=== PATIENT | female | born 2000 | race Caucasian/White ===

== ENCOUNTER 2025-02-12 11:44 | Inpatient (IN) | payer MEDICAID, SELFPAY ==
[2025-02-12 11:44] VITALS: BP 131/97; PULSE 81; RESP 16; TEMP 36.6; O2SAT 100; BMI 21.9
[2025-02-12 12:12] LABS: Hematocrit 42.1 % (37-47); Hemoglobin 14.4 g/dL (12.0-15.0); Immature Granulocytes Count 0.020 X10^3/uL (0.0-0.0); Mean Corp Hgb Conc 34.2 g/dL (32-36); Mean Corpuscular Volume 88.3 fL (81-99); Mean Platelet Vol. 9.4 fl (6.2-12.0); NRBC Flagged by Analyzer 0 % (0-5); Platelet Count 245 K/mm3 (150-450); RBC Distribution Width CV 12.4 % (11.6-14.6); RBC Distribution Width SD 40.7 fl (35.1-43.9); Red Blood Count 4.77 M/mm3 (4.2-5.4); White Blood Count 5.8 K/mm3 (4.4-11.0)
[2025-02-12 12:47] LABS: Internal QC Validated? YES +Cl - CLEAR BKGD; Pregnancy, Serum, hCG Quali. NEGATIVE Negative; Record Kit Lot#, Serum Preg. 0000980607
[2025-02-12 12:49] LABS: AST(SGOT) 15 U/L (<=31); Alanine Aminotransfer ALT/SGPT 15 U/L (<=34); Albumin, Serum 4.5 g/dL (3.5-5.0); Alkaline Phosphatase 83 U/L (35-104); Anion Gap 10 (5-15); BUN 12 mg/dL (4-19); BUN/Creat Ratio 17.9 RATIO (10-20); Calcium,Total 9.3 mg/dL (7.6-11.0); Carbon Dioxide 22.8 mmol/L (21.0-32.0); Chloride 108 mmol/L (98-108); Estimated Creatinine Clearance 92.78 ml/min (50-250); Globulin 2.7 g/dL (2.2-4.2); Glucose 96 mg/dL (70-99); Potassium 3.9 mmol/L (3.3-5.1)
[2025-02-12 12:50] LABS: Barbiturate Urine NEGATIVE (< 200 ng/mL); Benzodiazepine Urine NEGATIVE (< 200 ng/mL); PCP Urine NEGATIVE (< 25 ng/mL); THC Urine PRESUMPTIVE POSITIVE (< 50 ng/mL)
[2025-02-12 12:50] LABS: Alcohol, Blood (Medical)-Serum < 10.1 mg/dL (<=10.0)
--- NOTE | 2025-02-12 13:11 | EX.ED.DYSGE1 ---
HPI History of Present Illness Chief Complaint: Substance Abuse Narrative Narrative: Chief complaint and HPI: 24-year-old female with past medical history of fentanyl abuse presents requesting fentanyl detox. Patient states she last used yesterday. She states she mostly smokes fentanyl however has used IV in the past. Has never been through rehab. Currently endorsing chills but denies any nausea, vomiting, chest pain, shortness of breath. Review of systems: See HPI Medications: As listed on the chart Allergies: As listed on the chart PFSH: Per chart Vital signs: As listed on the chart. Reviewed. Physical exam: Gen: A&O x3, NAD Head: Normocephalic, atraumatic Eyes: No sclera icterus, conjunctiva clear, PERRL ENT: Moist mucous membranes CV: RRR, no murmurs Resp: Lungs CTA BL, no w/r/c Musc: Full ROM, no deformity Skin: Warm, dry Neuro: Alert, oriented, grossly intact, sensation intact Psych: Cooperative, appropriate mood and affect PFSH PFS Home Medications ?Medication ?Instructions ?Recorded ?Last Taken ?Type NK 02/12/25 Unknown History Allergy/AdvReac Type Severity Reaction Status Date / Time No Known Allergies Allergy Verified 02/12/25 11:46 Social History Smoking Status: Current every day smoker tobacco type: e-cigarettes EXAM Physical Exam Const Vital Signs: 02/12/25 11:44 Temperature 98 F Temperature Source Oral Pulse Rate 81 Respiratory Rate 16 Blood Pressure 131/97 H Blood Pressure Mean 108 Pulse Ox 100 Oxygen Delivery Method Room Air MDM MDM MDM Narrative Medical decision making narrative: 24-year-old female with past medical history of fentanyl abuse presents requesting fentanyl detox. Patient states she last used yesterday. She states she mostly smokes fentanyl however has used IV in the past. Has never been through rehab. Currently endorsing chills but denies any nausea, vomiting, chest pain, shortness of breath. On presentation, patient no acute distress. Per triage protocol patient had labs already drawn. They resulted by the time I saw the patient. I agree with the labs that were drawn. CBC unremarkable. CMP unremarkable. Serum negative. UA positive for fentanyl, amphetamines, marijuana. Alcohol level unremarkable. Patient will warrant admission for fentanyl detox. Hospitalist consulted. Patient was discussed with the hospitalist who accepted admission for detox. Impression: 1. Polysubstance abuse 2. Requesting detox from fentanyl Lab Data Labs: Laboratory Results - last 24 hr 02/12/25 02/12/25 12:00 12:10 WBC 5.8 RBC 4.77 Hgb 14.4 Hct 42.1 MCV 88.3 MCH 30.2 MCHC 34.2 RDW Std Deviation 40.7 RDW Coeff of Amalia 12.4 Plt Count 245 MPV 9.4 Immature Gran % (Auto) 0.300 Neut % (Auto) 66.9 Lymph % (Auto) 24.2 Allen % (Auto) 5.0 Eos % (Auto) 2.6 Baso % (Auto) 1.0 Absolute Neuts (auto) 3.9 Absolute Lymphs (auto) 1.40 Nucleated RBC % 0 Sodium 141 Potassium 3.9 Chloride 108 Carbon Dioxide 22.8 Anion Gap 10 BUN 12 Creatinine 0.66 L Estim Creat Clear Calc 92.78 Est GFR (MDRD) Non-Af 124 BUN/Creatinine Ratio 17.9 Glucose 96 Calcium 9.3 Total Bilirubin 0.15 AST 15 ALT 15 Alkaline Phosphatase 83 Total Protein 7.2 Albumin 4.5 Globulin 2.7 Albumin/Globulin Ratio 1.6 Serum , Qual NEGATIVE Urine Opiates Screen NEGATIVE U Buprenorphine Qual NEGATIVE Ur Oxycodone Screen NEGATIVE Urine Methadone Screen NEGATIVE Urine Fentanyl Screen PRESUMPTIVE POSITIVE Ur Barbiturates Screen NEGATIVE Ur Phencyclidine Scrn NEGATIVE Ur Amphetamines Screen PRESUMPTIVE POSITIVE U Benzodiazepines Scrn NEGATIVE Urine Cocaine Screen NEGATIVE U Cannabinoids Screen PRESUMPTIVE POSITIVE Ethyl Alcohol < 10.1 Discharge Plan Triage Chief Complaint: Substance Abuse ED Provider: Jerman Rodríguez Dx/Rx/DC Orders Prescriptions: No Action NK Primary Care Provider: Care Physician,No Primary Referrals: NOT,DEFINED [Non-Staff, None] Print Language: Irish
--- OUTSIDE RECORDS SUMMARY | 2025-02-12 13:16 | XMS RPT_ITS | CCD ---
Author Organization [facility] Inform ion Partnership [facility] Care Team Providers Care [employer] Name Role Phone JUAN DIEGO GRAYSON Referring Unavaila SHADE Cody Admitting Unavailable RODRIGO MADRID Consulting Unavailable NO, PHYSICIAN Primary Care Unavailable ADITI CHIU Attending Unavailable Tia, Physician Primary Care Provider Unavailabl e Unavailable Primary Care Provider Unavailabl e Kevin DE GUZMAN, Chaparrita Primary Care Provider Kevin LIUC, Chaparrita Primary Care Provider Unav ailable Kevin DE GUZMAN, Chaparrita Primary Care Provider Unav ailable Pcp, None Primary Care Provider Unavailabl e Maria Fernanda XIONG POT LINING SUPERVISOR, Khris Primary Care Provider Maria Fernanda XIONG POT LINING SUPERVISOR, Khris Primary Care Provider KHRIS IRVING Primary Care Unavailable KALEY WOLFE Admitting Unavailable KHRIS IRVING Primary Care Unavailable ZAINAB LOZANO Attending Unavailable ZAINAB LOZANO Admitting Unavailable KHRIS IRVING Attending Unavailable KHRIS IRVING Referring Unavailable KHRIS IRVING Primary Care Unavailable ALAN NOLEN Attending Unavailable ALAN NOLEN Referring Unavailable PCP, NONE Primary Care Unavailable KHRIS IRVING Primary Care Unavailable Allergies Allergy Classification Reported Allergen(s) Allergy Type Date of Onset Reaction(s) Facility (18 sources) Penicillins; Translations: [Unknown] Propensity to adverse reactions to drug (disorder) 4 [facility] Repository Medications Current Medications Medication Drug Class(es) Dates Sig (Normalized) Sig (Original) acetaminophen 500 mg / diphenhydrAMINE hydrochloride 25 mg oral tablet (1 source) Histamine-1 Receptor Antagonist take 25-500 mg by mouth once daily as needed diphenhydramine-ac etaminophen (TYLENOL PM EXTRA STRENGTH) 25-500 MG TABS Take 1 tablet by mouth nightly as needed. 0 Active amoxicillin 500 mg oral capsule (2 sources) Penicillin-class Antibacterial Start: 10-21-2024 End: 10-21-2024 1,000 mg, Oral, NOW, 1 dose, On 10/21/24 at 2145, Indications: Streptococcal Pharyngitis Start: 10-21-2024 End: 10-30-2024 take 2 capsules by mouth once daily amoxicillin 500 MG capsule Indications: Strep pharyngitis Take 2 capsules by mouth daily for 9 days. 18 capsule 10/21/2024 10/30/2024 Active buprenorphine 8 mg / naloxone 2 mg sublingual tablet (4 sources) Partial Opioid Agonist, Opioid Antagonist Start: 04-30-2024 End: 05-03-2024 buprenorphine-naloxone (SUBOXONE) 8-2 MG SUBL Indications: Opiate withdrawal (HCC) Place 2 tablets under the tongue daily for 3 days. 6 tablet 04/30/2024 05/03/2024 Active Start: 04-30-2024 End: 04-30-2024 1 tablet, Sublingual, ONCE, 1 dose, On 04/30/24 at 1345 Start: 12-19-2023 End: 12-23-2023 buprenorphine-naloxone (SUBO XONE) 8-2 MG SUBL Indications: Opiate withdrawal (HCC) Place 2 tablets under the tongue daily for 4 days. 8 tablet 12/19/2023 12/23/2023 Active Buprenorphine HC l-Naloxone HCl (SUBOXONE) 8-[address] under the tongue. Active calcium carbonate 500 mg chewable tablet (1 source) calcium carbonat e (TUMS) 500 MG chewable tablet Take 500 mg by mouth as needed for Heartburn. 0 Active ciprofloxacin 500 mg oral tablet (2 sources) Quinolone Antimicrobial Start: 10-31-19 End: 11-05-19 20 take 1 tablet by mouth every twelve hours ciprofloxacin HCl (CIPRO) 500 MG tablet Take 1 (one) tablet (500 mg total) by mouth every 12 (twelve) hours for 5 days . 10 tablet 0 10/31/2019 11/05/2019 Active Start: 10-31-2019 End: 10-31-2019 ciprofloxacin HCl (CIPRO) ta blet 500 mg doxycycline hyclate 100 mg oral capsule (2 sources) Tetracycline-class Drug Start: 10-18-2021 End: 10-25-2021 take 1 capsule by mouth twice daily doxycycline (VIBRAMYCIN) 100 MG capsule Indications: Folliculitis Take 1 capsule by mouth two times a day for 7 days. 14 capsule 0 10/18/2021 10/25/2021 Active drospirenone 4 mg oral tablet (8 sources) Progestin Start: 03-23-2023 take 1 tablet by mouth once daily Drospirenone (SLYND) 4 MG TABS Indications: Encounter for surveillance of contraceptive pills Take 1 tablet by mouth daily. 28 tablet 12 03/23/2023 Active Start: 01-13-2022 take 1 tablet by antione th once daily Drospirenone (SLYND) 4 MG TABS Indications: Encounter for initial prescription of contraceptive pills Take 1 tablet by mouth daily. 28 tablet 12 01/13/2022 Active ferrous sulfate 325 mg delayed release oral tablet (1 source) Start: 12-11-2013 take 1 tablet by mouth three times daily at mealtime ferrous sulfate 325 (65 FE) MG EC tablet Take 1 tablet by mouth 3 times daily (with meals). 100 tablet 4 12/11/2013 Active glecaprevir 100 mg / pibrentasvir 40 mg oral tablet (5 sources) Start: 12-24-2021 take 3 tablets by mouth every twenty-four hours Glecaprevir-Pibren tasvir 100-40 MG TABS Indications: Hep C w/o coma, chronic (HCC) Take 3 tablets by mouth every 24 hours. 84 tablet 1 12/24/2021 Active 24 hr loratadine 10 mg / pseudoephedrine sulfate 240 mg extended release oral tablet (5 sources) alpha-Adrenergic Agonist take 10-240 mg by mouth once loratadine-pseudoe phedrine ER (CLARITIN-D 24 HOUR) 10-240 MG per tablet Take 1 tablet by mouth daily. 0 Active metroNIDAZOLE 500 mg oral tablet (1 source) Nitroimidazole Antimicrobial Start: 05-23-2024 take 1 tablet by mouth twice daily metroNIDAZOLE (FLAGYL) 500 MG tablet Indications: Trichomonas vaginitis Take 1 tablet by mouth two times a day. 14 tablet 05/23/2024 Active naloxone hydrochloride 40 mg/ml nasal spray (2 sources) Opioid Antagonist Start: 04-30-2024 Naloxone HCl (NARCAN) 4 MG/0.1ML LIQD nasal solution Use 1 spray into nostril as needed for opioid overdose may repeat 2 to 3 minutes if needed. 2 each 04/30/2024 Active Start: 12-19-2023 End: 12-19-2023 1 Box, Intranasal, PRIOR TO DISCHARGE, 1 dose, On 12/19/23 at 1818, Take home pack. Use as directed. Do NOT prime or test the device prior to administration. Each device contains a single dose. Do NOT attempt to reuse the naloxone nasal spray device. Vit-Fe Fumarate-FA ( MULTIVITAMIN) 27-0.8 MG TABS tablet (1 source) take 1 tablet by mouth once daily Vit-Fe Fumarate-FA ( MULTIVITAMIN) 27-0.8 MG TABS tablet Take 1 tablet by mouth daily. 0 Active sulfamethoxazole 800 mg / trimethoprim 160 mg oral tablet (3 sources) Dihydrofolate Reductase Inhibitor Antibacterial, Sulfonamide Antimicrobial Start: 022 take 1 tablet by mouth twice daily sulfamethoxazole-tri methoprim (BACTRIM DS) 800-160 MG per tablet Indications: Folliculitis Take 1 tablet by mouth two times a day. 10 tablet 0 11/15/2021 Active Completed/Discontinued Medications Medication Drug Class(es) Dates Sig (Normalized) Sig (Original) acetaminophen 325 mg oral tablet (1 source) Start: 10-28-2019 End: 10-31-2019 take 1 tablet by mouth every four hours as needed 650 mg, Oral, Every 4 hours PRN, mild pain, fever 100.4 F or greater, headaches, Starting 10/28/19 at 0448 aluminum hydroxide 40 mg/ml / magnesium hydroxide 40 mg/ml / simethicone 4 mg/ml oral suspension (1 source) Start: 10-28-2019 End: 10-31-2019 take 30 mL by mouth every four hours as needed 30 mL, Oral, Every 4 hours PRN, indigestion, Starting Thu10/28/19 at 0448 bisacodyl 10 mg rectal suppository (1 source) Stimulant Laxative Start: 10-28-2019 End: 10-31-2019 take 10 mg rectal route once daily as needed for constipation 10 mg, Rectal, Daily PRN, constipation, Starting Thu10/28/19 at 0448 Try oral medications first for constipation. Try rectal medication if oral meds are ineffective, not tolerated, or not ordered. buprenorphine 2 mg sublingual tablet (1 source) Partial Opioid Agonist Start: 12-19-2023 End: 12-19-2023 8 mg, Sublingual, NOW, 1 dose, On 12/19/23 at 1818, Caution: Do not crush or chew. cefTRIAXone 1000 mg injection (1 source) Cephalosporin Antibacterial Start: 10-30-2019 End: 10-31-2019 cefTRIAXone (ROCEPHIN) IVPB 1 g (premix) 1 ml ketorolac tromethamine 30 mg/ml injection (1 source) Nonsteroidal Anti-inflammatory Drug, Cyclooxygenase Inhibitor Start: 10-28-2019 End: 10-30-2019 take 15 mg intravenous route every six hours as needed ketorolac (TORADOL) injection 15 mg magnesium hydroxide 80 mg/ml oral suspension (1 source) Start: 10-28-2019 End: 10-31-2019 take 2400 mg by mouth once daily as needed for constipation 2,400 mg (30 mL), Oral, Daily PRN, constipation, For constipation., Starting Thu10/28/19 at 0448 ondansetron 4 mg disintegrating oral tablet (1 source) Serotonin-3 Receptor Antagonist Start: 04-30-2024 End: 04-30-2024 4 mg, Oral, NOW, 1 dose, On 04/30/24 at 1400 ondansetron (ZOFRAN-ODT) disintegrating tablet 4 mg (1 source) Start: 10-28-2019 End: 10-31-2019 take 1 tablet by mouth every six hours as needed ondansetron (ZOFRAN-ODT) disintegrating tablet 4 mg piperacillin 3000 mg / tazobactam 375 mg injection (2 sources) Penicillin-class Antibacterial, beta Lactamase Inhibitor Start: 10-28-2019 End: 10-30-2019 take 3.375 g intravenous route every eight hours Start: 10-28-2019 End: 10-28-2019 1000 ml sodium chloride 9 mg /ml injection (2 sources) Start: 10-29-2019 End: 10-29-2019 sodium chloride 0.9 % (NS) infusion - ADS Override Pull Start: 10-28-2019 End: 10-31-2019 take 100 mL intravenous route every hour 100 mL/hr, Intravenous, Continuous, Starting Thu10/28/19 at 0545 traZODone hydrochloride 50 mg oral tablet (1 source) Serotonin Reuptake Inhibitor Start: 10-28-2019 End: 10-31-2019 take 50 mg by mouth once daily as needed for sleep 50 mg, Oral, Nightly PRN, sleep, Starting Thu10/28/19 at 0448 [] May repeat times 1 in 30 minutes if still awake. 200 ml vancomycin 5 mg/ml injection (1 source) Glycopeptide Antibacterial Start: 10-28-2019 End: 10-30-2019 take 1000 mg intravenous route every twelve hours vancomycin (VANCOCIN) IVPB 1000 mg (premix) Problems Active Problems Problem Classification Problem Date Documented Date Episodic/Chronic Diseases of white blood cells (1 source) Leukocytosis; Translations: [Elevated white blood cell count, unspecified] Chronic Hepatitis (20 sources) Chronic hepatitis C; Translations: [Chronic viral hepatitis C] Onset: 11-06-2021 Chronic Immunizations and screening for infectious disease (7 sources) Contact with or exposure to other viral diseases; Translations: [Lab test negative for COVID-19 virus] Onset: 05-16-2024 Episodic Other upper respiratory infections (2 sources) Streptococcal sore throat; Translations: [Streptococcal pharyngitis] Onset: 10-21-2024 10-21-2024 Episodic Substance-related disorders (10 sources) History of clinical finding in subject; Translations: [History of methamphetamine use] Onset: 10-18-2021 10-18-2021 Chronic Substance-related disorders (2 sources) Opioid withdrawal; Translations: [Opioid use, unspecified with withdrawal] 12-19-2023 Episodic Past or Other Problems Problem Classification Problem Date Documented Date Episodic/Chronic Allergic reactions (16 sources) Environmental allergy; Translations: [Other allergy status, other than to drugs and biological substances] Onset: 10-18-2021 10-18-2021 Episodic Cancer of cervix (5 sources) Atypical squamous cells of undetermined significance on cervical Papanicolaou smear; Translations: [Atypical squamous cells of undetermined significance on cytologic smear of cervix (ASC-US)] Onset: 03-19-2022 03-19-2022 Episodic Early or threatened labor (17 sources) Premature labor; Translations: [ labor without delivery, unspecified trimester] Onset: 12-09-2013 12-09-2013 Episodic Genitourinary symptoms and ill-defined conditions (1 source) Unspecified symptoms and signs involving the genitourinary system; Translations: [Unspecified symptoms and signs involving the genitourinary system] Onset: 05-16-2024 Episodic Mood disorders (1 source) Mood disorders Onset: 03-23-2023 03-23-2023 Nausea and vomiting (1 source) Nausea; Translations: [Nausea] Onset: 04-30-2024 Episodic Nonmalignant breast conditions (6 sources) Breast lump; Translations: [Unspecified lump in the left breast, lower outer quadrant] Onset: 04-06-2023 Episodic Other screening for suspected conditions (not mental disorders or infectious disease) (2 sources) Patient encounter status; Translations: [Encounter for screening for cardiovascular disorders] Onset: 05-16-2024 Episodic Residual codes; unclassified (10 sources) History of clinical finding in subject; Translations: [Personal history of other specified conditions] Onset: 10-18-2021 Episodic Residual codes; unclassified (4 sources) Nicotine-filled electronic cigarette user; Translations: [Tobacco use] Onset: 03-19-2022 03-19-2022 Episodic Residual codes; unclassified (1 source) High risk heterosexual behavior; Translations: [High risk heterosexual behavior] Onset: 05-16-2024 Episodic Sexually transmitted infections (not HIV or hepatitis) (1 source) Cervical high risk human papillomavirus (HPV) DNA test positive; Translations: [Cervical high risk human papillomavirus (HPV) DNA test positive] Onset: 03-19-2022 Episodic Unclassified (1 source) Onset: 09-06-2022 09-06-2022 Urinary tract infections (2 sources) Pyelonephritis; Translations: [Pyelonephritis] Onset: 10-28-2019 10-28-2019 Episodic Results Test Name Value Interpretation Reference Range Facility GC AND CHLAMYDIA AMPLIFIED P ROBEon 10-21-2024 GC AND CHLAMYDIA AMPLIFIED PROBE GC AMPLIFIED NM Negative Negative CHLAMYDIA, DNA PROBE Negative Negative Normal Negative [facility] [place] [place] Comment on above: Performed By: #### 3 [id number] #### [facility] [address] Influenza virus A and B RNA and SARS-CoV-2 (COVID-19) N gene panel LILLIAN+probe (Resp)on 10-21-2024 FLUAV RNA LILLIAN+probe Ql (Nph) Negative Negative [facility] [place] [place] FLUBV RNA LILLIAN+probe Ql (Nph) Negative Negative [facility] [place] [place] Interpretation and review of laboratory results Normal [facility] [place] [place] SARS-CoV-2 (COVID-19) RNA LILLIAN+probe Ql (Resp) Negative Negative [facility] [place] [place] Comment on above: Negative results do not preclude SARS-CoV-2 infection and should not be used as the sole basis for treatment or other patient management decisions. Negative results must be combined with clinical observations, patient history, and epidemiological information. Results are for the simultaneous detection and differentiation of SARS-CoV-2, influenza A virus, influenza B virus and RSV RNA which are generally detectable in upper respiratory specimens during the acute phase of infection. [facility] [place] [place] POCT ED/FC/SURG Urine PregOr dered By: Krystal Graham on 10-21-2024 Beta HCG ( test) Ql (U) Negative [facility] [place] [place] Interpretation and review of laboratory results Normal [facility] [place] [place] Facility Worker Acceptable Yes [facility] STREP Aon 10-21-2024 STREP A Not detected Abnormal Not Detected [facility] [place] [place] Comment on above: Performed By: #### 3 [id number] #### [facility] [id number] [place] [address] Streptococcus.beta-hemolytic Org specific cx Ql (Unsp spec)Ordered By: Background Lab on 10-21-2024 Interpretation and review of laboratory results Abnormal [facility] [place] [place] S. pyogenes DNA LILLIAN+probe Ql (Throat) Detected Abnormal Not Detected [facility] TRICHOMONAS AMPLIFIED PROBEo n 10-21-2024 TRICHOMONAS AMPLIFIED PROBE Negative Normal Negative [facility] [place] [place] Comment on above: Performed By: #### 3 [id number] #### [facility] [address] [place] [address] [place] WAIVED SARS COV-2, FLU A, FL U B (PCR) PANELon 10-21-2024 SARS-CoV-2 (COVID-19) RNA LILLIAN+probe Ql (Unsp spec) SARS-COV-2, PCR Negative Negative Negative results do not preclude SARS-CoV-2 infection and should not be used as the sole basis for treatment or other patient management decisions. Negative results must be combined with clinical observations, patient history, and epidemiological information. Results are for the simultaneous detection and differentiation of SARS-CoV-2, influenza A virus, influenza B virus and RSV RNA which are generally detectable in upper respiratory specimens during the acute phase of infection. FLU A, PCR Negative Negative FLU B, PCR Negative Negative Normal Negative [email or web address] Comment on above: Performed By: #### L [id number] #### [facility] [address] [place] [address] IMAGE GUIDED PAP WITH GC AND CHLAMYDIA, TRICHOMONAS, AND HPVon 05-16-2024 IMAGE GUIDED PAP WITH GC AND CHLAMYDIA, TRICHOMONAS, AND HPV Comment NEGATIVE FOR INTRAEPITHELIAL LESION OR MALIGNANCY. THIS SPECIMEN WAS RESCREENED PART OF OUR LITIGATION LEGAL ASSISTANT PROGRAM. Comment Satisfactory for evaluation. Endocervical and/or squamous metaplastic cells (endocervical component) are present. Areas of partially obscuring blood are present. Comment Piper Pyle, Painter And Body Work (ASCP) Comment Tigre Flores Pain[employer] Body Work (ASCP) . Comment The Pap smear is a screening test designed to aid in the detection of premalignant and malignant conditions of the uterine cervix. It is not a diagnostic procedure and should not be used as the sole means of detecting cervical cancer. Both false-positive and false-negative reports do occur. Comment This liquid based ThinPrep(R) pap test was screened with the use of an image guided system. Negative This nucleic acid amplification test detects fourteen high-risk HPV types (16,18,31,33,35,39,4 5,51,52,56,58,59,66, 68) without differentiation. Negative Negative Positive Abnormal Negative [email or web address] Comment on above: Order Comment: Speci men Comment: LMP / Prev Treat...ENT=[id number];None Specimen Comment: No. of containers..01 ThinPrep Vial Performed at: - [facility] [id number] Plier Worker: Meredith Godoy MD, Phone: [phone] Performed at: 02 - [facility] [address] [id number] Plier Worker: Meredith Godoy MD, Phone: [phone] Performed By: #### L [id number] #### [facility] [address] [place] [address] URINE CULTUREon 05-16-2024 Bacteria identified Cx Nom (U) URINE CULTURE, ROUTINE No growth at 2 days Normal [facility] Comment on above: Performed By: #### [id number] #### [facility] [address] US Breast - left limitedOrde red By: Gorge Rome on 03-26-2023 Interpretation and review of laboratory results Abnormal [email or web address] Work Phone: [facility] Work Phone: US Breast - left limitedon 1 05-26-2022 1. Enlarging nodule in the left breast 5-o'clock position 5 cm from the nipple has features suggesting a polylobulated fibroadenoma, but with increase in size and clinical progression would recommend biopsy, BI-RADS 4A. 2. A second nodule not previously scanned at the 5-o'clock position 5 cm from the nipple, slightly more peripheral to the dominant nodule also has features suggesting a fibroadenoma and this can be followed. This is not clinically palpable. BIRADS: 4A - Low suspicion for malignancy. Findings demonstrate a suspicious abnormality. Biopsy should be considered at this time. ACR BI-RADS 4: Suspicious. Subset Category 4A: Low suspicion for malignancy. Biopsy AGNES EXAM: US BREAST LEFT LIMITED. HISTORY: Unspecified lump in the left breast, lower outer quadrant. Mastodynia. COMPARISON: 01/30/2022. FINDINGS: Patient indicates increasing size of a palpable abnormality in the 5-o'clock left breast 5 cm from the nipple. On physical examination, there is a polylobulated smooth rubbery and mobile nodule in the 5-o'clock position of the left breast 5 cm from nipple measuring up to 1.5 cm in diameter by palpation. The ultrasound shows a polylobulated wider than tall solid mass which now measures 2.8 x 2.4 x 1.1 cm, as compared to 2.2 x 2.0 x 0.8 cm previously. A second noncontiguous nodule is seen more peripherally in the 5-o'clock left breast measuring 1.2 x 0.9 x 0.3 cm, also suggestive of fibroadenoma but not previously scanned. This is not clinically palpable. [facility] Study observation (narrative) [facility] HCV Quant by Vasile 03-19-20 22 HCV RNA LILLIAN+probe Qn Not detected IU/mL Control de Pacientes HCV Test Info Comment [facility] Comment on above: The quantitative ran ge of this assay is 15 IU/mL to 100 million IU/mL. Performed at: - [address] [id number] Plier Worker: Fili Koo MD, Phone: [phone] [facility] CBC with differentialOrdered By: Background Lab on 03-18-2022 Absolute Immature Granulocytes 0.[address] [facility] [place] [place] Age [Time] 89.9 fL 80.2 - [address] [facility] [place] [place] Age [Time] 30.9 pg 27.5 - 32.[address] [facility] [place] [place] Age [Time] 34.4 g/dL 30.7 - 35.5 g/dL [facility] [place] [place] B. burgdorferi IgM IB Ql (CSF) 21.2 % [facility] Basophils (Bld) [#/Vol] 0.1 10*3/uL [facility] Basophils/100 WBC (Body fld) 0.7 % [facility] Eosinophils (Bld) [#/Vol] 1.6 10*3/uL [facility] Eosinophils (Bld) [#/Vol] 0.5 10*3/uL [facility] Eosinophils (Bld) [#/Vol] 0.1 10*3/uL [facility] Eosinophils/100 WBC (Bld) 1.7 % [facility] Erythrocyte distribution width (RBC) [Ratio] 12.6 % 11.5 - 14.5 % [facility] Hematocrit (Bld) [Volume fraction] 41.0 % 33.6 - 46.8 % [facility] Hexanoylglycine (U) [Moles/Vol] 14.1 g/dL 11.7 - 15.8 g/dL [facility] [place] [place] Immature granulocytes/100 WBC (Bld) 0.3 % [facility] Monocytes/100 WBC (Bld) 6.9 % [facility] Neurotensin (P) [Mass/Vol] 69.2 % [facility] [place] [place] Neutrophils (Bld) [#/Vol] 5.3 10*3/uL [facility] Nucleated RBC/100 WBC (Bld) [Ratio] 0.0 % 0.0 - 1.0 % [facility] [place] [place] Platelets (Bld) [#/Vol] 246 10*3/uL [facility] RBC (Bld) [#/Vol] 4.56 10*6/uL [facility] WBC LM Ql (Sput) 7.7 [facility] Comprehensive metabolic 2000 panelon 03-18-2022 Albumin (Syn fld) [Mass/Vol] 4.5 g/dL 3.5 - 5.0 g/dL [facility] [place] [place] Aldosterone (U) [Mass/Vol] 59 U/L 24 - 126 U/L [facility] [place] [place] ALT [Catalytic activity/Vol] 16 U/L 4 - 35 U/L [facility] [place] [place] Anion gap [Moles/Vol] 9 mmol/L 8 - 12 mmol/L [facility] [place] [place] AST [Catalytic activity/Vol] 21.9 U/L 3 - 47 U/L [facility] [place] [place] Bilirubin [Mass/Vol] 0.6 mg/dL 0.2 - 1 .6 mg/dL [facility] [place] [place] Calcium [Mass/Vol] 9.1 mg/dL 8.4 - 10. 4 mg/dL [facility] [place] [place] Calcium hydrogen phosphate dihydrate crystals LM Ql (Urine sed) 15.2 mg/dL 8 - 26 mg/dL [facility] [place] [place] Chloride [Moles/Vol] 106 mmol/L 96 - 10 9 mmol/L [facility] [place] [place] CMV IgM IF Ql 22.2 mmol/L 22 - 30 mmol/L [facility] Creatinine [Mass/Vol] 0.65 mg/dL 0.52 - 1.04 mg/dL [facility] [place] [place] GFR/1.73 sq M.predicted MDRD (S/P/Bld) [Vol rate/Area] - PINF [facility] [place] [place] Comment on above: eGFR calculation bas ed on the Chronic Kidney Disease Epidemiology Collaboration (CKD-EPI) equation refit without adjustment for race. Categories in Chronic Kidney Disease (CKD) Category: GFR(mL/min/1.73m^2) Interpretation: G1* 90 or greater Normal or high G2* 60-89 Mild decrease G3a 45-59 Mild to moderate decrease G3b 30-44 Moderate to severe decrease G4 15-29 Severe decrease G5 14 or less Kidney failure *G1&G2: In the absence of evidence of kidney damage, neither GFR category G1 nor G2 fulfill the criteria for CKD Kidney Int Suppl.2013;3:1-150 Glucose [Mass/Vol] 123.9 mg/dL High 65 - 100 mg/dL G [facility] Interpretation and review of laboratory results Abnormal [facility] [place] [place] Potassium [Moles/Vol] 3.8 mmol/L 3.6 - 5.1 mmol/L [facility] [place] [place] Protein [Mass/Vol] 7.1 g/dL 6.3 - 8.2 g/dL [facility] Sodium [Moles/Vol] 137.1 mmol/L 135 - 147 mmol/L [facility] HCV Quant by Vasile 02-14-20 HCV RNA LILLIAN+probe Qn Not detected IU/mL [facility] HCV Test Info Comment [facility] [place] [place] Comment on above: The quantitative ran ge of this assay is 15 IU/mL to 100 million IU/mL. Performed at: - [address] [id number] Plier Worker: Fili Koo MD, Phone: [phone] [facility] CBC with differentialOrdered By: Background Lab on 02-11-2022 Absolute Immature Granulocytes 0.[address] [facility] [place] [place] Age [Time] 90.2 fL 80.2 - [address] [facility] [place] [place] Age [Time] 31.5 pg 27.5 - 32.[address] [facility] [place] [place] Age [Time] 35.0 g/dL 30.7 - 35.5 g/dL [facility] [place] [place] B. burgdorferi IgM IB Ql (CSF) 12.7 % [facility] [place] [place] Basophils (Bld) [#/Vol] 0.0 10*3/uL [facility] [place] [place] Basophils/100 WBC (Body fld) 0.3 % [facility] [place] [place] Eosinophils (Bld) [#/Vol] 1.5 10*3/uL [facility] [place] [place] Eosinophils (Bld) [#/Vol] 1.0 10*3/uL High [facility] [place] [place] Eosinophils (Bld) [#/Vol] 0.1 10*3/uL [facility] [place] [place] Eosinophils/100 WBC (Bld) 1.2 % [facility] [place] [place] Erythrocyte distribution width (RBC) [Ratio] 11.8 % 11.5 - 14.5 % [facility] [place] [place] Hematocrit (Bld) [Volume fraction] 43.2 % 33.6 - 46.8 % [facility] [place] [place] Hexanoylglycine (U) [Moles/Vol] 15.1 g/dL 11.7 - 15.8 g/dL [facility] [place] [place] Immature granulocytes/100 WBC (Bld) 0.4 % [facility] [place] [place] Interpretation and review of laboratory results Abnormal [facility] [place] [place] Monocytes/100 WBC (Bld) 7.9 % G [facility] Neurotensin (P) [Mass/Vol] 77.5 % [facility] [place] [place] Neutrophils (Bld) [#/Vol] 9.3 10*3/uL [facility] Nucleated RBC/100 WBC (Bld) [Ratio] 0.0 % 0.0 - 1.0 % [facility] [place] [place] Platelets (Bld) [#/Vol] 243 10*3/uL [facility] [place] [place] RBC (Bld) [#/Vol] 4.79 10*6/uL [facility] WBC LM Ql (Sput) 12.0 [facility] Comprehensive metabolic 2000 panelon 02-11-2022 Albumin (Syn fld) [Mass/Vol] 4.9 g/dL 3.5 - 5.0 g/dL [facility] [place] [place] Aldosterone (U) [Mass/Vol] 112 U/L 24 - 126 U/L [facility] [place] [place] ALT [Catalytic activity/Vol] 16 U/L 4 - 35 U/L [facility] [place] [place] Anion gap [Moles/Vol] 14 mmol/L High 8 - 12 mmol/L [facility] [place] [place] AST [Catalytic activity/Vol] 21.7 U/L 3 - 47 U/L [facility] [place] [place] Bilirubin [Mass/Vol] 0.6 mg/dL 0.2 - 1 .6 mg/dL [facility] [place] [place] Calcium [Mass/Vol] 9.6 mg/dL 8.4 - 10. 4 mg/dL [facility] [place] [place] Calcium hydrogen phosphate dihydrate crystals LM Ql (Urine sed) 11.7 mg/dL 8 - 26 mg/dL [facility] [place] [place] Chloride [Moles/Vol] 103 mmol/L 96 - 10 9 mmol/L [facility] [place] [place] CMV IgM IF Ql 23.4 mmol/L 22 - 30 mmol/L [facility] Creatinine [Mass/Vol] 0.67 mg/dL 0.52 - 1.04 mg/dL [facility] [place] [place] GFR/1.73 sq M.predicted MDRD (S/P/Bld) [Vol rate/Area] - PINF [facility] [place] [place] Comment on above: eGFR calculation bas ed on the Chronic Kidney Disease Epidemiology Collaboration (CKD-EPI) equation refit without adjustment for race. Categories in Chronic Kidney Disease (CKD) Category: GFR(mL/min/1.73m^2) Interpretation: G1* 90 or greater Normal or high G2* 60-89 Mild decrease G3a 45-59 Mild to moderate decrease G3b 30-44 Moderate to severe decrease G4 15-29 Severe decrease G5 14 or less Kidney failure *G1&G2: In the absence of evidence of kidney damage, neither GFR category G1 nor G2 fulfill the criteria for CKD Kidney Int Suppl.2013;3:1-150 Glucose [Mass/Vol] 77.0 mg/dL 65 - 100 mg/dL [facility] Interpretation and review of laboratory results Abnormal [facility] Potassium [Moles/Vol] 4.0 mmol/L 3.6 - 5.1 mmol/L [facility] Protein [Mass/Vol] 8.1 g/dL 6.3 - 8.2 g/dL [facility] Sodium [Moles/Vol] 139.9 mmol/L 135 - 147 mmol/L [facility] US Breast - left limitedOrde red By: Chapincito Soto on 01-30-2022 Interpretation and review of laboratory results Abnormal [employer] Work Phone: [employer] Work Phone: US Breast - left limitedon 1 Palpable lump correlates with a solid mass with generally benign imaging features suggestive of a fibroadenoma. As a precaution, 6 month follow-up is recommended to ensure stability. Continued clinical follow-up. BI-RADS 3 - Findings are probably benign. A short interval followup is recommended in 6 months. OVERALL ASSESSMENT- PROBABLY BENIGN A letter of notification will be sent to the patient regarding the results. ACR BI-RADS 3: Probably Benign Ultrasound in 6 Months [facility] EXAM: US BREAST LEFT LIMITED HISTORY: Unspecified lump in the left breast, lower outer quadrant: Palpable lump lower outer left breast. Family history of breast cancer including a paternal grandmother. COMPARISON: None. TECHNIQUE: Targeted ultrasound left breast included sanchez scale and color Doppler evaluation. FINDINGS: At 5 o'clock, 5 cm from the nipple is an ovoid hypoechoic lesion with smooth margins. This measures 2.2 x 2.0 x 0.8 cm. Minimal intralesional flow peripherally. Subtle posterior acoustic enhancement is seen. AGNES Radiology Study observation (narrative) [facility] Hepatitis B surface antigeno n 01-13-2022 Hep B Surf AG Non-Reactive Nonreactive [facility] [place] [place] [facility] HCV Quant by Vasile 12-29-19 HCV Quant by NAAT (IU/ML) 1,748,830 IU/mL [facility] [place] [place] HCV Quant by NAAT (Log IU/ML) 6.24 log IU/mL [facility] [place] [place] HCV Quant by NAAT Interp Detected Abnormal Not Detected [facility] [place] [place] Comment on above: INTERPRETIVE INFORMA TION: HCV by Quantitative NAAT Normal range for this assay is Not Detected. The quantitative range of this assay is 10 - 100,000,000 IU/mL (1.0 - 8.0 log IU/mL). Lower limit of quantitation (LLoQ): 10 IU/mL (1.0 log IU/mL) LLoQ values do not apply to diluted specimens. A result of Not Detected does not rule out the presence of inhibitors in the patient specimen or hepatitis C virus RNA concentrations below the level of detection of the test. Care should be taken when interpreting any single viral load determination. This test should not be used for blood donor screening, associated re-entry protocols, or for screening Human Cell, Tissues and Cellular Tissue-Based Products (HCT/P). Performed by [facility], [address] [place] [id number] [email or web address], Librado Braden MD, PHD - Lab. Director Interpretation and review of laboratory results Abnormal [facility] Beta HCG ( test) Ql on 12-24-2021 HCG [Moles/Vol] Negative [facility] CBC with differentialon 11-27 Absolute Immature Granulocytes 0.0 0 10 3/uL [facility] [place] [place] Absolute Lymph 2.[address] [facility] [place] Absolute Liberty 0.[address] [facility] [place] Basophils (Bld) [#/Vol] 0.1 10*3/uL [facility] [place] Basophils/100 WBC (Bld) 0.7 % G [facility] Eosinophils (Bld) [#/Vol] 0.1 10*3/uL [facility] [place] Eosinophils/100 WBC (Bld) 1.6 % [facility] [place] Erythrocyte distribution width (RBC) [Ratio] 12.6 % 11.5 - 14.5 % [facility] [place] [place] Hematocrit (Bld) [Volume fraction] 45.5 % 33.6 - 46.8 % [facility] [place] [place] Hemoglobin (Bld) [Mass/Vol] 15.5 g/dL 11.7 - 15.8 g/dL [facility] [place] [place] Immature granulocytes/100 WBC (Bld) 0.3 % [facility] [place] [place] Lymphocytes/100 WBC (Bld) 30.0 % [facility] [place] [place] MCH (RBC) [Entitic mass] 31.6 pg 27.5 - 32.[address] [facility] [place] MCHC (RBC) [Mass/Vol] 34.1 g/dL 30.7 - 35.5 g/dl [facility] [place] [place] MCV (RBC) [Entitic vol] 92.9 fL 80.2 - 99.[address] [facility] [place] [place] Monocytes/100 WBC (Bld) 7.8 % [facility] Neutrophils (Bld) [#/Vol] 4.1 10*3/uL [facility] [place] [place] Neutrophils/100 WBC (Bld) 59.6 % [facility] [place] [place] Platelets (Bld) [#/Vol] 237.0 10*3/uL [facility] [place] [place] RBC (Bld) [#/Vol] 4.90 10*6/uL [facility] WBC LM Ql (Sput) 6.9 [facility] Comprehensive metabolic pane torsten 12-24-2021 Albumin [Mass/Vol] 4.6 g/dL 3.5 - 5.0 g/dL [facility] Alk Phos 81 U/L 24 - 126 U/L [facility] [place] [place] ALT [Catalytic activity/Vol] 91 U/L High 4 - 35 U/L [facility] [place] [place] AST [Catalytic activity/Vol] 49 U/L High 3 - 47 U/L [facility] [place] [place] Bilirubin [Mass/Vol] 0.5 mg/dL 0.2 - 1 .6 mg/dL [facility] [place] [place] Calcium [Mass/Vol] 9.2 mg/dL 8.4 - 10. 4 mg/dL [facility] [place] [place] Chloride [Moles/Vol] 107 mmol/L 96 - 10 9 mmol/L [facility] [place] [place] CO2 [Moles/Vol] 24 mmol/L 22 - 30 mmol/L [facility] Creatinine [Mass/Vol] 0.63 mg/dL 0.52 - 1.04 mg/dL [facility] [place] [place] Glucose [Mass/Vol] 81 mg/dL 65 - 100 mg/dL [facility] Interpretation and review of laboratory results Abnormal [facility] [place] [place] Potassium [Moles/Vol] 4.0 mmol/L 3.6 - 5.1 mmol/L [facility] [place] [place] Protein [Mass/Vol] 7.5 g/dL 6.3 - 8.2 g/dL [facility] Sodium [Moles/Vol] 140 mmol/L 135 - 147 mmol/L [facility] [place] [place] Urea nitrogen [Mass/Vol] 10 mg/dL 8 - 20 mg/dL [facility] [place] GLOMERULAR FILTRATION RATEon 12-24-2021 GFR >[address] [facility] [place] [place] Comment on above: To estimate the GFR for Americans, multiply the result provided by 1.21. Population mean GFR = 116 ml/min/1.73 sq.m. for ages 18-29 yrs. The MDRD is validated in individuals 18-70 years of age. It is less accurate in patients with extremes of muscle mass, restriction of dietary protein, ingestion of creatine, extra-renal metabolism of creatinine, or treatment with medications that affect renal tubular creatinine secretion. GFR Categories in Chronic Kidney Disease (CKD) Category: GFR(mL/min/1.73m^2) Interpretation: G1* 90 or greater Normal or high G2* 60-89 Mild decrease G3a 45-59 Mild to moderate decrease G3b 30-44 Moderate to severe decrease G4 15-29 Severe decrease G5 14 or less Kidney failure *G1&G2: In the absence of evidence of kidney damage, neither GFR category G1 nor G2 fulfill the criteria for CKD Kidney Int Suppl.2013;3:1-150 No Panel Informationon 12-24 [facility] [employer] [facility] nRBC 0 0 - [address] [facility] [place] [place] CBC with differentialon Absolute Immature Granulocytes 0.0 0 10 3/uL [employer] [facility] Absolute Lymph 1.[address] [facility] [place] [place] Absolute Liberty 0.[address] [facility] [place] Basophils (Bld) [#/Vol] 0.0 10*3/uL [facility] [place] [place] Basophils/100 WBC (Bld) 0.5 % G [facility] Eosinophils (Bld) [#/Vol] 0.1 10*3/uL [facility] [place] [place] Eosinophils/100 WBC (Bld) 1.1 % [facility] [place] [place] Erythrocyte distribution width (RBC) [Ratio] 12.4 % 11.5 - 14.5 % [facility] [place] [place] Hematocrit (Bld) [Volume fraction] 45.2 % 33.6 - 46.8 % [facility] [place] [place] Hemoglobin (Bld) [Mass/Vol] 15.5 g/dL 11.7 - 15.8 g/dL [facility] [place] [place] Immature granulocytes/100 WBC (Bld) 0.4 % [facility] [place] [place] Lymphocytes/100 WBC (Bld) 21.7 % [facility] [place] [place] MCH (RBC) [Entitic mass] 31.6 pg 27.5 - 32.[address] [facility] [place] MCHC (RBC) [Mass/Vol] 34.3 g/dL 30.7 - 35.5 g/dl [facility] [place] [place] MCV (RBC) [Entitic vol] 92.1 fL 80.2 - [address] [facility] [place] [place] Monocytes/100 WBC (Bld) 8.3 % G [facility] Neutrophils (Bld) [#/Vol] 5.2 10*3/uL [facility] [place] [place] Neutrophils/100 WBC (Bld) 68.0 % [facility] [place] [place] Platelets (Bld) [#/Vol] 277.0 10*3/uL [facility] [place] [place] RBC (Bld) [#/Vol] 4.91 10*6/uL [facility] WBC LM Ql (Sput) 7.6 [facility] Comprehensive metabolic pane torsten 11-28-2021 Albumin [Mass/Vol] 5.3 g/dL High 3.5 - 5 g/dL [facility] Alk Phos 86 U/L 24 - 126 U/L [facility] [place] [place] ALT [Catalytic activity/Vol] 76 U/L High 4 - 35 U/L [facility] [place] [place] AST [Catalytic activity/Vol] 57 U/L High 3 - 47 U/L [facility] [place] [place] Bilirubin [Mass/Vol] 1.0 mg/dL 0.2 - 1 .6 mg/dL [facility] [place] [place] Calcium [Mass/Vol] 9.8 mg/dL 8.4 - 10. 4 mg/dL [facility] [place] [place] Chloride [Moles/Vol] 105 mmol/L 96 - 10 9 mmol/L [facility] [place] [place] CO2 [Moles/Vol] 23 mmol/L 22 - 30 mmol/L [facility] Creatinine [Mass/Vol] 0.61 mg/dL 0.52 - 1.04 mg/dL [facility] [place] [place] Glucose [Mass/Vol] 78 mg/dL 65 - 100 mg/dL [facility] Interpretation and review of laboratory results Abnormal [facility] Potassium [Moles/Vol] 4.7 mmol/L 3.6 - 5.1 mmol/L [employer] Protein [Mass/Vol] 8.6 g/dL High 6.3 - 8.2 g/dL [facility] Sodium [Moles/Vol] 140 mmol/L 135 - 147 mmol/L [employer] Urea nitrogen [Mass/Vol] 11 mg/dL 8 - 20 mg/dL [facility] [employer] GLOMERULAR FILTRATION RATEon 11-28-2021 GFR >60 [facility] [employer] Comment on above: To estimate the GFR for Americans, multiply the result provided by 1.21. Population mean GFR = 116 ml/min/1.73 sq.m. for ages 18-29 yrs. The MDRD is validated in individuals 18-70 years of age. It is less accurate in patients with extremes of muscle mass, restriction of dietary protein, ingestion of creatine, extra-renal metabolism of creatinine, or treatment with medications that affect renal tubular creatinine secretion. GFR Categories in Chronic Kidney Disease (CKD) Category: GFR(mL/min/1.73m^2) Interpretation: G1* 90 or greater Normal or high G2* 60-89 Mild decrease G3a 45-59 Mild to moderate decrease G3b 30-44 Moderate to severe decrease G4 15-29 Severe decrease G5 14 or less Kidney failure *G1&G2: In the absence of evidence of kidney damage, neither GFR category G1 nor G2 fulfill the criteria for CKD Kidney Int Suppl.2013;3:1-150 HIV-1 and HIV-2 antibodieson 11-28-2021 HIV 1+2 Ab Ql (S) Non-Reactive Nonreactive [facility] [employer] [facility] Comment on above: Nonreactive No detectable HIV-1p24 Antigen or HIV-1/HIV2 antibodies. . If recent HIV exposure is suspected or reported, conduct HIV-1 HAMIDA or request a new specimen and repeat the algorithm according to CDC guidance, available at: http://www.cdc.gov/hiv/guidelines Hepatitis A antibody, IgMon 11-28-2021 HAV IgM Qn (S) Non-Reactive Nonreactive [facility] [place] [place] Hepatitis B core antibody, I gMon 11-28-2021 Hep B Core-M AB Non-Reactive Nonreactive [facility] Hepatitis B surface antibody on 11-28-2021 HBV surface Ab (S) [Titer] Non-Reactive Nonreactive [facility] [place] [place] Hepatitis B surface antigeno n 11-28-2021 Hep B Surf AG Non-Reactive Nonreactive [facility] [place] [place] Hepatitis C antibodyon 11-28 HCV Ab Qn (S) Reactive Abnormal Nonreactive [facility] [place] [place] Interpretation and review of laboratory results Abnormal [facility] [place] [place] No Panel Informationon 11-28 [facility] nRBC 0 0 - [address] [facility] [place] Protime-INRon 11-28-2021 INR Coag (PPP) [Relative time] 1.00 {INR} 0.89 - 1.[address] [facility] [place] [place] PT Coag (PPP) [Time] 10.4 s [facility] Syphilis Treponema Antibodyo n 11-28-2021 Syphilis Treponema Antibody Non-Reactive Nonreactive [facility] [place] [place] HCG Qn (U)on 11-18-2021 Beta HCG ( test) Ql (U) Negative [facility] Protime-INRon 11-18-2021 INR Coag (PPP) [Relative time] 1.05 {INR} 0.89 - 1.[address] [facility] [place] [place] PT Coag (PPP) [Time] 10.8 s [facility] CBC and differentialon 10-19 Absolute Immature Granulocytes 0.0 0 10 3/uL [facility] [place] [place] Absolute Lymph 2.[address] [facility] [place] [place] Absolute Liberty 0.[address] [facility] [place] Basophils (Bld) [#/Vol] 0.0 10*3/uL [facility] [place] [place] Basophils/100 WBC (Bld) 0.5 % G [facility] Eosinophils (Bld) [#/Vol] 0.2 10*3/uL [facility] [place] [place] Eosinophils/100 WBC (Bld) 2.3 % [facility] [place] [place] Erythrocyte distribution width (RBC) [Ratio] 12.5 % 11.5 - 14.5 % [facility] [place] [place] Hematocrit (Bld) [Volume fraction] 41.8 % 33.6 - 46.8 % [facility] [place] [place] Hemoglobin (Bld) [Mass/Vol] 13.8 g/dL 11.7 - 15.8 g/dL [facility] [place] [place] Immature granulocytes/100 WBC (Bld) 0.1 % [facility] Lymphocytes/100 WBC (Bld) 30.7 % [facility] [place] [place] MCH (RBC) [Entitic mass] 31.2 pg 27.5 - 32.[address] [facility] [place] [place] MCHC (RBC) [Mass/Vol] 33.0 g/dL 30.7 - 35.5 g/dl [facility] [place] [place] MCV (RBC) [Entitic vol] 94.6 fL 80.2 - 99.[address] [facility] [place] [place] Monocytes/100 WBC (Bld) 7.9 % [facility] Neutrophils (Bld) [#/Vol] 4.3 10*3/uL [facility] [place] [place] Neutrophils/100 WBC (Bld) 58.5 % [facility] [place] [place] Platelets (Bld) [#/Vol] 298.0 10*3/uL [facility] [place] [place] RBC (Bld) [#/Vol] 4.42 10*6/uL [facility] WBC LM Ql (Sput) 7.4 [facility] Comprehensive metabolic pane torsten 10-19-2021 Albumin [Mass/Vol] 4.3 g/dL 3.5 - 5.0 g/dL [facility] Alk Phos 114 U/L 24 - 126 U/L [facility] [place] [place] ALT [Catalytic activity/Vol] 144 U/L High 4 - 35 U/L [facility] [place] [place] AST [Catalytic activity/Vol] 70 U/L High 3 - 47 U/L [facility] [place] [place] Bilirubin [Mass/Vol] 0.6 mg/dL 0.2 - 1 .6 mg/dL [facility] [place] [place] Calcium [Mass/Vol] 9.2 mg/dL 8.4 - 10. 4 mg/dL [facility] [place] [place] Chloride [Moles/Vol] 108 mmol/L 96 - 10 9 mmol/L [facility] [place] [place] CO2 [Moles/Vol] 25 mmol/L 22 - 30 mmol/L [facility] Creatinine [Mass/Vol] 0.62 mg/dL 0.52 - 1.04 mg/dL [facility] [place] [place] Glucose [Mass/Vol] 79 mg/dL 65 - 100 mg/dL [facility] Potassium [Moles/Vol] 4.1 mmol/L 3.6 - 5.1 mmol/L [employer] Protein [Mass/Vol] 7.1 g/dL 6.3 - 8.2 g/dL [employer] [facility] Sodium [Moles/Vol] 141 mmol/L 135 - 147 mmol/L [employer] Urea nitrogen [Mass/Vol] 14 mg/dL 8 - 20 mg/dL [employer] GLOMERULAR FILTRATION RATEon 10-19-2021 GFR >60 [employer] Comment on above: To estimate the GFR for Americans, multiply the result provided by 1.21. Population mean GFR = 116 ml/min/1.73 sq.m. for ages 18-29 yrs. The MDRD is validated in individuals 18-70 years of age. It is less accurate in patients with extremes of muscle mass, restriction of dietary protein, ingestion of creatine, extra-renal metabolism of creatinine, or treatment with medications that affect renal tubular creatinine secretion. GFR Categories in Chronic Kidney Disease (CKD) Category: GFR(mL/min/1.73m^2) Interpretation: G1* 90 or greater Normal or high G2* 60-89 Mild decrease G3a 45-59 Mild to moderate decrease G3b 30-44 Moderate to severe decrease G4 15-29 Severe decrease G5 14 or less Kidney failure *G1&G2: In the absence of evidence of kidney damage, neither GFR category G1 nor G2 fulfill the criteria for CKD Kidney Int Suppl.2013;3:1-150 HIV Antibody-Genesis 10-19 HIV 1+2 Ab Ql (S) Non-Reactive Nonreactive [facility] [employer] [facility] Comment on above: Nonreactive No detectable HIV-1p24 Antigen or HIV-1/HIV2 antibodies. . If recent HIV exposure is suspected or reported, conduct HIV-1 HAMIDA or request a new specimen and repeat the algorithm according to CDC guidance, available at: http://www.cdc.gov/hiv/guidelines Hepatitis Panel (includes He p A Antibody IgM, Hep B Core Antibody IgM, Hep B Surface Antigen, Hepatitis C Antibody)on 10-19-2021 HAV IgM Qn (S) Non-Reactive Nonreactive [facility] [place] [place] HCV Ab Qn (S) Reactive Abnormal Nonreactive [facility] [place] [place] Hep B Core-M AB Non-Reactive Nonreactive [facility] Hep B Surf AG Non-Reactive Nonreactive [facility] [place] [place] Interpretation and review of laboratory results Abnormal [facility] [place] [place] Lipid panelon 10-19-2021 Cholesterol [Mass/Vol] 144 mg/dL 0 - 200 mg/dL [facility] [place] [place] Comment on above: CHOLESTEROL REFERENC E RANGE Desirable <200 mg/dL Borderline 200-239 mg/dL High >240 mg/dL . Cholesterol in HDL [Mass/Vol] 68.9 mg/dL High 40.0 - 59.9 mg/dL [facility] [place] [place] Comment on above: Interpretive data fo r HDL Cholesterol states: HDL <40 mg/dL is low and constitutes a coronary disease risk factor. HDL >60 mg/dL is a negative risk factor for coronary heart disease. . Cholesterol in LDL [Mass/Vol] 65 mg/dL 0 - 100 mg/dL [facility] [place] [place] Comment on above: LDL REFERENCE RANGE Optimal <100 mg/dl Near Optimal 100-129 mg/dL Borderline High 130-159 mg/dL High 160-189 mg/dL Very High >=190 mg/dL . Cholesterol in VLDL [Mass/Vol] 10 mg/dL <[address] [facility] [place] Triglyceride [Mass/Vol] 50 mg/dL 0 - 150 mg/d L [facility] [place] [place] Comment on above: TRIGLYCERIDE REFEREN CE RANGE Normal <150 mg/dL Borderline High 150-199 mg/dL High 200-499 mg/dL Very High >=500 mg/dL . No Panel Informationon 10-[address] [facility] [place] Interpretation and review of laboratory results Abnormal [facility] nRBC [address] [facility] [place] EMERGENCY DEPARTMENTon 05-11 [place] [address] HEALTH INFORMATION MANAGEMENT EMERGENCY DEPARTMENT : [phone] Signed Patient: YOLANDA MANRIQUEZ Acct:[id number] MRUN: [id number] : 2000 Sex: F Loc: ED ADM Date: Room/Bed: DISC Date: History of Present Illness - General Chief complaint: Overdose Time Seen by Provider: 05/10/21 20:20 Nurses Notes Reviewed and Agreed With?: Yes Source: Patient - History of Present Illness Initial comments: Patient presents with an opiate overdose. She admits to smoking fentanyl. She was given Narcan prehospital. She is feeling much better. She does report some nausea. No shortness of breath. She denies any other drug or alcohol use. She denies any suicidal ideations. Onset/Timin -: hour(s) Improves with: other (narcan) Worsens with: none - Related Data Home Medications Medication Instructions Recorded Confirmed Azithromycin [Zithromax 250 mg 1,000 mg PO STAT #4 tablet 11/09/19 Tablet] Cyclobenzaprine HCl [Flexeril 10 10 mg PO TID #30 tablet 10/22/20 mg Tablet] Diclofenac Sodium [Voltaren 75 mg 75 mg PO BID #30 tablet 10/22/20 Dr Tablet] Lidocaine [Lidoderm 5% Patch] 1 patch TP DAILY #10 patch 10/22/20 Prednisone [Prednisone 20 mg 20 mg PO BID #10 tablet 10/22/20 Tablet] Ciprofloxacin HCl [Cipro] 500 mg PO BID #14 tablet 11/05/20 Cyclobenzaprine HCl [Flexeril 10 10 mg PO TID PRN #15 tablet 11/05/20 mg Tablet] Naproxen [Naprosyn] 500 mg PO BID PRN #15 tablet 11/05/20 Allergies Allergy/AdvReac Type Severity Reaction Status Date / Time Penicillins Allergy Verified 10/22/20 20:55 Review of System - Constitutional Constitutional: Present: Well developed, Well nourished, Non-toxic - Nose,Throat,Mouth Nose (ROS): Absent: pain Throat: Absent: pain, swelling, discharge Mouth: Absent: pain, swelling - Respiratory Respiratory: Absent: cough, short of breath, wheezing - CV Cardiology: Absent: chest pain, edema - GI Gastrointestinal/Abd ominal: Present: nausea. Absent: abdominal pain, diarrhea, vomiting - Genitourinary Symptoms: Absent: dysuria - Neuro Neurological: Absent: headache, weakness - Muskuloskeletal Musculoskeletal: Absent: back pain, joint pain, joint swelling - Integumentary Skin: Absent: lesions, rash - Allergic/Immunologic Immunological/Allerg ic: Present: no symptoms reported - Hematologic Hematologic/Lymphati c: Absent: easy bleeding, easy bruising, swollen glands - Endocrine Endocrine: Present: no symptoms reported - Psychiatric Psychiatric: Present: Normal Affect, Normal Mood. Absent: Depressed - All Others/Exceptions All Other Systems: Reviewed and Negative Except Where Noted in Documentation ED PMH/Social HX/Family HX - Respiratory Hx Respiratory Disorders: No - Cardiovascular Hx Cardiac Disorders: No - Neurological Hx Neurological Disorder: No - Endocrine Hx Endocrine Disorders: No Other Endocrine PMH: THYROID PROBLEMS - Gastrointestinal Hx Gastrointestinal Disorders: No - Genitourinary Hx Genitourinary Disorders: No Other PSH: ABSCESS ON LEFT KIDNEY R/T USING DIRTY NEEDLES FOR IV DRUG USE. - Musculoskeletal Hx Musculoskeletal Disorders: No Other MS PMH: sciatica - Reproductive ?: No Hx Reproductive Disorders: No Other Reproductive PMH: ODER PRESENT - Psychological Hx Psychosocial Problems: No - HEENT Hx Ear, Nose Throat Disorders: No - Cancer Hx Cancer: No - Immunizations Hx Tetanus, Diphtheria Vaccination: Yes Hx Influenza Vaccination: No Hx Pneumococcal Vaccination: No - Social History Highest Educational Level: Elementary School Able to Read: Yes Able to Write: Yes Smoking Status: Heavy Smoker (>10 cig/day) Hx Chewing Tobacco Use: No Hx Substance Use Treatment: No Hx Physical Abuse: No Hx Emotional Abuse: No Hx Suspected Abuse: No - [place]/Gender ID What is your current Gender Identity? Choose all that Apply: Female - [place]-Suicide Severity Rating Scale 1) Wish to be :: No 2) Suicidal Thoughts:: No 6) Suicidal Behavior Question (A): LIFETIME: No 6) Suicidal Behavior Question (B): PAST 3 MONTHS: No General Exam - General Limitations: Complains of: no limitations Constitutional: Present: Well developed, Well nourished, well hydrated, Non-toxic - Head Head exam: Present: atraumatic, normocephalic, normal inspection - Eye Eye exam: Present: normal apperance, normal accomodation, EOMI Pupils: Present: PERRL - ENT ENT exam: Present: normal orophraynx, mucous membranes moist, TMs clear w/ good light reflex, normal external ear exam, No Nasal Discharge, Posterior Pharynx Non-erethemetous - Expan (more content not included)... Normal [facility] CBC w/Auto Differentialon Basophils Abs. # 0.03 K/uL Normal 0.00-0.10 [facility] Comment on above: Performed By: #### C BCS #### [facility] [address] [place] [address] Basophils/100 WBC (Bld) 0.3 % Normal 0.2-1.0 [facility] Comment on above: Performed By: #### C BCS #### [facility] [address] [place] [address] Eosinophils (Bld) [#/Vol] 0.10 10*3/uL Normal 0.00-0.20 [facility] Comment on above: Performed By: #### C BCS #### [facility] [address] [place] [address] Eosinophils/100 WBC (Bld) 1.6 % Normal 0.9-2.9 [facility] Comment on above: Performed By: #### C BCS #### [facility] [address] [place] [address] Erythrocyte distribution width (RBC) [Ratio] 14.0 % Normal 11.5-14.5 [facility] Comment on above: Performed By: #### C BCS #### [facility] [address] [place] [address] Hematocrit (Bld) [Volume fraction] 40.1 % Normal 33.4-46.0 [facility] Comment on above: Performed By: #### C BCS #### [facility] [address] [place] [address] Hemoglobin (Bld) [Mass/Vol] 13.5 g/dL Normal 11.1-13.7 [facility] Comment on above: Performed By: #### C BCS #### [facility] [address] [place] [address] Imm Grans % 0.20 % Normal 0.00-1.00 [facility] Comment on above: Performed By: #### C BCS #### [facility] [address] [place] [address] Imm Grans Absolute # 0.02 K/uL Normal 0.00-0.10 [facility] Comment on above: Performed By: #### C BCS #### [facility] [address] [place] [address] Lymphocytes (Bld) [#/Vol] 2.00 10*3/uL Normal 1.30-2.90 [facility] Comment on above: Performed By: #### C BCS #### [facility] [address] [place] [address] Lymphocytes/100 WBC (Bld) 23.0 % Normal 17.0-45.5 [facility] Comment on above: Performed By: #### C BCS #### [facility] [address] [place] [address] MCH (RBC) [Entitic mass] 30.8 pg Normal 27.0-31.0 [facility] Comment on above: Performed By: #### C BCS #### [facility] [address] [place] [address] MCHC (RBC) [Mass/Vol] 33.7 g/dL Normal 33.0-37.0 [facility] Comment on above: Performed By: #### C BCS #### [facility] [address] [place] [address] MCV (RBC) [Entitic vol] 91.3 fL Normal 81.0-99.0 [facility] Comment on above: Performed By: #### C BCS #### [facility] [place] [address] [place] [address] Monocytes (Bld) [#/Vol] 0.90 10*3/uL High 0.30-0.80 [facility] Comment on above: Performed By: #### C BCS #### [facility] [place] [address] [place] [address] Monocytes/100 WBC (Bld) 10.3 % Normal 5.5-11.7 [facility] Comment on above: Performed By: #### C BCS #### [facility] [place] [address] [place] [address] Neutrophils Abs. # 5.69 K/uL High 2.20-4.80 [facility] Comment on above: Performed By: #### C BCS #### [facility] [place] [address] [place] [address] Neutrophils/100 WBC (Bld) 64.6 % Normal 43.0-65.0 [facility] Comment on above: Performed By: #### C BCS #### [facility] [place] [address] [place] [address] Platelet mean volume (Bld) [Entitic vol] 9.1 fL Normal 7.4-10.4 [facility] Comment on above: Performed By: #### C BCS #### [facility] [place] [address] [place] [address] Platelets (Bld) [#/Vol] 238 10*3/uL Normal 148-402 [facility] Comment on above: Performed By: #### C BCS #### [facility] [place] [address] [place] [address] RBC (Bld) [#/Vol] 4.39 10*6/uL Normal 3.83-5.19 [facility] Comment on above: Performed By: #### C BCS #### [facility] [address] [place] [address] WBC (Bld) [#/Vol] 8.8 10*3/uL Normal 3.6-10.8 [facility] Comment on above: Performed By: #### C BCS #### [facility] [address] [place] [address] Comprehensive Metabolic Pane torsten 05-10-2021 Albumin [Mass/Vol] 4.0 g/dL Normal 3.4-5.0 [facility] Comment on above: Performed By: #### C MP #### [facility] [address] [place] [address] Albumin/Globulin [Mass ratio] 1.0 {ratio} Low 1.1-2.5 [facility] Comment on above: Performed By: #### C MP #### [facility] [address] [place] [address] ALP [Catalytic activity/Vol] 123 U/L High 54-112 [facility] Comment on above: Performed By: #### C MP #### [facility] [address] [place] [address] ALT [Catalytic activity/Vol] 242 U/L High 13-66 [facility] Comment on above: Performed By: #### C MP #### [facility] [address] [place] [address] Anion gap [Moles/Vol] 10.3 mmol/L Normal 8.0-16.0 [facility] Comment on above: Performed By: #### C MP #### [facility] [place] [address] [facility] [place] [address] AST [Catalytic activity/Vol] 92 U/L High 3-39 [facility] Comment on above: Performed By: #### C MP #### [facility] [place] [address] [facility] [address] Bilirubin [Mass/Vol] 0.50 mg/dL Normal 0.00-0.99 [facility] Comment on above: Performed By: #### C MP #### [facility] [place] [address] [place] [address] Calcium [Mass/Vol] 8.3 mg/dL Normal 8.2-10.0 [facility] Comment on above: Performed By: #### C MP #### [facility] [place] [address] [place] [address] Chloride [Moles/Vol] 103 mmol/L Normal 94-110 [facility] Comment on above: Performed By: #### C MP #### [facility] [place] [address] [place] [address] CO2 [Moles/Vol] 27 mmol/L Normal 21-34 [facility] Comment on above: Performed By: #### C MP #### [facility] [place] [address] [place] [address] Creatinine [Mass/Vol] 0.55 mg/dL Normal 0.51-0.95 [facility] Comment on above: Performed By: #### C MP #### [facility] [place] [address] [place] [address] EGFR Other Races >60 Normal >60 [facility] Comment on above: Performed By: #### C MP #### [facility] [place] [address] [place] [address] GFR/1.73 sq M.predicted among blacks MDRD (S/P/Bld) [Vol rate/Area] mL/min/{1.73_m2} Normal >60 [facility] Comment on above: Result Comment: Upper Cutter Out pacheco Kidney Disease less than 60 mL/min/1.73 m2 Kidney Failure less than 15 mL/min/1.73 m2 Average estimated GFR by age: 20-29 years 116 mL/min/1.73 m2 Performed By: #### C MP #### [facility] [address] [place] [address] Globulin (S) [Mass/Vol] 4.0 g/dL Normal 1.5-4.5 [facility] Comment on above: Performed By: #### C MP #### [facility] [address] [place] [address] Glucose [Mass/Vol] 86 mg/dL Normal 65-100 [facility] Comment on above: Performed By: #### C MP #### [facility] [place] [address] [place] [address] Potassium [Moles/Vol] 3.3 mmol/L Normal 3.3-5.1 [facility] Comment on above: Performed By: #### C MP #### [facility] [address] [place] [address] Protein [Mass/Vol] 8.0 g/dL Normal 6.1-8.2 [facility] Comment on above: Performed By: #### C MP #### [facility] [address] [place] [address] Sodium [Moles/Vol] 137 mmol/L Normal 132-145 [facility] Comment on above: Performed By: #### C MP #### [facility] [address] [place] [address] Urea nitrogen [Mass/Vol] 12.9 mg/dL Normal 3.2-26.9 [facility] Comment on above: Performed By: #### C MP #### [facility] [address] [place] [address] Urea nitrogen/Creatinine [Mass ratio] 23 mg/mg High -20 [facility] Comment on above: Performed By: #### C MP #### [facility] [address] [place] [address] Ethanol (Medical)on 05-10-19 22 Ethanol [Mass/Vol] mg/dL Normal 0.0-0.0 [facility] Comment on above: Performed By: #### A LC #### [facility] [address] [place] [address] Urine Drug Screeningon 05-10 - - [facility] Comment on above: Order Comment: Drug Screen Comment POT LINING SUPERVISOR Result Comment: . Drug Screen Comment: This assay provides a preliminary unconfirmed analytical test result that may be suitable for the clinical management of patients in certain situations. Some [id number] medications, as well as adulterants, may cause inaccurate results. Screen only testing does not meet the [facility] Forensic Urine Drug Testing Program requirements as a forensic urine drug test for workplace testing. . Performed By: #### C BCS #### [facility] [address] [place] [address] Amphetamines Positive [facility] Comment on above: Order Comment: Drug Screen Comment POT LINING SUPERVISOR Result Comment: cuto ff 1000 ng/mL Performed By: #### C BCS #### [facility] [address] [place] [address] Barbiturates Negative [facility] Comment on above: Order Comment: Drug Screen Comment POT LINING SUPERVISOR Result Comment: cuto ff 200 ng/mL Performed By: #### C BCS #### [facility] [place] [address] [place] [address] Benzodiazepines Negative Normal [facility] Comment on above: Order Comment: Drug Screen Comment POT LINING SUPERVISOR Result Comment: cuto ff 200 ng/mL Performed By: #### C BCS #### [facility] [place] [address] [place] [address] Cocaine Negative [facility] Comment on above: Order Comment: Drug Screen Comment POT LINING SUPERVISOR Result Comment: cuto ff 300 ng/mL Performed By: #### C BCS #### [facility] [place] [address] [place] [address] Opiates Negative [facility] Comment on above: Order Comment: Drug Screen Comment POT LINING SUPERVISOR Result Comment: cuto ff 300 ng/mL Performed By: #### C BCS #### [facility] [place] [address] [place] [address] pH (U) 5.0 [pH] Normal 5.0-8.0 [facility] Comment on above: Order Comment: Drug Screen Comment POT LINING SUPERVISOR Performed By: #### C BCS #### [facility] [place] [address] [place] [address] Phencyclidine Negative [facility] Comment on above: Order Comment: Drug Screen Comment POT LINING SUPERVISOR Result Comment: cuto ff 25 ng/mL Performed By: #### C BCS #### [facility] [place] [address] [place] [address] Specific gravity (U) [Rel density] 1.030 High 1.015-1.025 [facility] Comment on above: Order Comment: Drug Screen Comment POT LINING SUPERVISOR Performed By: #### C BCS #### [facility] [place] [address] [place] [address] THC Negative [facility] Comment on above: Order Comment: Drug Screen Comment POT LINING SUPERVISOR Result Comment: cuto ff 50 ng/mL Performed By: #### C BCS #### [facility] [address] [place], [place] [id number] SARS-COV-2 Rapid Molecular T eston 12-20-2020 SARS-CoV-2 (COVID-19) RNA LILLIAN+probe Ql (Unsp spec) Negative NEGATIVE [facility] [place] [place] Comment on above: Negative results asher uld be treated as presumptive and, if inconsistent with clinical signs and symptoms, test with an alternative FDA authorized molecular PCR assay. Negative results do not preclude SARS-CoV-2 infection and does not rule out co-infections with other pathogens so should not be used as the sole basis for patient management decisions. Negative results should be considered in the context of a patient s recent exposures, history, and presence of symptoms consistent with COVID-19. This test should not be used on asymptomatic patients. The Marie ID Now COVID-19 EUA has not been FDA cleared or approved. It has been authorized by the FDA under an emergency use authorization for use by authorized laboratories and patient care settings. The test has been authorized only for the detection of nucleic acid from SARS-CoV-2, not for any other viruses or pathogens, and is only authorized for the duration of the declaration that circumstances exist justifying the authorization of emergency use of in vitro diagnostic tests for detection and / or diagnosis of COVID-19, unless the authorization is terminated or revoked sooner. [facility] [place] [place] CBC w/Auto Differentialon Basophils Abs. # 0.03 K/uL Normal 0.00-0.10 [facility] Comment on above: Performed By: #### C BCS #### [facility] [place] [address] [place], [place] [id number] [phone] Basophils/100 WBC (Bld) 0.3 % Normal 0.2-1.0 [facility] Comment on above: Performed By: #### C BCS #### [facility] [address] [place], [place] [id number] [phone] Eosinophils (Bld) [#/Vol] 0.10 10*3/uL Normal 0.00-0.20 [facility] Comment on above: Performed By: #### C BCS #### [facility] [address] [place] [address] Eosinophils/100 WBC (Bld) 1.1 % Normal 0.9-2.9 [facility] Comment on above: Performed By: #### C BCS #### [facility] [address] [place] [address] Erythrocyte distribution width (RBC) [Ratio] 12.9 % Normal 11.5-14.5 [facility] Comment on above: Performed By: #### C BCS #### [facility] [address] [place] [address] Hematocrit (Bld) [Volume fraction] 40.9 % Normal 33.4-46.0 [facility] Comment on above: Performed By: #### C BCS #### [facility] [address] [place] [address] Hemoglobin (Bld) [Mass/Vol] 13.6 g/dL Normal 11.1-13.7 [facility] Comment on above: Performed By: #### C BCS #### [facility] [address] [place] [address] Imm Grans % 0.10 % Normal 0.00-1.00 [facility] Comment on above: Performed By: #### C BCS #### [facility] [address] [place] [address] Imm Grans Absolute # 0.01 K/uL Normal 0.00-0.10 [facility] Comment on above: Performed By: #### C BCS #### [facility] [address] [place] [address] Lymphocytes (Bld) [#/Vol] 2.00 10*3/uL Normal 1.30-2.90 [facility] Comment on above: Performed By: #### C BCS #### [facility] [address] [facility] [place] [address] Lymphocytes/100 WBC (Bld) 20.3 % Normal 17.0-45.5 [facility] Comment on above: Performed By: #### C BCS #### [facility] [address] [facility] [place] [address] MCH (RBC) [Entitic mass] 30.4 pg Normal 27.0-31.0 [facility] Comment on above: Performed By: #### C BCS #### [facility] [address] [place] [address] MCHC (RBC) [Mass/Vol] 33.3 g/dL Normal 33.0-37.0 [facility] Comment on above: Performed By: #### C BCS #### [facility] [address] [facility] [place] [address] MCV (RBC) [Entitic vol] 91.3 fL Normal 81.0-99.0 [facility] Comment on above: Performed By: #### C BCS #### [facility] [address] [place] [address] Monocytes (Bld) [#/Vol] 1.10 10*3/uL High 0.30-0.80 [facility] Comment on above: Performed By: #### C BCS #### [facility] [address] [facility] [place] [address] Monocytes/100 WBC (Bld) 10.8 % Normal 5.5-11.7 [facility] Comment on above: Performed By: #### C BCS #### [facility] [address] [facility] [place] [address] Neutrophils Abs. # 6.61 K/uL High 2.20-4.80 [facility] Comment on above: Performed By: #### C BCS #### [facility] [address] [place] [address] Neutrophils/100 WBC (Bld) 67.4 % High 43.0-65.0 [facility] Comment on above: Performed By: #### C BCS #### [facility] [address] [facility] [address] Platelet mean volume (Bld) [Entitic vol] 9.3 fL Normal 7.4-10.4 [facility] Comment on above: Performed By: #### C BCS #### [facility] [address] [facility] [place] [address] Platelets (Bld) [#/Vol] 368 10*3/uL Normal 148-402 [facility] Comment on above: Performed By: #### C BCS #### [facility] [address] [facility] [address] RBC (Bld) [#/Vol] 4.48 10*6/uL Normal 3.83-5.19 [facility] Comment on above: Performed By: #### C BCS #### [facility] [address] [facility] [address] WBC (Bld) [#/Vol] 9.8 10*3/uL Normal 3.6-10.8 [facility] Comment on above: Performed By: #### C BCS #### [facility] [address] [place] [address] CT ABD/PELVIS Won 11-05-2020 CT ABD/PELVIS W EXAMINATION: CT OF THE ABDOMEN AND PELVIS WITH CONTRAST 11/05/2020 11:06 am TECHNIQUE: CT of the abdomen and pelvis was performed with the administration of intravenous contrast. Multiplanar reformatted images are provided for review. Dose modulation, iterative reconstruction, and/or weight based adjustment of the mA/kV was utilized to reduce the radiation dose to as low as reasonably achievable. COMPARISON: None. HISTORY: ORDERING SYSTEM PROVIDED HISTORY: lower back/abdpain FINDINGS: Lower Chest: The lung bases are clear. Organs: Postcontrast viewing of the liver, spleen, pancreas and the gallbladder appear normal. The adrenal glands and the kidneys appear normal. The spleen measures approximately 13 cm in length. GI/Bowel: There is no evidence of retroperitoneal mass lesions or lymph node enlargement. Pelvis: The urinary bladder appears unremarkable. The uterus and the ovaries appear unremarkable. There is a calcification inferior to the left side of the bladder which does not involve the ureter. The rectosigmoid colon appears unremarkable. Peritoneum/Retroperi toneum: There is no evidence of retroperitoneal mass lesions or lymph node enlargement. Bones/Soft Tissues: The soft tissues and osseous structures appear unremarkable. IMPRESSION: Unremarkable abdomen and pelvis with no acute CT findings. The appendix is not definitely visualized. Normal [facility] 11-05-2020 EVAN Patient: YOLANDA MANRIQUEZ [id number] Location: [facility] Aount: [id number] : 2000 Age: 20 Sex F Lab NumbEr [id number] Requested by: JOSE MANUEL ALMODOVAR Admitdate: 11/05/20 Source: UR Collected: 11/05/20 08:33 Site: Received : 11/05/20 09:16 Culture, Urine FINAL 11/07/20 06:34 11/06/20 AEROBIC CULTURE RESULTS: #1: HEAVY GNB COLONY COUNT: >100,000 CFU/ml Organism 01 Escherichia coli Organism E. coli ANTIBIOTICS TINA Interp Amikacin <16 S Amoxicillin/K Clavulanate <8/4 S Amp/Sulbactam <8/4 S Ampicillin <8 S Cefazolin <2 S Cefepime <2 S Cefotaxime <2 S Cefotetan <16 S Ceftazidime <1 S Ceftriaxone <1 S Ciprofloxacin <1 S Ertapenem <0.5 S Gentamicin <4 S Levofloxacin <2 S Minocycline <4 S Nitrofurantoin <32 S Piperacillin/Leonard <16 S Tetracycline <4 S Tobramycin <4 S Trimeth/Sulfa <2/38 S S=Sensitive I=Intermediate R=Resistant Normal [facility] Comment on above: Performed By: #### C BCS #### [address] [address] Comprehensive Metabolic Pane torsten 11-05-2020 Albumin [Mass/Vol] 3.8 g/dL Normal 3.4-5.0 [facility] Comment on above: Performed By: #### C BCS #### [address] [address] Albumin/Globulin [Mass ratio] 0.8 {ratio} Low 1.1-2.5 [facility] Comment on above: Result Comment: CO RRECTED REPORT: Previous result was 0.7 at 09:38 on 11/05/20 Performed By: #### C BCS #### [address] [place] [address] ALP [Catalytic activity/Vol] 211 U/L High 54-112 [facility] Comment on above: Performed By: #### C BCS #### [facility] [place] [address] [facility] [place] [address] ALT [Catalytic activity/Vol] 188 U/L High 13-66 [facility] Comment on above: Performed By: #### C BCS #### [facility] [place] [address] [facility] [place] [address] Anion gap [Moles/Vol] 14.5 mmol/L Normal 8.0-16.0 [facility] Comment on above: Performed By: #### C BCS #### [facility] [place] [address] [facility] [place] [address] AST [Catalytic activity/Vol] 92 U/L High 3-39 [facility] Comment on above: Performed By: #### C BCS #### [facility] [place] [address] [facility] [place] [address] Bilirubin [Mass/Vol] 0.60 mg/dL Normal 0.00-0.99 [facility] Comment on above: Performed By: #### C BCS #### [facility] [place] [address] [facility] [place] [address] Calcium [Mass/Vol] 9.4 mg/dL Normal 8.2-10.0 [facility] Comment on above: Performed By: #### C BCS #### [facility] [place] [address] [facility] [place] [address] Chloride [Moles/Vol] 102 mmol/L Normal 94-110 [facility] Comment on above: Performed By: #### C BCS #### [facility] [place] [address] [facility] [place] [address] CO2 [Moles/Vol] 28 mmol/L Normal 21-34 [facility] Comment on above: Performed By: #### C BCS #### [facility] [address] [place] [address] Creatinine [Mass/Vol] 0.71 mg/dL Normal 0.51-0.95 [facility] Comment on above: Performed By: #### C BCS #### [facility] [address] [place] [address] EGFR Other Races >60 Normal >60 [facility] Comment on above: Performed By: #### C BCS #### [facility] [address] [place] [address] GFR/1.73 sq M.predicted among blacks MDRD (S/P/Bld) [Vol rate/Area] mL/min/{1.73_m2} Normal >60 [facility] Comment on above: Result Comment: Upper Cutter Out pacheco Kidney Disease less than 60 mL/min/1.73 m2 Kidney Failure less than 15 mL/min/1.73 m2 Average estimated GFR by age: 20-29 years 116 mL/min/1.73 m2 Performed By: #### C BCS #### [facility] [address] [place] [address] Globulin (S) [Mass/Vol] 5.0 g/dL High 1.5-4.5 [facility] Comment on above: Result Comment: CO RRECTED REPORT: Previous result was 5.1 at 09:38 on 11/05/20 Performed By: #### C BCS #### [facility] [address] [place] [address] Glucose [Mass/Vol] 82 mg/dL Normal 65-100 [facility] Comment on above: Performed By: #### C BCS #### [facility] [address] [place] [address] Potassium [Moles/Vol] 3.5 mmol/L Normal 3.3-5.1 [facility] Comment on above: Performed By: #### C BCS #### [facility] [address] [place] [address] Protein [Mass/Vol] 8.8 g/dL High 6.1-8.2 [facility] Comment on above: Performed By: #### C BCS #### [facility] [address] [place] [address] Sodium [Moles/Vol] 141 mmol/L Normal 132-145 [facility] Comment on above: Performed By: #### C BCS #### [facility] [address] [place] [address] Urea nitrogen [Mass/Vol] 9.9 mg/dL Normal 3.2-26.9 [facility] Comment on above: Performed By: #### C BCS #### [facility] [address] [place] [address] Urea nitrogen/Creatinine [Mass ratio] 14 mg/mg Normal 6-20 [facility] Comment on above: Performed By: #### C BCS #### [facility] [address] [place] [address] EMERGENCY DEPARTMENTon 11-05 EMERGENCY DEPARTMENT [facility] [address] [place] [address] HEALTH INFORMATION MANAGEMENT EMERGENCY DEPARTMENT : Signed Patient: YOLANDA MANRIQUEZ Acct:[id number] MRUN: [id number] : 2000 Sex: F Loc: ED ADM Date: Room/Bed: DISC Date: 11/05/20 Back Pain/Injury HPI - General Chief Complaint: Genitourinary Stated Complaint: BACK PAIN POSSIBLE KIDNEY PAIN Symptom onset: 3 weeks HPI: patient c/o lower back pain for 3 weeks. states that she has been here a few times and was told it was likely sciatic nerve pain. she worries it could be her kidneys. she denies any difficulty urinating, denies hematuria. states it feels like something is catching when i move a certain way or stand from a sitting position. pain comes and goes. Pain is dull in the lower back and worse with movement. Denies any injury or fall. No saddle anesthesia. No trouble with bowel or bladder function. No vag bleed/discharge. Denies any travelling history/sick contacts/recent use of antibiotics/Covid exposure. No cough/congestion/fev er/chills/rash. No blood in stool/vomitus or urine. NO LOC/Dizziness/Syncop e. No headache/neck pain/dyspnea/chest pain or abdominal pain. No speech or vision problems. No numbness/tingling or paresthesia. No unilateral weakness in face or extremities Time Seen by Provider: 11/05/20 08:21 Mode of Transport: Ambulatory - Related Data Home Medications Medication Instructions Recorded Confirmed Azithromycin [Zithromax 250 mg 1,000 mg PO STAT #4 tablet 11/09/19 Tablet] Cyclobenzaprine HCl [Flexeril 10 10 mg PO TID #30 tablet 10/22/20 mg Tablet] Diclofenac Sodium [Voltaren 75 mg 75 mg PO BID #30 tablet 10/22/20 Dr Tablet] Lidocaine [Lidoderm 5% Patch] 1 patch TP DAILY #10 patch 10/22/20 Prednisone [Prednisone 20 mg 20 mg PO BID #10 tablet 10/22/20 Tablet] Ciprofloxacin HCl [Cipro] 500 mg PO BID #14 tablet 11/05/20 Cyclobenzaprine HCl [Flexeril 10 10 mg PO TID PRN #15 tablet 11/05/20 mg Tablet] Naproxen [Naprosyn] 500 mg PO BID PRN #15 tablet 11/05/20 Allergies Allergy/AdvReac Type Severity Reaction Status Date / Time Penicillins Allergy Verified 10/22/20 20:55 Review of System - Constitutional Constitutional: Present: Well developed, Well nourished, Non-toxic. Absent: chills, diaphoresis, fever, malaise, weakness, Lethargic - Nose,Throat,Mouth Nose (ROS): Present: no symptoms reported. Absent: pain Throat: Present: no symptoms reported. Absent: pain, swelling, discharge Mouth: Present: no symptoms reported. Absent: pain, swelling - Respiratory Respiratory: Present: no symptoms reported. Absent: cough, short of breath, wheezing - CV Cardiology: Present: no symptoms reported. Absent: chest pain, edema - GI Gastrointestinal/Abd ominal: Present: no symptoms reported. Absent: abdominal pain, diarrhea, nausea, vomiting - Genitourinary Symptoms: Present: no symptoms reported. Absent: burning, discharge, dysuria, frequency, flank pain, pain, vaginal bleeding - Neuro Neurological: Present: no symptoms reported. Absent: headache, weakness, saddle anesthesia - Muskuloskeletal Musculoskeletal: Present: see HPI, back pain (lower), muscle pain (lower back). Absent: joint pain, joint swelling, neck pain - Integumentary Skin: Absent: lesions, rash - Allergic/Immunologic Immunological/Allerg ic: Present: no symptoms reported - Hematologic Hematologic/Lymphati c: Absent: easy bleeding, easy bruising, swollen glands - Endocrine Endocrine: Present: no symptoms reported - Psychiatric Psychiatric: Present: Normal Affect, Normal Mood. Absent: Depressed - All Others/Exceptions All Other Systems: Reviewed and Negative Except Where Noted in Documentation ED PMH/Social HX/Family HX - Respiratory Hx Respiratory Disorders: No - Cardiovascular Hx Cardiac Disorders: No - Neurological Hx Neurological Disorder: No - Endocrine Hx Endocrine Disorders: No Other Endocrine PMH: THYROID PROBLEMS - Gastrointestinal Hx Gastrointestinal Disorders: No - Genitourinary Hx Genitourinary Disorders: No Other PSH: ABSCESS ON LEFT KIDNEY R/T USING DIRTY NEEDLES FOR IV DRUG USE. - Musculoskeletal Hx Musculoskeletal Disorders: No Other MS PMH: sciatica - Reproductive ?: No Hx Reproductive Disorders: No Other Reproductive PMH: ODER PRESENT - Psychological Hx Psychosocial Problems: No - HEENT Hx Ear, Nose Throat Disorders: No - Cancer Hx Cancer: No - Immunizations Hx Tetanus, Diphtheria Vaccination: Yes Hx Influenza Vaccination: No Hx Pneumococcal Vaccination: No - Social History Highest Educational Level: Elementary School Able to Read: Yes Able to Write: Yes [place] (more content not included)... 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 Normal [facility] Comment on above: Performed By: #### C BCS #### [facility] [address] [place] [address] HBsAg Screen Negative Normal Negative [facility] Comment on above: Performed By: #### C BCS #### [facility] [address] [place] [address] Hep A Ab, IgM Negative Normal Negative [facility] Comment on above: Performed By: #### C BCS #### [facility] [address] [place] [address] Hep B Core Ab, IgM Negative Normal Negative [facility] Comment on above: Performed By: #### C BCS #### [facility] [address] [place] [address] Hep C Virus Ab >11.0 High 0.0-0.9 [facility] Comment on above: Result Comment: Nega tive: < 0.8 Indeterminate: 0.8 - 0.9 Positive: > 0.9 The CDC recommends that a positive HCV antibody result be followed up with a HCV Nucleic Acid Amplification test (080485). Performed at: [facility] [address] [place], [place] [id number] Plier Worker: Kody Nobles PhD, Phone: [phone] Performed By: #### C BCS #### [facility] [address] [place], [place] [id number] Lipaseon 11-05-2020 Lipase [Catalytic activity/Vol] 78 U/L Normal 65-230 [facility] Comment on above: Performed By: #### L IPAS #### [facility] [place] [address] [place] [address] (Urine)on 11-06-19 21 HCG ( test) Ql (U) Negative Normal Negative [facility] Comment on above: Performed By: #### P REGU #### [facility] [place] [address] [place] [address] UA w/Micrscopic-reflex cultu reon 11-05-2020 Appearance (U) sl.cloudy Normal Clear [facility] Comment on above: Performed By: #### U AMRC #### [facility] [place] [address] [place] [address] Bacteria 1+ /hpf Normal 0 - 1+ [facility] Comment on above: Performed By: #### U AMRC #### [facility] [place] [address] [place] [address] Bilirubin Ql (U) Negative Normal Negative [facility] Comment on above: Performed By: #### U AMRC #### [facility] [place] [address] [place] [address] Casts POT LINING SUPERVISOR Normal [facility] Comment on above: Performed By: #### U AMRC #### [facility] [place] [address] [place] [address] Casts. POT LINING SUPERVISOR Normal [facility] Comment on above: Performed By: #### U AMRC #### [facility] [place] [address] [place] [address] Color (U) yellow Normal Yellow [facility] Comment on above: Performed By: #### U AMRC #### [facility] [place] [address] [place] [address] Crystals LM Nom (Urine sed) Rare Amorphous Normal [facility] Comment on above: Performed By: #### U AMRC #### [facility] [place] [address] [place] [address] Crystals. POT LINING SUPERVISOR Normal [facility] Comment on above: Performed By: #### U AMRC #### [facility] [place] [address] [place] [address] Epithelial cells LM Ql (Urine sed) 7-15 Normal 0 - 6 [facility] Comment on above: Performed By: #### U AMRC #### [facility] [place] [address] [place] [address] Glucose Ql (U) NORMAL Normal Negative [facility] Comment on above: Performed By: #### U AMRC #### [facility] [place] [address] [facility] [place] [address] Hemoglobin Ql (U) [address] [facility] Comment on above: Performed By: #### U AMRC #### [facility] [place] [address] [place] [address] Ketones Ql (U) Negative Normal Negative [facility] Comment on above: Performed By: #### U AMRC #### [facility] [place] [address] [place] [address] Leukocytes Esterase Negative Normal Negative [facility] Comment on above: Performed By: #### U AMRC #### [facility] [place] [address] [place] [address] Mucus Ql (Urine sed) POT LINING SUPERVISOR Normal [facility] Comment on above: Performed By: #### U AMRC #### [facility] [place] [address] [place] [address] Nitrite Ql (U) Positive Abnormal Negative [facility] Comment on above: Performed By: #### U AMRC #### [facility] [place] [address] [place] [address] pH (U) 5 [pH] Normal [facility] Comment on above: Performed By: #### U AMRC #### [facility] [place] [address] [place] [address] Protein Ql (U) Negative Normal Negative [facility] Comment on above: Performed By: #### U AMRC #### [facility] [place] [address] [place] [address] RBC 2-5 Normal 0 - 2 [facility] Comment on above: Performed By: #### U AMRC #### [facility] [address] [place] [address] Specific gravity (U) [Rel density] 1.020 Normal 1.015-1.025 [facility] Comment on above: Performed By: #### U AMRC #### [facility] [place] [address] [place] [address] Trichomonas [employer]OT LINING SUPERVISOR Normal [facility] Comment on above: Performed By: #### U AMRC #### [facility] [place] [address] [place] [address] Urobilinogen NORMAL Normal Normal-1.0 [facility] Comment on above: Performed By: #### U AMRC #### [facility] [place] [address] [place] [address] WBC 2-5 Normal 0 - 6 [facility] Comment on above: Performed By: #### U AMRC #### [facility] [place] [address] [place] [address] Yeast [employer]OT LINING SUPERVISOR Normal [facility] Comment on above: Performed By: #### U [facility] #### [facility] [address] [place] [address] Other POT LINING SUPERVISOR Normal [facility] Comment on above: Performed By: #### U [facility] #### [address] [address] US GALLBLADDERon 11-05-2020 US GALLBLADDER EXAMINATION: RIGHT UPPER QUADRANT ULTRASOUND 11/05/2020 10:44 am COMPARISON: None. HISTORY: ORDERING SYSTEM PROVIDED HISTORY: PAIN FINDINGS: LIVER: The liver demonstrates normal echogenicity without evidence of intrahepatic biliary ductal dilatation. BILIARY SYSTEM: Gallbladder is unremarkable without evidence of pericholecystic fluid, wall thickening or stones. Negative sonographic Rodney's sign. Common bile duct is 2.4 mm. RIGHT KIDNEY: The right kidney is grossly unremarkable without evidence of hydronephrosis. PANCREAS: Visualized portions of the pancreas are unremarkable. OTHER: No evidence of right upper quadrant ascites. IMPRESSION: Unremarkable right upper quadrant ultrasound. Normal [facility] EMERGENCY DEPARTMENTon 10-23 EMERGENCY DEPARTMENT [place] [id number] HEALTH INFORMATION MANAGEMENT EMERGENCY DEPARTMENT : Signed Patient: YOLANDA MANRIQUEZ Acct:[id number] MRUN: [id number] : 2000 Sex: F Loc: ED ADM Date: Room/Bed: DISC Date: Back Pain/Injury HPI - General Chief Complaint: Other Stated Complaint: PINCHED NERVE Symptom onset: today HPI: PT REVISITS TODAY WITH PINCHED NERVE PAIN, STATES PICKED UP SCRIPTS AND THEY ARE NOT WORKING. Time Seen by Provider: 10/22/20 20:56 Nurses Notes Reviewed and Agreed With?: Yes Source: Patient Mode of Transport: Wheelchair - History of Present Illness Initial Comments: 20-year-old female that returns this evening for increasing lower back pain. She states the pain originates on the left lower back and hip. Patient seen earlier this evening and given Valium and tramadol for pain. Patient's pain has been going on for 1 week. Patient's pain is intermittent. Radiating pain down her left leg. She has tried reuf-wgi-qbuyscf medications with no relief. Patient denies any nausea vomiting. Patient denies any bowel or urinary incontinence. Patient denies any saddle anesthesia. MD Complaint: back pain, other (L leg pain) Onset/Timin -: week(s) Back Pain Location: lumbar spine Back Pain Radiation: lower legs (L side) Severity: moderate Severity scale (1-10): 7 Quality: aching, sharp Consistency: intermittent Improves With: none Worsens With: sitting upright, walking Context: turning/twisting, bending Associated Symptoms: fever/chills. denies: confusion, weakness, chest pain, numbness, difficulty walking, cough, difficulty urinating, diaphoresis, incontinence, constipation, headaches, abdominal pain, loss of appetite, malaise, nausea/vomiting, shortness of breath, syncope Treatments Prior to Arrival: prescription analgesics - Related Data Home Medications Medication Instructions Recorded Confirmed Azithromycin [Zithromax 250 mg 1,000 mg PO STAT #4 tablet 11/09/19 Tablet] Cyclobenzaprine HCl [Flexeril 10 10 mg PO TID #30 tablet 10/22/20 mg Tablet] Diclofenac Sodium [Voltaren 75 mg 75 mg PO BID #30 tablet 10/22/20 Dr Tablet] Lidocaine [Lidoderm 5% Patch] 1 patch TP DAILY #10 patch 10/22/20 Prednisone [Prednisone 20 mg 20 mg PO BID #10 tablet 10/22/20 Tablet] Allergies Allergy/AdvReac Type Severity Reaction Status Date / Time Penicillins Allergy Verified 10/22/20 20:55 Home medications and allergies reviewed: Yes Review of System - Constitutional Constitutional: Present: see HPI, Well developed, Well nourished, well hydrated, Non-toxic, fever, other (recurrent low back pain) - Nose,Throat,Mouth Nose (ROS): Present: no symptoms reported. Absent: clots, pain Throat: Present: no symptoms reported. Absent: pain, swelling, discharge Mouth: Present: no symptoms reported. Absent: clots, pain, swelling - Respiratory Respiratory: Absent: cough, short of breath, wheezing - CV Cardiology: Absent: chest pain, edema - GI Gastrointestinal/Abd ominal: Absent: abdominal pain, diarrhea, nausea, vomiting - Genitourinary Symptoms: Absent: burning, dysuria, flank pain, hematuria, pain, urgency - Neuro Neurological: Present: see HPI - Muskuloskeletal Musculoskeletal: Present: see HPI, back pain, muscle pain. Absent: joint pain, joint swelling - Integumentary Skin: Absent: lesions, rash - Allergic/Immunologic Immunological/Allerg ic: Present: no symptoms reported - Hematologic Hematologic/Lymphati c: Absent: easy bleeding, easy bruising, swollen glands - Endocrine Endocrine: Present: no symptoms reported - Psychiatric Psychiatric: Present: Normal Affect, Normal Mood, Anxious. Absent: Depressed - All Others/Exceptions All Other Systems: Reviewed and Negative Except Where Noted in Documentation ED PMH/Social HX/Family HX - Respiratory Hx Respiratory Disorders: No - Cardiovascular Hx Cardiac Disorders: No - Neurological Hx Neurological Disorder: No - Endocrine Hx Endocrine Disorders: No Other Endocrine PMH: THYROID PROBLEMS - Gastrointestinal Hx Gastrointestinal Disorders: No - Genitourinary Hx Genitourinary Disorders: No Other PSH: ABSCESS ON LEFT KIDNEY R/T USING DIRTY NEEDLES FOR IV DRUG USE. - Musculoskeletal Hx Musculoskeletal Disorders: No - Reproductive ?: No Hx Reproductive Disorders: No Other Reproductive PMH: ODER PRESENT - Psychological Hx Psychosocial Problems: No - HEENT Hx Ear, Nose Throat Disorders: No - Cancer Hx Cancer: No - Immunizations Hx Tetanus, Diphtheria Vaccination: Yes Hx Influenza Vaccination: No Hx Pneumococcal Vaccination: No - Social History Highest Educati (more content not included)... Normal [facility] Patient: YOLANDA MANRIQUEZ MRUN [id number] Location: [facility] Aount: [id number] : 2000 Age: 20 Sex F Lab NumbEr [id number] Requested by: JUAN DIEGO GOFF Admitdate: 10/22/20 Source: UR Collected: 10/22/20 09:24 Site: Received : 10/22/20 10:31 Culture, Urine FINAL 10/24/20 08:13 10/24/20 MULTIPLE SPECIES PRESENT PROBABLE CONTAMINATION--SUGJOYCE ST NEW SPECIMEN Organism 01 MULTIPLE SPECIES PRESENT PROBABLE CONTAMINATION--[facility] SPECIMEN Normal [facility] Comment on above: Performed By: #### M IC2 #### [facility] [address] [address] EMERGENCY DEPARTMENTon 10-22 EMERGENCY DEPARTMENT [address] [address] HEALTH INFORMATION MANAGEMENT EMERGENCY DEPARTMENT : Signed Patient: YOLANDA MANRIQUEZ Acct:[id number] MRUN: [id number] : 2000 Sex: F Loc: ED ADM Date: Room/Bed: DISC Date: History of Present Illness - General Chief complaint: Pain Stated complaint: PINCHED NERVE IN BACK Symptom onset: 1 WEEK AGO HPI: PT SAYS SHE WAS ON THE TOILET AND TWISTED WHEN SHE FELT A SHOOTING PAIN GO UP HER BACK, HAS HAD BACK PAIN SINCE THAT TIME THAT ORIGINATES IN HER LEFT SIDE LOWER BACK AND HIP. Time Seen by Provider: 10/22/20 08:51 Mode of Transport: Wheelchair - History of Present Illness Initial comments: Patient presents with left lower back pain x1 week. She was on the toilet and twisted in a certain way when she developed pain. Pain is intermittent in nature. Certain movements make the pain worse with radiating pain down her leg. She has not really tried anything for the pain. She denies any chest pain, shortness of breath, nausea vomiting, bowel or urinary incontinence. No other associated symptoms. Mild severity. - Related Data Home Medications Medication Instructions Recorded Confirmed Azithromycin [Zithromax 250 mg 1,000 mg PO STAT #4 tablet 11/09/19 Tablet] Cyclobenzaprine HCl [Flexeril 10 10 mg PO TID #30 tablet 10/22/20 mg Tablet] Diclofenac Sodium [Voltaren 75 mg 75 mg PO BID #30 tablet 10/22/20 Dr Tablet] Lidocaine [Lidoderm 5% Patch] 1 patch TP DAILY #10 patch 10/22/20 Allergies Allergy/AdvReac Type Severity Reaction Status Date / Time Penicillins Allergy Verified 10/22/20 11:00 Review of System - All Others/Exceptions All Other Systems: Reviewed and Negative Except Where Noted in Documentation ED PMH/Social HX/Family HX - Respiratory Hx Respiratory Disorders: No - Cardiovascular Hx Cardiac Disorders: No - Neurological Hx Neurological Disorder: No - Endocrine Hx Endocrine Disorders: No Other Endocrine PMH: THYROID PROBLEMS - Gastrointestinal Hx Gastrointestinal Disorders: No - Genitourinary Hx Genitourinary Disorders: No Other PSH: ABSCESS ON LEFT KIDNEY R/T USING DIRTY NEEDLES FOR IV DRUG USE. - Musculoskeletal Hx Musculoskeletal Disorders: No - Reproductive ?: No Hx Reproductive Disorders: No Other Reproductive PMH: ODER PRESENT - Psychological Hx Psychosocial Problems: No - HEENT Hx Ear, Nose Throat Disorders: No - Cancer Hx Cancer: No - Immunizations Hx Tetanus, Diphtheria Vaccination: Yes Hx Influenza Vaccination: No Hx Pneumococcal Vaccination: No - Social History Highest Educational Level: Elementary School Able to Read: Yes Able to Write: Yes Smoking Status: Heavy Smoker (>10 cig/day) Hx Chewing Tobacco Use: No Alcohol Use: Never Any recreational drug use reported?: No Hx Substance Use Treatment: No Feels Threatened In Home Environment: No Feels Threatened In a Relationship: No Hx Physical Abuse: No Hx Emotional Abuse: No Hx Suspected Abuse: No - [place]/Gender ID What is your current Gender Identity? Choose all that Apply: Female - [place]-Suicide Severity Rating Scale 1) Wish to be :: No 2) Suicidal Thoughts:: No 6) Suicidal Behavior Question (A): LIFETIME: No 6) Suicidal Behavior Question (B): PAST 3 MONTHS: No General Exam - General Limitations: Complains of: no limitations Constitutional: Present: Well developed, Well nourished, well hydrated, Non-toxic - Head Head exam: Present: atraumatic, normocephalic, normal inspection - Eye Eye exam: Present: normal apperance, normal accomodation, EOMI Pupils: Present: PERRL - ENT ENT exam: Present: normal orophraynx, mucous membranes moist, TMs clear w/ good light reflex, normal external ear exam, No Nasal Discharge, Posterior Pharynx Non-erethemetous - Expanded ENT Exam Ear exam: Present: normal external inspection Mouth exam: Present: normal external inspection Teeth exam: Present: normal inspection Throat exam: normal inspection - Neck Neck exam: Present: full ROM, Supple. Absent: tenderness, meningismus, Posterior Lymphadenopathy, Anterior Lymphadenopathy - Respiratory Respiratory exam: Present: lungs clear and equal bilaterally. Absent: respiratory distress, wheezes, rales, rhonchi, accessory muscle use - Cardiovascular Cardiovascular Exam: Present: regular rate, normal rhythm, normal heart sounds. Absent: murmur, rubs, gallop, clicks - GI/Abdominal GI/Abdominal exam: Present: soft, non tender, normal bowel sounds. Absent: guarding, rebound, rigid, mass, bruit - Extremities Exam Extremities exam: Present: normal inspection, full ROM, neurovascularly intact - Back Exam Aubrey (more content not included)... Normal [facility] LUMBAR 2 OR 3 Von 10-22-2020 LUMBAR 2 OR 3 V EXAMINATION: THREE XRAY VIEWS OF THE LUMBAR SPINE 10/22/2020 9:22 am COMPARISON: None. HISTORY: ORDERING SYSTEM PROVIDED HISTORY: back pain Left lower back pain status post twisting injury. FINDINGS: There are 5 lumbar vertebral bodies. The vertebral bodies are normal height. There is minimal dextroconvex curvature of the lumbar spine. Disc spaces are well maintained. No spondylolysis or spondylolisthesis. SI joints are normal. IMPRESSION: Minimal dextroconvex curvature which may be positional or secondary to muscle spasm. The lumbar spine radiographs are otherwise unremarkable. Normal [facility] (Urine)on 10-23-19 HCG ( test) Ql (U) Negative Normal Negative [facility] Comment on above: Performed By: #### C BCS #### [facility] [address] [place] [address] UA w/Micrscopic-reflex cultu reon 10-22-2020 Appearance (U) sl.cloudy Normal Clear [facility] Comment on above: Performed By: #### U AMRC #### [facility] [address] [place] [address] Bacteria 1+ /hpf Normal 0 - 1+ [facility] Comment on above: Performed By: #### U AMRC #### [facility] [place] [address] [place] [address] Bilirubin Ql (U) Negative Normal Negative [facility] Comment on above: Performed By: #### U AMRC #### [facility] [place] [address] [place] [address] Casts POT LINING SUPERVISOR Normal [facility] Comment on above: Performed By: #### U AMRC #### [facility] [place] [address] [place] [address] Casts. POT LINING SUPERVISOR Normal [facility] Comment on above: Performed By: #### U AMRC #### [facility] [place] [address] [place] [address] Color (U) renetta Normal Yellow [facility] Comment on above: Performed By: #### U AMRC #### [facility] [place] [address] [place] [address] Crystals LM Nom (Urine sed) POT LINING SUPERVISOR Normal [facility] Comment on above: Performed By: #### U AMRC #### [facility] [place] [address] [place] [address] Crystals. POT LINING SUPERVISOR Normal [facility] Comment on above: Performed By: #### U AMRC #### [facility] [place] [address] [place] [address] Epithelial cells LM Ql (Urine sed) 7-15 Normal 0 - 6 [facility] Comment on above: Performed By: #### U AMRC #### [facility] [place] [address] [place] [address] Glucose Ql (U) NORMAL Normal Negative [facility] Comment on above: Performed By: #### U AMRC #### [facility] [place] [address] [place] [address] Hemoglobin Ql (U) Negative Normal Negative [facility] Comment on above: Performed By: #### U AMRC #### [facility] [place] [address] [place] [address] Ketones Ql (U) Negative Normal Negative [facility] Comment on above: Performed By: #### U AMRC #### [facility] [place] [address] [place] [address] Leukocytes Esterase TRACE Abnormal Negative [facility] Comment on above: Performed By: #### U AMRC #### [facility] [place] [address] [place] [address] Mucus Ql (Urine sed) POT LINING SUPERVISOR Normal [facility] Comment on above: Performed By: #### U AMRC #### [facility] [place] [address] [place] [address] Nitrite Ql (U) Negative Normal Negative [facility] Comment on above: Performed By: #### U AMRC #### [facility] [place] [address] [place] [address] pH (U) 5 [pH] Normal [facility] Comment on above: Performed By: #### U AMRC #### [facility] [place] [address] [place] [address] Protein Ql (U) Negative Normal Negative [facility] Comment on above: Performed By: #### U AMRC #### [facility] [place] [address] [place] [address] RBC 2-5 Normal 0 - 2 [facility] Comment on above: Performed By: #### U AMRC #### [facility] [address] [place] [address] Specific gravity (U) [Rel density] 1.025 Normal 1.015-1.025 [facility] Comment on above: Performed By: #### U AMRC #### [facility] [address] [place] [address] Trichomonas POT LINING SUPERVISOR Normal [facility] Comment on above: Performed By: #### U AMRC #### [facility] [address] [place] [address] Urobilinogen (U) [Mass/Vol] 1 mg/dL Normal Normal-1.0 [facility] Comment on above: Performed By: #### U AMRC #### [facility] [address] [place] [address] WBC 5-10 Normal 0 - 6 [facility] Comment on above: Performed By: #### U AMRC #### [facility] [address] [place] [address] Yeast POT LINING SUPERVISOR Normal [facility] Comment on above: Performed By: #### U AMRC #### [facility] [address] [place] [address] Other POT LINING SUPERVISOR Normal [facility] Comment on above: Performed By: #### U AMRC #### [facility] [address] [place] [address] Creatinine, serumon 10-30-19 Creatinine [Mass/Vol] 0.69 mg/dL 0.40 - 1.10 [facility] GFR/1.73 sq M predicted among non-blacks MDRD (S/P/Bld) [Vol rate/Area] The eGFR should be used for monitoring renal function only and not for medication dosing. [facility] GFR/1.73 sq M.predicted CKD-EPI (S/P/Bld) [Vol rate/Area] 125 >=60 mL/min/1.73 m2 [facility] Interpretation and review of laboratory results Normal [facility] Basic Metabolic Panelon Anion gap [Moles/Vol] 12 mmol/L 10 - 20 mmol/L [facility] Calcium [Mass/Vol] 8.2 mg/dL Low 8.4 - 10. 2 mg/dL [facility] Chloride [Moles/Vol] 109 mmol/L High 98 - 10 8 mmol/L [facility] Creatinine [Mass/Vol] 0.70 mg/dL 0.40 - 1.10 [facility] GFR/1.73 sq M predicted among non-blacks MDRD (S/P/Bld) [Vol rate/Area] The eGFR should be used for monitoring renal function only and not for medication dosing. [facility] GFR/1.73 sq M.predicted CKD-EPI (S/P/Bld) [Vol rate/Area] 124 >=60 mL/min/1.73 m2 [facility] Glucose [Mass/Vol] 101 mg/dL High 65 - 99 mg/dL [facility] HCO3 [Moles/Vol] 21 mmol/L 21 - 32 mmol/L [facility] Interpretation and review of laboratory results Abnormal [facility] Potassium [Moles/Vol] 4.2 mmol/L 3.5 - 5.1 mmol/L [facility] Sodium [Moles/Vol] 138 mmol/L 135 - 145 mmol/L [facility] Urea nitrogen [Mass/Vol] 10 mg/dL 8 - 25 mg/dL [facility] Urea nitrogen/Creatinine [Mass ratio] 14.3 mg/mg [facility] CBCon 10-29-2019 Erythrocyte distribution width (RBC) [Entitic vol] 12.9 % 11.6 - 14.8 % [facility] Hematocrit (Bld) [Volume fraction] 36.7 % 36 - 46 % [facility] Hemoglobin (Bld) [Mass/Vol] 12.0 g/dL 12 - 16 g/dL [facility] Interpretation and review of laboratory results Abnormal [facility] MCH (RBC) [Entitic mass] 30.8 pg 26 - 34 pg [facility] MCHC (RBC) [Mass/Vol] 32.7 g/dL 31 - 37 g/dL [facility] MCV (RBC) [Entitic vol] 94.3 fL 80 - 100 fL [facility] Nucleated RBC (Bld) [#/Vol] 0.00 10*3/uL [facility] Nucleated RBC/100 WBC (Bld) [Ratio] 0.0 % [facility] Platelet mean volume (Bld) [Entitic vol] 10.0 fL 9.4 - 12.4 fL [facility] Platelets (Bld) [#/Vol] 178 10*3/uL [facility] RBC (Bld) [#/Vol] 3.89 10*6/uL Low [facility] WBC (Bld) [#/Vol] 8.39 10*3/uL [facility] CBCon 10-28-2019 Erythrocyte distribution width (RBC) [Entitic vol] 12.8 % 11.6 - 14.8 % [facility] Hematocrit (Bld) [Volume fraction] 38.8 % 36 - 46 % [facility] Hemoglobin (Bld) [Mass/Vol] 12.7 g/dL 12 - 16 g/dL [facility] Interpretation and review of laboratory results Abnormal [facility] MCH (RBC) [Entitic mass] 30.8 pg 26 - 34 pg [facility] MCHC (RBC) [Mass/Vol] 32.7 g/dL 31 - 37 g/dL [facility] MCV (RBC) [Entitic vol] 93.9 fL 80 - 100 fL [facility] Nucleated RBC (Bld) [#/Vol] 0.00 10*3/uL [facility] Nucleated RBC/100 WBC (Bld) [Ratio] 0.0 % [facility] Platelet mean volume (Bld) [Entitic vol] 9.8 fL 9.4 - 12.4 fL [facility] Platelets (Bld) [#/Vol] 186 10*3/uL [facility] RBC (Bld) [#/Vol] 4.13 10*6/uL [facility] WBC (Bld) [#/Vol] 12.67 10*3/uL [facility] COVID-19, Molecularon 2019 Interpretation and review of laboratory results Normal [facility] SARS-CoV-2 Not Detected Not Detected [facility] Comment on above: This test was perfor med under the FDA's Emergency Use Authorization (EUA). Testing was performed using the Crisp ID NOW COVID-19 assay on the ID NOW platform. This test has not been approved for use in asymptomatic patients and its performance in this patient population has not been evaluated. Negative results do not rule out the presence of SARS-CoV-2/COVID-19. Fact sheets for the EUA can be found at the following links: For Healthcare Providers: https://www.fda.gov/media/270414/download For Patients: https://www.fda.gov/media/291612/download Comprehensive Metabolic Pane torsten 10-28-2019 Albumin [Mass/Vol] 3.4 g/dL 3.2 - 5.2 g/dL [facility] ALP [Catalytic activity/Vol] 93 U/L 40 - 140 U/L [facility] ALT [Catalytic activity/Vol] 37 U/L 0 - 40 U/L [facility] Anion gap [Moles/Vol] 17 mmol/L 10 - 20 mmol/L [facility] AST [Catalytic activity/Vol] 36 U/L 0 - 45 U/L [facility] Bilirubin [Mass/Vol] 0.7 mg/dL 0 - 1.3 mg/dL [facility] Calcium [Mass/Vol] 8.3 mg/dL Low 8.4 - 10. 2 mg/dL [facility] Chloride [Moles/Vol] 107 mmol/L 98 - 10 8 mmol/L [facility] Creatinine [Mass/Vol] 0.68 mg/dL 0.40 - 1.10 [facility] GFR/1.73 sq M predicted among non-blacks MDRD (S/P/Bld) [Vol rate/Area] The eGFR should be used for monitoring renal function only and not for medication dosing. [facility] GFR/1.73 sq M.predicted CKD-EPI (S/P/Bld) [Vol rate/Area] 125 >=60 mL/min/1.73 m2 [facility] Glucose [Mass/Vol] 97 mg/dL 65 - 99 mg/dL [facility] HCO3 [Moles/Vol] 19 mmol/L Low 21 - 32 mmol/L [facility] Interpretation and review of laboratory results Abnormal [facility] Potassium [Moles/Vol] 4.1 mmol/L 3.5 - 5.1 mmol/L [facility] Protein [Mass/Vol] 6.1 g/dL 6 - 8 g/dL [facility] Sodium [Moles/Vol] 139 mmol/L 135 - 145 mmol/L [facility] Urea nitrogen [Mass/Vol] 7 mg/dL Low 8 - 25 mg/dL [facility] Urea nitrogen/Creatinine [Mass ratio] 10.3 mg/mg [facility] DRUGS OF ABUSE SCREEN, URINE on 10-28-2019 Amphetamines Ql (U) Positive Abnormal None Detected [facility] Comment on above: Urine Amphetamine Cu toff: < 1000 ng/mL = None Detected Barbiturates Screen Ql (U) None Detected None Detected [facility] Comment on above: Urine Barbiturates C utoff: < 200 ng/mL = None Detected Benzodiazepines Ql (U) None Detected None Detec vance [facility] Comment on above: Urine Benzodiazepine Cutoff: < 200 ng/mL = None Detected Buprenorphine Ql (U) None Detected None Detecte d [facility] Comment on above: Urine Buprenorphine Cutoff: < 5 ng/mL = None Detected Cannabinoids Screen Ql (U) None Detected None Detected [facility] Comment on above: Urine Cannabinoids C utoff: < 50 ng/mL = None Detected Cocaine Ql (U) None Detected None Detected [facility] Comment on above: Urine Cocaine Cutoff : < 300 ng/mL = None Detected Fentanyl+Norfentanyl Screen Ql (U) None Detected None Detected [facility] Comment on above: Urine Fentanyl Cutof f: < 1 ng/mL = None Detected Interpretation and review of laboratory results Abnormal [facility] Methadone Screen Ql (U) None Detected None Dete cted [facility] Comment on above: Urine Methadone Cuto ff: < 300 ng/mL = None Detected Opiates Screen Ql (U) None Detected None Detect ed [facility] Comment on above: Urine Opiates Cutoff : < 300 ng/mL = None Detected Oxycodone Ql (U) None Detected [facility]ed [facility] Comment on above: Urine Oxycodone Cuto ff: < 100 ng/mL = None Detected Screen results should be used for treatment purposes only. Specimen will be kept for 2 weeks, if the sample is adequate. Confirmation testing can be initiated by calling the lab within 2 weeks. [facility] URINALYSISon 10-28-2019 Bacteria Auto Ql (U) Few Abnormal None Seen /hpf [facility] Bilirubin Ql (U) Negative Negative [facility] Clarity Refractometry automated (U) Hazy Abnormal Clear [facility] Color (U) Yellow Colorless, Yellow [facility] Epithelial cells.squamous Auto (Urine sed) [#/Area] 4 [facility] Glucose Auto test strip (U) [Mass/Vol] Negative Negative mg/dL [facility] Hemoglobin Auto test strip Ql (U) Negative Negative [facility] Interpretation and review of laboratory results Abnormal [facility] Ketones (U) [Mass/Vol] Trace Abnormal Negative mg/d L [facility] Leukocyte esterase Auto test strip Ql (U) Small Abnormal Negative [facility] Mucus Auto (Urine sed) [#/Area] Rare None Seen, Rare /lpf [facility] Nitrite Auto test strip Ql (U) Negative Negative [facility] pH (U) 5.0 [pH] [facility] Protein (U) [Mass/Vol] Negative Negative mg/d L [facility] RBC Auto (Urine sed) [#/Area] 5 High [facility] Specific gravity (U) [Rel density] 1.018 [facility] Urobilinogen (U) [Mass/Vol] <2.0 <2.0 mg/dL [facility] WBC Auto (Urine sed) [#/Area] 26 High [facility] Microscopic examination is performed on all urinalysis samples and only positive findings are reported. The test for blood on the chemical analytic portion of urinalysis may also be positive due to hemoglobinuria and myoglobinuria and if red blood cells are present they are quantified by microscopic examination. [facility] XR CHEST PA/APon 10-28-2019 XR CHEST PA/AP EXAMINATION: XR CHEST PA/AP 10/28/2019 5:16 am HISTORY: ORDERING SYSTEM PROVIDED HISTORY: fever, TECHNOLOGIST PROVIDED HISTORY: Illness/Other Reason for exam: fever Cancer History: Surgery, RadiationHistory: Encounter Type: Ongoing Additional signs and symptoms: weak ORDERING SYSTEM PROVIDED DIAGNOSIS CODES: N12 Pyelonephritis FINDINGS: LUNGS: No significant pulmonary parenchymal abnormalities. VASCULATURE: No increased pulmonary vasculature. PLEURA: No pneumothorax, effusion, or pleural thickening. CARDIAC: No cardiomegaly or cardiac silhouette abnormality. MEDIASTINUM: No visible mass or adenopathy. BONES: No fracture or visible bone lesion. OTHER: Negative. IMPRESSION: 1. No acute cardiopulmonary process. Workstation ID: [id number] Dictated by: CORTNEY MOYA on ThuOct 28, 2019 12:33:24 PM EDT Transcribed by: CORTNEY MOYA on ThuOct 28, 2019 12:33:24 PM EDT Finalized by: CORTNEY MOYA on ThuOct 28, 2019 12:33:24 PM EDT [facility] Comment on above: Order Comment: Injur y/Trauma or Illness?:Illness/Other How long have you had these symptoms (acute/chronic)?:Acute Reason for exam?:fever History of cancer?: Surgeries, chemotherapy, or radiation?: Type of Exam?:Ongoing Additional signs and symptoms?:weak XR Chest 1 Viewon 10-28-2019 Interface, Rad In Christine Speechq - 10/28/2019 12:36 PM EDT EXAMINATION: XR CHEST PA/AP 10/28/2019 5:16 am HISTORY: ORDERING SYSTEM PROVIDED HISTORY: fever, TECHNOLOGIST PROVIDED HISTORY: Illness/Other Reason for exam: fever Cancer History: Surgery, RadiationHistory: Encounter Type: Ongoing Additional signs and symptoms: weak ORDERING SYSTEM PROVIDED DIAGNOSIS CODES: N12 Pyelonephritis FINDINGS: LUNGS: No significant pulmonary parenchymal abnormalities. VASCULATURE: No increased pulmonary vasculature. PLEURA: No pneumothorax, effusion, or pleural thickening. CARDIAC: No cardiomegaly or cardiac silhouette abnormality. MEDIASTINUM: No visible mass or adenopathy. BONES: No fracture or visible bone lesion. OTHER: Negative. IMPRESSION: 1. No acute cardiopulmonary process. Workstation ID: [id number] [facility] 1. No acute cardiopulmonary process. Workstation ID: [id number] [facility] EXAMINATION: XR CHEST PA/AP 10/28/2019 5:16 am HISTORY: ORDERING SYSTEM PROVIDED HISTORY: fever, TECHNOLOGIST PROVIDED HISTORY: Illness/Other Reason for exam: fever Cancer History: Surgery, RadiationHistory: Encounter Type: Ongoing Additional signs and symptoms: weak ORDERING SYSTEM PROVIDED DIAGNOSIS CODES: N12 Pyelonephritis FINDINGS: LUNGS: No significant pulmonary parenchymal abnormalities. VASCULATURE: No increased pulmonary vasculature. PLEURA: No pneumothorax, effusion, or pleural thickening. CARDIAC: No cardiomegaly or cardiac silhouette abnormality. MEDIASTINUM: No visible mass or adenopathy. BONES: No fracture or visible bone lesion. OTHER: Negative. [facility] hCG, Blood, Quantitativeon 0 10-28-2019 Beta HCG ( test) Ql (U) Males and non females: <5 mIU/mL Females during : 3-4 weeks 9-130 mIU/mL 4-5 weeks 75-2600 mIU/mL 5-6 weeks 850-20,800 mIU/mL 6-7 weeks 4000-100,200 mIU/mL 7-12 weeks 11,500-289,000 mIU/mL 12-16 weeks 18,300-137,000 mIU/mL 16-29 weeks 1,400-53,000 mIU/mL 29-41 weeks 940-60,000 mIU/mL [facility] HCG Qn m[IU]/mL [facility] Interpretation and review of laboratory results Normal [facility] Vital Signs Date Time Vital Sign Value Performing Clinician Facility 10-21-2024 19:55-0400 Body height 152.4 cm Khris Irvingphong XIONG POT LINING SUPERVISOR Work Phone: [facility] [place] [place] 10-21-2024 19:55-0400 Body mass index (BMI) [Ratio] 21.48 kg/m2 Khris Irvingphong [employer] POT LINING SUPERVISOR Work Phone: [facility] [place] [place] 10-21-2024 19:55-0400 Body temperature 97.81 [degF] Khris Irving APRN POT LINING SUPERVISOR Work Phone: [facility] [employer] [facility] 10-21-2024 19:55-0400 Body weight 49.9 kg Khris Irvingphong XIONG POT LINING SUPERVISOR Work Phone: [facility] [place] [place] 10-21-2024 19:55-0400 Diastolic blood pressure 83 mm[Hg] Khris Irving APRN POT LINING SUPERVISOR Work Phone: [facility] [facility] 10-21-2024 19:55-0400 Heart rate 93 /min Khris Irvingphong [employer]ION[employer] POT LINING SUPERVISOR Work Phone: [facility] [facility] 10-21-2024 19:55-0400 Respiratory rate 16 /min Khris Irving APRN POT LINING SUPERVISOR Work Phone: [facility] [place] [place] 10-21-2024 19:55-0400 SaO2% (BldA) [Mass fraction] 99 % Khris Irving APRN POT LINING SUPERVISOR Work Phone: [facility] [facility] [place] [place] 10-21-2024 19:55-0400 Systolic blood pressure 131 mm[Hg] Khris Irving APRN POT LINING SUPERVISOR Work Phone: [employer] [facility] 04-30-2024 13:51-0500 Body temperature 98.29 [degF] Khris Irving APRN POT LINING SUPERVISOR Work Phone: [facility] [place] [place] 04-30-2024 13:51-0500 Diastolic blood pressure 80 mm[Hg] Khris Irving APRN POT LINING SUPERVISOR Work Phone: [email or web address] 04-30-2024 13:51-0500 Heart rate 89 /min Khris Irving SURG RN POT LINING SUPERVISOR Work Phone: [email or web address] 04-30-2024 13:51-0500 Respiratory rate 16 /min Khris Irving APRN POT LINING SUPERVISOR Work Phone: [email or web address] 04-30-2024 13:51-0500 SaO2% (BldA) [Mass fraction] 98 % Khris Irving APRN POT LINING SUPERVISOR Work Phone: [email or web address] 04-30-2024 13:51-0500 Systolic blood pressure 138 mm[Hg] Khris Irving APRN POT LINING SUPERVISOR Work Phone: [email or web address] 04-30-2024 13:13-0500 Body height 152.4 cm Khris Irving APRN POT LINING SUPERVISOR Work Phone: [email or web address] 04-30-2024 13:13-0500 Body mass index (BMI) [Ratio] 21.48 kg/m2 Khris Irving APRN POT LINING SUPERVISOR Work Phone: [email or web address] 04-30-2024 13:13-0500 Body weight 49.9 kg Khris Irving APRN POT LINING SUPERVISOR Work Phone: [email or web address] 12-19-2023 18:58-0400 Diastolic blood pressure 84 mm[Hg] Zainab Lozano MD Work Phone: [email or web address] 12-19-2023 18:58-0400 Heart rate 101 /min Zainab Lozano MD Work Phone: [email or web address] 12-19-2023 18:58-0400 SaO2% (BldA) [Mass fraction] 99 % Zainab Lozano MD Work Phone: [email or web address] 12-19-2023 18:58-0400 Systolic blood pressure 137 mm[Hg] Zainab Lozano MD Work Phone: 0([phone] [place] [address] 12-19-2023 17:35-0400 Body height 152.4 cm Zainab Lozano MD Work Phone: 3(679)949-164315 [address] 12-19-2023 17:35-0400 Body mass index (BMI) [Ratio] 25.19 kg/m2 Zainab Lozano MD Work Phone: 9(538)[phone] [address] 12-19-2023 17:35-0400 Body temperature 98.71 [degF] Zainab Lozano MD Work Phone: 7(720)[phone] [address] 12-19-2023 17:35-0400 Body weight 58.51 kg Zainab Lozano MD Work Phone: 6(212)670-395415 [address] 12-19-2023 17:35-0400 Respiratory rate 20 /min Zainab Lozano MD Work Phone: 9(937)[phone] [address] 12-20-2020 03:39-0400 Body height 153.7 cm Chris Davis MD Work Phone: 0(593)[phone] [address] 12-20-2020 03:39-0400 Body mass index (BMI) [Ratio] 19.67 kg/m2 Chris Davis MD Work Phone: 5([phone])[phone] [address] 12-20-2020 03:39-0400 Body temperature 97.7 [degF] Chris Davis MD Work Phone: 2(937)113-399615 [address] 12-20-2020 03:39-0400 Body weight 46.45 kg Chris Davis MD Work Phone: 5(599)[phone] [address] 12-20-2020 03:39-0400 Diastolic blood pressure 65 mm[Hg] Chris Davis MD Work Phone: 7([phone])[phone] [address] 12-20-2020 03:39-0400 Heart rate 55 /min Chris Davis MD Work Phone: 8([phone] [address] 12-20-2020 03:39-0400 Respiratory rate 18 /min Chris Davis MD Work Phone: 5([phone])[phone] [address] 12-20-2020 03:39-0400 SaO2% (BldA) [Mass fraction] 97 % Chris Davis MD Work Phone: [facility] [place] [place] 12-20-2020 03:39-0400 Systolic blood pressure 112 mm[Hg] Chris Davis MD Work Phone: [facility] [place] [place] 10-31-2019 11:42-0400 Body Temperature 98.71 [degF] [facility] 10-31-2019 11:42-0400 BP Diastolic 70 mm[Hg] [facility] 10-31-2019 11:42-0400 BP Systolic 113 mm[Hg] [facility] 10-31-2019 11:42-0400 Pulse (Heart Rate) 86 /min [facility] 10-31-2019 11:42-0400 Pulse Oximetry 100 % [facility] 10-31-2019 11:42-0400 Respiratory Rate 14 /min [facility] 10-28-2019 04:24-0400 BMI (Body Mass Index) 22.43 kg/m2 [facility] 10-28-2019 04:24-0400 Body weight 52.1 kg [facility] 10-28-2019 04:24-0400 Height 152.4 cm [facility] Encounters Encounter Date Encounter Type Care Provider Facility Start: 10-21-2024 End: 10-21-2024 Emergency department patient visit KHRIS IRVING [facility] Comment on above: Strep pharyngitis (P rimary Dx); Possible exposure to STI Start: 05-16-2024 End: 05-16-2024 ambulatory [facility] Start: 05-16-2024 Encounter for gynecological examination (general) (routine) without abnormal findings [facility] Start: 04-30-2024 End: 04-30-2024 Emergency department patient visit [facility] Comment on above: Opiate withdrawal (H CC) (Primary Dx) Start: 03-29-2024 ambulatory KHRIS IRVING [facility] Start: 12-19-2023 End: 12-19-2023 Emergency department patient visit Zainab Lozano MD Work Phone: [facility] Comment on above: Opiate withdrawal (H CC) (Primary Dx) Start: 03-26-2023 End: 03-26-2023 Subsequent hospital visit by physician Khris Irving APRN POT LINING SUPERVISOR Work Phone: [facility] Comment on above: Breast lump on left side at 5 o'clock position; Nipple tenderness Start: 03-18-2022 End: 03-18-2022 Subsequent hospital visit by physician Miley Townsend APRN PAYROLL LEAD Work Phone: [facility] Comment on above: Hep C w/o coma, synchronizer pacheco (HCC) Start: 02-11-2022 End: 02-11-2022 Subsequent hospital visit by physician Miley Townsend APRN PAYROLL LEAD Work Phone: [facility] Comment on above: Hep C w/o coma, synchronizer pacheco (HCC) Start: 01-30-2022 End: 01-30-2022 Subsequent hospital visit by physician Khris Irving APRN POT LINING SUPERVISOR Work Phone: [facility] Comment on above: Breast lump on left side at 5 o'clock position Start: 01-13-2022 End: 01-13-2022 Subsequent hospital visit by physician Khris Irving APRN POT LINING SUPERVISOR Work Phone: [facility] Comment on above: Screen for sexually transmitted diseases Start: 01-13-2022 End: 01-13-2022 Subsequent hospital visit by physician Khris Irving APRN POT LINING SUPERVISOR Work Phone: [facility] Start: 12-24-2021 End: 12-24-2021 Subsequent hospital visit by physician Miley Townsend APRN PAYROLL LEAD Work Phone: [facility] Comment on above: Hep C w/o coma, synchronizer pacheco (HCC) Start: 11-28-2021 End: 11-28-2021 Subsequent hospital visit by physician Miley Townsend APRN PAYROLL LEAD Work Phone: [facility] Comment on above: Hep C w/o coma, synchronizer pacheco (HCC) Start: 11-18-2021 End: 11-18-2021 Subsequent hospital visit by physician Tomasz Landrum APRN PAYROLL LEAD Work Phone: [facility] Comment on above: Chronic hepatitis C without hepatic coma (HCC) Start: 11-15-2021 End: 11-15-2021 Subsequent hospital visit by physician Tomasz Landrum APRN PAYROLL LEAD Work Phone: [facility] Comment on above: Chronic hepatitis C without hepatic coma (HCC) Start: 10-21-2021 End: 10-21-2021 Subsequent hospital visit by physician Chaparrita Brown PA-C Work Phone: [facility] Comment on above: Hepatitis C antibody test positive Start: 10-18-2021 End: 10-18-2021 Subsequent hospital visit by physician Chaparrita Brown PA-C Work Phone: [facility] Comment on above: Screening for cardio vascular condition; History of methamphetamine use; Leukocytosis, unspecified type Start: 12-20-2020 End: 12-20-2020 Emergency department patient visit Chris Davis MD Work Phone: [facility] Comment on above: Lab test negative fo r COVID-19 virus (Primary Dx); Medical clearance for incarceration Start: 12-20-2020 End: 12-20-2020 Patient encounter status Chris Davis MD Work Phone: [facility] Start: 10-28-2019 End: 10-31-2019 Evaluation and management of inpatient [facility] Start: 10-28-2019 End: 10-31-2019 Evaluation and management of inpatient [facility] Physicians Work Phone: [facility] Comment on above: Pyelonephritis Procedures Date Procedure Procedure Detail Performing Clinician Start: 10-21-2024 Urine test visual color cmprsn meths Lorna Mendes APRN PAYROLL LEAD Work Phone: Start: 10-21-2024 Iadna streptococcus group a amplified probe tq Chavo Muller MD Work Phone: Start: 10-21-2024 Influenza virus A and B RNA and SARS-CoV-2 (COVID-19) N gene panel - Respiratory specimen by LILLIAN with probe detection Chavo Muller MD Work Phone: Start: 05-16-2024 Microscopic observation [Identifier] in Cervix by Cyto stain Khris Irvingphong [employer]ION[employer] POT LINING SUPERVISOR Work Phone: Start: 05-15-2024 Adult depression screening assessment Khris Irvingphong [employer] POT LINING SUPERVISOR Work Phone: Start: 03-26-2023 Us breast uni real time with image limited Khris Irvingphong [employer] POT LINING SUPERVISOR Work Phone: Start: 03-23-2023 Adult depression screening assessment Khris Stevenphong [employer] POT LINING SUPERVISOR Work Phone: Start: 03-23-2023 Microscopic observation [Identifier] in Cervix by Cyto stain Zainab Lozano MD Work Phone: Start: 03-19-2022 Adult depression screening assessment Miley Townsend APRN PAYROLL LEAD Work Phone: Start: 03-18-2022 Comprehensive metabolic panel Miley Do llison SURG RN PAYROLL LEAD Work Phone: Start: 03-18-2022 Iadna hepatitis c quant & reverse dining chair seat cushion trimmer Miley Townsend APRN PAYROLL LEAD Work Phone: Start: 03-09-2022 Adult depression screening assessment Miley Townsend APRN PAYROLL LEAD Work Phone: Start: 02-11-2022 Comprehensive metabolic panel Miley Do llison SURG RN PAYROLL LEAD Work Phone: Start: 02-11-2022 Iadna hepatitis c quant & reverse dining chair seat cushion trimmer Miley Townsend APRN PAYROLL LEAD Work Phone: Start: 01-30-2022 Us breast uni real time with image limited Khris Irvingphong [employer] POT LINING SUPERVISOR Work Phone: Start: 01-13-2022 Iaad ia hepatitis b surface antigen Khris Irvingphong [employer] POT LINING SUPERVISOR Work Phone: Start: 01-13-2022 Adult depression screening assessment Khris Irving SURG RN POT LINING SUPERVISOR Work Phone: Start: 01-13-2022 Microscopic observation [Identifier] in Cervix by Cyto stain Khrisphong Irving APRN POT LINING SUPERVISOR Work Phone: Start: 12-24-2021 CBC W Auto Differential panel - Blood Miley Townsend APRN PAYROLL LEAD Work Phone: Start: 12-24-2021 Comprehensive metabolic panel Miley Do robin XIONG PAYROLL LEAD Work Phone: Start: 12-24-2021 GLOMERULAR FILTRATION RATE Miley go APRN PAYROLL LEAD Work Phone: Start: 12-24-2021 Iadna hepatitis c quant & reverse dining chair seat cushion trimmer Miley Townsend APRN PAYROLL LEAD Work Phone: Start: 11-28-2021 CBC W Auto Differential panel - Blood Miley Townsend APRN PAYROLL LEAD Work Phone: Start: 11-28-2021 Comprehensive metabolic panel Miley Do robin BERMUDEZN PAYROLL LEAD Work Phone: Start: 11-28-2021 GLOMERULAR FILTRATION RATE Miley go APRN PAYROLL LEAD Work Phone: Start: 11-28-2021 Hepatitis b surf antibody hbsab Miley Townsend APRN PAYROLL LEAD Work Phone: Start: 11-28-2021 Iaad ia hepatitis b surface antigen Miley Townsend APRN PAYROLL LEAD Work Phone: Start: 11-28-2021 MISC LAB TEST Miley Townsend APR N PAYROLL LEAD Work Phone: Start: 11-18-2021 Prothrombin time Tomasz Landrum TYRESE CN P Work Phone: Start: 11-18-2021 Urine test visual color cmprsn meths Tomasz Landrum SURG RN PAYROLL LEAD Work Phone: Start: 11-15-2021 Adult depression screening assessment Tomasz Landrum SURG RN PAYROLL LEAD Work Phone: Start: 10-21-2021 MISC LAB TEST Chaparrita Brown PA-C Work Phone: Start: 10-18-2021 CBC W Auto Differential panel - Blood Chaparrita Brown PA-C Work Phone: Start: 10-18-2021 Comprehensive metabolic panel Chaparrita blackman PA-C Work Phone: Start: 10-18-2021 GLOMERULAR FILTRATION RATE Chaparrita Hightower ns PA-C Work Phone: Start: 10-18-2021 Iaad ia hiv-1 ag w/hiv-1 & hiv-2 antbdy single Chaparrita Brown PA-C Work Phone: Start: 10-18-2021 Lipid panel Chaparrita Brown PA-C Work Phone: Start: 10-18-2021 Adult depression screening assessment Chaparrita Brown PA-C Work Phone: Start: 12-20-2020 Sars-cov-2 detection by dna/rna Chapincito Patiño SURG RN[facility]PAYROLL LEAD[facility] Work Phone: Start: 10-30-2019 Creatinine [Mass/volume] in Serum or Plasma Shade Conley Work Phone: Start: 10-29-2019 Basic metabolic 2000 panel - Serum or Plasma Debra Schuler Work Phone: Start: 10-29-2019 Complete blood count (hemogram) panel - Blood by Automated count Debra Schuler Work Phone: Start: 10-28-2019 Drugs of abuse urine screening test Shade Conley Work Phone: Start: 10-28-2019 Urinalysis Shade Conley Work Phone: Start: 10-28-2019 Choriogonadotropin [Units/volume] in Serum or Plasma Shade Conley Work Phone: Start: 10-28-2019 Complete blood count (hemogram) panel - Blood by Automated count Shade Conley Work Phone: Start: 10-28-2019 Comprehensive metabolic 2000 panel - Serum or Plasma Shade Conley Work Phone: Start: 10-28-2019 Radiologic exam chest single view Shade Conley Work Phone: Start: 10-28-2019 COVID-19, MOLECULAR Shade Conley Work Phone: Plan of Treatment Date Care Activity Detail Author Start: 05-16-2027 Screening for malign ant neoplasm of cervix PAP SMEAR [facility] [place] [place] Start: 03-23-2026 Screening for malign ant neoplasm of cervix PAP SMEAR [facility] [place] [place] Start: 05-17-2025 ANNUAL WELLNESS VISIT ANNUAL WELLNES S VISIT [facility] [place] [place] Start: 05-17-2025 End: 05-17-2025 Patient encounter procedure 05/17/2025 1:00 PM EST Office Visit [facility] [address] [place] [address] Alan Nolen, SURG RN PAYROLL LEAD [address] [place] [address] [facility] Start: 05-15-2025 Depression screening using PHQ-9 (Patient Health Questionnaire 9) score DEPRESSION SCREENING [facility] [place] [place] Start: 01-13-2025 Screening for malign ant neoplasm of cervix PAP SMEAR [facility] [place] [place] Start: 12-26-2024 Influenza vaccinatio n given INFLUENZA VACCINE (Season Ended) [facility] [place] [place] Start: 03-29-2024 End: 03-29-2024 Patient encounter procedure 03/29/2024 10:40 AM EST Office Visit [facility] [address] [place] [address] Khris Irving APRN POT LINING SUPERVISOR [address] [place] [address] [facility] Start: 03-23-2024 ANNUAL WELLNESS VISIT ANNUAL WELLNES S VISIT [facility] [place] [place] Start: 03-23-2024 Depression screening using PHQ-9 (Patient Health Questionnaire 9) score DEPRESSION SCREENING [facility] [place] [place] Start: 12-27-2023 COVID-19 VACCINE ( season) COVID-19 VACCINE ( season) [facility] [place] [place] Start: 12-27-2023 Influenza vaccinatio n given INFLUENZA VACCINE (#1) [facility] [place] [place] Start: 12-12-2023 Administration of diphtheria + tetanus + acellular pertussis vaccine DTAP/TDAP/TD VACCINE (2 - Td or Tdap) [facility] [place] [place] Start: 12-12-2023 Diphtheria + pertuss is + tetanus vaccine (product) DTAP/TDAP/TD VACCINE (2 - Td or Tdap) [facility] [place] [place] Start: 12-12-2023 Tetanus vaccination Tetanus: Every 1 0yrs [facility] Start: 04-06-2023 End: 04-06-2023 Patient encounter procedure 04/06/2023 2:30 PM EST Office Visit [address] [address] Vonnie Waller APRN PAYROLL LEAD [address] [place] [address] [facility] Start: 03-19-2023 Depression screening using PHQ-9 (Patient Health Questionnaire 9) score DEPRESSION SCREENING [facility] [place] [place] Start: 03-09-2023 Depression screening using PHQ-9 (Patient Health Questionnaire 9) score DEPRESSION SCREENING [facility] [place] [place] Start: 01-19-2023 End: 01-19-2023 Patient encounter procedure 01/19/2023 Office Visit Obstetrics and Gynecology Khris Irving APRN POT LINING SUPERVISOR [address] [place] [address] [facility] Start: 01-14-2023 ANNUAL WELLNESS VISIT ANNUAL WELLNES S VISIT [facility] [place] [place] Start: 01-13-2023 CHLAMYDIA SCREENING CHLAMYDIA SCREEN ING [facility] [place] [place] Start: 01-13-2023 Depression screening using PHQ-9 (Patient Health Questionnaire 9) score DEPRESSION SCREENING [facility] [place] [place] Start: 12-26-2022 COVID-19 VACCINE ( season) COVID-19 VACCINE ( season) [facility] [place] [place] Start: 12-26-2022 Influenza vaccinatio n given INFLUENZA VACCINE (#1) [facility] [place] [place] Start: 11-15-2022 Depression screening using PHQ-9 (Patient Health Questionnaire 9) score DEPRESSION SCREENING [facility] [place] [place] Start: 10-18-2022 Depression screening using PHQ-9 (Patient Health Questionnaire 9) score DEPRESSION SCREENING [facility] [place] [place] Start: 10-17-2022 End: 10-17-2022 Patient encounter procedure 10/17/2022 Office Visit Family Medicine Chaparrita Brown PA-C [address] [place] [address] [facility] Start: 09-25-2022 COVID-19 VACCINE (#1) COVID-19 VACCI NE (#1) [facility] [place] [place] Comment on above: Postponed from 03/25 (Patient Declined) Postponed from 09/22 (Patient Declined) Start: 09-25-2022 COVID-19 VACCINE (1) COVID-19 VACCIN E (1) [facility] [place] [place] Comment on above: Postponed from 03/25 (Patient Declined) Start: 06-17-2022 End: 06-17-2022 Patient encounter procedure 06/17/2022 Office Visit Infectious Diseases Miley Townsend APRN PAYROLL LEAD [address] [place] [address] [facility] Start: 04-14-2022 End: 04-14-2022 Patient encounter procedure 04/14/2022 Office Visit Obstetrics and Gynecology Khris Irving APRN POT LINING SUPERVISOR [address] [place] [address] [facility] Start: 03-19-2022 End: 03-19-2022 Patient encounter procedure 03/19/2022 Procedure visit Obstetrics and Gynecology Yvonne Ornelas APRN PAYROLL LEAD [address] [facility] [place] [address] [facility] Start: 03-18-2022 End: 03-18-2022 Patient encounter procedure 03/18/2022 Office Visit Infectious Diseases Miley Townsend APRN PAYROLL LEAD [address] [place] [address] [facility] Start: 02-11-2022 End: 02-11-2022 Patient encounter procedure 02/11/2022 Office Visit Infectious Diseases Miley Townsend APRN PAYROLL LEAD [address] [place] [address] [facility] Start: 02-05-2022 End: 02-05-2022 Patient encounter procedure 02/05/2022 Procedure visit Obstetrics and Gynecology Yvonne Ornelas APRN PAYROLL LEAD [address] [facility] [place] [address] [facility] Start: 01-30-2022 End: 01-30-2022 Patient encounter procedure 01/30/2022 Appointment Radiology Khris Irving APRN POT LINING SUPERVISOR [address] [place] [address] [facility] Start: 01-13-2022 End: 01-13-2022 Patient encounter procedure 01/13/2022 Office Visit Obstetrics and Gynecology Lela Baldwin APRN PAYROLL LEAD [address] [address] [facility] Start: 12-26-2021 Influenza vaccinatio n given [facility] [place] [place] Start: 12-24-2021 End: 12-24-2021 Patient encounter procedure 12/24/2021 Office Visit Infectious Diseases Miley Townsend APRN PAYROLL LEAD [address] [place] [address] [facility] Start: 12-13-2021 End: 12-13-2021 Telemedicine consultation with patient 12/13/2021 Telemedicine Family Medicine Tomasz Landrum APRN PAYROLL LEAD [address] [place] [address] [facility] Start: 11-28-2021 End: 11-28-2021 Patient encounter procedure 11/28/2021 Office Visit Infectious Diseases Miley Townsend, SURG RN PAYROLL LEAD [address] [place] [address] [facility] Start: 11-20-2021 End: 11-20-2021 Patient encounter procedure 11/20/2021 Appointment Radiology Tomasz Landrum, SURG RN PAYROLL LEAD [address] [place] [address] [facility] Start: 12-26-2020 Influenza vaccinatio n given INFLUENZA VACCINE (Season Ended) [facility] [place] [place] Start: 12-27-2019 Influenza vaccinatio n given Sequential Influenza Vaccine (#1) [facility] Start: 2019 Screening for malign ant neoplasm of cervix PAP SMEAR [facility] [place] [place] Start: 2017 PNEUMOCOCCAL VACCINE (1 of 2 - PCV) PNEUMOCOCCAL VACCINE (1 of 2 - PCV) [facility] [place] [place] Start: 2016 ANNUAL [facility]ISIT [facility] [place] [place] Start: 2016 Hepatitis C antibody , confirmatory test Hepatitis C Screening [facility] Start: 08-09-2014 CHLAMYDIA SCREENING CHLAMYDIA SCREEN ING [facility] [place] [place] Start: 2013 HIV screening HIV Screening [facility] Start: 2013 Human papilloma viru s vaccination given HPV VACCINES (GARDASIL) (1 - 3-dose series) [facility] [place] [place] Start: 2010 Depression screening using PHQ-9 (Patient Health Questionnaire 9) score DEPRESSION SCREENING [facility] [place] [place] Start: 2009 Human papilloma viru s vaccination given HPV VACCINES (GARDASIL) (1 - 2-dose series) [facility] [place] [place] Start: 2009 Vaccination for taylor n papillomavirus [facility] [place] [place] Start: 2001 History and physical examination, annual for health maintenance Wellness Visit [facility] Start: 1998 COVID-19 VACCINE (#1) COVID-19 VACCI NE (#1) [facility] [place] [place] Start: 1998 Screening for Chlamy samir trachomatis Chlamydia Screening [facility] Start: 1998 Screening for malign ant neoplasm of cervix Pap Smear [facility] End: 10-28-2019 Bacteria identified Aer cx Nom (Unsp spec) Urine Aerobic Culture Microbiology Routine Once for 1 Occurrences starting 10/28/2019 until 10/28/2019 [facility] Comment on above: Once for 1 Occurrenc es starting 10/28/2019 until 10/28/2019 Bacteria identified Cx Nom (Bld) [facility] End: 10-21-2024 Chlamydia trachomatis and Neisseria gonorrhoeae DNA [Identifier] in Unspecified specimen by LILLIAN with probe detection [facility] [place] [place] Comment on above: One Time for 1 Occur rences starting 10/21/2024 until 10/21/2024 [facility] Routine Hep C w/o coma, chronic (HCC) 11/28/2021 3:53 PM EDT [employer] [facility] End: 11-18-2021 HCV Quant by NAAT [facility] Work Phone: Comment on above: 1 Occurrences starti ng 11/18/2021 until 11/18/2021 End: 11-28-2021 HCV Quant with reflex to HCV Genotype [facility] Dr[facility] TATTOFF Work Phone: Comment on above: 1 Occurrences starti ng 11/28/2021 until 11/28/2021 End: 11-28-2021 Hepatitis A antibody, total [employer] [facility] Comment on above: 1 Occurrences starti ng 11/28/2021 until 11/28/2021 End: 11-28-2021 Hepatitis B core antibody, total [facility] [place] [place] Comment on above: 1 Occurrences starti ng 11/28/2021 until 11/28/2021 End: 01-13-2022 Hepatitis C antibody [facility] [place] [place] Comment on above: 1 Occurrences starti ng 01/13/2022 until 01/13/2022 End: 10-21-2021 Hepatitis C genotype Hepatitis C genotype Lab Routine Hepatitis C antibody test positive 1 Occurrences starting 10/21/2021 until 10/21/2021 [facility] Work Phone: Comment on above: 1 Occurrences starti ng 10/21/2021 until 10/21/2021 End: 01-13-2022 Herpes simplex virus I & II IgM [facility] Work Phone: Comment on above: 1 Occurrences starti ng 01/13/2022 until 01/13/2022 End: 01-13-2022 HIV 1/2 ANTIGEN & ANTIBODIES, 4TH GEN, WITH REFLEXES HIV 1/2 ANTIGEN & ANTIBODIES, 4TH GEN, WITH REFLEXES Lab Routine Screen for sexually transmitted diseases 1 Occurrences starting 01/13/2022 until 01/13/[address] [facility] [place] [place] Comment on above: 1 Occurrences starti ng 01/13/2022 until 01/13/2022 MISC LAB TEST MISC LAB TEST La b Routine 10/21/2021 8:[address] [facility] [place] [place] End: 01-13-2022 RAPID PLASMA REAGIN SERUM [facility] Comment on above: One Time for 1 Occur rences starting 01/13/2022 until 01/13/2022 End: 01-13-2022 Reagin Ab [Presence] in Serum by RPR RPR Lab Routine Screen for sexually transmitted diseases 1 Occurrences starting 01/13/2022 until 01/13/[address] [facility] [place] [place] Comment on above: 1 Occurrences starti ng 01/13/2022 until 01/13/2022 End: 10-21-2024 Trichomonas Amplified Probe [facility] Work Phone: Comment on above: One Time for 1 Occur rences starting 10/21/2024 until 10/21/2024 Immunizations Immunization Date Immunization Notes Care Provider Matt rueda 12-11-2013 tetanus toxoid, redu steven diphtheria toxoid, and acellular pertussis vaccine, adsorbed Chris Davis MD Work Phone: [facility] [place] [place] Payers Date Payer Category Payer Medicaid HMO [employer] [id number] 2022 Unknown EMPLOYEE BENEFIT S EMPLOYEE BENEFITS [employer] PLUS [id number] 2022-Present [phone] [address] [place] [id number] Indemnity [id number] 2022 Private Health Insurance [employer] [id number] 2022-Present [phone] [address] [address] [place] [address] Medicaid [id number] 2021 Medicaid MEDICAID MEDICAI D [id number] 2021-Present [address] [place] [address] Medicaid [id number] 1998 Unknown [id number] 1998 Unknown [id number] 1998 Unknown [id number] 1998 Unknown [id number] 1998 Unknown [id number] Private Health Insurance [id number] Private Health Insurance [id number] Social History Date Type Detail Facility Start: 10-28-2019 End: 04-30-2024 Tobacco smoking status NHIS Current every day smoker [facility] [place] [place] Start: 10-28-2019 End: 05-15-2024 Cigarettes smoked current (pack per day) - Reported [facility] [place] [place] Start: 10-28-2019 Alcohol intake Ex-drinker (finding) [facility] Start: 2000 Sex Assigned At Not on file [facility] Start: 01-03-2022 End: 03-09-2022 Exposure to SARS-CoV-2 (event) Not sure [facility] Start: 05-14-2015 End: 10-21-2024 Alcohol intake Current non-drinker of alcohol (finding) [facility] Exposure to SARS-CoV -2 (event) Yes [facility] Start: 09-28-2021 End: 04-30-2024 Tobacco use and exposure Smokeless tobacco non-user [facility] Start: 10-18-2021 End: 11-15-2021 History SDOH Financial 5 [facility] Start: 10-18-2021 End: 11-15-2021 History SDOH IPV Fear 2 [facility] Start: 2000 Sex Assigned At Female [facility] History of tobacco use Cigarette Smoker [facility] Start: 11-15-2021 History SDOH Alcohol Frequency 1 [facility] History of tobacco use Tobacco U se Types Packs/Day Years Used Date Smoking Tobacco: Every Day E-Cig/Vaping Smokeless Tobacco: Never [facility] Start: 11-15-2021 End: 05-15-2024 Humiliation, Afraid, Rape, and Kick questionnaire [HARK] [facility] [place] [place] Within the last year , have you been afraid of your partner or ex-partner? No [facility] Emotionally Abused Not on file [facility] How often to you hav e a drink containing alcohol? Never [facility] Do you feel stress - tense, restless, nervous, or anxious, or unable to sleep at night because your mind is troubled all the time - these days [OSQ] Not at all [facility] (I/We) worried wheth er (my/our) food would run out before (I/we) got money to buy more. Never true [facility] Start: 09-28-2021 Gender identity Identifies as female gender (finding) [facility] Start: 09-28-2021 Sexual orientation Heterosexual (finding) [facility] History of tobacco use Electroni c cigarette user (finding) [facility] Clinical Notes 12-20-2020 to 10-21-2024 Lorna Mendes APRN CNP - 10/21/2024 9:02 PM Lorna Rader APRN CNP - 10/21/2024 9:02 PM Viky Berman RN - 10/21/2024 7:53 PM EDTDischarge InstructionsDischarge Instructions Note Date & Type Note Facility 10-21-2024 Physician Emergency department Note ED Diagnosis 1. Strep pharyngitis 2. Possible exposure to STI ED Summary 24-year-old female presents emergency department with pharyngitis and cough. She is positive for strep. Discussed risks and benefits of IM Bicillin versus oral antibiotics and patient opts for oral antibiotics. She did have an allergy listed to penicillin however reports she has never actually had penicillin but her father was allergic to it so they never gave it to her. She admits however she has had amoxicillin multiple times in her life without any rash or difficulty. She was given a dose in ED and a prescription for same. Did discuss presumptive treatment of STIs today however given she has no symptoms she wishes to defer any treatment unless her testing is positive. Advise she would be notified if testing is positive and would need treatment of which she is in agreement. She is to continue supportive care at home. She is follow-up with PCP if persistent symptoms. She is return emerged part with any new or worsening symptoms. Medications amoxicillin capsule 1,000 mg (has no administration in time range) IV antibiotics considered but deemed not neccessary at this time due to no sepsis or need for hospitalization at this time. Chart reviewed with pertinent information including: Well woman checkup 05/16/2024 This plan, including discharge medications, was discussed with patient and/or family, questions were answered, the patient and or parent(s) appear to understand and agree with plan for discharge. The above report was generated using voice recognition software. It may contain grammatical, syntax and spelling errors. No orders to display Labs Reviewed STREP A - Abnormal; Notable for the following components: Result Value Strep A PCR Detected (*) All other components within normal limits WAIVED SARS COV-2, FLU A, FLU B (PCR) PANEL - Normal POCT ED/FC/SURG URINE - Normal SARS COV-2, FLU A, FLU B (PCR) PANEL Narrative: The following orders were created for panel order SARS-COV-2, Flu A, FLU B (PCR) Panel. Procedure Abnormality Status --------- ------ SARS-COV-2, Flu A, FLU B...[[id number]] Normal Final result Please view results for these tests on the individual orders. TRICHOMONAS AMPLIFIED PROBE GC & CHLAMYDIA AMPLIFIED PROBE History Chief Complaint Patient presents with Pharyngitis Cough Patient's medications, allergies, past medical, surgical, social and family histories were reviewed and updated as appropriate. 24 yo well-appearing female in no apparent distress presents to the emergency department with chief complaint of pharyngitis and cough. Patient reports symptoms present the last few days. Cough productive of sputum. She has had some ear pain and nasal congestion. She does not believe she has had a fever. She has not had any nausea or vomiting. She also reports that she recently had a sexual encounter and wishes to be tested for STIs. She does not know of any exposure to same but is requesting evaluation for this. She denies any vaginal discharge or lesions. She does not want any testing for HIV, hepatitis, or syphilis. Review of Systems Gastrointestinal: Negative for nausea and vomiting. Vitals: 10/21/24 1955 BP: 131/83 Pulse: 93 Resp: 16 Temp: 97.8 F (36.6 C) SpO2: 99% Physical Exam Physical Exam Vitals and nursing note reviewed. Constitutional: General: She is not in acute distress. Appearance: She is well-developed. She is not diaphoretic. HENT: Head: Normocephalic and atraumatic. Jaw: There is normal jaw occlusion. No trismus. Right Ear: Tympanic membrane, ear canal and external ear normal. Left Ear: Tympanic membrane, ear canal and external ear normal. Nose: Nose normal. Mouth/Throat: Mouth: Mucous membranes are moist. Pharynx: Uvula midline. Oropharyngeal exudate and posterior oropharyngeal erythema present. No uvula swelling. Tonsils: Tonsillar exudate present. 3+ on the right. 3+ on the left. Eyes: Extraocular Movements: Extraocular movements intact. Conjunctiva/sclera: Conjunctivae normal. Cardiovascular: Rate and Rhythm: Normal rate and regular rhythm. Heart sounds: Normal heart sounds. Pulmonary: Effort: Pulmonary effort is normal. Breath sounds: Normal breath sounds. Abdominal: General: Bowel sounds are normal. There is no distension. Palpations: Abdomen is soft. Tenderness: There is no abdominal tenderness. There is no guarding or rebound. Hernia: No hernia is present. Musculoskeletal: General: Normal range of motion. Cervical back: Normal range of motion and neck supple. Lymphadenopathy: Cervical: Cervical adenopathy present. Skin: General: Skin is warm and dry. Capillary Refill: Capillary refill takes less than 2 seconds. Neurological: General: No focal deficit present. Mental Status: She is alert and oriented to person, place, and time. Deep Tendon Reflexes: Reflexes are normal and symmetric. Psychiatric: Mood and Affect: Mood normal. Behavior: Behavior normal. Thought Content: Thought content normal. ED Course Procedures Medical Decision Making Note to patient: The Cures Act makes medical notes like these available to patients in the interest of transparency. However, be advised this is a medical document. It is intended as peer to peer communication. It is written in medical language and may contain abbreviations or verbiage that are unfamiliar. It may appear blunt or direct. Medical documents are intended to carry relevant information, facts as evident, and the clinical opinion of the practitioner. Lorna Mendes APRN CNP 10/21/242105 [facility] [place] [place] 10-21-2024 Emergency department Note ED Diagnosis 1. Strep pharyngitis 2. Possible exposure to STI ED Summary 24-year-old female presents emergency department with pharyngitis and cough. She is positive for strep. Discussed risks and benefits of IM Bicillin versus oral antibiotics and patient opts for oral antibiotics. She did have an allergy listed to penicillin however reports she has never actually had penicillin but her father was allergic to it so they never gave it to her. She admits however she has had amoxicillin multiple times in her life without any rash or difficulty. She was given a dose in ED and a prescription for same. Did discuss presumptive treatment of STIs today however given she has no symptoms she wishes to defer any treatment unless her testing is positive. Advise she would be notified if testing is positive and would need treatment of which she is in agreement. She is to continue supportive care at home. She is follow-up with PCP if persistent symptoms. She is return emerged part with any new or worsening symptoms. Medications amoxicillin capsule 1,000 mg (has no administration in time range) IV antibiotics considered but deemed not neccessary at this time due to no sepsis or need for hospitalization at this time. Chart reviewed with pertinent information including: Well woman checkup 05/16/2024 This plan, including discharge medications, was discussed with patient and/or family, questions were answered, the patient and or parent(s) appear to understand and agree with plan for discharge. The above report was generated using voice recognition software. It may contain grammatical, syntax and spelling errors. No orders to display Labs Reviewed STREP A - Abnormal; Notable for the following components: Result Value Strep A PCR Detected (*) All other components within normal limits WAIVED SARS COV-2, FLU A, FLU B (PCR) PANEL - Normal POCT ED/FC/SURG URINE - Normal SARS COV-2, FLU A, FLU B (PCR) PANEL Narrative: The following orders were created for panel order SARS-COV-2, Flu A, FLU B (PCR) Panel. Procedure Abnormality Status --------- ------ SARS-COV-2, Flu A, FLU B...[[id number]] Normal Final result Please view results for these tests on the individual orders. TRICHOMONAS AMPLIFIED PROBE GC & CHLAMYDIA AMPLIFIED PROBE History Chief Complaint Patient presents with Pharyngitis Cough Patient's medications, allergies, past medical, surgical, social and family histories were reviewed and updated as appropriate. 24 yo well-appearing female in no apparent distress presents to the emergency department with chief complaint of pharyngitis and cough. Patient reports symptoms present the last few days. Cough productive of sputum. She has had some ear pain and nasal congestion. She does not believe she has had a fever. She has not had any nausea or vomiting. She also reports that she recently had a sexual encounter and wishes to be tested for STIs. She does not know of any exposure to same but is requesting evaluation for this. She denies any vaginal discharge or lesions. She does not want any testing for HIV, hepatitis, or syphilis. Review of Systems Gastrointestinal: Negative for nausea and vomiting. Vitals: 10/21/241954 BP: 131/83 Pulse: 93 Resp: 16 Temp: 97.8 F (36.6 C) SpO2: 99% Physical Exam Physical Exam Vitals and nursing note reviewed. Constitutional: General: She is not in acute distress. Appearance: She is well-developed. She is not diaphoretic. HENT: Head: Normocephalic and atraumatic. Jaw: There is normal jaw occlusion. No trismus. Right Ear: Tympanic membrane, ear canal and external ear normal. Left Ear: Tympanic membrane, ear canal and external ear normal. Nose: Nose normal. Mouth/Throat: Mouth: Mucous membranes are moist. Pharynx: Uvula midline. Oropharyngeal exudate and posterior oropharyngeal erythema present. No uvula swelling. Tonsils: Tonsillar exudate present. 3+ on the right. 3+ on the left. Eyes: Extraocular Movements: Extraocular movements intact. Conjunctiva/sclera: Conjunctivae normal. Cardiovascular: Rate and Rhythm: Normal rate and regular rhythm. Heart sounds: Normal heart sounds. Pulmonary: Effort: Pulmonary effort is normal. Breath sounds: Normal breath sounds. Abdominal: General: Bowel sounds are normal. There is no distension. Palpations: Abdomen is soft. Tenderness: There is no abdominal tenderness. There is no guarding or rebound. Hernia: No hernia is present. Musculoskeletal: General: Normal range of motion. Cervical back: Normal range of motion and neck supple. Lymphadenopathy: Cervical: Cervical adenopathy present. Skin: General: Skin is warm and dry. Capillary Refill: Capillary refill takes less than 2 seconds. Neurological: General: No focal deficit present. Mental Status: She is alert and oriented to person, place, and time. Deep Tendon Reflexes: Reflexes are normal and symmetric. Psychiatric: Mood and Affect: Mood normal. Behavior: Behavior normal. Thought Content: Thought content normal. ED Course Procedures Medical Decision Making Note to patient: The Century Cures Act makes medical notes like these available to patients in the interest of transparency. However, be advised this is a medical document. It is intended as peer to peer communication. It is written in medical language and may contain abbreviations or verbiage that are unfamiliar. It may appear blunt or direct. Medical documents are intended to carry relevant information, facts as evident, and the clinical opinion of the practitioner. Lorna Mendes APRN CNP 10/21/242105 Pt arrives to ED via private vehicle with c/o sore throat for approx 2 days. Pt denies any fevers. Pt c/o productive cough for 2 days. PT states that she would like testing for STI's. Pt A/Ox3 with PWD skin. Respirs easy, unlabored, in NAD. documented in this encounter [facility] [place] [place] 10-21-2024 Hospital Discharg e instructions Lorna Mendes APRN CNP - 10/21/2024 9:02 PM EDT Change toothbrush in 48 hours of antibiotic documented in this encounter [facility] [place] [place] 10-21-2024 Note Formatting of this n ote is different from the original. Images from the original note were not included. [id number] Strep Throat: Care Instructions Overview Strep throat is a bacterial infection that causes sudden, severe sore throat and fever. Symptoms may include red, swollen tonsils that may have white or yellow patches. A strep test may be needed to tell if the sore throat is caused by strep bacteria. Treatment can help ease symptoms and may prevent future problems. Follow-up care is a parson part of your treatment and safety. Be sure to make and go to all appointments, and call your doctor if you are having problems. It's also a good idea to know your test results and keep a list of the medicines you take. How can you care for yourself at home? ? Take your antibiotics as directed. Do not stop taking them just because you feel better. You need to take the full course of antibiotics. ? Strep throat can spread to others until 24 hours after you begin taking antibiotics. During this time, avoid contact with other people at work, school, or home, especially infants and children. Do not sneeze or cough on others, and wash your hands often. Keep your drinking glass and eating utensils separate from those of others. Wash these items well in hot, soapy water. ? Gargle with warm salt water several times a day to help reduce swelling and relieve pain. Mix 1/2 teaspoon of salt in 1 cup of warm water. ? Take an rvve-heu-zxhbjwn pain medication, such as acetaminophen (Tylenol), ibuprofen (Advil, Motrin), or naproxen (Aleve). Read and follow all instructions on the label. ? Try an ageb-jmj-arlwhbl anesthetic throat spray or throat lozenges, which may help relieve throat pain. ? Drink plenty of fluids. Fluids may help soothe an irritated throat. Hot fluids, such as tea or soup, may help your throat feel better. ? Eat soft solids and drink plenty of liquids. Flavored ice pops, ice cream, scrambled eggs, sherbet, and gelatin dessert (such as Jell-O) may also soothe the throat. ? Get lots of rest. ? If you smoke, try to quit. If you can't quit, cut back as much as you can. Smoking can interfere with healing. If you need help quitting, talk to your doctor about stop-smoking programs and medicines. These can increase your chances of quitting for good. ? Use a vaporizer or humidifier to add moisture to the air where you sleep. Follow the directions for cleaning the machine. When should you call for help? Call your doctor now or seek immediate medical care if: ? You have new or worse symptoms of infection, such as: o A new or higher fever. o A fever with a stiff neck or severe headache. o New or worse trouble swallowing. o Pain that becomes much worse on one side of your throat. Watch closely for changes in your health, and be sure to contact your doctor if: ? You are not getting better after 2 days (48 hours) after taking an antibiotic. Current as of: January 21, 2023 Content Version: 14.0 Care instructions adapted under license by your healthcare professional. If you have questions about a medical condition or this instruction, always ask your healthcare professional. [employer] disclaims any warranty or liability for your use of this information. [employer]. [facility] [place] [place] 10-21-2024 Miscellaneous Notes Images from the original note were not included. [id number] Strep Throat: Care Instructions Overview Strep throat is a bacterial infection that causes sudden, severe sore throat and fever. Symptoms may include red, swollen tonsils that may have white or yellow patches. A strep test may be needed to tell if the sore throat is caused by strep bacteria. Treatment can help ease symptoms and may prevent future problems. Follow-up care is a parson part of your treatment and safety. Be sure to make and go to all appointments, and call your doctor if you are having problems. It's also a good idea to know your test results and keep a list of the medicines you take. How can you care for yourself at home? ? Take your antibiotics as directed. Do not stop taking them just because you feel better. You need to take the full course of antibiotics. ? Strep throat can spread to others until 24 hours after you begin taking antibiotics. During this time, avoid contact with other people at work, school, or home, especially infants and children. Do not sneeze or cough on others, and wash your hands often. Keep your drinking glass and eating utensils separate from those of others. Wash these items well in hot, soapy water. ? Gargle with warm salt water several times a day to help reduce swelling and relieve pain. Mix 1/2 teaspoon of salt in 1 cup of warm water. ? Take an lfbu-kml-bpbueps pain medication, such as acetaminophen (Tylenol), ibuprofen (Advil, Motrin), or naproxen (Aleve). Read and follow all instructions on the label. ? Try an obza-kao-qmkdoce anesthetic throat spray or throat lozenges, which may help relieve throat pain. ? Drink plenty of fluids. Fluids may help soothe an irritated throat. Hot fluids, such as tea or soup, may help your throat feel better. ? Eat soft solids and drink plenty of liquids. Flavored ice pops, ice cream, scrambled eggs, sherbet, and gelatin dessert (such as Jell-O) may also soothe the throat. ? Get lots of rest. ? If you smoke, try to quit. If you can't quit, cut back as much as you can. Smoking can interfere with healing. If you need help quitting, talk to your doctor about stop-smoking programs and medicines. These can increase your chances of quitting for good. ? Use a vaporizer or humidifier to add moisture to the air where you sleep. Follow the directions for cleaning the machine. When should you call for help? Call your doctor now or seek immediate medical care if: ? You have new or worse symptoms of infection, such as: o A new or higher fever. o A fever with a stiff neck or severe headache. o New or worse trouble swallowing. o Pain that becomes much worse on one side of your throat. Watch closely for changes in your health, and be sure to contact your doctor if: ? You are not getting better after 2 days (48 hours) after taking an antibiotic. Current as of: January 21, 2023 Content Version: 14.0 Care instructions adapted under license by your healthcare professional. If you have questions about a medical condition or this instruction, always ask your healthcare professional. [employer] disclaims any warranty or liability for your use of this information. [employer]. documented in this encounter [facility] [place] [place] 10-21-2024 Emergency department Triage note Pt arrives to ED via private vehicle with c/o sore throat for approx 2 days. Pt denies any fevers. Pt c/o productive cough for 2 days. PT states that she would like testing for STI's. Pt A/Ox3 with PWD skin. Respirs easy, unlabored, in NAD. [facility] [place], [place] 04-30-2024 Hospital Discharg e instructions Kaley Wolfe APRN CNP - 04/30/2024 1:35 PM EST There are many resources in our community for the treatment of opioid use disorder. Many of our ED patients have achieved success in the following programs: [facility] (previously [facility]) - a Suboxone clinic located near the hospital at [address], offering counseling services as well. Call to schedule an intake appointment [facility] - a Methadone and Suboxone clinic located at [address] [place] [address]. Expanded treatment services are offered as well. Call for an intake appointment. [facility] - an [facility] located at [address] [facility]. offering a variety of support services for opioid addiction, including Vivitrol, Suboxone, and the Bridge Device. Call Khadra at to schedule an appointment. [facility] - an [facility] located at [address] [facility] offering a variety of support services for opioid addiction, including Vivitrol, mental health counseling, and an intensive outpatient treatment. Call for an appointment at . Lastly, you can call the [facility] Emergency Department at . Ask to talk to the School Superintendent or Dr. Lozano, and we will do whatever we can to help you. The following attachments cannot be sent through Care Everywhere.Opioid Use Disorder: General Info (Palestinian Japanese)documented in this encounter [facility] [place] [place] 04-30-2024 Emergency department Triage note Pt arrives to the ED via private vehicle. Pt ambulates to room without difficulty. Pt states, I'm detoxing off fentanyl. Pt states she did not sleep well last night. Pt states her last use was 2 days ago. PT states nausea,lack of appetite, restlessness. Pt is A&O. RR easy and unlabored. NAD noted. [facility] [place] [place] 04-30-2024 Emergency department Note Pt arrives to the ED via private vehicle. Pt ambulates to room without difficulty. Pt states, I'm detoxing off fentanyl. Pt states she did not sleep well last night. Pt states her last use was 2 days ago. PT states nausea,lack of appetite, restlessness. Pt is A&O. RR easy and unlabored. NAD noted. documented in this encounter [facility] [place] [place] 12-19-2023 Emergency department Note Patient provided with take home narcan and instruction. Reviewed available OP resources. Patient denies any further needs/concerns. [facility] [place] [place] Work Phone: 12-19-2023 Emergency department Note Patient provided with take home narcan and instruction. Reviewed available OP resources. Patient denies any further needs/concerns. ED Diagnosis and Summary 1. Opiate withdrawal (HCC) ED Summary History Chief Complaint Patient presents with Other Patient presents to the ED in opiate withdrawal. She is here with her father and her father's who are main sources of support. 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 Last dose of fentanyl was last night. Patient developed withdrawal symptoms this morning and took 4 mg of Suboxone twice this morning with some improvement of symptoms. Patient reports anxiety and nausea and irritability. No ingestions today. Patient presents to ED open for help in treating her withdrawal symptoms and planning her next steps HPI Review of Systems Constitutional: Positive for fatigue. HENT: Negative. Respiratory: Negative. Cardiovascular: Negative. Neurological: Negative. Psychiatric/Behavioral: Negative. Physical Exam ED Triage Vitals [12/19/23 1735] BP (!) 141/92 Heart Rate 113 Resp 20 Temp 98.7 F (37.1 C) Temp src Oral SpO2 100 % Weight 129 lb (58.5 kg) Height 5' (1.524 m) BMI (Calculated) 25.19 Physical Exam Vitals and nursing note reviewed. Constitutional: Appearance: Normal appearance. Comments: Patient appears slightly anxious HENT: Head: Normocephalic and atraumatic. Eyes: General: Right eye: No discharge. Left eye: No discharge. Cardiovascular: Rate and Rhythm: Normal rate. Pulmonary: Effort: Pulmonary effort is normal. No respiratory distress. Skin: General: Skin is warm and dry. Neurological: General: No focal deficit present. Mental Status: She is alert and oriented to person, place, and time. Psychiatric: Mood and Affect: Mood normal. Thought Content: Thought content normal. Judgment: Judgment normal. Comments: Psychomotor agitation appreciated ED Course Procedures Medical Decision Making Assessment: 23 y.o. female who was seen and evaluated for opiate withdrawal. Impression: 23 y.o. with fentanyl withdrawal ED Course: Well-appearing. Presentation consistent with moderate withdrawal. Patient has had no fentanyl since yesterday and used Suboxone this morning with improvement making precipitated withdrawal and likely. Plan to initiate daily dose of Suboxone at 16 mg. Discussed with patient treatment options in [facility]. Patient would be an appropriate candidate initially for [facility], [facility], or [facility] and knows how to contact those organizations. Electronic communication sent to nurse navigator at [facility] for discussion and appointment hopefully early next week. Prescription of Suboxone initiated to be started tomorrow. Careful return to ED and follow-up instructions. Patient comfortable plan of care. Patient's father will be her best outpatient contact as she does not have a phone DDx: Opiate intoxication versus opiate withdrawal Pertinent Results: Labs: Imaging: No orders to display Dispo: dc Pertinent chart review performed including recent visits, laboratory testing, procedures, and imaging if applicable. Nursing documentation of PMHx, Surg Hx, FHx, Soc Hx and medications reviewed and agree except as noted in the body of this note. Some or all of this note was created using voice recognition software. Efforts were made to proofread but errors in grammar, syntax, punctuation as well as transcriptional errors may persist. Problems Addressed: Opiate withdrawal (HCC): undiagnosed new problem with uncertain prognosis Amount and/or Complexity of Data Reviewed Independent Historian: parent External Data Reviewed: notes. Details: OARRS report reviewed Risk Prescription drug management. Decision regarding hospitalization. Clinical Opiate Withdrawal Scale (COWs) Resting Pulse Rate: (bpm): 101 - 120 bpm Sweating: Over Past 1/2 hour not accounted for by Room Tempature or Patient Activity: Subjective report of chills or flushing Restlessness: Observation during assessment: Frequent shifting or extraneous movements of legs/arms Pupil Size: Pupils possibly larger than normal for room light Bone or Joint Aches: If patient was having pain previously, only the additional component attributed to opiate withdrawal is scored: Mild diffuse discomfort Runny Nose or Tearing: Not accounted for by cold symptoms or allergies: Nasal stuffiness or unusually moist eyes GI Upset: Over last hour: No GI symptoms Tremor: Observation of outstretched hands : No tremor Yawning: Observation during assessment: No yawning Anxiety or Irritability: Patient reports increasing irritability or anxiousness Gooseflesh Skin: Skin is smooth COWs Score: 10 Zainab Lozano MD 12/19/231756 Patient to ED stating I'm here to detox from drugs. Patient reports consistant use of fentanyl x6 months. Last use yesterday. States taking suboxone today to try to assist, patient does not have prescription/plan for that yet. Patient reports drug use since she was 16ys old. States was clean until 6 months ago. NAD noted. Dr. Lozano bedside. Denies SI/HI documented in this encounter [facility] [place] [place] 12-19-2023 Physician Emergency department Note ED Diagnosis and Summary 1. Opiate withdrawal (HCC) ED Summary History Chief Complaint Patient presents with Other Patient presents to the ED in opiate withdrawal. She is here with her father and her father's who are main sources of support. 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 Last dose of fentanyl was last night. Patient developed withdrawal symptoms this morning and took 4 mg of Suboxone twice this morning with some improvement of symptoms. Patient reports anxiety and nausea and irritability. No ingestions today. Patient presents to ED open for help in treating her withdrawal symptoms and planning her next steps HPI Review of Systems Constitutional: Positive for fatigue. HENT: Negative. Respiratory: Negative. Cardiovascular: Negative. Neurological: Negative. Psychiatric/Behavioral: Negative. Physical Exam ED Triage Vitals [12/19/23 1735] BP (!) 141/92 Heart Rate 113 Resp 20 Temp 98.7 F (37.1 C) Temp src Oral SpO2 100 % Weight 129 lb (58.5 kg) Height 5' (1.524 m) BMI (Calculated) 25.19 Physical Exam Vitals and nursing note reviewed. Constitutional: Appearance: Normal appearance. Comments: Patient appears slightly anxious HENT: Head: Normocephalic and atraumatic. Eyes: General: Right eye: No discharge. Left eye: No discharge. Cardiovascular: Rate and Rhythm: Normal rate. Pulmonary: Effort: Pulmonary effort is normal. No respiratory distress. Skin: General: Skin is warm and dry. Neurological: General: No focal deficit present. Mental Status: She is alert and oriented to person, place, and time. Psychiatric: Mood and Affect: Mood normal. Thought Content: Thought content normal. Judgment: Judgment normal. Comments: Psychomotor agitation appreciated ED Course Procedures Medical Decision Making Assessment: 23 y.o. female who was seen and evaluated for opiate withdrawal. Impression: 23 y.o. with fentanyl withdrawal ED Course: Well-appearing. Presentation consistent with moderate withdrawal. Patient has had no fentanyl since yesterday and used Suboxone this morning with improvement making precipitated withdrawal and likely. Plan to initiate daily dose of Suboxone at 16 mg. Discussed with patient treatment options in [facility]. Patient would be an appropriate candidate initially for [facility], [employer], or [employer] and knows how to contact those organizations. Electronic communication sent to nurse navigator at [facility] for discussion and appointment hopefully early next week. Prescription of Suboxone initiated to be started tomorrow. Careful return to ED and follow-up instructions. Patient comfortable plan of care. Patient's father will be her best outpatient contact as she does not have a phone DDx: Opiate intoxication versus opiate withdrawal Pertinent Results: Labs: Imaging: No orders to display Dispo: dc Pertinent chart review performed including recent visits, laboratory testing, procedures, and imaging if applicable. Nursing documentation of PMHx, Surg Hx, FHx, Soc Hx and medications reviewed and agree except as noted in the body of this note. Some or all of this note was created using voice recognition software. Efforts were made to proofread but errors in grammar, syntax, punctuation as well as transcriptional errors may persist. Problems Addressed: Opiate withdrawal (HCC): undiagnosed new problem with uncertain prognosis Amount and/or Complexity of Data Reviewed Independent Historian: parent External Data Reviewed: notes. Details: OARRS report reviewed Risk Prescription drug management. Decision regarding hospitalization. Clinical Opiate Withdrawal Scale (COWs) Resting Pulse Rate: (bpm): 101 - 120 bpm Sweating: Over Past 1/2 hour not accounted for by Room Tempature or Patient Activity: Subjective report of chills or flushing Restlessness: Observation during assessment: Frequent shifting or extraneous movements of legs/arms Pupil Size: Pupils possibly larger than normal for room light Bone or Joint Aches: If patient was having pain previously, only the additional component attributed to opiate withdrawal is scored: Mild diffuse discomfort Runny Nose or Tearing: Not accounted for by cold symptoms or allergies: Nasal stuffiness or unusually moist eyes GI Upset: Over last hour: No GI symptoms Tremor: Observation of outstretched hands : No tremor Yawning: Observation during assessment: No yawning Anxiety or Irritability: Patient reports increasing irritability or anxiousness Gooseflesh Skin: Skin is smooth COWs Score: 10 Zainab Lozano MD 12/19/[address] [facility] [place] [place] 12-19-2023 Hospital Discharg e instructions Zainab Lozano MD - 12/19/2023 5:50 PM EDT Opioid Addiction Treatment Resources There are many resources in our community for the treatment of opioid use disorder. Many of our ED patients have achieved success in the following programs: [facility] ([facility]viously [facility]) - a Suboxone clinic located near the hospital at [address] [place] [address], offering counseling services as well. Call to schedule an intake appointment [facility] - a Methadone and Suboxone clinic located at [address] [place] [address]. Expanded treatment services are offered as well. Call for an intake appointment. [facility] - an [facility] located at [address] offering a variety of support services for opioid addiction, including Vivitrol, Suboxone, and the Bridge Device. Call Khadra at to schedule an appointment. [facility] - an [facility] located at [address] [facility] offering a variety of support services for opioid addiction, including Vivitrol, mental health counseling, and an intensive outpatient treatment. Call for an appointment at . Lastly, you can call the [facility] Emergency Department at . Ask to talk to the School Superintendent or Dr. Lozano, and we will do whatever we can to help you. The following attachments cannot be sent through Care Everywhere.Opioid Use Disorder: Medication-Assisted Treatment: General Info (Palestinian Japanese)documented in this encounter [facility] [place] [place] 12-19-2023 Emergency department Triage note Patient to ED stating I'm here to detox from drugs. Patient reports consistant use of fentanyl x6 months. Last use yesterday. States taking suboxone today to try to assist, patient does not have prescription/plan for that yet. Patient reports drug use since she was 16ys old. States was clean until 6 months ago[address] NAD noted. Dr. Lozano bedside. Denies SI/HI [facility] [place] [place] 03-26-2023 Evaluation note Diagnosis Breast lump on left side at 5 o'clock position Lump or mass in breast Nipple tenderness Mastodynia documented in this encounter [facility] [place] Reason for visit Narrative* Procedure Authorization (Emergency) - Closed Specialty Diagnoses / Procedures Referred By Contcristopher t Referred To Contact Radiology Diagnoses Breast lump on left side at 5 o'clock position Nipple tenderness Procedures US Breast Left Limited US Breast Left Complete Khris Irving APRN POT LINING SUPERVISOR [address] [place] [address] [address] Referral ID Status Reason Start Date Expiration Date Visits Re quested Visits Authorized [id number] Closed 03/23/2023 04/26/[address] [facility] [place] Evaluation note* Diagnosis Breast lump on left side at 5 o'clock position Lump or mass in breast documented in this encounter [facility] [place] Reason for referral (narrative)* Procedure Authorization (Routine) - Closed Specialty Diagnoses / Procedures Referred By Contac t Referred To Contact Radiology Diagnoses Breast lump on left side at 5 o'clock position Procedures US Breast Left Limited Khris Irving APRN POT LINING SUPERVISOR [address] [place] [address] [address] Referral ID Status Reason Start Date Expiration Date Visits Re quested Visits Authorized [id number] Closed 01/13/2022 04/26/[address] [facility] [place] Reason for visit Narrative* Procedure Authorization (Routine) - Closed Specialty Diagnoses / Procedures Referred By Contac t Referred To Contact Radiology Diagnoses Breast lump on left side at 5 o'clock position Procedures US Breast Left Limited Khris Irving APRN POT LINING SUPERVISOR [address] [place] [address] [address] Referral ID Status Reason Start Date Expiration Date Visits Re quested Visits Authorized [id number] Closed 01/13/2022 04/26/[address] [facility] [place] Emergency department Note* Chris Davis MD - 12/20/2020 4:18 AM EDT I personally saw and examined this patient. I supervised the care and treatment of this patient. I formulated the medical decision making plan verbally with the midlevel, POT LINING SUPERVISOR, or PA, that led to the disposition, treatment, discharge, or admission of this patient. The orders entered are part of the direct result of that medical decision making and treatment plan formulated and discussed. HPI: Pt is a 20 y.o. female who presents with chief complaint of need for medical clearance. Covid testing requested. Denies CP or SOB. ROS: All other systems reviewed and are negative except as described above. ED Triage Vitals [12/20/20 0339] BP 112/65 Heart Rate 55 Resp 18 Temp 97.7 F (36.5 C) Temp Source FOREHEAD SpO2 97 % Weight 102 lb 6.4 oz (46.4 kg) Height 5' 0.5 (1.537 m) BMI (Calculated) 19.66 Physical Exam Vitals and nursing note reviewed. Constitutional: General: She is not in acute distress. Appearance: Normal appearance. She is not ill-appearing, toxic-appearing or diaphoretic. HENT: Head: Normocephalic and atraumatic. Eyes: General: Right eye: No discharge. Left eye: No discharge. Cardiovascular: Rate and Rhythm: Normal rate. Pulmonary: Effort: Pulmonary effort is normal. No respiratory distress. Breath sounds: No stridor. Abdominal: General: There is no distension. Musculoskeletal: General: No deformity or signs of injury. Cervical back: Normal range of motion. No rigidity. Skin: Coloration: Skin is not jaundiced. Findings: No erythema or rash. Neurological: General: No focal deficit present. Mental Status: She is alert. GCS: GCS eye subscore is 4. GCS verbal subscore is 5. GCS motor subscore is 6. Psychiatric: Mood and Affect: Mood normal. Behavior: Behavior normal. Thought Content: Thought content normal. Judgment: Judgment normal. MDM: Ddx: COVID-19, low suspicion of pneumonia, low suspicion of sepsis, low suspicion of dehydration. Low suspicion of pneumothorax. Plan: Covid testing Labs Reviewed SARS-COV-2 RAPID MOLECULAR TEST No orders to display ED Course: Covid testing is negative. The patient is medically cleared for incarceration. Diagnosis: 1. Lab test negative for COVID-19 virus 2. Medical clearance for incarceration Disposition: Discharged This note was constructed and dictated with the use of the [employer] voice recognition software program which may omit or change portions of the dictation, and/or substitute, homonyms and thereby alter the original intent of the dictated statement. Unintended gender changes may also be incorporated due to misinterpretation of the spoken words. Chris Davis MD 12/20/20 042 * Beau Collado RN - 12/20/2020 3:37 AM EDT Pt arrives to the ER from home by [employer]. [employer] states that pt was arrested but stated she was recently tested for COVID at [facility]. Pt denies test results yet so pt needs COVID result prior to retirement. Pt denies any COVID symptoms but recent exposure to a friend who is also pending results. Respirations regular and unlabored. [facility] Lab test negative for COVID-19 virus- Primary Medical clearance for incarceration documented in this encounter [facility] note* Diagnosis Screening for cardiovascular condition Screening for other and unspecified cardiovascular conditions History of methamphetamine use Leukocytosis, unspecified type documented in this encounter [facility] note* Diagnosis Hepatitis C antibody test positive Other and unspecified nonspecific immunological findings documented in this encounter [facility] note* Diagnosis Chronic hepatitis C without hepatic coma (HCC) documented in this encounter [facility] note* Diagnosis Chronic hepatitis C without hepatic coma (HCC) documented in this encounter [facility] note* Diagnosis Hep C w/o coma, chronic (HCC) Chronic hepatitis C without mention of hepatic coma documented in this encounter [facility] note* Diagnosis Screen for sexually transmitted diseases Screening examination for venereal disease documented in this encounter [facility] note* Diagnosis Hep C w/o coma, chronic (HCC) Chronic hepatitis C without mention of hepatic coma documented in this encounter [facility] note* Diagnosis Hep C w/o coma, chronic (HCC) Chronic hepatitis C without mention of hepatic coma documented in this encounter [facility] note* Diagnosis Hep C w/o coma, chronic (HCC) Chronic hepatitis C without mention of hepatic coma documented in this encounter [facility] [place]* Diagnosis Opiate withdrawal (HCC)- Primary Drug withdrawal documented in this encounter [facility] [place] [place]* Diagnosis Opiate withdrawal (HCC)- Primary Drug withdrawal documented in this encounter [facility] [place] [place]* Diagnosis Strep pharyngitis- Primary Streptococcal sore throat Possible exposure to STI documented in this encounter [facility] [place] [place]* Instructions* Chapincito Patiño APRN-CNP, ACHPN - 12/20/2020 If you develop worsening of your symptoms, difficulty breathing, numbness, tingling, weakness, changes in your vision or any other urgent concerns, please call 911 or return to the Emergency Department immediately. [facility] [place] [place] for [place] (narrative)* Consultation (Routine) - Open Specialty Diagnoses / Procedures Referred By Philip barakat Referred To Contact Family Medicine Diagnoses Lab test negative for COVID-19 virus Medical clearance for incarceration Chapincito Patiño APRN-CNP, ACHPN [address] [place] [address] [facility] [address] [facility] [place] [address] Referral ID Status Reason Start Date Expiration Date Visits Re quested Visits Authorized [id number] Open 12/20/2020 01/20/[address] [facility] [place] [place] Summary Purpose Family History No Family History Records FoundNo Family History Records FoundNo Family History Records Found Advance Directives No Advanced Directives Records FoundDocuments on File Type Date Recorded Patient Coat Ironer Hand Expl anation Advance Directives and Livin g Will 10/28/2019 5:20 AM Latest Code Status on File Code Status Date Activated Date Inactivated Comments Full Code 10/28/2019 4:50 AM 10/31/2019 2:51 PM Documents on File Type Date Recorded Patient Coat Ironer Hand Expl anation Advance Directives and Living Will Power of Feather Separator Latest Code Status on File Code Status Date Activated Date Inactivated Comments Full Code 12/09/2013 4:47 PM 12/12/2013 2:08 AM Full Code 12/09/2013 10:38 AM 12/09/2013 4:47 PM Documents on File Type Date Recorded Patient Coat Ironer Hand Expl anation Advance Directives and Living Will Power of Feather Separator DNR Documentation Latest Code Status on File Code Status Date Activated Date Inactivated Comments Full Code 12/09/2013 4:47 PM 12/12/2013 2:08 AM Full Code 12/09/2013 10:38 AM 12/09/2013 4:47 PM Latest Code Status on File Code Status Date Activated Date Inactivated Comments Full Code 12/09/2013 4:47 PM 12/12/2013 2:08 AM Code Status History Code Status Date Activated Date Inactivated Comments Full Code 12/09/2013 10:38 AM 12/09/2013 4:47 PM Date Activated Date Inactivated Comments 12/09/2013 4:47 PM 12/12/2013 2:08 AM Date Activated Date Inactivated Comments 12/09/2013 10:38 AM 12/09/2013 4:47 PM Hospital Course * Aditi Chiu MD - 10/31/2019 12:25 PM EDT [facility] DIS[facility]GE SUMMARY Yolanda Manriquez Account: [id number] Admitted: 10/28/2019 Discharge Date/Time: 10/31/19 12:25 PM Handoff to PCP Routine hospital follow up 1. Discharged on PO Abx, follow up with urology as outpatient Clinical Summary Yolanda Manriquez is a 19 y.o. female with a history of IVDU who presented to [facility] with left flankpain and dysuria, CT with contrast showed left pyelonephritis, a 3 cm early abscess/phlegmon on thesuperior pole of left kidney, phleboliths at the left UVJ, WBC 15.5, lactic acid 1.1, UA leukocytes2+, she was transferred to [facility] 10/28/2019 for further evaluation. 1. Sepsis: Fever of 102, tachycardia, leukocytosis. Suspect from pyelonephritis found on CT. Lacticacid 1.1, COVID-19 negative. Admit CXR non-acute. OSH culture data update 10/31/19: Urine growing citrobacter farmeri (R to ampicillin, intermediate to amp-sulbactam), blood without growth at 72 hours.De-escalated Abx to ceftriaxone 10/30/19, and transitioned to oral 10/31/19 2. Acute Pyelonephritis: CT at [facility] showed left pyelonephritis, a 3 cm early abscess/phlegmon on thesuperior pole of left kidney, phleboliths at the left UVJ. Culture results and Abx management as above. 3. IVDU: admits amphetamine abuse, last use a week ago. Denies opiate abuse. Admit UDS with +amphetamines. Denies open areas on skin/abscesses. Strongly recommend cessation. Discharge Medications Medication List START taking these medications ciprofloxacin HCl 500 MG tablet Commonly known as: CIPRO Take 1 (one) tablet (500 mg total) by mouth every 12 (twelve) hours for 5 days . Where to Get Your Medications These medications were sent to [facility] [address] [address] Hours: 8:00 AM to 7:00 PM Mon-Fri ciprofloxacin HCl 500 MG tablet Physician(s) Family: Physician No, Phone: None, Address: [facility] Follow Up: Rodrigo Madrid MD [address] [address] Schedule an appointment as soon as possible for a visit in 2 week(s) Additional Information: Patient seen and examined day of discharge. For more information regarding patient's care, including complete radiology reports, please contact [place] [facility] at Patient instructions, including activity, were given to the patient/family at discharge. Please seethe After Visit Summary in the medical record for details. Time spent on discharge: > 30 minutes Completed by: Aditi Chiu on 10/31/19, 12:25 PM documented in this encounter Discharge Instructions * Discharge Instr - Care Coordination* Anila Green RN - 10/29/2019 3:11 PM EDT Resources for Medical Care/Primary Care near your home: documented in this encounter History of Present Illness * Isidro Chicas CNP - 10/31/2019 9:07 AM EDT DAILY PROGRESS NOTE Patient Name: Yolanda Manriquez MR #: [id number] No CP, SOB, N/V, pain controlled. Constitutional: Alert, cooperative, no distress, appears stated age Respiratory: Normal respiratory effort, non-labored breathing. Abdominal/GI: Soft, non-tender, no organomegaly Extremities: No clubbing, cyanosis, or edema noted, no calf tenderness bilaterally, SCDs on and activated. Genitourinary: wnl Results from last 7 days Lab Units 10/30/19 0520 10/29/19 0640 10/28/19 0746 SODIUM mmol/L -- 138 139 POTASSIUM mmol/L -- 4.2 4.1 CHLORIDE mmol/L -- 109* 107 BUN mg/dL -- 10 7* CREATININE mg/dL 0.69 0.70 0.68 GLUCOSE mg/dL -- 101* 97 CALCIUM mg/dL -- 8.2* 8.3* Results from last 7 days Lab Units 10/29/19 0640 10/28/19 0746 WBC K/mcL 8.39 12.67* HGB g/dL 12.0 12.7 HCT % 36.7 38.8 PLT K/mcL 178 186 Assessment/Plan: Left pyelonephritis -Patient with PMH of IVDA presented with left flank pain, chills -CT a/p at [facility] showed 3 cm early abscess / phlegmon on superior pole of left kidney -Afebrile, pain controlled Wbc 8.39 -UC growing citrobacter farmeri -Antibiotic management per primary team. Discussed with [facility]. Will have patient come into office in 2 weeks for evaluation with repeat ct a/p prior * Adtii Chiu MD - 10/30/2019 7:44 AM EDT [facility] Progress Note 10/30/2019 Yolanda Manriquez 2000 [id number] Assessment/Plan: Yolanda Manriquez is a 19 y.o. female with a history of IVDU who presented to [facility] with left flankpain and dysuria, CT with contrast showed left pyelonephritis, a 3 cm early abscess/phlegmon on thesuperior pole of left kidney, phleboliths at the left UVJ, WBC 15.5, lactic acid 1.1, UA leukocytes2+, she was transferred to [facility] 10/28/2019 for further evaluation. 1. Sepsis: Fever of 102, tachycardia, leukocytosis. Suspect from pyelonephritis found on CT. Lacticacid 1.1, COVID-19 negative. Admit CXR non-acute. OSH culture data update 10/30/19: Urine growing citrobacter farmeri (R to ampicillin), blood without growth at 48 hours. De-escalated Abx to ceftriaxone 10/30/19. 2. Acute Pyelonephritis: CT at [facility] showed left pyelonephritis, a 3 cm early abscess/phlegmon on thesuperior pole of left kidney, phleboliths at the left UVJ, received Vancomycin, Rocephin, Gentamicin and Flagyl at [facility]. Culture results and Abx management as above. 3. IVDU: admits amphetamine abuse, last use a week ago. Denies opiate abuse. Admit UDS with +amphetamines. Denies open areas on skin/abscesses. Strongly recommend cessation. 4. Tobacco Abuse: 1PPD, declined NRT. 5. Acute pain: Toradol prn. 6. DVT Prophylaxis: low risk, ambulatory. Current living situation: home Expected Disposition: home Estimated discharge date: 10/31/19 pending clinical improvement Subjective: Doing okay. Feels a little better than yesterday but still will back/flank pain I called and got updated culture data today from OSH, as above I changed IV antibiotics to just ceftriaxone monotherapy. Physical Exam: BP (!) 101/56 (BP Location: Right arm, Patient Position: Lying) Pulse 73 Temp 98.3 F (36.8 C) (Oral) Resp 12 Ht 5' Wt 52.1 kg (114 lb 13.8 oz) SpO2 98% BMI 22.43 kg/m General: NAD Eyes: EOMI ENT: neck supple Cardiovascular: Regular rate Respiratory: Clear to auscultation, unlabored breathing on room air Gastrointestinal: Soft, mild generalized tenderness Genitourinary: +suprapubic tenderness, +L CVA tenderness Musculoskeletal: No lower extremity edema. Skin: warm, dry Neuro: Alert and oriented, no focal deficits Psych: Mood appropriate Current Medications: piperacillin-tazobactam (ZOSYN) extended infusion 3.375 g Intravenous Q8H vancomycin 1,000 mg Intravenous Q12H Labs, Imaging and Studies reviewed: Results from last 7 days Lab Units 10/29/19 0640 10/28/19 0746 WBC K/mcL 8.39 12.67* HGB g/dL 12.0 12.7 HCT % 36.7 38.8 PLT K/mcL 178 186 Results from last 7 days Lab Units 10/30/19 0520 10/29/19 0640 10/28/19 0746 SODIUM mmol/L -- 138 139 POTASSIUM mmol/L -- 4.2 4.1 CHLORIDE mmol/L -- 109* 107 BICARB mmol/L -- 21 19* BUN mg/dL -- 10 7* CREATININE mg/dL 0.69 0.70 0.68 EGFR mL/min/1.73 m2 125 124 125 GLUCOSE mg/dL -- 101* 97 CALCIUM mg/dL -- 8.2* 8.3* Results from last 7 days Lab Units 10/28/19 0746 ALT U/L 37 AST U/L 36 ALK PHOS U/L 93 BILIRUBIN TOTAL mg/dL 0.7 * Aditi Chiu MD - 10/29/2019 7:40 AM EDT [facility] Inpatient Progress Note 10/29/2019 Yolanda Manriquez 2000 [id number] Assessment/Plan: Yolanda Manriquez is a 19 y.o. female with a history of IVDU who presented to [facility] with left flankpain and dysuria, CT with contrast showed left pyelonephritis, a 3 cm early abscess/phlegmon on thesuperior pole of left kidney, phleboliths at the left UVJ, WBC 15.5, lactic acid 1.1, UA leukocytes2+, she was transferred to [facility] 10/28/2019 for further evaluation. 1. Sepsis: Fever of 102, tachycardia, leukocytosis. Suspect from pyelonephritis found on CT. Lacticacid 1.1, COVID-19 negative. Admit CXR non-acute, blood culture and urine culture sent at [facility], lastchecked 10/29/19. Repeated on admit, pending. Empiric antibiotics with Vancomycin and Zosyn started on admit. Follow cultures. 2. Acute Pyelonephritis: CT at [facility] showed left pyelonephritis, a 3 cm early abscess/phlegmon on thesuperior pole of left kidney, phleboliths at the left UVJ, received Vancomycin, Rocephin, Gentamicin and Flagyl at [facility], change to Vancomycin and Zosyn on admit. Follow cultures. Urology following; recommend conservative care with IV antibiotics and hydration for now. Monitor. 3. IVDU: admits amphetamine abuse, last use a week ago. Denies opiate abuse. Admit UDS with +amphetamines. Denies open areas on skin/abscesses. Strongly recommend cessation. 4. Tobacco Abuse: 1PPD, declined NRT. 5. Acute pain: Toradol prn. 6. DVT Prophylaxis: low risk, ambulatory. Current living situation: home Expected Disposition: home Estimated discharge date: ~2 days pending clinical improvement, Urology plan Subjective: Patient is new to me today. I have reviewed labs, imaging, vital signs, and prior documentation including procurement consultant recommendations and summarized by me as above. Called [facility] today - Blood cultures and urine cultures are pending She is doing okay, still with some abdominal/flank pain. IV Abx continued. Physical Exam: BP 114/69 Pulse (!) 116 Temp 99.6 F (37.6 C) (Oral) Resp 12 Ht 5' Wt 52.1 kg (114 lb 13.8oz) SpO2 97% BMI 22.43 kg/m General: NAD Eyes: EOMI ENT: neck supple Cardiovascular: Regular rate Respiratory: Clear to auscultation, unlabored breathing on room air Gastrointestinal: Soft, mild generalized tenderness Genitourinary: +suprapubic tenderness, +L CVA tenderness Musculoskeletal: No lower extremity edema. Skin: warm, dry Neuro: Alert and oriented, no focal deficits Psych: Mood appropriate Current Medications: piperacillin-tazobactam (ZOSYN) extended infusion 3.375 g Intravenous Q8H vancomycin 1,000 mg Intravenous Q12H Labs, Imaging and Studies reviewed: Results from last 7 days Lab Units 10/28/19 0746 WBC K/mcL 12.67* HGB g/dL 12.7 HCT % 38.8 PLT K/mcL 186 Results from last 7 days Lab Units 10/28/19 0746 SODIUM mmol/L 139 POTASSIUM mmol/L 4.1 CHLORIDE mmol/L 107 BICARB mmol/L 19* BUN mg/dL 7* CREATININE mg/dL 0.68 EGFR mL/min/1.73 m2 125 GLUCOSE mg/dL 97 CALCIUM mg/dL 8.3* Results from last 7 days Lab Units 10/28/19 0746 ALT U/L 37 AST U/L 36 ALK PHOS U/L 93 BILIRUBIN TOTAL mg/dL 0.7 * Debra Schuler PA-C - 10/28/2019 12:31 PM EDT [facility] Inpatient Progress Note 10/28/2019 Yolanda Manriquez 2000 [id number] Assessment/Plan: Yolanda Manriquez is a 19 y.o. female with a history of IVDU who presented to [facility] with left flankpain and dysuria, CT with contrast showed left pyelonephritis, a 3 cm early abscess/phlegmon on thesuperior pole of left kidney, phleboliths at the left UVJ, WBC 15.5, lactic acid 1.1, UA leukocytes2+, she was transferred to [facility] 10/28/2019 for further evaluation. 1. Sepsis: Fever of 102, tachycardia, leukocytosis. Suspect from pyelonephritis found on CT. Lacticacid 1.1, COVID-19 negative. Admit CXR non-acute, blood culture and urine culture sent at [facility], lastchecked 10/28/19. Repeated on admit given IV drug user. Empiric antibiotics with Vancomycin and Zosynstarted on admit. Follow cultures. 2. Acute Pyelonephritis: CT at [facility] showed left pyelonephritis, a 3 cm early abscess/phlegmon on thesuperior pole of left kidney, phleboliths at the left UVJ, received Vancomycin, Rocephin, Gentamicin and Flagyl at [facility], change to Vancomycin and Zosyn on admit. Follow cultures. Urology following; recommend .conservative care with IV antibiotics and hydration for now. Monitor. 3. IVDU: admits amphetamine abuse, last use a week ago. Denies opiate abuse. Admit UDS with +amphetamines. Denies open areas on skin/abscesses. Strongly recommend cessation. 4. Tobacco Abuse: 1PPD, declined NRT. 5. Acute pain: Toradol prn. 6. DVT Prophylaxis: low risk, ambulatory. Current living situation: home Expected Disposition: home Estimated discharge date: ~2 days pending clinical improvement, Urology plan Subjective: Patient is new to me today. I have reviewed labs, imaging, vital signs, and prior documentation including procurement consultant recommendations and summarized by me as above. Patient sitting up in bed on her cell phone. Alert and pleasant. States she feels much better than time of presentation. Still with L flank pain 4/10, improved from 8-9/10 previously. Only other complaint is being hungry and requested to eat. Last IV drug injection 1 week prior. Denies open areas on skin/abscesses. Denies new complaints including CP, SOB, abdominal pain, nausea, vomiting. Called [facility]-Blood cultures drawn 1630 on 10/28/19. Blood and urine cultures remain pending. Physical Exam: BP 100/64 Pulse 87 Temp 98.4 F (36.9 C) (Oral) Resp 14 Ht 5' Wt 52.1 kg (114 lb 13.8 oz) SpO2 99% BMI 22.43 kg/m General: NAD Eyes: EOMI ENT: neck supple Cardiovascular: Regular rate Respiratory: Clear to auscultation, unlabored breathing on room air Gastrointestinal: Soft, non tender, +BS Genitourinary: +suprapubic tenderness, +L CVA tenderness Musculoskeletal: No lower extremity edema. Skin: warm, dry Neuro: Alert and oriented, no focal deficits Psych: Mood appropriate Current Medications: piperacillin-tazobactam (ZOSYN) extended infusion 3.375 g Intravenous Q8H vancomycin 1,000 mg Intravenous Q12H Labs, Imaging and Studies reviewed: Results from last 7 days Lab Units 10/28/19 0746 WBC K/mcL 12.67* HGB g/dL 12.7 HCT % 38.8 PLT K/mcL 186 Results from last 7 days Lab Units 10/28/19 0746 SODIUM mmol/L 139 POTASSIUM mmol/L 4.1 CHLORIDE mmol/L 107 BICARB mmol/L 19* BUN mg/dL 7* CREATININE mg/dL 0.68 EGFR mL/min/1.73 m2 125 GLUCOSE mg/dL 97 CALCIUM mg/dL 8.3* Results from last 7 days Lab Units 10/28/19 0746 ALT U/L 37 AST U/L 36 ALK PHOS U/L 93 BILIRUBIN TOTAL mg/dL 0.7 * Cindy Zamora R.Ph. - 10/28/2019 5:13 AM EDT PHARMACOTHERAPY NOTE: Antimicrobial Therapy Initiation Assessment / Plan: Yolanda Manriquez is a 19 y.o. female initiated on antimicrobial therapy for sepsis. Patient initiated on vancomycin 1000mg q12h Vancomycin trough goal is 15-20 mcg/mL. Will obtain level when at steady state or when clinically appropriate. Will monitor serum creatinine levels and urine output (if available) daily. Pharmacy will continue to follow, order levels, and make adjustments as needed. Please call pharmacy with questions. Current antibiotic regimen includes: vancomycin 1000mg q12h piperacillin-tazobactam 4.5gmx1 then 3.375 gm IV q8h Objective: Ht Readings from Last 1 Encounters: 10/27/19 5' (152.4 cm) Wt Readings from Last 1 Encounters: 10/27/19 54.4 kg (120 lb) [place] body weight: 45.5 kg (100 lb 4.9 oz) Adjusted ideal body weight: 49.1 kg (108 lb 3 oz) Labs include: No results found for: WBC No results found for: CREATININE CrCl cannot be calculated (No successful lab value found.). Serum creatinine from [facility] = 0.67 , Creatinine clearance ~ 95 ml/min Patient Tmax (last 24 hours): 102.7 F . Micro:Microbiology Results (last 7 days) Procedure Component Value Units Date/Time Urine Aerobic Culture [[id number]] Order Status: Sent Specimen: Urine, Clean Catch Blood Culture #1 [[id number]] Order Status: Sent Specimen: Blood, Peripheral Blood Culture #2 [[id number]] Order Status: Sent Specimen: Blood, Peripheral COVID-19, Molecular [[id number]] (Normal) Collected: 10/28/19 0330 Order Status: Completed Specimen: Swab from Nasopharyngeal Updated: 10/28/19355 SARS-CoV-2 Not Detected Comment: This test was performed under the FDA's Emergency Use Authorization (EUA). Testing was performed using the Crisp ID NOW COVID-19 assay on the ID NOW platform. This test has not been approved for use in asymptomatic patients and its performance in this patient population has not been evaluated. Negative results do not rule out the presence of SARS-CoV-2/COVID-19. Fact sheets for the EUA can be found at the following links: For Healthcare Providers: https://www.fda.gov/media/872259/download For Patients: https://www.fda.gov/media/579697/download Pharmacist: Meaghan Chopra.Ph. documented in this encounter Assessments Diagnosis Pyelonephritis Unspecified pyelonephritis Additional Source Comments INFORMATION SOURCE (unrecogn ized section and content) DATE CREATED AUTHOR 11/17/2019 [facility] DATE CREATED AUTHOR AUTHOR'S ORGANIZ ATION 06/20/2021 [facility] DATE CREATED AUTHOR AUTHOR'S ORGANIZ ATION 11/08/2024 [facility] Shade Conley MD - 10/28/2019 2:58 AM EDT H&P Notes (unrecognized sect ion and content) [facility] History and Physical Note 10/28/19 Yolanda Manriquez 2000 [id number] Assessment/Plan: Yolanda Manriquez is a 19 y.o. female with a history of IVDU who presented to [facility] with left flank pain and dysuria, CT with contrast showed left pyelonephritis, a 3 cm early abscess/phlegmon on the superior pole of left kidney, phleboliths at the left UVJ, WBC 15.5,, lactic acid 1.1, UA leukocytes 2+, she was transferred to [facility] 10/28/2019 for further evaluation. 1. Acute febrile illness: fever of 102, suspect from pyelonephritis found on CT, WBC 15.5,, lactic acid 1.1, COVID-19 negative, check CXR, blood culture and urine culture sent at [facility], repeat given IV drug user. Empiric antibiotics with Vancomycin and Zosyn 10/28/2019. 2. Acute pyelonephritis: CT at [facility] showed left pyelonephritis, a 3 cm early abscess/phlegmon on the superior pole of left kidney, phleboliths at the left UVJ, received Vancomycin, Rocephin, Gentamicin and Flagyl at [facility], change to Vancomycin and Zosyn pending culture results. 3. IVDU: admits amphetamine abuse, last use a week ago, denies opiate abuse, check UDS. 4. Tobacco abuse: 1PPD, decline NRT. 5. Acute pain: Toradol prn. 6. DVT Prophylaxis: low risk. Current living situation: home Expected Disposition: not sure Estimated discharge date: TBD Chief Complaint: Left flank pain and dysuria History of Present Illness: Yolanda Manriquez is a 19 y.o. female with a history of IVDU who presented to [facility] with left flank pain and dysuria, CT with contrast showed left pyelonephritis, a 3 cm early abscess/phlegmon on the superior pole of left kidney, phleboliths at the left UVJ, WBC 15.5,, lactic acid 1.1, UA leukocytes 2+, she was transferred to [facility] 10/28/2019 for further evaluation. She started to have urinary urgency 3 days ago, with subjective fever, chill, denies nausea vomiting, diarrhea, no cough, sob, chest pain. ROS: 10 systems were reviewed and negative, except as noted above. Past Medical, Surgical, Social, Family History: Past Medical History: Diagnosis Date IVDU (Intravenous Drug User) No past surgical history on file. Social History Socioeconomic History Marital status: Not on file Spouse name: Not on file Number of children: Not on file Years of education: Not on file Highest education level: Not on file Occupational History Not on file Social Needs Financial resource strain: Not on file Food insecurity Worry: Not on file Inability: Not on file Transportation needs Medical: Not on file Non-medical: Not on file Tobacco Use Smoking status: Not on file Substance and Sexual Activity Alcohol use: Not on file Drug use: Not on file Sexual activity: Not on file Lifestyle Physical activity Days per week: Not on file Minutes per session: Not on file Stress: Not on file Relationships Social connections Talks on phone: Not on file Gets together: Not on file Attends latter-day service: Not on file Active member of club or organization: Not on file Attends meetings of clubs or organizations: Not on file Relationship status: Not on file Other Topics Concern Not on file Social History Narrative Not on file No family history on file. Home Medications: There are no discharge medications for this patient. Physical Exam: There were no vitals taken for this visit. General: NAD Eyes: EOMI ENT: neck supple Cardiovascular: Regular rhythm, normal rate. Respiratory: Clear to auscultation, breathing unlabored, no crackles or wheezes Gastrointestinal: Soft, non tender Genitourinary: no suprapubic tenderness, left CVA tenderness Musculoskeletal: No edema Skin: warm, dry, tattoos, no rashes Neuro: Alert, oriented x3, no focal motor deficits. Psych: Mood appropriate. Labs, Imaging, and Studies reviewed: Invalid input(s): MAG MADISYN documented in this encounter Isidro Chicas CNP - 10/28/2019 7:48 AM EDT Consult Notes (unrecognized section and content) Associated Order(s): IP CONSULT TO UROLOGY CONSULT NOTE Patient Name: Yolanda Manriquez Admit Date: MR #: [id number] : 2000 Physicians: FAMILY: Physician No REFERRING: Shade Conley MD Chief Complaint/Reason for Visit: left flank pain, fever Assessment and Plan: Left pyelonephritis -Patient with PMH of IVDA presenting with left flank pain, chills -CT a/p at [facility] showed 3 cm early abscess / phlegmon on superior pole of left kidney -Tmax 102.7, wbc 15.5 -Follow cultures from [facility], currently receiving vanc / zosyn, adjust per C&S -Pain improved this am -Recommend conservative care with IV antibiotics / hydration History of Present Illness: Yolanda Manriquez is a 19 year old female with a history if IV drub abuse. She presented to [facility] with 3 days of left flank pain, dysuria. She describes pain as intermittently sharp and severe. CT [facility] showed 3 cm early abscess / phlegmon on superior pole of left kidney. She was transferred to [facility] or further care. She states pain is improved today. History: Past Medical History: Diagnosis Date IVDU (Intravenous Drug User) Tobacco Abuse Past Surgical History: Procedure Laterality Date NO PAST SURGERIES Family History Problem Relation Age of Onset Heart disease Neg Hx Stroke Neg Hx Social History Socioeconomic History Marital status: Single Spouse name: Not on file Number of children: Not on file Years of education: Not on file Highest education level: Not on file Occupational History Not on file Social Needs Financial resource strain: Not on file Food insecurity Worry: Not on file Inability: Not on file Transportation needs Medical: Not on file Non-medical: Not on file Tobacco Use Smoking status: Current Every Day Smoker Packs/day: 1.00 Smokeless tobacco: Never Used Substance and Sexual Activity Alcohol use: Not Currently Drug use: Yes Types: Amphetamines Sexual activity: Not on file Lifestyle Physical activity Days per week: Not on file Minutes per session: Not on file Stress: Not on file Relationships Social connections Talks on phone: Not on file Gets together: Not on file Attends latter-day service: Not on file Active member of club or organization: Not on file Attends meetings of clubs or organizations: Not on file Relationship status: Not on file Other Topics Concern Not on file Social History Narrative Not on file Allergy Information: I have reviewed the patient's allergies. Penicillins Home Medications: No current outpatient medications on file as of 10/28/2019. Review of Systems: The following system(s) were reviewed and are negative unless otherwise noted in the HPI: Eyes, ENT, CV, Resp, GI, Neuro, Skin, Musc, Endo, , Heme/Lym, Allergy, Psych. Physical Examination: Vital Signs: BP 100/66 Pulse 80 Temp 98.1 F (36.7 C) (Oral) Resp 14 Ht 5' Wt 52.1 kg (114 lb 13.8 oz) SpO2 97% BMI 22.43 kg/m Constitutional: Alert, cooperative, no distress, appears stated age Eyes: conjunctiva/corneas clear, normal vision Ears/Nose/Mouth Eyes -EOMI. Ears - External normal ear. Hearing normal. Mouth - Lips normal color. Head/Neck: Face symmetrical, trachea midline, Head - Normocephalic. symmetrical. Respiratory: Normal respiratory effort, non-labored breathing. Abdominal/GI: Soft, non-tender, no organomegaly Skin: Skin color, texture, turgor normal, no rashes or lesions Neurologic: Alert and oriented x3. No focal neurological deficits noted. Extremities: No clubbing, cyanosis, or edema noted, no calf tenderness bilaterally. Skin: Normal turgor, well-hydrated, no rashes noted. 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 Found to have pyelonephritis, with possible small abscess in left kidney. On IV antibiotics. No obstruction. Plan is to follow conservatively. Cultures pendingdocumented in this encounter Victorina Richardson RN - 10/28/2019 2:45 AM EDT ED Notes (unrecognized secti on and content) Patient transported to [place] by [facility]. Receiving unit notified of patient's arrival. Patient's vital signs BP 117/70, HR 106, RR 14, Pulse Ox 97% on room air. Patient has a chief complaint of Abcess. Patient does have patent IV access- 20g LAC. Patient was on personnel monitor prior to arrival - Sinus Tachycardia noted. Patient transported to room 8020 on arrival. documented in this encounter Reason for Visit (unrecogniz ed section and content) Reason Comments Other Medical Clearance Reason Comments Other Reason Comments Nausea Withdrawal Reason Comments Pharyngitis Cough Care Teams (unrecognized sec tion and content) [employer] Relationship Specialty Start Date End Date Chaparrita Brown PA-C [address] [place] [address] PCP - General Family Medicine 11/15/21 [employer] Relationship Specialty Start Date End Date Chaparrita Brown PA-C [address] [place] [address] PCP - General Family Medicine 11/15/21 [employer] Relationship Specialty Start Date End Date Chaparrita Brown PA-C [address] [place] [address] PCP - General Family Medicine 11/15/21 [employer] Relationship Specialty Start Date End Date Chaparrita Brown PA-C [address] [place] [address] PCP - General Family Medicine 11/15/21 [employer] Relationship Specialty Start Date End Date Chaparrita Brown PA-C PCP - General Family Medicine 11/15/21 [employer] Relationship Specialty Start Date End Date Chaparrita Brown PA-C PCP - General Family Medicine 11/15/21 [employer] Relationship Specialty Start Date End Date Chaparrita Brown PA-C PCP - General Family Medicine 11/15/21 [employer] Relationship Specialty Start Date End Date Chaparrita Brown PA-C PCP - General Family Medicine 11/15/21 [employer] Relationship Specialty Start Date End Date Chaparrita Brown PA-C PCP - General Family Medicine 11/15/21 [employer] Relationship Specialty Start Date End Date Pcp, Coretta [address] [place] [address] PCP - General 11/25/22 [employer] Relationship Specialty Start Date End Date Khris Irving APRN [employer] [address] [place] [address] PCP - General Nurse Practitioner 04/14/23 [employer] Relationship Specialty Start Date End Date Khris Irving APRN [employer] SUPER[employer]OR [address] [place] [address] PCP - General Nurse Practitioner 04/14/23 [employer] Relationship Specialty Start Date End Date Khris Irving APRN [employer] SUPER[employer]OR [id number] [address] PCP - General Nurse Practitioner 10/21/24 Scheduled Active and Recently Administ ered Medications (unrecognized section and content) Medication Order 12/17/2023 12/18/2023 12/19/2023 buprenorphine (SUBUTEX) SL tablet 8 mg (COMPLETED) 8 mg, Sublingual, NOW, 1 dose, On 12/19/23 at 1818, Caution: Do not crush or chew. 1813 (Given - Provid er: Krystal Cao RN) naloxone (NARCAN NASAL) 4 mg/0.1 mL nasal spray (COMPLETED) 1 Box, Intranasal, PRIOR TO DISCHARGE, 1 dose, On 12/19/23 at 1818, Take home pack. Use as directed. Do NOT prime or test the device prior to administration. Each device contains a single dose. Do NOT attempt to reuse the naloxone nasal spray device. 1815 (Dispensed to [facility] by Physician/Other Qualified Staff Member - Provider: Krystal Cao RN) Scheduled Medication Order 04/28/2024 04/29/2024 04/30/2024 buprenorphine-naloxone (SUBOXONE) 8-2 MG SL tablet 1 tablet (COMPLETED) 1 tablet, Sublingual, ONCE, 1 dose, On 04/30/24 at 1345 1321 (Given - Provid er: Viky Vincent, ROXY) Ondansetron (ZOFRAN-ODT) disintegrating tablet 4 mg (COMPLETED) 4 mg, Oral, NOW, 1 dose, On 04/30/24 at 1400 1321 (Given - Provid er: iVky Vincent, ROXY) Scheduled Medication Order 10/19/2024 10/20/2024 10/21/2024 amoxicillin capsule 1,000 mg (COMPLETED) 1,000 mg, Oral, NOW, 1 dose, On Thu10/21/24 at 2145, Indications: Streptococcal Pharyngitis 2103 (Given - Provid er: Issac Mcdonnell RN) FOR RECORDS PERTAINING TO PATIENTS WHO ARE OR HAVE BEEN ENROLLED IN A CHEMICAL DEPENDENCY/SUBSTANCEABUSE PROGRAM, SOME INFORMATION MAY BE OMITTED. This clinical summary was aggregated from multiple sources. Caution should be exercised in using it in the provision of clinical care. This summary normalizes information from multiple sources, and as a consequence, information in this document may materially change the coding, format and clinical context of patient data. In addition, data may be omitted in some cases. CLINICAL DECISIONS SHOULD BE BASED ON THE PRIMARY CLINICAL RECORDS. [employer] provides no warranty or guarantee of the accuracy or completeness of information in this document.
--- OUTSIDE RECORDS SUMMARY | 2025-02-12 13:42 | XMS RPT_ITS | CCD ---
Author Organization [facility] Inform ion Partnership [facility] Care Team Providers Care Reading Assistant Name Role Phone JUAN DIEGO GRAYOSN Referring Unavaila SHADE Cody Admitting Unavailable RODRIGO [...] Care Provider Unavailabl e Maria Fernanda XIONG KAI WHAKARURUHAU, Khris Primary Care Provider [phone] Maria Fernanda XIONG KAI WHAKARURUHAU, Khris Primary Care Provider KHRIS IRVING Primary [...] to adverse reactions to drug (disorder) 4 [facility] Repository Medications Current Medications Medication Drug [...] GC AND CHLAMYDIA AMPLIFIED PROBE GC AMPLIFIED [place] Negative Negative CHLAMYDIA, DNA PROBE Negative Negative Normal Negative [facility] Comment on above: Performed By: #### 3 [id number] #### [facility] [address] Influenza virus A and B RNA and SARS-CoV-2 (COVID-19) N gene panel LILLIAN+probe (Resp)on 10-21-2024 FLUAV RNA LILLIAN+probe Ql (Nph) Negative Negative [facility] FLUBV RNA LILLIAN+probe Ql (Nph) Negative Negative [facility] Interpretation and review of laboratory results Normal [facility] SARS-CoV-2 (COVID-19) RNA LILLIAN+probe Ql (Resp) Negative Negative [facility] Comment on above: Negative results do not [...] specimens during the acute phase of infection. [facility] POCT ED/FC/SURG Urine PregOr dered By: Krystal Graham on 10-21-2024 Beta HCG ( test) Ql (U) Negative [facility] Interpretation and review of laboratory results Normal [facility] Bobbin Marker Acceptable Yes [facility] STREP Aon 10-21-2024 STREP A Not detected Abnormal Not Detected [facility] Comment on above: Performed By: #### 3 [id number] #### [facility] [id number] [place] [address] Streptococcus.beta-hemolytic Org specific cx Ql (Unsp spec)Ordered By: Background Lab on 10-21-2024 Interpretation and review of laboratory results Abnormal [facility] S. pyogenes DNA LILLIAN+probe Ql (Throat) Detected Abnormal Not Detected [facility] TRICHOMONAS AMPLIFIED PROBEo n 10-21-2024 TRICHOMONAS AMPLIFIED PROBE Negative Normal Negative [facility] Comment on above: Performed By: #### 3 [id number] #### [facility] [address] [place] [address] [place] WAIVED SARS COV-2, FLU A, FL [...] FLU B, PCR Negative Negative Normal Negative [facility] Comment on above: Performed By: #### L [id number] #### [facility] [address] [place] [address] IMAGE GUIDED PAP WITH GC AND CHLAMYDIA, TRICHOMONAS, AND HPVon 05-16-2024 IMAGE GUIDED PAP WITH GC AND CHLAMYDIA, TRICHOMONAS, AND HPV Comment NEGATIVE FOR INTRAEPITHELIAL LESION OR MALIGNANCY. THIS SPECIMEN WAS RESCREENED PART OF OUR CAMP BOSS PROGRAM. Comment Satisfactory for evaluation. Endocervical and/or squamous metaplastic cells (endocervical component) are present. Areas of partially obscuring blood are present. Comment Piper Pyle, [employer] (ASCP) Comment Tigre Flores [employer] (ASCP) . Comment The Pap smear is [...] without differentiation. Negative Negative Positive Abnormal Negative [facility] Comment on above: Order Comment: Speci men Comment: LMP / Prev Treat...MLB=[id number];None Specimen Comment: No. of containers..01 ThinPrep Vial Performed at: - [facility] [id number] Rehabilitation Center Manager: Meredith Godoy MD, Phone: [phone] Performed at: 02 - [facility] [address] [id number] Rehabilitation Center Manager: Meredith Godoy MD, Phone: [phone] Performed By: #### L [id number] #### [facility] [address] [place] [address] URINE CULTUREon 05-16-2024 Bacteria identified Cx Nom (U) URINE CULTURE, ROUTINE No growth at 2 days Normal [employer] [facility] Comment on above: Performed By: #### 4 [id number] #### [facility] [address] US Breast - left limitedOrde red By: Gorge Rome on 03-26-2023 Interpretation and review of laboratory results Abnormal [facility] Work Phone: [facility] Work Phone: US Breast - left limitedon [...] previously scanned. This is not clinically palpable. [facility] Radiology Study observation (narrative) [facility] HCV Quant by Vaslie 03-19-20 22 HCV RNA LILLIAN+probe Qn Not detected IU/mL [facility] HCV Test Info Comment [facility] Comment on above: The quantitative ran ge of this assay is 15 IU/mL to 100 million IU/mL. Performed at: - [address] [id number] Rehabilitation Center Manager: Fili Koo MD, Phone: [phone] [facility] CBC with differentialOrdered By: Background Lab on 03-18-2022 Absolute Immature Granulocytes 0.0 [facility] Age [Time] 89.9 fL 80.2 - 99 fL [facility] Age [Time] 30.9 pg 27.5 - 32.3 pg [facility] Age [Time] 34.4 g/dL 30.7 - 35.5 g/dL [facility] B. burgdorferi IgM IB Ql (CSF) 21.2 % [facility] Basophils (Bld) [#/Vol] 0.1 10*3/uL [facility] Basophils/100 WBC (Body fld) 0.7 % [facility] Eosinophils (Bld) [#/Vol] 1.6 10*3/uL [facility] Eosinophils (Bld) [#/Vol] 0.5 10*3/uL [facility] Eosinophils (Bld) [#/Vol] 0.1 10*3/uL [facility] Eosinophils/100 WBC (Bld) 1.7 % [facility] Erythrocyte distribution width (RBC) [Ratio] 12.6 % 11.5 - 14.5 % [facility] Hematocrit (Bld) [Volume fraction] 41.0 % 33.6 - 46.8 % [facility] Hexanoylglycine (U) [Moles/Vol] 14.1 g/dL 11.7 - 15.8 g/dL [facility] Immature granulocytes/100 WBC (Bld) 0.3 % [facility] Monocytes/100 WBC (Bld) 6.9 % G [facility] Neurotensin (P) [Mass/Vol] 69.2 % [facility] Neutrophils (Bld) [#/Vol] 5.3 10*3/uL [facility] Nucleated RBC/100 WBC (Bld) [Ratio] 0.0 % 0.0 - 1.0 % [facility] Platelets (Bld) [#/Vol] 246 10*3/uL [facility] RBC (Bld) [#/Vol] 4.56 10*6/uL [facility] WBC LM Ql (Sput) 7.7 [facility] Comprehensive metabolic 2000 panelon 03-18-2022 Albumin (Syn fld) [Mass/Vol] 4.5 g/dL 3.5 - 5.0 g/dL [facility] Aldosterone (U) [Mass/Vol] 59 U/L 24 - 126 U/L [facility] ALT [Catalytic activity/Vol] 16 U/L 4 - 35 U/L [facility] Anion gap [Moles/Vol] 9 mmol/L 8 - 12 mmol/L [facility] AST [Catalytic activity/Vol] 21.9 U/L 3 - 47 U/L [facility] Bilirubin [Mass/Vol] 0.6 mg/dL 0.2 - 1 .6 mg/dL [facility] Calcium [Mass/Vol] 9.1 mg/dL 8.4 - 10. 4 mg/dL [facility] Calcium hydrogen phosphate dihydrate crystals LM Ql (Urine sed) 15.2 mg/dL 8 - 26 mg/dL [facility] Chloride [Moles/Vol] 106 mmol/L 96 - 10 9 mmol/L [facility] CMV IgM IF Ql 22.2 mmol/L 22 - 30 mmol/L [facility] Creatinine [Mass/Vol] 0.65 mg/dL 0.52 - 1.04 mg/dL [facility] GFR/1.73 sq M.predicted MDRD (S/P/Bld) [Vol rate/Area] - PINF [facility] Comment on above: eGFR calculation bas ed [...] mg/dL High 65 - 100 mg/dL G [facility] Interpretation and review of laboratory results Abnormal [facility] Potassium [Moles/Vol] 3.8 mmol/L 3.6 - 5.1 mmol/L [facility] Protein [Mass/Vol] 7.1 g/dL 6.3 - 8.2 g/dL [facility] Sodium [Moles/Vol] 137.1 mmol/L 135 - 147 mmol/L [facility] HCV Quant by Vasile 02-14-20 HCV RNA LILLIAN+probe Qn Not detected IU/mL [facility] HCV Test Info Comment [facility] Comment on above: The quantitative ran ge of this assay is 15 IU/mL to 100 million IU/mL. Performed at: - [facility] [id number] Rehabilitation Center Manager: Fili Koo MD, Phone: [phone] [facility] CBC with differentialOrdered By: Background Lab on 02-11-2022 Absolute Immature Granulocytes 0.1 [facility] Age [Time] 90.2 fL 80.2 - 99 fL [facility] Age [Time] 31.5 pg 27.5 - 32.3 pg [facility] Age [Time] 35.0 g/dL 30.7 - 35.5 g/dL [facility] B. burgdorferi IgM IB Ql (CSF) 12.7 % [facility] Basophils (Bld) [#/Vol] 0.0 10*3/uL [facility] Basophils/100 WBC (Body fld) 0.3 % [facility] Eosinophils (Bld) [#/Vol] 1.5 10*3/uL [facility] Eosinophils (Bld) [#/Vol] 1.0 10*3/uL High [facility] Eosinophils (Bld) [#/Vol] 0.1 10*3/uL [facility] Eosinophils/100 WBC (Bld) 1.2 % [facility] Erythrocyte distribution width (RBC) [Ratio] 11.8 % 11.5 - 14.5 % [facility] Hematocrit (Bld) [Volume fraction] 43.2 % 33.6 - 46.8 % [facility] Hexanoylglycine (U) [Moles/Vol] 15.1 g/dL 11.7 - 15.8 g/dL [facility] Immature granulocytes/100 WBC (Bld) 0.4 % [facility] Interpretation and review of laboratory results Abnormal [facility] Monocytes/100 WBC (Bld) 7.9 % G [facility] Neurotensin (P) [Mass/Vol] 77.5 % [facility] Neutrophils (Bld) [#/Vol] 9.3 10*3/uL [facility] Nucleated RBC/100 WBC (Bld) [Ratio] 0.0 % 0.0 - 1.0 % [facility] Platelets (Bld) [#/Vol] 243 10*3/uL [facility] RBC (Bld) [#/Vol] 4.79 10*6/uL [facility] WBC LM Ql (Sput) 12.0 [facility] Comprehensive metabolic 2000 panelon 02-11-2022 Albumin (Syn fld) [Mass/Vol] 4.9 g/dL 3.5 - 5.0 g/dL [facility] Aldosterone (U) [Mass/Vol] 112 U/L 24 - 126 U/L [facility] ALT [Catalytic activity/Vol] 16 U/L 4 - 35 U/L [facility] Anion gap [Moles/Vol] 14 mmol/L High 8 - 12 mmol/L [facility] AST [Catalytic activity/Vol] 21.7 U/L 3 - 47 U/L [facility] Bilirubin [Mass/Vol] 0.6 mg/dL 0.2 - 1 .6 mg/dL [facility] Calcium [Mass/Vol] 9.6 mg/dL 8.4 - 10. 4 mg/dL [facility] Calcium hydrogen phosphate dihydrate crystals LM Ql (Urine sed) 11.7 mg/dL 8 - 26 mg/dL [facility] Chloride [Moles/Vol] 103 mmol/L 96 - 10 9 mmol/L [facility] CMV IgM IF Ql 23.4 mmol/L 22 - 30 mmol/L [facility] Creatinine [Mass/Vol] 0.67 mg/dL 0.52 - 1.04 mg/dL [facility] GFR/1.73 sq M.predicted MDRD (S/P/Bld) [Vol rate/Area] - PINF [facility] Comment on above: eGFR calculation bas ed [...] [Mass/Vol] 77.0 mg/dL 65 - 100 mg/dL [facility] Interpretation and review of laboratory results Abnormal [facility] Potassium [Moles/Vol] 4.0 mmol/L 3.6 - 5.1 mmol/L [facility] Protein [Mass/Vol] 8.1 g/dL 6.3 - 8.2 g/dL [facility] Sodium [Moles/Vol] 139.9 mmol/L 135 - 147 mmol/L [facility] US Breast - left limitedOrde red By: Chapincito Soto on 01-30-2022 Interpretation and review of laboratory results Abnormal [facility] Work Phone: [facility] Work Phone: US Breast - left limitedon [...] 3: Probably Benign Ultrasound in 6 Months [facility] EXAM: US BREAST LEFT LIMITED HISTORY: Unspecified [...] seen. AGNES Radiology Study observation (narrative) [facility] Hepatitis B surface antigeno n 01-13-2022 Hep B Surf AG Non-Reactive Nonreactive [facility] HCV Quant by Vasile 12-29-19 HCV Quant by NAAT (IU/ML) 1,748,830 IU/mL [facility] HCV Quant by NAAT (Log IU/ML) 6.24 log IU/mL [facility] HCV Quant by NAAT Interp Detected Abnormal Not Detected [facility] Comment on above: INTERPRETIVE INFORMA TION: HCV [...] and Cellular Tissue-Based Products (HCT/P). Performed by [facility], [address] [place] [id number] [email or web address], Librado Braden MD, PHD - Lab. Director Interpretation and review of laboratory results Abnormal [facility] Beta HCG ( test) Ql on 12-24-2021 HCG [Moles/Vol] Negative [facility] CBC with differentialon 11-27 Absolute Immature Granulocytes 0.0 0 10 3/uL [facility] Absolute Lymph 2.1 [facility] Absolute [place] 0.5 [facility] Basophils (Bld) [#/Vol] 0.1 10*3/uL [facility] Basophils/100 WBC (Bld) 0.7 % G [facility] Eosinophils (Bld) [#/Vol] 0.1 10*3/uL [facility] Eosinophils/100 WBC (Bld) 1.6 % [facility] Erythrocyte distribution width (RBC) [Ratio] 12.6 % 11.5 - 14.5 % [facility] Hematocrit (Bld) [Volume fraction] 45.5 % 33.6 - 46.8 % [facility] Hemoglobin (Bld) [Mass/Vol] 15.5 g/dL 11.7 - 15.8 g/dL [facility] Immature granulocytes/100 WBC (Bld) 0.3 % [facility] Lymphocytes/100 WBC (Bld) 30.0 % [facility] MCH (RBC) [Entitic mass] 31.6 pg 27.5 - 32.3 pg [facility] MCHC (RBC) [Mass/Vol] 34.1 g/dL 30.7 - 35.5 g/dl [facility] MCV (RBC) [Entitic vol] 92.9 fL 80.2 - 99.0 fL [facility] Monocytes/100 WBC (Bld) 7.8 % [facility] Neutrophils (Bld) [#/Vol] 4.1 10*3/uL [facility] Neutrophils/100 WBC (Bld) 59.6 % [facility] Platelets (Bld) [#/Vol] 237.0 10*3/uL [facility] RBC (Bld) [#/Vol] 4.90 10*6/uL [facility] WBC LM Ql (Sput) 6.9 [facility] Comprehensive metabolic pane torsten 12-24-2021 Albumin [Mass/Vol] 4.6 g/dL 3.5 - 5.0 g/dL [facility] Alk Phos 81 U/L 24 - 126 U/L [facility] ALT [Catalytic activity/Vol] 91 U/L High 4 - 35 U/L [facility] AST [Catalytic activity/Vol] 49 U/L High 3 - 47 U/L [facility] Bilirubin [Mass/Vol] 0.5 mg/dL 0.2 - 1 .6 mg/dL [facility] Calcium [Mass/Vol] 9.2 mg/dL 8.4 - 10. 4 mg/dL [facility] Chloride [Moles/Vol] 107 mmol/L 96 - 10 9 mmol/L [facility] CO2 [Moles/Vol] 24 mmol/L 22 - 30 mmol/L [facility] Creatinine [Mass/Vol] 0.63 mg/dL 0.52 - 1.04 mg/dL [facility] Glucose [Mass/Vol] 81 mg/dL 65 - 100 mg/dL [facility] Interpretation and review of laboratory results Abnormal [facility] Potassium [Moles/Vol] 4.0 mmol/L 3.6 - 5.1 mmol/L [facility] Protein [Mass/Vol] 7.5 g/dL 6.3 - 8.2 g/dL [facility] Sodium [Moles/Vol] 140 mmol/L 135 - 147 mmol/L [facility] Urea nitrogen [Mass/Vol] 10 mg/dL 8 - 20 mg/dL [facility] GLOMERULAR FILTRATION RATEon 12-24-2021 GFR >60 [facility] Comment on above: To estimate the GFR [...] Int Suppl.2013;3:1-150 No Panel Informationon 12-24 [facility] [employer] [facility] nRBC 0 0 - 1 [facility] CBC with differentialon Absolute Immature Granulocytes 0.0 0 10 3/uL [facility] [employer] [facility] Absolute Lymph 1.7 [facility] Absolute [place] 0.6 [facility] Basophils (Bld) [#/Vol] 0.0 10*3/uL [facility] Basophils/100 WBC (Bld) 0.5 % G [facility] Eosinophils (Bld) [#/Vol] 0.1 10*3/uL [facility] Eosinophils/100 WBC (Bld) 1.1 % [facility] Erythrocyte distribution width (RBC) [Ratio] 12.4 % 11.5 - 14.5 % [facility] Hematocrit (Bld) [Volume fraction] 45.2 % 33.6 - 46.8 % [facility] Hemoglobin (Bld) [Mass/Vol] 15.5 g/dL 11.7 - 15.8 g/dL [facility] Immature granulocytes/100 WBC (Bld) 0.4 % [facility] Lymphocytes/100 WBC (Bld) 21.7 % [facility] MCH (RBC) [Entitic mass] 31.6 pg 27.5 - 32.3 pg [facility] MCHC (RBC) [Mass/Vol] 34.3 g/dL 30.7 - 35.5 g/dl [facility] MCV (RBC) [Entitic vol] 92.1 fL 80.2 - 99 fL [facility] Monocytes/100 WBC (Bld) 8.3 % [facility] Neutrophils (Bld) [#/Vol] 5.2 10*3/uL [facility] Neutrophils/100 WBC (Bld) 68.0 % [facility] Platelets (Bld) [#/Vol] 277.0 10*3/uL [facility] RBC (Bld) [#/Vol] 4.91 10*6/uL [facility] WBC LM Ql (Sput) 7.6 [facility] Comprehensive metabolic pane torsten 11-28-2021 Albumin [Mass/Vol] 5.3 g/dL High 3.5 - 5 g/dL [facility] Alk Phos 86 U/L 24 - 126 U/L [facility] ALT [Catalytic activity/Vol] 76 U/L High 4 - 35 U/L [facility] AST [Catalytic activity/Vol] 57 U/L High 3 - 47 U/L [facility] Bilirubin [Mass/Vol] 1.0 mg/dL 0.2 - 1 .6 mg/dL [facility] Calcium [Mass/Vol] 9.8 mg/dL 8.4 - 10. 4 mg/dL [facility] Chloride [Moles/Vol] 105 mmol/L 96 - 10 9 mmol/L [facility] CO2 [Moles/Vol] 23 mmol/L 22 - 30 mmol/L [facility] Creatinine [Mass/Vol] 0.61 mg/dL 0.52 - 1.04 mg/dL [facility] Glucose [Mass/Vol] 78 mg/dL 65 - 100 mg/dL [facility] Interpretation and review of laboratory results Abnormal [facility] Potassium [Moles/Vol] 4.7 mmol/L 3.6 - 5.1 mmol/L [facility] Protein [Mass/Vol] 8.6 g/dL High 6.3 - 8.2 g/dL [facility] Sodium [Moles/Vol] 140 mmol/L 135 - 147 mmol/L [facility] Urea nitrogen [Mass/Vol] 11 mg/dL 8 - 20 mg/dL [facility] I and love and you GLOMERULAR FILTRATION RATEon 11-28-2021 GFR >60 [facility] I and love and you Comment on above: To estimate the GFR [...] HIV 1+2 Ab Ql (S) Non-Reactive Nonreactive [facility] [employer] [facility] Comment on above: Nonreactive No detectable HIV-1p24 Antigen or HIV-1/HIV2 antibodies. . If recent HIV exposure is suspected or reported, conduct HIV-1 HAMIDA or request a new specimen and repeat the algorithm according to CDC guidance, available at: http://www.cdc.gov/hiv/guidelines Hepatitis A antibody, IgMon 11-28-2021 HAV IgM Qn (S) Non-Reactive Nonreactive [facility] Hepatitis B core antibody, I gMon 11-28-2021 Hep B Core-M AB Non-Reactive Nonreactive [facility] Hepatitis B surface antibody on 11-28-2021 HBV surface Ab (S) [Titer] Non-Reactive Nonreactive [facility] Hepatitis B surface antigeno n 11-28-2021 Hep B Surf AG Non-Reactive Nonreactive [facility] Hepatitis C antibodyon 11-28 HCV Ab Qn (S) Reactive Abnormal Nonreactive [facility] Interpretation and review of laboratory results Abnormal [facility] No Panel Informationon 11-28 [facility] nRBC 0 0 - 1 [facility] Protime-INRon 11-28-2021 INR Coag (PPP) [Relative time] 1.00 {INR} 0.89 - 1.17 [facility] PT Coag (PPP) [Time] 10.4 s [facility] Syphilis Treponema Antibodyo n 11-28-2021 Syphilis Treponema Antibody Non-Reactive Nonreactive [facility] HCG Qn (U)on 11-18-2021 Beta HCG ( test) Ql (U) Negative [facility] Protime-INRon 11-18-2021 INR Coag (PPP) [Relative time] 1.05 {INR} 0.89 - 1.17 [facility] PT Coag (PPP) [Time] 10.8 s [facility] CBC and differentialon 10-19 Absolute Immature Granulocytes 0.0 0 10 3/uL [facility] Absolute Lymph 2.3 [facility] Absolute [place] 0.6 [facility] Basophils (Bld) [#/Vol] 0.0 10*3/uL [facility] Basophils/100 WBC (Bld) 0.5 % G [facility] Eosinophils (Bld) [#/Vol] 0.2 10*3/uL [facility] Eosinophils/100 WBC (Bld) 2.3 % [facility] Erythrocyte distribution width (RBC) [Ratio] 12.5 % 11.5 - 14.5 % [facility] Hematocrit (Bld) [Volume fraction] 41.8 % 33.6 - 46.8 % [facility] Hemoglobin (Bld) [Mass/Vol] 13.8 g/dL 11.7 - 15.8 g/dL [facility] Immature granulocytes/100 WBC (Bld) 0.1 % [facility] Lymphocytes/100 WBC (Bld) 30.7 % [facility] MCH (RBC) [Entitic mass] 31.2 pg 27.5 - 32.3 pg [facility] MCHC (RBC) [Mass/Vol] 33.0 g/dL 30.7 - 35.5 g/dl [facility] MCV (RBC) [Entitic vol] 94.6 fL 80.2 - 99.0 fL [facility] Monocytes/100 WBC (Bld) 7.9 % [facility] Neutrophils (Bld) [#/Vol] 4.3 10*3/uL [facility] Neutrophils/100 WBC (Bld) 58.5 % [facility] Platelets (Bld) [#/Vol] 298.0 10*3/uL [facility] RBC (Bld) [#/Vol] 4.42 10*6/uL [facility] WBC LM Ql (Sput) 7.4 [facility] Comprehensive metabolic pane torsten 10-19-2021 Albumin [Mass/Vol] 4.3 g/dL 3.5 - 5.0 g/dL [facility] Alk Phos 114 U/L 24 - 126 U/L [facility] ALT [Catalytic activity/Vol] 144 U/L High 4 - 35 U/L [facility] AST [Catalytic activity/Vol] 70 U/L High 3 - 47 U/L [facility] Bilirubin [Mass/Vol] 0.6 mg/dL 0.2 - 1 .6 mg/dL [facility] Calcium [Mass/Vol] 9.2 mg/dL 8.4 - 10. 4 mg/dL [facility] Chloride [Moles/Vol] 108 mmol/L 96 - 10 9 mmol/L [facility] CO2 [Moles/Vol] 25 mmol/L 22 - 30 mmol/L [facility] Creatinine [Mass/Vol] 0.62 mg/dL 0.52 - 1.04 mg/dL [facility] Glucose [Mass/Vol] 79 mg/dL 65 - 100 mg/dL [facility] Potassium [Moles/Vol] 4.1 mmol/L 3.6 - 5.1 mmol/L [facility] Protein [Mass/Vol] 7.1 g/dL 6.3 - 8.2 g/dL [facility] Sodium [Moles/Vol] 141 mmol/L 135 - 147 mmol/L [facility] Urea nitrogen [Mass/Vol] 14 mg/dL 8 - 20 mg/dL [facility] GLOMERULAR FILTRATION RATEon 10-19-2021 GFR >60 [facility] Comment on above: To estimate the GFR [...] HIV 1+2 Ab Ql (S) Non-Reactive Nonreactive [facility] [employer] [facility] Comment on above: Nonreactive No detectable HIV-1p24 [...] 10-19-2021 HAV IgM Qn (S) Non-Reactive Nonreactive [facility] HCV Ab Qn (S) Reactive Abnormal Nonreactive [facility] Hep B Core-M AB Non-Reactive Nonreactive [facility] Hep B Surf AG Non-Reactive Nonreactive [facility] Interpretation and review of laboratory results Abnormal [facility] Lipid panelon 10-19-2021 Cholesterol [Mass/Vol] 144 mg/dL 0 - 200 mg/dL [facility] Comment on above: CHOLESTEROL REFERENC E RANGE Desirable <200 mg/dL Borderline 200-239 mg/dL High >240 mg/dL . Cholesterol in HDL [Mass/Vol] 68.9 mg/dL High 40.0 - 59.9 mg/dL [facility] Comment on above: Interpretive data fo r HDL Cholesterol states: HDL <40 mg/dL is low and constitutes a coronary disease risk factor. HDL >60 mg/dL is a negative risk factor for coronary heart disease. . Cholesterol in LDL [Mass/Vol] 65 mg/dL 0 - 100 mg/dL [facility] Comment on above: LDL REFERENCE RANGE Optimal <100 mg/dl Near Optimal 100-129 mg/dL Borderline High 130-159 mg/dL High 160-189 mg/dL Very High >=190 mg/dL . Cholesterol in VLDL [Mass/Vol] 10 mg/dL <42 [facility] Triglyceride [Mass/Vol] 50 mg/dL 0 - 150 mg/d L [facility] Comment on above: TRIGLYCERIDE REFEREN CE RANGE Normal <150 mg/dL Borderline High 150-199 mg/dL High 200-499 mg/dL Very High >=500 mg/dL . No Panel Informationon 10-19 [facility] Interpretation and review of laboratory results Abnormal [facility] nRBC 0 [facility] EMERGENCY DEPARTMENTon 05-11 [place] [address] HEALTH INFORMATION MANAGEMENT EMERGENCY DEPARTMENT : [phone] Signed Patient: YOLANDA MANRIQUEZ Acct:[id number] MRUN: [id number] : 2000 Sex: F Loc: ED ADM [...] Abuse: No Hx Suspected Abuse: No - [place]/Gender ID What is your current Gender Identity? Choose all that Apply: Female - [place]-Suicide Severity Rating Scale 1) Wish to be [...] - Expan (more content not included)... Normal [facility] CBC w/Auto Differentialon Basophils Abs. # 0.03 K/uL Normal 0.00-0.10 [facility] Comment on above: Performed By: #### C BCS #### [facility] [address] [place] [address] Basophils/100 WBC (Bld) 0.3 % Normal 0.2-1.[address] [facility] Comment on above: Performed By: #### C BCS #### [facility] [address] [place] [address] Eosinophils (Bld) [#/Vol] 0.10 10*3/uL Normal 0.00-0.20 [facility] Comment on above: Performed By: #### C BCS #### [facility] [address] [place] [address] Eosinophils/100 WBC (Bld) 1.6 % Normal 0.9-2.9 [facility] Comment on above: Performed By: #### C BCS #### [facility] [address] [place] [address] Erythrocyte distribution width (RBC) [Ratio] 14.0 % Normal 11.5-14.5 [facility] Comment on above: Performed By: #### C BCS #### [facility] [address] [place] [address] Hematocrit (Bld) [Volume fraction] 40.1 % Normal 33.4-46.0 [facility] Comment on above: Performed By: #### C BCS #### [facility] [address] [place] [address] Hemoglobin (Bld) [Mass/Vol] 13.5 g/dL Normal 11.1-13.7 [facility] Comment on above: Performed By: #### C BCS #### [facility] [address] [place] [address] Imm Grans % 0.20 % Normal 0.00-1.00 [facility] Comment on above: Performed By: #### C BCS #### [facility] [address] [place] [address] Imm Grans Absolute # 0.02 K/uL Normal 0.00-0.10 [facility] Comment on above: Performed By: #### C BCS #### [facility] [address] [place] [address] Lymphocytes (Bld) [#/Vol] 2.00 10*3/uL Normal 1.30-2.90 [facility] Comment on above: Performed By: #### C BCS #### [facility] [address] [place] [address] Lymphocytes/100 WBC (Bld) 23.0 % Normal 17.0-45.5 [facility] Comment on above: Performed By: #### C BCS #### [facility] [address] [place] [address] MCH (RBC) [Entitic mass] 30.8 pg Normal 27.0-31.0 [facility] Comment on above: Performed By: #### C BCS #### [facility] [address] [place] [address] MCHC (RBC) [Mass/Vol] 33.7 g/dL Normal 33.0-37.0 [facility] Comment on above: Performed By: #### C BCS #### [facility] [address] [place] [address] MCV (RBC) [Entitic vol] 91.3 fL Normal 81.0-99.[address] [facility] Comment on above: Performed By: #### C BCS #### [facility] [place] [address] [place] [address] Monocytes (Bld) [#/Vol] 0.90 10*3/uL High 0.30-0.80 [facility] Comment on above: Performed By: #### C BCS #### [facility] [place] [address] [place] [address] Monocytes/100 WBC (Bld) 10.3 % Normal 5.5-11.[address] [facility] Comment on above: Performed By: #### C BCS #### [facility] [place] [address] [place] [address] Neutrophils Abs. # 5.69 K/uL High 2.20-4.80 [facility] Comment on above: Performed By: #### C BCS #### [facility] [place] [address] [place] [address] Neutrophils/100 WBC (Bld) 64.6 % Normal 43.0-65.0 [facility] Comment on above: Performed By: #### C BCS #### [facility] [place] [address] [place] [address] Platelet mean volume (Bld) [Entitic vol] 9.1 fL Normal 7.4-10.4 [facility] Comment on above: Performed By: #### C BCS #### [facility] [place] [address] [place] [address] Platelets (Bld) [#/Vol] 238 10*3/uL Normal 148-402 [facility] Comment on above: Performed By: #### C BCS #### [facility] [place] [address] [place] [address] RBC (Bld) [#/Vol] 4.39 10*6/uL Normal 3.83-5.19 [facility] Comment on above: Performed By: #### C BCS #### [facility] [address] [place] [address] WBC (Bld) [#/Vol] 8.8 10*3/uL Normal 3.6-10.8 [facility] Comment on above: Performed By: #### C BCS #### [facility] [address] [place] [address] Comprehensive Metabolic Pane torsten 05-10-2021 Albumin [Mass/Vol] 4.0 g/dL Normal 3.4-5.0 [facility] Comment on above: Performed By: #### C MP #### [facility] [address] [place] [address] Albumin/Globulin [Mass ratio] 1.0 {ratio} Low 1.1-2.5 [facility] Comment on above: Performed By: #### C MP #### [facility] [address] [place] [address] ALP [Catalytic activity/Vol] 123 U/L High 54-112 [facility] Comment on above: Performed By: #### C MP #### [facility] [address] [place] [address] ALT [Catalytic activity/Vol] 242 U/L High 13-66 [facility] Comment on above: Performed By: #### C MP #### [facility] [address] [place] [address] Anion gap [Moles/Vol] 10.3 mmol/L Normal 8.0-16.0 [facility] Comment on above: Performed By: #### C MP #### [facility] [place] [address] [facility] [place] [address] AST [Catalytic activity/Vol] 92 U/L High 3-39 [facility] Comment on above: Performed By: #### C MP #### [facility] [place] [address] [place] [address] Bilirubin [Mass/Vol] 0.50 mg/dL Normal 0.00-0.99 [facility] Comment on above: Performed By: #### C MP #### [facility] [place] [address] [place] [address] Calcium [Mass/Vol] 8.3 mg/dL Normal 8.2-10.0 [facility] Comment on above: Performed By: #### C MP #### [facility] [place] [address] [place] [address] Chloride [Moles/Vol] 103 mmol/L Normal 94-110 [facility] Comment on above: Performed By: #### C MP #### [facility] [place] [address] [place] [address] CO2 [Moles/Vol] 27 mmol/L Normal 21-34 [facility] Comment on above: Performed By: #### C MP #### [facility] [place] [address] [place] [address] Creatinine [Mass/Vol] 0.55 mg/dL Normal 0.51-0.95 [facility] Comment on above: Performed By: #### C MP #### [facility] [place] [address] [place] [address] EGFR Other Races >60 Normal >60 [facility] Comment on above: Performed By: #### C MP #### [facility] [place] [address] [place] [address] GFR/1.73 sq M.predicted among blacks MDRD (S/P/Bld) [Vol rate/Area] mL/min/{1.73_m2} Normal >60 [facility] Comment on above: Result Comment: [employer] Kidney Disease less than 60 mL/min/1.73 m2 Kidney Failure less than 15 mL/min/1.73 m2 Average estimated GFR by age: 20-29 years 116 mL/min/1.73 m2 Performed By: #### C MP #### [facility] [address] [place] [address] Globulin (S) [Mass/Vol] 4.0 g/dL Normal 1.5-4.[address] [facility] Comment on above: Performed By: #### C MP #### [facility] [address] [place] [address] Glucose [Mass/Vol] 86 mg/dL Normal 65-100 [facility] Comment on above: Performed By: #### C MP #### [facility] [place] [address] [place] [address] Potassium [Moles/Vol] 3.3 mmol/L Normal 3.3-5.1 [facility] Comment on above: Performed By: #### C MP #### [facility] [address] [place] [address] Protein [Mass/Vol] 8.0 g/dL Normal 6.1-8.2 [facility] Comment on above: Performed By: #### C MP #### [facility] [address] [place] [address] Sodium [Moles/Vol] 137 mmol/L Normal 132-145 [facility] Comment on above: Performed By: #### C MP #### [facility] [address] [place] [address] Urea nitrogen [Mass/Vol] 12.9 mg/dL Normal 3.2-26.9 [facility] Comment on above: Performed By: #### C MP #### [facility] [address] [place] [address] Urea nitrogen/Creatinine [Mass ratio] 23 mg/mg High -20 [facility] Comment on above: Performed By: #### C MP #### [facility] [address] [place] [address] Ethanol (Medical)on 05-10-19 22 Ethanol [Mass/Vol] mg/dL Normal 0.0-0.0 [facility] Comment on above: Performed By: #### A LC #### [facility] [address] [place] [address] Urine Drug Screeningon 05-10 - - [facility] Comment on above: Order Comment: Drug Screen Comment KAI WHAKARURUHAU Result Comment: . Drug Screen Comment: This assay provides a preliminary unconfirmed analytical test result that may be suitable for the clinical management of patients in certain situations. Some kens-tdx-hzatrvr medications, as well as adulterants, may cause inaccurate results. Screen only testing does not meet the [facility] Forensic Urine Drug Testing Program requirements as a forensic urine drug test for workplace testing. . Performed By: #### C BCS #### [facility] [address] [place] [address] Amphetamines Positive [facility] Comment on above: Order Comment: Drug Screen Comment KAI WHAKARURUHAU Result Comment: cuto ff 1000 ng/mL Performed By: #### C BCS #### [facility] [address] [place] [address] Barbiturates Negative [facility] Comment on above: Order Comment: Drug Screen Comment KAI WHAKARURUHAU Result Comment: cuto ff 200 ng/mL Performed By: #### C BCS #### [facility] [place] [address] [place] [address] Benzodiazepines Negative Normal [facility] Comment on above: Order Comment: Drug Screen Comment KAI WHAKARURUHAU Result Comment: cuto ff 200 ng/mL Performed By: #### C BCS #### [facility] [place] [address] [place] [address] Cocaine Negative [facility] Comment on above: Order Comment: Drug Screen Comment KAI WHAKARURUHAU Result Comment: cuto ff 300 ng/mL Performed By: #### C BCS #### [facility] [place] [address] [place] [address] Opiates Negative [facility] Comment on above: Order Comment: Drug Screen Comment KAI WHAKARURUHAU Result Comment: cuto ff 300 ng/mL Performed By: #### C BCS #### [facility] [place] [address] [place] [address] pH (U) 5.0 [pH] Normal 5.0-8.0 [facility] Comment on above: Order Comment: Drug Screen Comment KAI WHAKARURUHAU Performed By: #### C BCS #### [facility] [place] [address] [place] [address] Phencyclidine Negative [facility] Comment on above: Order Comment: Drug Screen Comment KAI WHAKARURUHAU Result Comment: cuto ff 25 ng/mL Performed By: #### C BCS #### [facility] [place] [address] [place] [address] Specific gravity (U) [Rel density] 1.030 High 1.015-1.025 [facility] Comment on above: Order Comment: Drug Screen Comment KAI WHAKARURUHAU Performed By: #### C BCS #### [facility] [place] [address] [place] [address] THC Negative [facility] Comment on above: Order Comment: Drug Screen Comment KAI WHAKARURUHAU Result Comment: cuto ff 50 ng/mL Performed By: #### C BCS #### [facility] [address] [place], [place] [id number] SARS-COV-2 Rapid Molecular T eston 12-20-2020 SARS-CoV-2 (COVID-19) RNA LILLINA+probe Ql (Unsp spec) Negative NEGATIVE [facility] Comment on above: Negative results asher uld [...] the authorization is terminated or revoked sooner. [facility] CBC w/Auto Differentialon Basophils Abs. # 0.03 K/uL Normal 0.00-0.10 [facility] Comment on above: Performed By: #### C BCS #### [facility] [place] [address] [place], [place] [id number] [phone] Basophils/100 WBC (Bld) 0.3 % Normal 0.2-1.0 [facility] Comment on above: Performed By: #### C BCS #### [facility] [address] [place], [place] [id number] [phone] Eosinophils (Bld) [#/Vol] 0.10 10*3/uL Normal 0.00-0.20 [facility] Comment on above: Performed By: #### C BCS #### [facility] [address] [place] [address] Eosinophils/100 WBC (Bld) 1.1 % Normal 0.9-2.9 [facility] Comment on above: Performed By: #### C BCS #### [facility] [address] [place] [address] Erythrocyte distribution width (RBC) [Ratio] 12.9 % Normal 11.5-14.5 [facility] Comment on above: Performed By: #### C BCS #### [facility] [address] [place] [address] Hematocrit (Bld) [Volume fraction] 40.9 % Normal 33.4-46.0 [facility] Comment on above: Performed By: #### C BCS #### [facility] [address] [place] [address] Hemoglobin (Bld) [Mass/Vol] 13.6 g/dL Normal 11.1-13.7 [facility] Comment on above: Performed By: #### C BCS #### [facility] [address] [place] [address] Imm Grans % 0.10 % Normal 0.00-1.00 [facility] Comment on above: Performed By: #### C BCS #### [facility] [address] [place] [address] Imm Grans Absolute # 0.01 K/uL Normal 0.00-0.10 [facility] Comment on above: Performed By: #### C BCS #### [facility] [address] [place] [address] Lymphocytes (Bld) [#/Vol] 2.00 10*3/uL Normal 1.30-2.90 [facility] Comment on above: Performed By: #### C BCS #### [facility] [address] [place] [address] Lymphocytes/100 WBC (Bld) 20.3 % Normal 17.0-45.5 [facility] Comment on above: Performed By: #### C BCS #### [facility] [address] [place] [address] MCH (RBC) [Entitic mass] 30.4 pg Normal 27.0-31.0 [facility] Comment on above: Performed By: #### C BCS #### [facility] [address] [place] [address] MCHC (RBC) [Mass/Vol] 33.3 g/dL Normal 33.0-37.0 [facility] Comment on above: Performed By: #### C BCS #### [facility] [address] [place] [address] MCV (RBC) [Entitic vol] 91.3 fL Normal 81.0-99.[address] [facility] Comment on above: Performed By: #### C BCS #### [facility] [address] [place] [address] Monocytes (Bld) [#/Vol] 1.10 10*3/uL High 0.30-0.80 [facility] Comment on above: Performed By: #### C BCS #### [facility] [address] [place] [address] Monocytes/100 WBC (Bld) 10.8 % Normal 5.5-11.[address] [facility] Comment on above: Performed By: #### C BCS #### [facility] [address] [place] [address] Neutrophils Abs. # 6.61 K/uL High 2.20-4.80 [facility] Comment on above: Performed By: #### C BCS #### [facility] [address] [facility] [place] [address] Neutrophils/100 WBC (Bld) 67.4 % High 43.0-65.0 [facility] Comment on above: Performed By: #### C BCS #### [facility] [address] [facility] [place] [address] Platelet mean volume (Bld) [Entitic vol] 9.3 fL Normal 7.4-10.4 [facility] Comment on above: Performed By: #### C BCS #### [facility] [address] [place] [address] Platelets (Bld) [#/Vol] 368 10*3/uL Normal 148-402 [facility] Comment on above: Performed By: #### C BCS #### [facility] [address] [facility] [place] [address] RBC (Bld) [#/Vol] 4.48 10*6/uL Normal 3.83-5.19 [facility] Comment on above: Performed By: #### C BCS #### [facility] [address] [facility] [place] [address] WBC (Bld) [#/Vol] 9.8 10*3/uL Normal 3.6-10.8 [facility] Comment on above: Performed By: #### C BCS #### [facility] [address] [place] [address] CT ABD/PELVIS Won 11-05-2020 CT ABD/PELVIS W [...] The appendix is not definitely visualized. Normal [facility] 11-05-2020 EVAN Patient: YOLANDA MANRIQUEZ [id number] Location: [facility] Aount: [id number] : 2000 Age: 20 Sex F Lab NumbEr [id number] Requested by: JOSE MANUEL ALMODOVAR Admitdate: 11/05/20 [...] Trimeth/Sulfa <2/38 S S=Sensitive I=Intermediate R=Resistant Normal [facility] Comment on above: Performed By: #### C BCS #### [address] [address] Comprehensive Metabolic Pane torsten 11-05-2020 Albumin [Mass/Vol] 3.8 g/dL Normal 3.4-5.0 [facility] Comment on above: Performed By: #### C BCS #### [address] [address] Albumin/Globulin [Mass ratio] 0.8 {ratio} Low 1.1-2.5 [facility] Comment on above: Result Comment: CO RRECTED REPORT: Previous result was 0.7 at 09:38 on 11/05/20 Performed By: #### C BCS #### [address] [place] [address] ALP [Catalytic activity/Vol] 211 U/L High 54-112 [facility] Comment on above: Performed By: #### C BCS #### [facility] [place] [address] [place] [address] ALT [Catalytic activity/Vol] 188 U/L High 13-66 [facility] Comment on above: Performed By: #### C BCS #### [facility] [place] [address] [place] [address] Anion gap [Moles/Vol] 14.5 mmol/L Normal 8.0-16.0 [facility] Comment on above: Performed By: #### C BCS #### [facility] [place] [address] [place] [address] AST [Catalytic activity/Vol] 92 U/L High 3-39 [facility] Comment on above: Performed By: #### C BCS #### [facility] [place] [address] [place] [address] Bilirubin [Mass/Vol] 0.60 mg/dL Normal 0.00-0.99 [facility] Comment on above: Performed By: #### C BCS #### [facility] [place] [address] [place] [address] Calcium [Mass/Vol] 9.4 mg/dL Normal 8.2-10.0 [facility] Comment on above: Performed By: #### C BCS #### [facility] [place] [address] [place] [address] Chloride [Moles/Vol] 102 mmol/L Normal 94-110 [facility] Comment on above: Performed By: #### C BCS #### [facility] [place] [address] [place] [address] CO2 [Moles/Vol] 28 mmol/L Normal 21-34 [facility] Comment on above: Performed By: #### C BCS #### [facility] [address] [place] [address] Creatinine [Mass/Vol] 0.71 mg/dL Normal 0.51-0.95 [facility] Comment on above: Performed By: #### C BCS #### [facility] [address] [place] [address] EGFR Other Races >60 Normal >60 [facility] Comment on above: Performed By: #### C BCS #### [facility] [address] [place] [address] GFR/1.73 sq M.predicted among blacks MDRD (S/P/Bld) [Vol rate/Area] mL/min/{1.73_m2} Normal >60 [facility] Comment on above: Result Comment: [employer] Kidney Disease less than 60 mL/min/1.73 m2 Kidney Failure less than 15 mL/min/1.73 m2 Average estimated GFR by age: 20-29 years 116 mL/min/1.73 m2 Performed By: #### C BCS #### [facility] [address] [place] [address] Globulin (S) [Mass/Vol] 5.0 g/dL High 1.5-4.[address] [facility] Comment on above: Result Comment: CO RRECTED REPORT: Previous result was 5.1 at 09:38 on 11/05/20 Performed By: #### C BCS #### [facility] [address] [place] [address] Glucose [Mass/Vol] 82 mg/dL Normal 65-100 [facility] Comment on above: Performed By: #### C BCS #### [facility] [address] [place] [place] [address] Potassium [Moles/Vol] 3.5 mmol/L Normal 3.3-5.1 [facility] Comment on above: Performed By: #### C BCS #### [facility] [address] [place] [address] Protein [Mass/Vol] 8.8 g/dL High 6.1-8.2 [facility] Comment on above: Performed By: #### C BCS #### [facility] [address] [place] [address] Sodium [Moles/Vol] 141 mmol/L Normal 132-145 [facility] Comment on above: Performed By: #### C BCS #### [facility] [address] [place] [address] Urea nitrogen [Mass/Vol] 9.9 mg/dL Normal 3.2-26.9 [facility] Comment on above: Performed By: #### C BCS #### [facility] [address] [place] [address] Urea nitrogen/Creatinine [Mass ratio] 14 mg/mg Normal 6-20 [facility] Comment on above: Performed By: #### C BCS #### [facility] [address] [place] [address] EMERGENCY DEPARTMENTon 11-05 EMERGENCY DEPARTMENT [facility] [address] [place] [address] HEALTH INFORMATION MANAGEMENT EMERGENCY DEPARTMENT : Signed Patient: YOLANDA MANRIQUEZ Acct:[id number] MRUN: [id number] : 2000 Sex: F Loc: ED ADM [...] Yes Kelbyi (more content not included)... Normal [facility] Hepatitis Panel (4)on 2020 HBsAg Confirmation KAI WHAKARURUHAU Normal [facility] Comment on above: Performed By: #### C BCS #### [facility] [address] [place] [address] HBsAg Screen Negative Normal Negative [facility] Comment on above: Performed By: #### C BCS #### [facility] [address] [place] [address] Hep A Ab, IgM Negative Normal Negative [facility] Comment on above: Performed By: #### C BCS #### [facility] [address] [place] [address] Hep B Core Ab, IgM Negative Normal Negative [facility] Comment on above: Performed By: #### C BCS #### [facility] [address] [place] [address] Hep C Virus Ab >11.0 High 0.0-0.9 [facility] Comment on above: Result Comment: Nega tive: < 0.8 Indeterminate: 0.8 - 0.9 Positive: > 0.9 The CDC recommends that a positive HCV antibody result be followed up with a HCV Nucleic Acid Amplification test (095353). Performed at: [facility] [address] [place], [place] [id number] Rehabilitation Center Manager: Kody Nobles PhD, Phone: [phone] Performed By: #### C BCS #### [facility] [address] [place], [place] [id number] Lipaseon 11-05-2020 Lipase [Catalytic activity/Vol] 78 U/L Normal 65-230 [facility] Comment on above: Performed By: #### L IPAS #### [facility] [place] [address] [place] [address] (Urine)on 11-06-19 21 HCG ( test) Ql (U) Negative Normal Negative [facility] Comment on above: Performed By: #### P REGU #### [facility] [place] [address] [place] [address] UA w/Micrscopic-reflex cultu reon 11-05-2020 Appearance (U) sl.cloudy Normal Clear [facility] Comment on above: Performed By: #### U AMRC #### [facility] [place] [address] [facility] [place] [address] Bacteria 1+ /hpf Normal 0 - 1+ [facility] Comment on above: Performed By: #### U AMRC #### [facility] [place] [address] [facility] [place] [address] Bilirubin Ql (U) Negative Normal Negative [facility] Comment on above: Performed By: #### U AMRC #### [facility] [place] [address] [place] [address] Casts KAI WHAKARURUHAU Normal [facility] Comment on above: Performed By: #### U AMRC #### [facility] [place] [address] [place] [address] Casts. KAI WHAKARURUHAU Normal [facility] Comment on above: Performed By: #### U AMRC #### [facility] [place] [address] [place] [address] Color (U) yellow Normal Yellow [facility] Comment on above: Performed By: #### U AMRC #### [facility] [place] [address] [place] [address] Crystals LM Nom (Urine sed) Rare Amorphous Normal [facility] Comment on above: Performed By: #### U AMRC #### [email or web address] [place] [address] [place] [address] Crystals. KAI WHAKARURUHAU Normal [facility] Comment on above: Performed By: #### U AMRC #### [facility] [place] [address] [place] [address] Epithelial cells LM Ql (Urine sed) 7-15 Normal 0 - 6 [facility] Comment on above: Performed By: #### U AMRC #### [facility] [place] [address] [place] [address] Glucose Ql (U) NORMAL Normal Negative [facility] Comment on above: Performed By: #### U AMRC #### [facility] [place] [address] [facility] [place] [address] Hemoglobin Ql (U) 50 Abnormal Negative [facility] Comment on above: Performed By: #### U AMRC #### [facility] [place] [address] [place] [address] Ketones Ql (U) Negative Normal Negative [facility] Comment on above: Performed By: #### U AMRC #### [email or web address] [place] [address] [place] [address] Leukocytes Esterase Negative Normal Negative [facility] Comment on above: Performed By: #### U AMRC #### [email or web address] [place] [address] [place] [address] Mucus Ql (Urine sed) KAI WHAKARURUHAU Normal [facility] Comment on above: Performed By: #### U AMRC #### [facility] [place] [address] [place] [address] Nitrite Ql (U) Positive Abnormal Negative [facility] Comment on above: Performed By: #### U AMRC #### [facility] [place] [address] [facility] [place] [address] pH (U) 5 [pH] Normal [facility] Comment on above: Performed By: #### U AMRC #### [facility] [place] [address] [place] [address] Protein Ql (U) Negative Normal Negative [facility] Comment on above: Performed By: #### U AMRC #### [facility] [place] [address] [facility] [place] [address] RBC 2-5 Normal 0 - 2 [facility] Comment on above: Performed By: #### U AMRC #### [facility] [address] [place] [address] Specific gravity (U) [Rel density] 1.020 Normal 1.015-1.025 [facility] Comment on above: Performed By: #### U AMRC #### [facility] [place] [address] [place] [address] Trichomonas KAI WHAKARURUHAU Normal [facility] Comment on above: Performed By: #### U AMRC #### [facility] [place] [address] [place] [address] Urobilinogen NORMAL Normal Normal-1.0 [facility] Comment on above: Performed By: #### U AMRC #### [facility] [place] [address] [place] [address] WBC 2-5 Normal 0 - 6 [facility] Comment on above: Performed By: #### U AMRC #### [facility] [place] [address] [place] [address] Yeast KAI WHAKARURUHAU Normal [facility] Comment on above: Performed By: #### U [facility] #### [facility] [address] [place] [address] Other KAI WHAKARURUHAU Normal [facility] Comment on above: Performed By: #### U [facility] #### [address] [address] US GALLBLADDERon 11-05-2020 US GALLBLADDER EXAMINATION: RIGHT [...] IMPRESSION: Unremarkable right upper quadrant ultrasound. Normal [facility] EMERGENCY DEPARTMENTon 10-23 EMERGENCY DEPARTMENT [place] [id number] HEALTH INFORMATION MANAGEMENT EMERGENCY DEPARTMENT : Signed Patient: YOLANDA MANRIQUEZ Acct:[id number] MRUN: [id number] : 2000 Sex: F Loc: ED ADM [...] down her left leg. She has tried [id number]-[id number] medications with no relief. Patient denies any [...] Highest Educati (more content not included)... Normal [facility] EVAN Patient: YOLANDA MANRIQUEZ MRUN [id number] Location: [facility] Aount: [id number] : 2000 Age: 20 Sex F Lab NumbEr [id number] Requested by: JUAN DIEGO GOFF Admitdate: 10/22/20 Source: UR Collected: 10/22/20 09:24 Site: Received : 10/22/20 10:31 Culture, Urine FINAL 10/24/20 08:13 10/24/20 MULTIPLE SPECIES PRESENT PROBABLE CONTAMINATION--SUGJOYCE ST NEW SPECIMEN Organism 01 MULTIPLE SPECIES PRESENT PROBABLE CONTAMINATION--[facility] SPECIMEN Normal [facility] Comment on above: Performed By: #### M IC2 #### [facility] [address] [address] EMERGENCY DEPARTMENTon 10-22 EMERGENCY DEPARTMENT [address] [address] HEALTH INFORMATION MANAGEMENT EMERGENCY DEPARTMENT : Signed Patient: YOLANDA MANRIQUEZ Acct:[id number] MRUN: [id number] : 2000 Sex: F Loc: ED ADM [...] Abuse: No Hx Suspected Abuse: No - [place]/Gender ID What is your current Gender Identity? Choose all that Apply: Female - [place]-Suicide Severity Rating Scale 1) Wish to be [...] Exam Aubrey (more content not included)... Normal [facility] LUMBAR 2 OR 3 Von 10-22-2020 LUMBAR [...] lumbar spine radiographs are otherwise unremarkable. Normal [facility] (Urine)on 10-23-19 HCG ( test) Ql (U) Negative Normal Negative [facility] Comment on above: Performed By: #### C BCS #### [facility] [address] [place] [address] UA w/Micrscopic-reflex cultu reon 10-22-2020 Appearance (U) sl.cloudy Normal Clear [facility] Comment on above: Performed By: #### U AMRC #### [facility] [address] [place] [address] Bacteria 1+ /hpf Normal 0 - 1+ [facility] Comment on above: Performed By: #### U AMRC #### [facility] [place] [address] [place] [address] Bilirubin Ql (U) Negative Normal Negative [facility] Comment on above: Performed By: #### U AMRC #### [facility] [place] [address] [place] [address] Casts KAI WHAKARURUHAU Normal [facility] Comment on above: Performed By: #### U AMRC #### [facility] [place] [address] [place] [address] Casts. KAI WHAKARURUHAU Normal [facility] Comment on above: Performed By: #### U AMRC #### [facility] [place] [address] [place] [address] Color (U) renetta Normal Yellow [facility] Comment on above: Performed By: #### U AMRC #### [facility] [place] [address] [place] [address] Crystals LM Nom (Urine sed) KAI WHAKARURUHAU Normal [facility] Comment on above: Performed By: #### U AMRC #### [facility] [place] [address] [place] [address] Crystals. KAI WHAKARURUHAU Normal [facility] Comment on above: Performed By: #### U AMRC #### [facility] [place] [address] [place] [address] Epithelial cells LM Ql (Urine sed) 7-15 Normal 0 - 6 [facility] Comment on above: Performed By: #### U AMRC #### [facility] [place] [address] [place] [address] Glucose Ql (U) NORMAL Normal Negative [facility] Comment on above: Performed By: #### U AMRC #### [facility] [place] [address] [place] [address] Hemoglobin Ql (U) Negative Normal Negative [facility] Comment on above: Performed By: #### U AMRC #### [facility] [place] [address] [place] [address] Ketones Ql (U) Negative Normal Negative [facility] Comment on above: Performed By: #### U AMRC #### [facility] [place] [address] [facility] [place] [address] Leukocytes Esterase TRACE Abnormal Negative [facility] Comment on above: Performed By: #### U AMRC #### [facility] [place] [address] [facility] [place] [address] Mucus Ql (Urine sed) KAI WHAKARURUHAU Normal [facility] Comment on above: Performed By: #### U AMRC #### [facility] [place] [address] [facility] [place] [address] Nitrite Ql (U) Negative Normal Negative [facility] Comment on above: Performed By: #### U AMRC #### [facility] [place] [address] [facility] [place] [address] pH (U) 5 [pH] Normal [facility] Comment on above: Performed By: #### U AMRC #### [facility] [place] [address] [facility] [place] [address] Protein Ql (U) Negative Normal Negative [facility] Comment on above: Performed By: #### U AMRC #### [facility] [place] [address] [place] [address] RBC 2-5 Normal 0 - 2 [facility] Comment on above: Performed By: #### U AMRC #### [facility] [address] [place] [address] Specific gravity (U) [Rel density] 1.025 Normal 1.015-1.025 [facility] Comment on above: Performed By: #### U AMRC #### [facility] [address] [place] [address] Trichomonas KAI WHAKARURUHAU Normal [facility] Comment on above: Performed By: #### U AMRC #### [facility] [address] [place] [address] Urobilinogen (U) [Mass/Vol] 1 mg/dL Normal Normal-1.0 [facility] Comment on above: Performed By: #### U AMRC #### [facility] [address] [place] [address] WBC 5-10 Normal 0 - 6 [facility] Comment on above: Performed By: #### U AMRC #### [facility] [address] [place] [address] Yeast KAI WHAKARURUHAU Normal [facility] Comment on above: Performed By: #### U AMRC #### [facility] [address] [place] [address] Other KAI WHAKARURUHAU Normal [facility] Comment on above: Performed By: #### U AMRC #### [facility] [address] [place] [address] Creatinine, serumon 10-30-19 Creatinine [Mass/Vol] 0.69 mg/dL 0.40 - 1.10 [facility] GFR/1.73 sq M predicted among non-blacks MDRD (S/P/Bld) [Vol rate/Area] The eGFR should be used for monitoring renal function only and not for medication dosing. [facility] GFR/1.73 sq M.predicted CKD-EPI (S/P/Bld) [Vol rate/Area] 125 >=60 mL/min/1.[address] [facility] Interpretation and review of laboratory results Normal [facility] Basic Metabolic Panelon Anion gap [Moles/Vol] 12 mmol/L 10 - 20 mmol/L [facility] Calcium [Mass/Vol] 8.2 mg/dL Low 8.4 - 10. 2 mg/dL [facility] Chloride [Moles/Vol] 109 mmol/L High 98 - 10 8 mmol/L [facility] Creatinine [Mass/Vol] 0.70 mg/dL 0.40 - 1.10 [facility] GFR/1.73 sq M predicted among non-blacks MDRD (S/P/Bld) [Vol rate/Area] The eGFR should be used for monitoring renal function only and not for medication dosing. [facility] GFR/1.73 sq M.predicted CKD-EPI (S/P/Bld) [Vol rate/Area] 124 >=60 mL/min/1.[address] [facility] Glucose [Mass/Vol] 101 mg/dL High 65 - 99 mg/dL [facility] HCO3 [Moles/Vol] 21 mmol/L 21 - 32 mmol/L [facility] Interpretation and review of laboratory results Abnormal [facility] Potassium [Moles/Vol] 4.2 mmol/L 3.5 - 5.1 mmol/L [facility] Sodium [Moles/Vol] 138 mmol/L 135 - 145 mmol/L [facility] Urea nitrogen [Mass/Vol] 10 mg/dL 8 - 25 mg/dL [facility] Urea nitrogen/Creatinine [Mass ratio] 14.3 mg/mg [facility] CBCon 10-29-2019 Erythrocyte distribution width (RBC) [Entitic vol] 12.9 % 11.6 - 14.8 % [facility] Hematocrit (Bld) [Volume fraction] 36.7 % 36 - 46 % [facility] Hemoglobin (Bld) [Mass/Vol] 12.0 g/dL 12 - 16 g/dL [facility] Interpretation and review of laboratory results Abnormal [facility] MCH (RBC) [Entitic mass] 30.8 pg 26 - [address] [facility] MCHC (RBC) [Mass/Vol] 32.7 g/dL 31 - 37 g/dL [facility] MCV (RBC) [Entitic vol] 94.3 fL 80 - [address] [facility] Nucleated RBC (Bld) [#/Vol] 0.00 10*3/uL [facility] Nucleated RBC/100 WBC (Bld) [Ratio] 0.0 % [facility] Platelet mean volume (Bld) [Entitic vol] 10.0 fL 9.4 - 12.[address] [facility] Platelets (Bld) [#/Vol] 178 10*3/uL [facility] RBC (Bld) [#/Vol] 3.89 10*6/uL [facility] [place] [facility] WBC (Bld) [#/Vol] 8.39 10*3/uL [place] [facility] CBCon 10-28-2019 Erythrocyte distribution width (RBC) [Entitic vol] 12.8 % 11.6 - 14.8 % [facility] Hematocrit (Bld) [Volume fraction] 38.8 % 36 - 46 % [facility] Hemoglobin (Bld) [Mass/Vol] 12.7 g/dL 12 - 16 g/dL [facility] Interpretation and review of laboratory results Abnormal [facility] MCH (RBC) [Entitic mass] 30.8 pg 26 - [address] [facility] MCHC (RBC) [Mass/Vol] 32.7 g/dL 31 - 37 g/dL [facility] MCV (RBC) [Entitic vol] 93.9 fL 80 - [address] [facility] Nucleated RBC (Bld) [#/Vol] 0.00 10*3/uL [facility] Nucleated RBC/100 WBC (Bld) [Ratio] 0.0 % [facility] Platelet mean volume (Bld) [Entitic vol] 9.8 fL 9.4 - 12.[address] [facility] Platelets (Bld) [#/Vol] 186 10*3/uL [facility] RBC (Bld) [#/Vol] 4.13 10*6/uL [facility] WBC (Bld) [#/Vol] 12.67 10*3/uL [facility] COVID-19, Molecularon 2019 Interpretation and review of laboratory results Normal [facility] SARS-CoV-2 Not Detected Not Detected [facility] Comment on above: This test was perfor med under the FDA's Emergency Use Authorization (EUA). Testing was performed using the [employer] ID NOW COVID-19 assay on the ID NOW platform. This test has not been approved for use in asymptomatic patients and its performance in this patient population has not been evaluated. Negative results do not rule out the presence of SARS-CoV-2/COVID-19. Fact sheets for the EUA can be found at the following links: For Healthcare Providers: https://www.fda.gov/media/495416/download For Patients: https://www.fda.gov/media/460221/download Comprehensive Metabolic Pane torsten 10-28-2019 Albumin [Mass/Vol] 3.4 g/dL 3.2 - 5.2 g/dL [facility] ALP [Catalytic activity/Vol] 93 U/L 40 - 140 U/L [facility] ALT [Catalytic activity/Vol] 37 U/L 0 - 40 U/L [facility] Anion gap [Moles/Vol] 17 mmol/L 10 - 20 mmol/L [facility] AST [Catalytic activity/Vol] 36 U/L 0 - 45 U/L [facility] Bilirubin [Mass/Vol] 0.7 mg/dL 0 - 1.3 mg/dL [facility] Calcium [Mass/Vol] 8.3 mg/dL Low 8.4 - 10. 2 mg/dL [facility] Chloride [Moles/Vol] 107 mmol/L 98 - 10 8 mmol/L [facility] Creatinine [Mass/Vol] 0.68 mg/dL 0.40 - 1.10 [facility] GFR/1.73 sq M predicted among non-blacks MDRD (S/P/Bld) [Vol rate/Area] The eGFR should be used for monitoring renal function only and not for medication dosing. [facility] GFR/1.73 sq M.predicted CKD-EPI (S/P/Bld) [Vol rate/Area] 125 >=60 mL/min/1.73 m2 [facility] Glucose [Mass/Vol] 97 mg/dL 65 - 99 mg/dL [facility] HCO3 [Moles/Vol] 19 mmol/L Low 21 - 32 mmol/L [facility] Interpretation and review of laboratory results Abnormal [facility] Potassium [Moles/Vol] 4.1 mmol/L 3.5 - 5.1 mmol/L [facility] Protein [Mass/Vol] 6.1 g/dL 6 - 8 g/dL [facility] Sodium [Moles/Vol] 139 mmol/L 135 - 145 mmol/L [facility] Urea nitrogen [Mass/Vol] 7 mg/dL Low 8 - 25 mg/dL [facility] Urea nitrogen/Creatinine [Mass ratio] 10.3 mg/mg [facility] DRUGS OF ABUSE SCREEN, URINE on 10-28-2019 Amphetamines Ql (U) Positive Abnormal None Detected [facility] Comment on above: Urine Amphetamine Cu toff: < 1000 ng/mL = None Detected Barbiturates Screen Ql (U) None Detected None Detected [facility] Comment on above: Urine Barbiturates C utoff: < 200 ng/mL = None Detected Benzodiazepines Ql (U) None Detected None Detec vance [facility] Comment on above: Urine Benzodiazepine Cutoff: < 200 ng/mL = None Detected Buprenorphine Ql (U) None Detected None Detecte d [facility] Comment on above: Urine Buprenorphine Cutoff: < 5 ng/mL = None Detected Cannabinoids Screen Ql (U) None Detected None Detected [facility] Comment on above: Urine Cannabinoids C utoff: < 50 ng/mL = None Detected Cocaine Ql (U) None Detected None Detected [facility] Comment on above: Urine Cocaine Cutoff : < 300 ng/mL = None Detected Fentanyl+Norfentanyl Screen Ql (U) None Detected None Detected [facility] Comment on above: Urine Fentanyl Cutof f: < 1 ng/mL = None Detected Interpretation and review of laboratory results Abnormal [facility] Methadone Screen Ql (U) None Detected None Dete cted [facility] Comment on above: Urine Methadone Cuto ff: < 300 ng/mL = None Detected Opiates Screen Ql (U) None Detected None Detect ed [facility] Comment on above: Urine Opiates Cutoff : < 300 ng/mL = None Detected Oxycodone Ql (U) None Detected None [facility]ed [facility] Comment on above: Urine Oxycodone Cuto ff: < 100 ng/mL = None Detected Screen results should be used for treatment purposes only. Specimen will be kept for 2 weeks, if the sample is adequate. Confirmation testing can be initiated by calling the lab within [address] [facility] URINALYSISon 10-28-2019 Bacteria Auto Ql (U) Few Abnormal None Seen /hpf [facility] Bilirubin Ql (U) Negative Negative [facility] th Clarity Refractometry automated (U) Hazy Abnormal Clear [facility] Color (U) Yellow Colorless, Yellow [facility] Epithelial cells.squamous Auto (Urine sed) [#/Area] [address] [facility] Glucose Auto test strip (U) [Mass/Vol] Negative Negative mg/dL [facility] Hemoglobin Auto test strip Ql (U) Negative Negative [facility] Interpretation and review of laboratory results Abnormal [facility] Ketones (U) [Mass/Vol] Trace Abnormal Negative mg/d L [facility] Leukocyte esterase Auto test strip Ql (U) Small Abnormal Negative [facility] Mucus Auto (Urine sed) [#/Area] Rare None Seen, Rare /lpf [facility] Nitrite Auto test strip Ql (U) Negative Negative [facility] pH (U) 5.0 [pH] [facility] Protein (U) [Mass/Vol] Negative Negative mg/d L [facility] RBC Auto (Urine sed) [#/Area] [address] [facility] Specific gravity (U) [Rel density] 1.[address] [facility] Urobilinogen (U) [Mass/Vol] <2.0 <2.0 mg/dL [facility] WBC Auto (Urine sed) [#/Area] [address] [facility] Microscopic examination is performed on all urinalysis samples and only positive findings are reported. The test for blood on the chemical analytic portion of urinalysis may also be positive due to hemoglobinuria and myoglobinuria and if red blood cells are present they are quantified by microscopic examination. [facility] XR CHEST PA/APon 10-28-2019 XR [...] on ThuOct 28, 2019 12:33:24 PM EDT [facility] Comment on above: Order Comment: Injur [...] No acute cardiopulmonary process. Workstation ID: [id number] [facility] 1. No acute cardiopulmonary process. Workstation ID: [id number] [facility] EXAMINATION: XR CHEST PA/AP 10/28/2019 [...] fracture or visible bone lesion. OTHER: Negative. [facility] hCG, Blood, Quantitativeon 0 10-28-2019 Beta HCG ( test) Ql (U) Males and non females: <5 mIU/mL Females during : 3-4 weeks 9-130 mIU/mL 4-5 weeks 75-2600 mIU/mL 5-6 weeks 850-20,800 mIU/mL 6-7 weeks 4000-100,200 mIU/mL 7-12 weeks 11,500-289,000 mIU/mL 12-16 weeks 18,300-137,000 mIU/mL 16-29 weeks 1,400-53,000 mIU/mL 29-41 weeks 940-60,000 mIU/mL [facility] HCG Qn m[IU]/mL [facility] Interpretation and review of laboratory results Normal [facility] Vital Signs Date Time Vital Sign Value Performing Clinician Facility 10-21-2024 19:55-0400 Body height 152.4 cm Khris Irvingphong XIONG KAI WHAKARURUHAU Work Phone: [facility] 10-21-2024 19:55-0400 Body mass index (BMI) [Ratio] 21.48 kg/m2 Khris Irvingphong XIONG KAI WHAKARURUHAU Work Phone: [facility] 10-21-2024 19:55-0400 Body temperature 97.81 [degF] Khris Irving APRN KAI WHAKARURUHAU Work Phone: [employer] [facility] 10-21-2024 19:55-0400 Body weight 49.9 kg Khris Irvingphong XIONG KAI WHAKARURUHAU Work Phone: [facility] 10-21-2024 19:55-0400 Diastolic blood pressure 83 mm[Hg] Khris Irving APRN KAI WHAKARURUHAU Work Phone: [employer] [facility] 10-21-2024 19:55-0400 Heart rate 93 /min Khris Irvingphong XIONG KAI WHAKARURUHAU Work Phone: [employer] [facility] 10-21-2024 19:55-0400 Respiratory rate 16 /min Khris Irving APRN KAI WHAKARURUHAU Work Phone: [facility] 10-21-2024 19:55-0400 SaO2% (BldA) [Mass fraction] 99 % Khris Irving APRN KAI WHAKARURUHAU Work Phone: [facility] 10-21-2024 19:55-0400 Systolic blood pressure 131 mm[Hg] Khris Irving APRN KAI WHAKARURUHAU Work Phone: [employer] [facility] 04-30-2024 13:51-0500 Body temperature 98.29 [degF] Khris Irving APRN KAI WHAKARURUHAU Work Phone: [facility] 04-30-2024 13:51-0500 Diastolic blood pressure 80 mm[Hg] Khris Irving APRN KAI WHAKARURUHAU Work Phone: [employer] 04-30-2024 13:51-0500 Heart rate 89 /min Khris Irving [employer] KAI WHAKARURUHAU Work Phone: [employer] 04-30-2024 13:51-0500 Respiratory rate 16 /min Khris Irvign APRN KAI WHAKARURUHAU Work Phone: [employer] 04-30-2024 13:51-0500 SaO2% (BldA) [Mass fraction] 98 % Khris Irving APRN KAI WHAKARURUHAU Work Phone: [employer] 04-30-2024 13:51-0500 Systolic blood pressure 138 mm[Hg] Khris Irving APRN KAI WHAKARURUHAU Work Phone: [employer] 04-30-2024 13:13-0500 Body height 152.4 cm Khris Irving APRN KAI WHAKARURUHAU Work Phone: [employer] 04-30-2024 13:13-0500 Body mass index (BMI) [Ratio] 21.48 kg/m2 Khris Irving APRN KAI WHAKARURUHAU Work Phone: [employer] 04-30-2024 13:13-0500 Body weight 49.9 kg Khris Irving APRN KAI WHAKARURUHAU Work Phone: [employer] 12-19-2023 18:58-0400 Diastolic blood pressure 84 mm[Hg] Zainab Lozano MD Work Phone: [employer] 12-19-2023 18:58-0400 Heart rate 101 /min Zainab Lozano MD Work Phone: [employer] 12-19-2023 18:58-0400 SaO2% (BldA) [Mass fraction] 99 % Zainab Lozano MD Work Phone: [employer] 12-19-2023 18:58-0400 Systolic blood pressure 137 mm[Hg] Zainab Lozano MD Work Phone: 1(766)[phone] [place] [address] 12-19-2023 17:35-0400 Body height 152.4 cm Zainab Lozano MD Work Phone: 6(353)[phone] [address] 12-19-2023 17:35-0400 Body mass index (BMI) [Ratio] 25.19 kg/m2 Zainab Lozano MD Work Phone: 8(055)[phone] [address] 12-19-2023 17:35-0400 Body temperature 98.71 [degF] Zainab Lozano MD Work Phone: 7(348)[phone] [address] 12-19-2023 17:35-0400 Body weight 58.51 kg Zainab Lozano MD Work Phone: 0(551)[phone] [address] 12-19-2023 17:35-0400 Respiratory rate 20 /min Zainab Lozano MD Work Phone: 9(294)[phone] [address] 12-20-2020 03:39-0400 Body height 153.7 cm Chris Davis MD Work Phone: 1(006)[phone] [address] 12-20-2020 03:39-0400 Body mass index (BMI) [Ratio] 19.67 kg/m2 Chris Davis MD Work Phone: 2(179)543-542557 [address] 12-20-2020 03:39-0400 Body temperature 97.7 [degF] Chris Davis MD Work Phone: 4(427)[phone] [address] 12-20-2020 03:39-0400 Body weight 46.45 kg Chris Davis MD Work Phone: 8(558)[phone] [address] 12-20-2020 03:39-0400 Diastolic blood pressure 65 mm[Hg] Chris Davis MD Work Phone: 8(359)[phone] [address] 12-20-2020 03:39-0400 Heart rate 55 /min Chris Davis MD Work Phone: 3(141)[phone] [address] 12-20-2020 03:39-0400 Respiratory rate 18 /min Chris Davis MD Work Phone: 8(988)[phone] [address] 12-20-2020 03:39-0400 SaO2% (BldA) [Mass fraction] 97 % Chris Davis MD Work Phone: [facility] 12-20-2020 03:39-0400 Systolic blood pressure 112 mm[Hg] Chris Davis MD Work Phone: [facility] 10-31-2019 11:42-0400 Body Temperature 98.71 [degF] [facility] 10-31-2019 11:42-0400 BP Diastolic 70 mm[Hg] [facility] 10-31-2019 11:42-0400 BP Systolic 113 mm[Hg] [facility] 10-31-2019 11:42-0400 Pulse (Heart Rate) 86 /min [facility] 10-31-2019 11:42-0400 Pulse Oximetry 100 % [facility] 10-31-2019 11:42-0400 Respiratory Rate 14 /min [facility] 10-28-2019 04:24-0400 BMI (Body Mass Index) 22.43 kg/m2 [facility] 10-28-2019 04:24-0400 Body weight 52.1 kg [facility] 10-28-2019 04:24-0400 Height 152.[address] [facility] Encounters Encounter Date Encounter Type Care Provider Facility Start: 10-21-2024 End: 10-21-2024 Emergency department patient visit KHRIS IRVING [facility] Emergency Dept Comment on above: Strep pharyngitis (P rimary Dx); Possible exposure to STI Start: 05-16-2024 End: 05-16-2024 ambulatory [facility] Start: 05-16-2024 Encounter for gynecological examination (general) (routine) without abnormal findings [facility] Start: 04-30-2024 End: 04-30-2024 [facility] Comment on above: Opiate withdrawal (H CC) (Primary Dx) Start: 03-29-2024 ambulatory KHRIS IRVING [facility] Start: 12-19-2023 End: 12-19-2023 Emergency department patient visit Zainab Lozano MD Work Phone: [facility] Comment on above: Opiate withdrawal (H CC) (Primary Dx) Start: 03-26-2023 End: 03-26-2023 Subsequent hospital visit by physician Khris Irving APRN KAI WHAKARURUHAU Work Phone: [facility] Comment on above: Breast lump on left side at 5 o'clock position; Nipple tenderness Start: 03-18-2022 End: 03-18-2022 Subsequent hospital visit by physician Miley Townsend APRN [employer] Work Phone: [facility] Comment on above: Hep C w/o coma, 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) Start: 02-11-2022 End: 02-11-2022 Subsequent hospital visit by physician Miley Townsend APRN [employer] Work Phone: [facility] Comment on above: Hep C w/o coma, 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) Start: 01-30-2022 End: 01-30-2022 Subsequent hospital visit by physician Khris Irving APRN KAI WHAKARURUHAU Work Phone: [facility] Comment on above: Breast lump on left side at 5 o'clock position Start: 01-13-2022 End: 01-13-2022 Subsequent hospital visit by physician Khris Irving APRN KAI WHAKARURUHAU Work Phone: [facility] Comment on above: Screen for sexually transmitted diseases Start: 01-13-2022 End: 01-13-2022 Subsequent hospital visit by physician Khris Irving APRN KAI WHAKARURUHAU Work Phone: [facility] Start: 12-24-2021 End: 12-24-2021 Subsequent hospital visit by physician Miley Townsend APRN [employer] Work Phone: [facility] Comment on above: Hep 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/o coma, 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) Start: 11-28-2021 End: 11-28-2021 Subsequent hospital visit by physician Miley Townsend APRN [employer] Work Phone: [facility] Comment on above: Hep C w/o coma, 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) Start: 11-18-2021 End: 11-18-2021 Subsequent hospital visit by physician Tomasz Landrum APRN [employer] Work Phone: [facility] Comment on above: Chronic hepatitis C without hepatic coma (HCC) Start: 11-15-2021 End: 11-15-2021 Subsequent hospital visit by physician Tomasz Landrum APRN [employer] Work Phone: [facility] Comment on above: Chronic hepatitis C without hepatic coma (HCC) Start: 10-21-2021 End: 10-21-2021 Subsequent hospital visit by physician Chaparrita Brown PA-C Work Phone: [facility] Comment on above: Hepatitis C antibody test positive Start: 10-18-2021 End: 10-18-2021 Subsequent hospital visit by physician Chaparrita Brown PA-C Work Phone: [facility] Comment on above: Screening for cardio vascular condition; History of methamphetamine use; Leukocytosis, unspecified type Start: 12-20-2020 End: 12-20-2020 Emergency department patient visit Chris Davis MD Work Phone: [facility] Comment on above: Lab test negative fo r COVID-19 virus (Primary Dx); Medical clearance for incarceration Start: 12-20-2020 End: 12-20-2020 Patient encounter status Chris Davis MD Work Phone: [facility] Start: 10-28-2019 End: 10-31-2019 Evaluation and management of inpatient [facility] Start: 10-28-2019 End: 10-31-2019 Evaluation and management of inpatient [facility] Work Phone: [facility] Comment on above: Pyelonephritis Procedures Date Procedure Procedure Detail Performing Clinician Start: 10-21-2024 Urine test visual color cmprsn meths Lorna Mendes APRN [employer] Work Phone: Start: 10-21-2024 Iadna streptococcus group a amplified probe tq Chavo Muller MD Work Phone: Start: 10-21-2024 Influenza virus A and B RNA and SARS-CoV-2 (COVID-19) N gene panel - Respiratory specimen by LILLIAN with probe detection Chavo Muller MD Work Phone: Start: 05-16-2024 Microscopic observation [Identifier] in Cervix by Cyto stain Khris Irvingphong XIONG KAI WHAKARURUHAU Work Phone: Start: 05-15-2024 Adult depression screening assessment Khris Irvingphong XIONG KAI WHAKARURUHAU Work Phone: Start: 03-26-2023 Us breast uni real time with image limited Khris Irvingphong XIONG KAI WHAKARURUHAU Work Phone: Start: 03-23-2023 Adult depression screening assessment Khris Stevenphong XIONG KAI WHAKARURUHAU Work Phone: Start: 03-23-2023 Microscopic observation [Identifier] in Cervix by Cyto stain Zainab Lozano MD Work Phone: Start: 03-19-2022 Adult depression screening assessment Miley Townsend APRN [employer] Work Phone: Start: 03-18-2022 Comprehensive metabolic panel Miley Do llison [employer] TECHNICAL MANAGER [employer] Work Phone: Start: 03-18-2022 Iadna hepatitis c quant & reverse panel machine operator Miley Townsend APRN [employer] Work Phone: Start: 03-09-2022 Adult depression screening assessment Miley Townsend APRN [employer] Work Phone: Start: 02-11-2022 Comprehensive metabolic panel Miley Do llison [employer] TECHNICAL MANAGER [employer] Work Phone: Start: 02-11-2022 Iadna hepatitis c quant & reverse panel machine operator Miley Townsend APRN [employer] Work Phone: Start: 01-30-2022 Us breast uni real time with image limited Khris Irvingphong XIONG KAI WHAKARURUHAU Work Phone: Start: 01-13-2022 Iaad ia hepatitis b surface antigen Khris Irvingphong XIONG KAI WHAKARURUHAU Work Phone: Start: 01-13-2022 Adult depression screening assessment Khris Irving [employer] TECHNICAL MANAGER KAI WHAKARURUHAU Work Phone: Start: 01-13-2022 Microscopic observation [Identifier] in Cervix by Cyto stain Khrisphong Irving APRN KAI WHAKARURUHAU Work Phone: Start: 12-24-2021 CBC W Auto Differential panel - Blood Miley Townsend APRN [employer] Work Phone: Start: 12-24-2021 Comprehensive metabolic panel Miley Do robin XIONG [employer] Work Phone: Start: 12-24-2021 GLOMERULAR FILTRATION RATE Miley go APRN [employer] Work Phone: Start: 12-24-2021 Iadna hepatitis c quant & reverse panel machine operator Miley Townsend APRN [employer] Work Phone: Start: 11-28-2021 CBC W Auto Differential panel - Blood Miley Townsend APRN [employer] Work Phone: Start: 11-28-2021 Comprehensive metabolic panel Miley Do robin BERMUDEZN [employer] Work Phone: Start: 11-28-2021 GLOMERULAR FILTRATION RATE Miley go APRN [employer] Work Phone: Start: 11-28-2021 Hepatitis b surf antibody hbsab Miley Townsend APRN [employer] Work Phone: Start: 11-28-2021 Iaad ia hepatitis b surface antigen Miley Townsend APRN [employer] Work Phone: Start: 11-28-2021 MISC LAB TEST Miley Townsend APR N [employer] Work Phone: Start: 11-18-2021 Prothrombin time Tomasz Landrum TYRESE CN P Work Phone: Start: 11-18-2021 Urine test visual color cmprsn meths Tomasz Landrum [employer]CH[employer] MANAGER [employer] Work Phone: Start: 11-15-2021 Adult depression screening assessment Tomasz Landrum [employer]CH[employer] MANAGER [employer] Work Phone: Start: 10-21-2021 MISC LAB TEST Chaparrita Brown PA-C Work Phone: Start: 10-18-2021 CBC W Auto Differential panel - Blood Chaparrita Bronw PA-C Work Phone: Start: 10-18-2021 Comprehensive metabolic [...] 12-20-2020 Sars-cov-2 detection by dna/rna Chapincito Patiño [employer] MANA[employer] Work Phone: Start: 10-30-2019 Creatinine [Mass/volume] [...] malign ant neoplasm of cervix PAP SMEAR [facility] Start: 03-23-2026 Screening for malign ant neoplasm of cervix PAP SMEAR [facility] Start: 05-17-2025 ANNUAL WELLNESS VISIT ANNUAL WELLNES S VISIT [facility] Start: 05-17-2025 End: 05-17-2025 Patient encounter procedure 05/17/2025 1:00 PM EST Office Visit [facility] [address] [place] [address] Alan Nolen, [employer] TECHNICAL MANAGER [employer] [address] [place] [address] [facility] Start: 05-15-2025 Depression screening using PHQ-9 (Patient Health Questionnaire 9) score DEPRESSION SCREENING [facility] Start: 01-13-2025 Screening for malign ant neoplasm of cervix PAP SMEAR [facility] Start: 12-26-2024 Influenza vaccinatio n given INFLUENZA VACCINE (Season Ended) [facility] Start: 03-29-2024 End: 03-29-2024 Patient encounter procedure 03/29/2024 10:40 AM EST Office Visit [facility] [address] [place] [address] Khris Irving APRN KAI WHAKARURUHAU [address] [place] [address] [facility] Start: 03-23-2024 ANNUAL WELLNESS VISIT ANNUAL WELLNES S VISIT [facility] Start: 03-23-2024 Depression screening using PHQ-9 (Patient Health Questionnaire 9) score DEPRESSION SCREENING [facility] Start: 12-27-2023 COVID-19 VACCINE ( season) COVID-19 VACCINE ( season) [facility] Start: 12-27-2023 Influenza vaccinatio n given INFLUENZA VACCINE (#1) [facility] Start: 12-12-2023 Administration of diphtheria + tetanus + acellular pertussis vaccine DTAP/TDAP/TD VACCINE (2 - Td or Tdap) [facility] Start: 12-12-2023 Diphtheria + pertuss is + tetanus vaccine (product) DTAP/TDAP/TD VACCINE (2 - Td or Tdap) [facility] Start: 12-12-2023 Tetanus vaccination Tetanus: Every [address] [facility] Start: 04-06-2023 End: 04-06-2023 Patient encounter procedure 04/06/2023 2:30 PM EST Office Visit [address] [address] Vonnie Waller APRN [employer] [address] [place] [address] [facility] Start: 03-19-2023 Depression screening using PHQ-9 (Patient Health Questionnaire 9) score DEPRESSION SCREENING [facility] Start: 03-09-2023 Depression screening using PHQ-9 (Patient Health Questionnaire 9) score DEPRESSION SCREENING [facility] Start: 01-19-2023 End: 01-19-2023 Patient encounter procedure 01/19/2023 Office Visit Obstetrics and Gynecology Khris Irving APRN KAI WHAKARURUHAU [address] [place] [address] [facility] Start: 01-14-2023 ANNUAL WELLNESS VISIT ANNUAL WELLNES S VISIT [facility] Start: 01-13-2023 CHLAMYDIA SCREENING CHLAMYDIA SCREEN ING [facility] Start: 01-13-2023 Depression screening using PHQ-9 (Patient Health Questionnaire 9) score DEPRESSION SCREENING [facility] Start: 12-26-2022 COVID-19 VACCINE ( season) COVID-19 VACCINE ( season) [facility] Start: 12-26-2022 Influenza vaccinatio n given INFLUENZA VACCINE (#1) [facility] Start: 11-15-2022 Depression screening using PHQ-9 (Patient Health Questionnaire 9) score DEPRESSION SCREENING [facility] Start: 10-18-2022 Depression screening using PHQ-9 (Patient Health Questionnaire 9) score DEPRESSION SCREENING [facility] Start: 10-17-2022 End: 10-17-2022 Patient encounter procedure 10/17/2022 Office Visit Family Medicine Chaparrita Brown PA-C [address] [place] [address] [facility] [address] [facility] Start: 09-25-2022 COVID-19 VACCINE (#1) COVID-19 VACCI NE (#1) [facility] Comment on above: Postponed from 03/25 (Patient Declined) Postponed from 09/22 (Patient Declined) Start: 09-25-2022 COVID-19 VACCINE (1) COVID-19 VACCIN E (1) [facility] Comment on above: Postponed from 03/25 (Patient Declined) Start: 06-17-2022 End: 06-17-2022 Patient encounter procedure 06/17/2022 Office Visit Infectious Diseases Miley Townsend APRN [employer] [address] [place] [address] [facility] Start: 04-14-2022 End: 04-14-2022 Patient encounter procedure 04/14/2022 Office Visit Obstetrics and Gynecology Khris Irving APRN KAI WHAKARURUHAU [address] [place] [address] [facility] Start: 03-19-2022 End: 03-19-2022 Patient encounter procedure 03/19/2022 Procedure visit Obstetrics and Gynecology Yvonne Ornelas APRN [employer] [address] [facility] [place] [address] [facility] Start: 03-18-2022 End: 03-18-2022 Patient encounter procedure 03/18/2022 Office Visit Infectious Diseases Miley Townsend APRN [employer] [address] [place] [address] [facility] Start: 02-11-2022 End: 02-11-2022 Patient encounter procedure 02/11/2022 Office Visit Infectious Diseases Miley Townsend APRN [employer] [address] [place] [address] [facility] Start: 02-05-2022 End: 02-05-2022 Patient encounter procedure 02/05/2022 Procedure visit Obstetrics and Gynecology Yvonne Ornelas APRN [employer] [address] [facility] [place] [address] [facility] Start: 01-30-2022 End: 01-30-2022 Patient encounter procedure 01/30/2022 Appointment Radiology Khris Irving APRN KAI WHAKARURUHAU [address] [place] [address] [facility] Start: 01-13-2022 End: 01-13-2022 Patient encounter procedure 01/13/2022 Office Visit Obstetrics and Gynecology Lela Baldwin APRN [employer] [address] [address] [facility] Start: 12-26-2021 Influenza vaccinatio n given [facility] Start: 12-24-2021 End: 12-24-2021 Patient encounter procedure 12/24/2021 Office Visit Infectious Diseases Miley Townsend APRN [employer] [address] [place] [address] [facility] Start: 12-13-2021 End: 12-13-2021 Telemedicine consultation with patient 12/13/2021 Telemedicine Family Medicine Tomasz Landrum APRN [employer] [address] [place] [address] [facility] Start: 11-28-2021 End: 11-28-2021 Patient encounter procedure 11/28/2021 Office Visit Infectious Diseases Miley Townsend, [employer]CHNICAL MANAGER [employer] [address] [place] [address] [facility] Start: 11-20-2021 End: 11-20-2021 Patient encounter procedure 11/20/2021 Appointment Radiology Tomasz Landrum, [employer] TECHNICAL MANAGER [employer] [address] [place] [address] [facility] Start: 12-26-2020 Influenza vaccinatio n given INFLUENZA VACCINE (Season Ended) [facility] Start: 12-27-2019 Influenza vaccinatio n given Sequential Influenza Vaccine (#1) [facility] Start: 2019 Screening for malign ant neoplasm of cervix PAP SMEAR [facility] Start: 2017 PNEUMOCOCCAL VACCINE (1 of 2 - PCV) PNEUMOCOCCAL VACCINE (1 of 2 - PCV) [facility] Start: 2016 ANNUAL [facility]LLNESS [facility]IS[facility] Start: 2016 Hepatitis C antibody , confirmatory test Hepatitis C Screening [facility] Start: 08-09-2014 CHLAMYDIA SCREENING CHLAMYDIA SCREEN ING [facility] Start: 2013 HIV screening HIV Screening [facility] Start: 2013 Human papilloma viru s vaccination given HPV VACCINES (GARDASIL) (1 - 3-dose series) [facility] Start: 2010 Depression screening using PHQ-9 (Patient Health Questionnaire 9) score DEPRESSION SCREENING [facility] Start: 2009 Human papilloma viru s vaccination given HPV VACCINES (GARDASIL) (1 - 2-dose series) [facility] Start: 2009 Vaccination for taylor n papillomavirus [facility] Start: 2001 History and physical examination, annual for health maintenance Wellness Visit [facility] Start: 1998 COVID-19 VACCINE (#1) COVID-19 VACCI NE (#1) [facility] Start: 1998 Screening for Chlamy samir trachomatis Chlamydia Screening [facility] Start: 1998 Screening for malign ant neoplasm of cervix Pap Smear [facility] End: 10-28-2019 Bacteria identified Aer cx Nom (Unsp spec) Urine Aerobic Culture Microbiology Routine Once for 1 Occurrences starting 10/28/2019 until 10/28/[address] [facility] Comment on above: Once for 1 Occurrenc es starting 10/28/2019 until 10/28/2019 Bacteria identified Cx Nom (Bld) [facility] End: 10-21-2024 Chlamydia trachomatis and Neisseria gonorrhoeae DNA [Identifier] in Unspecified specimen by LILLIAN with probe detection [facility] Comment on above: One Time for 1 Occur rences starting 10/21/2024 until 10/21/2024 Echosens FibroMeter Echosens Fib roMeter Lab Routine Hep C w/o coma, chronic (HCC) 11/28/2021 3:53 PM EDT [facility] [employer] [facility] End: 11-18-2021 HCV Quant by NAAT [facility] Work Phone: Comment on above: 1 Occurrences starti ng 11/18/2021 until 11/18/2021 End: 11-28-2021 HCV Quant with reflex to HCV Genotype AGNES [employer] Work Phone: Comment on above: 1 Occurrences starti ng 11/28/2021 until 11/28/2021 End: 11-28-2021 Hepatitis A antibody, total [facility] [employer] [facility] Comment on above: 1 Occurrences starti ng 11/28/2021 until 11/28/2021 End: 11-28-2021 Hepatitis B core antibody, total [facility] Comment on above: 1 Occurrences starti ng 11/28/2021 until 11/28/2021 End: 01-13-2022 Hepatitis C antibody [facility] Comment on above: 1 Occurrences starti ng 01/13/2022 until 01/13/2022 End: 10-21-2021 Hepatitis C genotype Hepatitis C genotype Lab Routine Hepatitis C antibody test positive 1 Occurrences starting 10/21/2021 until 10/21/2021 [facility] Work Phone: Comment on above: 1 Occurrences starti ng 10/21/2021 until 10/21/2021 End: 01-13-2022 Herpes simplex virus I & II IgM [facility] Work Phone: Comment on above: 1 Occurrences starti ng 01/13/2022 until 01/13/2022 End: 01-13-2022 HIV 1/2 ANTIGEN & ANTIBODIES, 4TH GEN, WITH REFLEXES HIV 1/2 ANTIGEN & ANTIBODIES, 4TH GEN, WITH REFLEXES Lab Routine Screen for sexually transmitted diseases 1 Occurrences starting 01/13/2022 until 01/13/2022 [facility] Comment on above: 1 Occurrences starti ng 01/13/2022 until 01/13/2022 MISC LAB TEST MISC LAB TEST La b Routine 10/21/2021 8:12 PM EDT [facility] End: 01-13-2022 RAPID PLASMA REAGIN SERUM [facility] Comment on above: One Time for 1 Occur rences starting 01/13/2022 until 01/13/2022 End: 01-13-2022 Reagin Ab [Presence] in Serum by RPR RPR Lab Routine Screen for sexually transmitted diseases 1 Occurrences starting 01/13/2022 until 01/13/2022 [facility] Comment on above: 1 Occurrences starti ng 01/13/2022 until 01/13/2022 End: 10-21-2024 Trichomonas Amplified Probe [facility] Work Phone: Comment on above: One Time for 1 Occur rences starting 10/21/2024 until 10/21/2024 Immunizations Immunization Date Immunization Notes Care Provider Matt rueda 12-11-2013 tetanus toxoid, redu steven diphtheria toxoid, and acellular pertussis vaccine, adsorbed Chris Davis MD Work Phone: [facility] Payers Date Payer Category Payer Medicaid HMO [employer] [id number] 2022 Unknown EMPLOYEE BENEFIT S EMPLOYEE BENEFITS QCP PLUS [id number] 2022-Present [phone] [address] [place] [id number] Indemnity [id number] 2022 Private Health Insurance [employer] [id number] 2022-Present [phone] [address] [address] [place] [address] Medicaid [id number] 2021 Medicaid MEDICAID MEDICAI D [id number] 2021-Present [address] [place] [address] Medicaid [id number] 1998 Unknown [id number] 1998 Unknown [id number] 1998 Unknown [id number] 1998 Unknown [id number] 1998 Unknown [id number] Private Health Insurance [id number] Private Health Insurance [id number] Social History Date Type Detail Facility Start: 10-28-2019 End: 04-30-2024 Tobacco smoking status NHIS Current every day smoker [facility] Start: 10-28-2019 End: 05-15-2024 Cigarettes smoked current (pack per day) - Reported [facility] Start: 10-28-2019 Alcohol intake Ex-drinker (finding) [facility] Start: 1998 Sex Assigned At Not on file [facility] Start: 01-03-2022 End: 03-09-2022 Exposure to SARS-CoV-2 (event) Not sure [facility] Start: 05-14-2015 End: 10-21-2024 Alcohol intake Current non-drinker of alcohol (finding) [facility] Exposure to SARS-CoV -2 (event) Yes [facility] Start: 09-28-2021 End: 04-30-2024 Tobacco use and exposure Smokeless tobacco non-user [facility] Start: 10-18-2021 End: 11-15-2021 History SDOH Financial 5 [facility] Start: 10-18-2021 End: 11-15-2021 History SDOH IPV Fear 2 [facility] Start: 1998 Sex Assigned At Female [facility] History of tobacco use [facility]igarette Smoker [facility] Start: 11-15-2021 History SDOH Alcohol Frequency 1 [facility] History of tobacco use Tobacco U se Types Packs/Day Years Used Date Smoking Tobacco: Every Day E-Cig/Vaping Smokeless Tobacco: Never [facility] Start: 11-15-2021 End: 05-15-2024 Humiliation, Afraid, Rape, and Kick questionnaire [HARK] [facility] Within the last year , have you been afraid of your partner or ex-partner? No [facility] Emotionally Abused Not on file [facility] [place] How often to you hav e a drink containing alcohol? Never [facility] Do you feel stress - tense, restless, nervous, or anxious, or unable to sleep at night because your mind is troubled all the time - these days [OSQ] Not at all [facility] (I/We) worried wheth er (my/our) food would run out before (I/we) got money to buy more. Never true [facility] Start: 09-28-2021 Gender identity Identifies as female gender (finding) [facility] Start: 09-28-2021 Sexual orientation Heterosexual (finding) [facility] History of tobacco use Electroni c cigarette user (finding) [facility] Clinical Notes 12-20-2020 to 10-21-2024 Lorna [...] Status --------- ------ SARS-COV-2, Flu A, FLU B...[[id number]] Normal Final result Please view results for [...] the practitioner. Lorna Mendes APRN CNP 10/21/242105 [facility] 10-21-2024 Emergency department Note ED Diagnosis 1. [...] Status --------- ------ SARS-COV-2, Flu A, FLU B...[[id number]] Normal Final result Please view results for [...] unlabored, in NAD. documented in this encounter [facility] 10-21-2024 Hospital Discharg e instructions Lorna Mendes APRN CNP - 10/21/2024 9:02 PM EDT Change toothbrush in 48 hours of antibiotic documented in this encounter [facility] 10-21-2024 Note Formatting of this n ote is different from the original. Images from the original note were not included. [id number] Strep Throat: Care Instructions Overview Strep throat [...] cup of warm water. ? Take an lhau-zhh-uirpqwj pain medication, such as acetaminophen (Tylenol), ibuprofen (Advil, Motrin), or naproxen (Aleve). Read and follow all instructions on the label. ? Try an oblp-xvo-keywmle anesthetic throat spray or throat lozenges, which [...] this instruction, always ask your healthcare professional. [employer] disclaims any warranty or liability for your use of this information. [employer]. [facility] 10-21-2024 Miscellaneous Notes Images from the original note were not included. [id number] Strep Throat: Care Instructions Overview Strep throat [...] cup of warm water. ? Take an zscu-sts-kpjrpoi pain medication, such as acetaminophen (Tylenol), ibuprofen (Advil, Motrin), or naproxen (Aleve). Read and follow all instructions on the label. ? Try an tdey-hlr-zagneip anesthetic throat spray or throat lozenges, which [...] this instruction, always ask your healthcare professional. [employer] disclaims any warranty or liability for your use of this information. [employer]. documented in this encounter [facility] 10-21-2024 Emergency department Triage note Pt arrives to ED via private vehicle with c/o sore throat for approx 2 days. Pt denies any fevers. Pt c/o productive cough for 2 days. PT states that she would like testing for STI's. Pt A/Ox3 with PWD skin. Respirs easy, unlabored, in NAD. [facility] 04-30-2024 Hospital Discharg e instructions Kaley Wolfe APRN CNP - 04/30/2024 1:35 PM EST There are many resources in our community for the treatment of opioid use disorder. Many of our ED patients have achieved success in the following programs: [facility] ([facility]) - a Suboxone clinic located near the hospital at [address], offering counseling services as well. Call to schedule an intake appointment [facility] - a Methadone and Suboxone clinic located at [address] [place] [address]. Expanded treatment services are offered as well. Call for an intake appointment. [facility] - an [facility] located at [address] [facility]. offering a variety of support services for opioid addiction, including Vivitrol, Suboxone, and the Bridge Device. Call Khadra at to schedule an appointment. [facility] - an [facility] located at [address] [facility] offering a variety of support services for opioid addiction, including Vivitrol, mental health counseling, and an intensive outpatient treatment. Call for an appointment at . Lastly, you can call the [facility] Emergency Department at . Ask to talk to the Sample Cutter or Dr. Lozano, and we will do whatever we can to help you. The following attachments cannot be sent through Care Everywhere.Opioid Use Disorder: General Info (Turkmen Frisian)documented in this encounter [facility] 04-30-2024 Emergency department Triage note Pt arrives to the ED via private vehicle. Pt ambulates to room without difficulty. Pt states, I'm detoxing off fentanyl. Pt states she did not sleep well last night. Pt states her last use was 2 days ago. PT states nausea,lack of appetite, restlessness. Pt is A&O. RR easy and unlabored. NAD noted. [facility] 04-30-2024 Emergency department Note Pt arrives to the ED via private vehicle. Pt ambulates to room without difficulty. Pt states, I'm detoxing off fentanyl. Pt states she did not sleep well last night. Pt states her last use was 2 days ago. PT states nausea,lack of appetite, restlessness. Pt is A&O. RR easy and unlabored. NAD noted. documented in this encounter [facility] 12-19-2023 Emergency department Note Patient provided with take home narcan and instruction. Reviewed available OP resources. Patient denies any further needs/concerns. [facility] Work Phone: 12-19-2023 Emergency department Note Patient [...] mg. Discussed with patient treatment options in [facility]. Patient would be an appropriate candidate initially for [facility], [facility], or [facility] and knows how to contact those organizations. Electronic communication sent to nurse navigator at [facility] for discussion and appointment hopefully early next [...] bedside. Denies SI/HI documented in this encounter [facility] 12-19-2023 Physician Emergency department Note ED Diagnosis [...] mg. Discussed with patient treatment options in [facility]. Patient would be an appropriate candidate initially for [facility], [facility] or [employer] and knows how to contact those organizations. Electronic communication sent to nurse navigator at [facility] for discussion and appointment hopefully early next [...] COWs Score: 10 Zainab Lozano MD 12/19/23 0107 [facility] 12-19-2023 Hospital Discharg e instructions Zainab Lozano MD - 12/19/2023 5:50 PM EDT Opioid Addiction Treatment Resources There are many resources in our community for the treatment of opioid use disorder. Many of our ED patients have achieved success in the following programs: [facility]) - a Suboxone clinic located near the hospital at [address] [place] [address], offering counseling services as well. Call to schedule an intake appointment [facility] - a Methadone and Suboxone clinic located at [address] [place] [address]. Expanded treatment services are offered as well. Call for an intake appointment. [facility] - an [facility] located at [address] offering a variety of support services for opioid addiction, including Vivitrol, Suboxone, and the Bridge Device. Call Khadra at to schedule an appointment. [facility] - an [facility] located at [address] offering a variety of support services for opioid addiction, including Vivitrol, mental health counseling, and an intensive outpatient treatment. Call for an appointment at . Lastly, you can call the [facility] Emergency Department at . Ask to talk to the Sample Cutter or Dr. Lozano, and we will do whatever we can to help you. The following attachments cannot be sent through Care Everywhere.Opioid Use Disorder: Medication-Assisted Treatment: General Info (Turkmen Frisian)documented in this encounter [facility] 12-19-2023 Emergency department Triage note Patient to [...] NAD noted. Dr. Lozano bedside. Denies SI/HI [facility] 03-26-2023 Evaluation note Diagnosis Breast lump on left side at 5 o'clock position Lump or mass in breast Nipple tenderness Mastodynia documented in this encounter [facility]11-30-2023 Reason for visit Narrative* Procedure Authorization (Emergency) - Closed Specialty Diagnoses / Procedures Referred By Contcristopher t Referred To Contact Radiology Diagnoses Breast lump on left side at 5 o'clock position Nipple tenderness Procedures US Breast Left Limited US Breast Left Complete Khris Irving APRN KAI WHAKARURUHAU [address] [place] [address] [address] Referral ID Status Reason Start Date Expiration Date Visits Re quested Visits Authorized [id number] Closed 03/23/2023 04/26/2023 1 1 [facility]10-06-2022 Evaluation note* Diagnosis Breast lump on left side at 5 o'clock position Lump or mass in breast documented in this encounter [facility]10-06-2022 Reason for referral (narrative)* Procedure Authorization (Routine) - Closed Specialty Diagnoses / Procedures Referred By Contac t Referred To Contact Radiology Diagnoses Breast lump on left side at 5 o'clock position Procedures US Breast Left Limited Khris Irving APRN KAI WHAKARURUHAU [address] [place] [address] [address] Referral ID Status Reason Start Date Expiration Date Visits Re quested Visits Authorized [id number] Closed 01/13/2022 04/26/2022 1 1 [facility]10-06-2022 Reason for visit Narrative* Procedure Authorization (Routine) - Closed Specialty Diagnoses / Procedures Referred By Contac t Referred To Contact Radiology Diagnoses Breast lump on left side at 5 o'clock position Procedures US Breast Left Limited Khris Irving APRN KAI WHAKARURUHAU [address] [place] [address] [address] Referral ID Status Reason Start Date Expiration Date Visits Re quested Visits Authorized [id number] Closed 01/13/2022 04/26/2022 1 1 [facility]08-26-2021 Emergency department Note* Chris Davis MD - 12/20/2020 4:18 AM EDT I personally saw and examined this patient. I supervised the care and treatment of this patient. I formulated the medical decision making plan verbally with the midlevel, KAI WHAKARURUHAU, or PA, that led to the disposition, [...] and dictated with the use of the [employer] voice recognition software program which may omit [...] she was recently tested for COVID at [facility]. Pt denies test results yet so pt needs COVID result prior to [facility]. Pt denies any COVID symptoms but recent exposure to a friend who is also pending results. Respirations regular and unlabored. [facility]d [facility] Lab test negative for COVID-19 virus- Primary Medical clearance for incarceration documented in this encounter [facility] note* Diagnosis Screening for cardiovascular condition Screening for other and unspecified cardiovascular conditions History of methamphetamine use Leukocytosis, unspecified type documented in this encounter [facility] note* Diagnosis Hepatitis C antibody test positive Other and unspecified nonspecific immunological findings documented in this encounter [facility] note* Diagnosis Chronic hepatitis C without hepatic coma (HCC) documented in this encounter [facility] note* Diagnosis Chronic hepatitis C without hepatic coma (HCC) documented in this encounter [facility] note* Diagnosis Hep C w/o coma, chronic (HCC) Chronic hepatitis C without mention of hepatic coma documented in this encounter [facility] note* Diagnosis Screen for sexually transmitted diseases Screening examination for venereal disease documented in this encounter [facility] note* Diagnosis Hep C w/o coma, chronic (HCC) Chronic hepatitis C without mention of hepatic coma documented in this encounter [facility] note* Diagnosis Hep C w/o coma, chronic (HCC) Chronic hepatitis C without mention of hepatic coma documented in this encounter [facility] note* Diagnosis Hep C w/o coma, chronic (HCC) Chronic hepatitis C without mention of hepatic coma [facility] Diagnosis Opiate withdrawal (HCC)- Primary Drug withdrawal [facility] Diagnosis Opiate withdrawal (HCC)- Primary Drug withdrawal [facility] Diagnosis Strep pharyngitis- Primary Streptococcal sore throat Possible exposure to STI [facility]* Instructions* Chapincito Patiño APRN-CNP, ACHPN - 12/20/2020 If you develop worsening of your symptoms, difficulty breathing, numbness, tingling, weakness, changes in your vision or any other urgent concerns, please call 911 or return to the Emergency Department immediately. documented [facility] for referral (narrative)* Consultation (Routine) - Open Specialty Diagnoses / Procedures Referred By Philip barakat Referred To Contact Family Medicine Diagnoses Lab test negative for COVID-19 virus Medical clearance for incarceration Chapincito Patiño APRN-CNP, ACHPN [address] [place] [address] [facility] [address] [facility] [place] [address] Referral ID Status Reason Start Date Expiration Date Visits Re quested Visits Authorized [id number] Open 12/20/2020 01/20/2022 1 1 [facility] Summary Purpose Family History No Family History Records FoundNo Family History Records FoundNo Family History Records Found Advance Directives No Advanced Directives Records FoundDocuments on File Type Date Recorded Patient Business Applications Specialist Expl anation Advance Directives and Livin g Will 10/28/2019 5:20 AM Latest Code Status on File Code Status Date Activated Date Inactivated Comments Full Code 10/28/2019 4:50 AM 10/31/2019 2:51 PM Documents on File Type Date Recorded Patient Business Applications Specialist Expl anation Advance Directives and Living Will Power of Municipal Court Magistrate Latest Code Status on File Code Status Date Activated Date Inactivated Comments Full Code 12/09/2013 4:47 PM 12/12/2013 2:08 AM Full Code 12/09/2013 10:38 AM 12/09/2013 4:47 PM Documents on File Type Date Recorded Patient Business Applications Specialist Expl anation Advance Directives and Living Will Power of Municipal Court Magistrate DNR Documentation Latest Code Status on File [...] Chiu MD - 10/31/2019 12:25 PM EDT [facility] DISCHARGE SUMMARY Yolanda Manriquez Account: [id number] Admitted: 10/28/2019 Discharge Date/Time: 10/31/19 12:25 PM Handoff to PCP Routine hospital follow up 1. Discharged on PO Abx, follow up with urology as outpatient Clinical Summary Yolanda Manriquez is a 19 y.o. female with a history of IVDU who presented to [facility] with left flankpain and dysuria, CT with contrast showed left pyelonephritis, a 3 cm early abscess/phlegmon on thesuperior pole of left kidney, phleboliths at the left UVJ, WBC 15.5, lactic acid 1.1, UA leukocytes2+, she was transferred to [facility] 10/28/2019 for further evaluation. 1. Sepsis: Fever of 102, tachycardia, leukocytosis. Suspect from pyelonephritis found on CT. Lacticacid 1.1, COVID-19 negative. Admit CXR non-acute. OSH culture data update 10/31/19: Urine growing citrobacter farmeri (R to ampicillin, intermediate to amp-sulbactam), blood without growth at 72 hours.De-escalated Abx to ceftriaxone 10/30/19, and transitioned to oral 10/31/19 2. Acute Pyelonephritis: CT at [facility] showed left pyelonephritis, a 3 cm early [...] Your Medications These medications were sent to [facility] [address] [address] Hours: 8:00 AM to 7:00 PM Mon-Fri ciprofloxacin HCl 500 MG tablet Physician(s) Family: Physician No, Phone: None, Address: [facility] Follow Up: Rodrigo Madrid MD [address] [address] Schedule an appointment as soon as possible for a visit in 2 week(s) Additional Information: Patient seen and examined day of discharge. For more information regarding patient's care, including complete radiology reports, please contact [facility] at Patient instructions, including activity, [...] NOTE Patient Name: Yolanda Manriquez MR #: [id number] No CP, SOB, N/V, pain controlled. Constitutional: [...] flank pain, chills -CT a/p at [facility] showed 3 cm early abscess / phlegmon on superior pole of left kidney -Afebrile, pain controlled Wbc 8.39 -UC growing citrobacter farmeri -Antibiotic management per primary team. Discussed with [facility]. Will have patient come into office in 2 weeks for evaluation with repeat ct a/p prior * Aditi Chiu MD - 10/30/2019 7:44 AM EDT [facility] Inpatient Progress Note 10/30/2019 Yolanda Manriquez 2000 [id number] Assessment/Plan: Yolanda Manriquez is a 19 y.o. female with a history of IVDU who presented to [facility] with left flankpain and dysuria, CT with contrast showed left pyelonephritis, a 3 cm early abscess/phlegmon on thesuperior pole of left kidney, phleboliths at the left UVJ, WBC 15.5, lactic acid 1.1, UA leukocytes2+, she was transferred to [facility] 10/28/2019 for further evaluation. 1. Sepsis: Fever of 102, tachycardia, leukocytosis. Suspect from pyelonephritis found on CT. Lacticacid 1.1, COVID-19 negative. Admit CXR non-acute. OSH culture data update 10/30/19: Urine growing citrobacter farmeri (R to ampicillin), blood without growth at 48 hours. De-escalated Abx to ceftriaxone 10/30/19. 2. Acute Pyelonephritis: CT at [facility] showed left pyelonephritis, a 3 cm early abscess/phlegmon on thesuperior pole of left kidney, phleboliths at the left UVJ, received Vancomycin, Rocephin, Gentamicin and Flagyl at [facility]. Culture results and Abx management as above. [...] Chiu MD - 10/29/2019 7:40 AM EDT [facility] Inpatient Progress Note 10/29/2019 Yolanda Manriquez 2000 [id number] Assessment/Plan: Yolanda Manriquez is a 19 y.o. female with a history of IVDU who presented to [facility] with left flankpain and dysuria, CT with contrast showed left pyelonephritis, a 3 cm early abscess/phlegmon on thesuperior pole of left kidney, phleboliths at the left UVJ, WBC 15.5, lactic acid 1.1, UA leukocytes2+, she was transferred to [facility] 10/28/2019 for further evaluation. 1. Sepsis: Fever of 102, tachycardia, leukocytosis. Suspect from pyelonephritis found on CT. Lacticacid 1.1, COVID-19 negative. Admit CXR non-acute, blood culture and urine culture sent at [facility], lastchecked 10/29/19. Repeated on admit, pending. Empiric antibiotics with Vancomycin and Zosyn started on admit. Follow cultures. 2. Acute Pyelonephritis: CT at [facility] showed left pyelonephritis, a 3 cm early abscess/phlegmon on thesuperior pole of left kidney, phleboliths at the left UVJ, received Vancomycin, Rocephin, Gentamicin and Flagyl at [facility], change to Vancomycin and Zosyn on admit. [...] imaging, vital signs, and prior documentation including art sales consultant recommendations and summarized by me as above. Called [facility] today - Blood cultures and urine cultures [...] Schuler PA-C - 10/28/2019 12:31 PM EDT [facility] Inpatient Progress Note 10/28/2019 Yolanda Manriquez 2000 [id number] Assessment/Plan: Yolanda Manriquez is a 19 y.o. female with a history of IVDU who presented to [facility] with left flankpain and dysuria, CT with contrast showed left pyelonephritis, a 3 cm early abscess/phlegmon on thesuperior pole of left kidney, phleboliths at the left UVJ, WBC 15.5, lactic acid 1.1, UA leukocytes2+, she was transferred to [facility] 10/28/2019 for further evaluation. 1. Sepsis: Fever of 102, tachycardia, leukocytosis. Suspect from pyelonephritis found on CT. Lacticacid 1.1, COVID-19 negative. Admit CXR non-acute, blood culture and urine culture sent at [facility], lastchecked 10/28/19. Repeated on admit given IV drug user. Empiric antibiotics with Vancomycin and Zosynstarted on admit. Follow cultures. 2. Acute Pyelonephritis: CT at [facility] showed left pyelonephritis, a 3 cm early abscess/phlegmon on thesuperior pole of left kidney, phleboliths at the left UVJ, received Vancomycin, Rocephin, Gentamicin and Flagyl at [facility], change to Vancomycin and Zosyn on admit. [...] imaging, vital signs, and prior documentation including art sales consultant recommendations and summarized by me as [...] CP, SOB, abdominal pain, nausea, vomiting. Called [facility]-Blood cultures drawn 1630 on 10/28/19. Blood and [...] U/L 93 BILIRUBIN TOTAL mg/dL 0.7 * Cidny Zamora R.Ph. - 10/28/2019 5:13 AM EDT [...] 1 Encounters: 10/27/19 54.4 kg (120 lb) [place] body weight: 45.5 kg (100 lb 4.9 [...] Component Value Units Date/Time Urine Aerobic Culture [[id number]] Order Status: Sent Specimen: Urine, Clean Catch Blood Culture #1 [[id number]] Order Status: Sent Specimen: Blood, Peripheral Blood Culture #2 [[id number]] Order Status: Sent Specimen: Blood, Peripheral COVID-19, Molecular [[id number]] (Normal) Collected: 10/28/19 0330 Order Status: Completed Specimen: Swab from Nasopharyngeal Updated: 10/28/19355 SARS-CoV-2 Not Detected Comment: This test was performed under the FDA's Emergency Use Authorization (EUA). Testing was performed using the [employer] ID NOW COVID-19 assay on the ID NOW platform. This test has not been approved for use in asymptomatic patients and its performance in this patient population has not been evaluated. Negative results do not rule out the presence of SARS-CoV-2/COVID-19. Fact sheets for the EUA can be found at the following links: For Healthcare Providers: https://www.fda.gov/media/261642/download For Patients: https://www.fda.gov/media/137329/download Pharmacist: Meaghan Chopra.Ph. documented in this encounter Assessments Diagnosis Pyelonephritis Unspecified pyelonephritis Additional Source Comments INFORMATION SOURCE (unrecogn ized section and content) DATE CREATED AUTHOR 11/17/2019 [facility] DATE CREATED AUTHOR AUTHOR'S ORGANIZ ATION 06/20/2021 [facility] DATE CREATED AUTHOR AUTHOR'S ORGANIZ ATION 11/08/2024 [facility] Shade Conley MD - 10/28/2019 2:58 AM EDT H&P Notes (unrecognized sect ion and content) [facility] History and Physical Note 10/28/19 Yolanda Manriquez 2000 [id number] Assessment/Plan: Yolanda Manriquez is a 19 y.o. female with a history of IVDU who presented to [facility] with left flank pain and dysuria, CT with contrast showed left pyelonephritis, a 3 cm early abscess/phlegmon on the superior pole of left kidney, phleboliths at the left UVJ, WBC 15.5,, lactic acid 1.1, UA leukocytes 2+, she was transferred to [facility] 10/28/2019 for further evaluation. 1. Acute febrile illness: fever of 102, suspect from pyelonephritis found on CT, WBC 15.5,, lactic acid 1.1, COVID-19 negative, check CXR, blood culture and urine culture sent at [facility], repeat given IV drug user. Empiric antibiotics with Vancomycin and Zosyn 10/28/2019. 2. Acute pyelonephritis: CT at [facility] showed left pyelonephritis, a 3 cm early abscess/phlegmon on the superior pole of left kidney, phleboliths at the left UVJ, received Vancomycin, Rocephin, Gentamicin and Flagyl at [facility], change to Vancomycin and Zosyn pending culture [...] history of IVDU who presented to [facility] with left flank pain and dysuria, CT with contrast showed left pyelonephritis, a 3 cm early abscess/phlegmon on the superior pole of left kidney, phleboliths at the left UVJ, WBC 15.5,, lactic acid 1.1, UA leukocytes 2+, she was transferred to [facility] 10/28/2019 for further evaluation. She started to [...] file Gets together: Not on file Attends zoroastrian service: Not on file Active member of [...] Name: Yolanda Manriquez Admit Date: MR #: [id number] : 2000 Physicians: FAMILY: Physician No REFERRING: Shade Conley MD Chief Complaint/Reason for Visit: left flank pain, fever Assessment and Plan: Left pyelonephritis -Patient with PMH of IVDA presenting with left flank pain, chills -CT a/p at [facility] showed 3 cm early abscess / phlegmon on superior pole of left kidney -Tmax 102.7, wbc 15.5 -Follow cultures from [facility], currently receiving vanc / zosyn, adjust per C&S -Pain improved this am -Recommend conservative care with IV antibiotics / hydration History of Present Illness: Yolanda Manriquez is a 19 year old female with a history if IV drub abuse. She presented to [facility] with 3 days of left flank pain, dysuria. She describes pain as intermittently sharp and severe. CT [facility] showed 3 cm early abscess / phlegmon on superior pole of left kidney. She was transferred to [facility] or further care. 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 Found to have pyelonephritis, with possible small abscess in left kidney. On IV antibiotics. No obstruction. Plan is to follow conservatively. Cultures pendingdocumented in this encounter Victorina Richardson RN - 10/28/2019 2:45 AM EDT ED Notes (unrecognized secti on and content) Patient transported to [facility] by [facility] Medic 102. Receiving unit notified of patient's arrival. Patient's vital signs BP 117/70, HR 106, RR 14, Pulse Ox 97% on room air. Patient has a chief complaint of Abcess. Patient does have patent IV access- 20g LAC. Patient was on quality assurance monitor final prior to arrival - Sinus Tachycardia noted. Patient transported to room 8020 on arrival. documented in this encounter Reason for Visit (unrecogniz ed section and content) Reason Comments Other Medical Clearance Reason Comments Other Reason Comments Nausea Withdrawal Reason Comments Pharyngitis Cough Care Teams (unrecognized sec tion and content) Reading Assistant Relationship Specialty Start Date End Date Chaparrita Brown PA-C [address] [place] [place] [address] PCP - General Family Medicine 11/15/21 Reading Assistant Relationship Specialty Start Date End Date Chaparrita Brown PA-C [address] [address] PCP - General Family Medicine 11/15/21 Reading Assistant Relationship Specialty Start Date End Date Chaparrita Brown PA-C [address] [place] [address] PCP - General Family Medicine 11/15/21 Reading Assistant Relationship Specialty Start Date End Date Chaparrita Brown PA-C [address] [place] [place] [address] PCP - General Family Medicine 11/15/21 Reading Assistant Relationship Specialty Start Date End Date Chaparrita Brown PA-C PCP - General Family Medicine 11/15/21 Reading Assistant Relationship Specialty Start Date End Date Chaparrita Brown PA-C PCP - General Family Medicine 11/15/21 Reading Assistant Relationship Specialty Start Date End Date Chaparrita Brown PA-C PCP - General Family Medicine 11/15/21 Reading Assistant Relationship Specialty Start Date End Date Chaparrita Brown PA-C PCP - General Family Medicine 11/15/21 Reading Assistant Relationship Specialty Start Date End Date Chaparrita Brown PA-C PCP - General Family Medicine 11/15/21 Reading Assistant Relationship Specialty Start Date End Date Pcp, Coretta [address] [place] [address] PCP - General 11/25/22 Reading Assistant Relationship Specialty Start Date End Date Khris Irving APRN KAI WHAKARURUHA[facility] [address] [place] [address] PCP - General Nurse Practitioner 04/14/23 Reading Assistant Relationship Specialty Start Date End Date Khris Irving APRN K[facility] WHAKARURUHAU [address] [place] [address] PCP - General Nurse Practitioner 04/14/23 Reading Assistant Relationship Specialty Start Date End Date Khris Irving APRN K[facility] [address] [place] [address] PCP - General Nurse Practitioner 10/21/24 Scheduled [...] naloxone nasal spray device. 1815 (Dispensed to [facility] by Physician/Other Qualified Staff Member - Provider: [...] at 1400 1321 (Given - Provid er: Viky Vincent, ROXY) Scheduled Medication Order 10/19/2024 10/20/2024 [...] BE BASED ON THE PRIMARY CLINICAL RECORDS. The [employer] provides no warranty or guarantee of the accuracy or completeness of information in this document.
[2025-02-12 13:44] VITALS: BP 117/87; PULSE 73; RESP 16; TEMP 36.6; O2SAT 100
--- NOTE | 2025-02-12 13:44 | CM.ED ---
Social Work Date of referral: 02/12/25 Reason for referral: Resources and no primary care physician (PCP) on file. Referred by: Social Work identification Patient provided consent to social work visit. Patient's father also present who stated patient has been on her own for the past 10 years. Patient confirmed she is not connected with a PCP. Senior Report Developer provided resources for addition/counseling and PCP. Marta Ricardo, CHEMISTRY QUALITY CONTROL TECHNICIAN, ECOLOGY PROFESSOR
--- OUTSIDE RECORDS SUMMARY | 2025-02-12 14:01 | XMS RPT_ITS | CCD ---
Author Organization [facility] Inform ion Partnership [facility] Care Team Providers Care Urologist Name Role Phone JUAN DIEGO GRAYSON Referring [...] Care Provider Unavailabl e Maria Fernanda XIONG ENROLLMENT PROCESSOR, Khris Primary Care Provider [phone] Maria Fernanda XIONG ENROLLMENT PROCESSOR, Khris Primary Care Provider [phone] KHRIS IRVING Primary Care Unavailable KALEY WOLFE [...] to adverse reactions to drug (disorder) 4 [facility] Repository Medications Current Medications Medication Drug [...] CHLAMYDIA, DNA PROBE Negative Negative Normal Negative [facility] Comment on above: Performed By: #### 3 [id number] #### [facility] [address] Influenza virus A and B RNA and SARS-CoV-2 (COVID-19) N gene panel LILLIAN+probe (Resp)on 10-21-2024 FLUAV RNA LILLIAN+probe Ql (Nph) Negative Negative [facility] FLUBV RNA LILLIAN+probe Ql (Nph) Negative Negative [facility] Interpretation and review of laboratory results Normal [facility] SARS-CoV-2 (COVID-19) RNA LILLIAN+probe Ql (Resp) Negative Negative [facility] Comment on above: Negative results do not [...] specimens during the acute phase of infection. [facility] POCT ED/FC/SURG Urine PregOr dered By: Krystal Graham on 10-21-2024 Beta HCG ( test) Ql (U) Negative [facility] Interpretation and review of laboratory results Normal [facility] [place] Acceptable Yes [facility] STREP Aon 10-21-2024 STREP A Not detected Abnormal Not Detected [facility] Comment on above: Performed By: #### 3 [id number] #### [facility] [address] [place] [address] Streptococcus.beta-hemolytic Org specific cx Ql (Unsp spec)Ordered By: Background Lab on 10-21-2024 Interpretation and review of laboratory results Abnormal [facility] S. pyogenes DNA LILLIAN+probe Ql (Throat) Detected Abnormal Not Detected [facility] TRICHOMONAS AMPLIFIED PROBEo n 10-21-2024 TRICHOMONAS AMPLIFIED PROBE Negative Normal Negative [facility] Comment on above: Performed By: #### 3 [id number] #### [facility] [address] [place] [address] [place] WAIVED SARS COV-2, FLU A, FL [...] FLU B, PCR Negative Negative Normal Negative [facility] Comment on above: Performed By: #### L [id number] #### [facility] [address] [place] [address] IMAGE GUIDED PAP WITH GC AND CHLAMYDIA, TRICHOMONAS, AND HPVon 05-16-2024 IMAGE GUIDED PAP WITH GC AND CHLAMYDIA, TRICHOMONAS, AND HPV Comment NEGATIVE FOR INTRAEPITHELIAL LESION OR MALIGNANCY. THIS SPECIMEN WAS RESCREENED PART OF OUR [employer]ATION OPERATOR PROGRAM. Comment Satisfactory for evaluation. Endocervical and/or squamous metaplastic cells (endocervical component) are present. Areas of partially obscuring blood are present. Comment Piper Pyle, Clinical Unit Coordinator (ASCP) Comment Tigre Flores Clinical Unit Coordinator (ASCP) . Comment The Pap smear is [...] without differentiation. Negative Negative Positive Abnormal Negative [facility] [facility] Comment on above: Order Comment: Speci men Comment: LMP / Prev Treat...[id number]=[id number];None Specimen Comment: No. of containers..01 ThinPrep Vial Performed at: - [facility] [id number] Telephonic Case Manager: Meredith Godoy MD, Phone: [phone] Performed at: 02 - [facility] [address] [id number] Telephonic Case Manager: Meredith Godoy MD, Phone: [phone] Performed By: #### L [id number] #### [facility] [address] [place] [address] URINE CULTUREon 05-16-2024 Bacteria identified Cx Nom (U) URINE CULTURE, ROUTINE No growth at 2 days Normal [facility] Comment on above: Performed By: #### 4 [id number] #### [facility] [address] US Breast - left limitedOrde red By: Gorge Rome on 03-26-2023 Interpretation and review of laboratory results Abnormal [facility] [facility] Work Phone: [employer] Work Phone: US Breast - left limitedon [...] previously scanned. This is not clinically palpable. [facility] Study observation (narrative) [facility] [facility] [employer] [facility] HCV Quant by Vasile 03-19-20 22 HCV RNA LILLIAN+probe Qn Not detected IU/mL [facility] HCV Test Info Comment [facility] [facility] Comment on above: The quantitative ran ge of this assay is 15 IU/mL to 100 million IU/mL. Performed at: - [address] [id number] Telephonic Case Manager: Fili Koo MD, Phone: [phone] [facility] CBC with differentialOrdered By: Background Lab on 03-18-2022 Absolute Immature Granulocytes 0.0 [facility] Age [Time] 89.9 fL 80.2 - 99 fL [facility] Age [Time] 30.9 pg 27.5 - 32.3 pg [facility] Age [Time] 34.4 g/dL 30.7 - 35.5 g/dL [facility] B. burgdorferi IgM IB Ql (CSF) 21.2 % [facility] Basophils (Bld) [#/Vol] 0.1 10*3/uL [facility] Basophils/100 WBC (Body fld) 0.7 % [facility] Eosinophils (Bld) [#/Vol] 1.6 10*3/uL [facility] Eosinophils (Bld) [#/Vol] 0.5 10*3/uL [facility] Eosinophils (Bld) [#/Vol] 0.1 10*3/uL [facility] Eosinophils/100 WBC (Bld) 1.7 % [facility] Erythrocyte distribution width (RBC) [Ratio] 12.6 % 11.5 - 14.5 % [facility] Hematocrit (Bld) [Volume fraction] 41.0 % 33.6 - 46.8 % [facility] Hexanoylglycine (U) [Moles/Vol] 14.1 g/dL 11.7 - 15.8 g/dL [facility] Immature granulocytes/100 WBC (Bld) 0.3 % [facility] Monocytes/100 WBC (Bld) 6.9 % [facility] Neurotensin (P) [Mass/Vol] 69.2 % [facility] Neutrophils (Bld) [#/Vol] 5.3 10*3/uL [facility] Nucleated RBC/100 WBC (Bld) [Ratio] 0.0 % 0.0 - 1.0 % [facility] Platelets (Bld) [#/Vol] 246 10*3/uL [facility] RBC (Bld) [#/Vol] 4.56 10*6/uL [facility] WBC LM Ql (Sput) 7.7 [facility] Comprehensive metabolic 2000 panelon 03-18-2022 Albumin (Syn fld) [Mass/Vol] 4.5 g/dL 3.5 - 5.0 g/dL [facility] Aldosterone (U) [Mass/Vol] 59 U/L 24 - 126 U/L [facility] ALT [Catalytic activity/Vol] 16 U/L 4 - 35 U/L [facility] Anion gap [Moles/Vol] 9 mmol/L 8 - 12 mmol/L [facility] AST [Catalytic activity/Vol] 21.9 U/L 3 - 47 U/L [facility] Bilirubin [Mass/Vol] 0.6 mg/dL 0.2 - 1 .6 mg/dL [facility] Calcium [Mass/Vol] 9.1 mg/dL 8.4 - 10. 4 mg/dL [facility] Calcium hydrogen phosphate dihydrate crystals LM Ql (Urine sed) 15.2 mg/dL 8 - 26 mg/dL [facility] Chloride [Moles/Vol] 106 mmol/L 96 - 10 9 mmol/L [facility] CMV IgM IF Ql 22.2 mmol/L 22 - 30 mmol/L [facility] Creatinine [Mass/Vol] 0.65 mg/dL 0.52 - 1.04 mg/dL [facility] GFR/1.73 sq M.predicted MDRD (S/P/Bld) [Vol rate/Area] - PINF [facility] Comment on above: eGFR calculation bas ed [...] mg/dL High 65 - 100 mg/dL [facility] Interpretation and review of laboratory results Abnormal [facility] Potassium [Moles/Vol] 3.8 mmol/L 3.6 - 5.1 mmol/L [facility] Protein [Mass/Vol] 7.1 g/dL 6.3 - 8.2 g/dL [facility] Sodium [Moles/Vol] 137.1 mmol/L 135 - 147 mmol/L [facility] HCV Quant by Vasile 02-14-20 HCV RNA LILLIAN+probe Qn Not detected IU/mL [facility] HCV Test Info Comment [facility] Comment on above: The quantitative ran ge of this assay is 15 IU/mL to 100 million IU/mL. Performed at: - [address] [id number] Telephonic Case Manager: Fili Koo MD, Phone: [phone] [facility] CBC with differentialOrdered By: Background Lab on 02-11-2022 Absolute Immature Granulocytes 0.1 [facility] Age [Time] 90.2 fL 80.2 - 99 fL [facility] Age [Time] 31.5 pg 27.5 - 32.3 pg [facility] Age [Time] 35.0 g/dL 30.7 - 35.5 g/dL [facility] B. burgdorferi IgM IB Ql (CSF) 12.7 % [facility] Basophils (Bld) [#/Vol] 0.0 10*3/uL [facility] Basophils/100 WBC (Body fld) 0.3 % [facility] Eosinophils (Bld) [#/Vol] 1.5 10*3/uL [facility] Eosinophils (Bld) [#/Vol] 1.0 10*3/uL High [facility] Eosinophils (Bld) [#/Vol] 0.1 10*3/uL [facility] Eosinophils/100 WBC (Bld) 1.2 % [facility] Erythrocyte distribution width (RBC) [Ratio] 11.8 % 11.5 - 14.5 % [facility] Hematocrit (Bld) [Volume fraction] 43.2 % 33.6 - 46.8 % [facility] Hexanoylglycine (U) [Moles/Vol] 15.1 g/dL 11.7 - 15.8 g/dL [facility] Immature granulocytes/100 WBC (Bld) 0.4 % [facility] Interpretation and review of laboratory results Abnormal [facility] Monocytes/100 WBC (Bld) 7.9 % [facility] Neurotensin (P) [Mass/Vol] 77.5 % [facility] Neutrophils (Bld) [#/Vol] 9.3 10*3/uL [facility] Nucleated RBC/100 WBC (Bld) [Ratio] 0.0 % 0.0 - 1.0 % [facility] Platelets (Bld) [#/Vol] 243 10*3/uL [facility] RBC (Bld) [#/Vol] 4.79 10*6/uL [facility] WBC LM Ql (Sput) 12.0 [facility] Comprehensive metabolic 2000 panelon 02-11-2022 Albumin (Syn fld) [Mass/Vol] 4.9 g/dL 3.5 - 5.0 g/dL [facility] Aldosterone (U) [Mass/Vol] 112 U/L 24 - 126 U/L [facility] ALT [Catalytic activity/Vol] 16 U/L 4 - 35 U/L [facility] Anion gap [Moles/Vol] 14 mmol/L High 8 - 12 mmol/L [facility] AST [Catalytic activity/Vol] 21.7 U/L 3 - 47 U/L [facility] Bilirubin [Mass/Vol] 0.6 mg/dL 0.2 - 1 .6 mg/dL [facility] Calcium [Mass/Vol] 9.6 mg/dL 8.4 - 10. 4 mg/dL [facility] Calcium hydrogen phosphate dihydrate crystals LM Ql (Urine sed) 11.7 mg/dL 8 - 26 mg/dL [facility] Chloride [Moles/Vol] 103 mmol/L 96 - 10 9 mmol/L [facility] CMV IgM IF Ql 23.4 mmol/L 22 - 30 mmol/L [facility] Creatinine [Mass/Vol] 0.67 mg/dL 0.52 - 1.04 mg/dL [facility] GFR/1.73 sq M.predicted MDRD (S/P/Bld) [Vol rate/Area] - PINF [facility] Comment on above: eGFR calculation bas ed [...] [Mass/Vol] 77.0 mg/dL 65 - 100 mg/dL [facility] Interpretation and review of laboratory results Abnormal [employer] Potassium [Moles/Vol] 4.0 mmol/L 3.6 - 5.1 mmol/L [employer] [facility] Protein [Mass/Vol] 8.1 g/dL 6.3 - 8.2 g/dL [facility] Sodium [Moles/Vol] 139.9 mmol/L 135 - 147 mmol/L [employer] US Breast - left limitedOrde red By: Chapincito Soto on 01-30-2022 Interpretation and review of laboratory results Abnormal [employer] Work Phone: [employer] Work Phone: US Breast - left limitedon [...] 3: Probably Benign Ultrasound in [address] [facility] EXAM: US BREAST LEFT LIMITED HISTORY: Unspecified [...] seen. [facility] Radiology Study observation (narrative) [facility] Hepatitis B surface antigeno n 01-13-2022 Hep B Surf AG Non-Reactive Nonreactive [facility] HCV Quant by Vasile 12-29-19 HCV Quant by NAAT (IU/ML) 1,748,830 IU/mL [facility] HCV Quant by NAAT (Log IU/ML) 6.24 log IU/mL [facility] HCV Quant by NAAT Interp Detected Abnormal Not Detected [facility] Comment on above: INTERPRETIVE INFORMA TION: HCV [...] and Cellular Tissue-Based Products (HCT/P). Performed by [employer], [address] [place] [id number] www.[employer], Librado Braden MD, PHD - Lab. Director Interpretation and review of laboratory results Abnormal [facility] Beta HCG ( test) Ql on 12-24-2021 HCG [Moles/Vol] Negative [facility] CBC with differentialon 11-27 Absolute Immature Granulocytes 0.0 0 10 3/uL [facility] Absolute Lymph 2.1 [facility] Absolute Luna 0.5 [facility] Basophils (Bld) [#/Vol] 0.1 10*3/uL [facility] Basophils/100 WBC (Bld) 0.7 % [facility] Eosinophils (Bld) [#/Vol] 0.1 10*3/uL [facility] Eosinophils/100 WBC (Bld) 1.6 % [facility] Erythrocyte distribution width (RBC) [Ratio] 12.6 % 11.5 - 14.5 % [facility] Hematocrit (Bld) [Volume fraction] 45.5 % 33.6 - 46.8 % [facility] Hemoglobin (Bld) [Mass/Vol] 15.5 g/dL 11.7 - 15.8 g/dL [facility] Immature granulocytes/100 WBC (Bld) 0.3 % [facility] Lymphocytes/100 WBC (Bld) 30.0 % [facility] MCH (RBC) [Entitic mass] 31.6 pg 27.5 - 32.3 pg [facility] MCHC (RBC) [Mass/Vol] 34.1 g/dL 30.7 - 35.5 g/dl [facility] MCV (RBC) [Entitic vol] 92.9 fL 80.2 - 99.0 fL [facility] Monocytes/100 WBC (Bld) 7.8 % [facility] Neutrophils (Bld) [#/Vol] 4.1 10*3/uL [facility] Neutrophils/100 WBC (Bld) 59.6 % [facility] Platelets (Bld) [#/Vol] 237.0 10*3/uL [facility] RBC (Bld) [#/Vol] 4.90 10*6/uL [facility] WBC LM Ql (Sput) 6.9 [facility] Comprehensive metabolic pane torsten 12-24-2021 Albumin [Mass/Vol] 4.6 g/dL 3.5 - 5.0 g/dL [facility] Alk Phos 81 U/L 24 - 126 U/L [facility] ALT [Catalytic activity/Vol] 91 U/L High 4 - 35 U/L [facility] AST [Catalytic activity/Vol] 49 U/L High 3 - 47 U/L [facility] Bilirubin [Mass/Vol] 0.5 mg/dL 0.2 - 1 .6 mg/dL [facility] Calcium [Mass/Vol] 9.2 mg/dL 8.4 - 10. 4 mg/dL [facility] Chloride [Moles/Vol] 107 mmol/L 96 - 10 9 mmol/L [facility] CO2 [Moles/Vol] 24 mmol/L 22 - 30 mmol/L [facility] Creatinine [Mass/Vol] 0.63 mg/dL 0.52 - 1.04 mg/dL [facility] Glucose [Mass/Vol] 81 mg/dL 65 - 100 mg/dL [facility] Interpretation and review of laboratory results Abnormal [facility] Potassium [Moles/Vol] 4.0 mmol/L 3.6 - 5.1 mmol/L [facility] Protein [Mass/Vol] 7.5 g/dL 6.3 - 8.2 g/dL [facility] Sodium [Moles/Vol] 140 mmol/L 135 - 147 mmol/L [facility] Urea nitrogen [Mass/Vol] 10 mg/dL 8 - 20 mg/dL [facility] GLOMERULAR FILTRATION RATEon 12-24-2021 GFR >60 [facility] Comment on above: To estimate the GFR [...] Int Suppl.2013;3:1-150 No Panel Informationon 12-24 [facility] [employer] [facility] nRBC 0 0 - 1 [facility] CBC with differentialon Absolute Immature Granulocytes 0.0 0 10 3/uL [facility] [employer] [facility] Absolute Lymph 1.7 [facility] Absolute Luna 0.6 [facility] Basophils (Bld) [#/Vol] 0.0 10*3/uL [facility] Basophils/100 WBC (Bld) 0.5 % [facility] Eosinophils (Bld) [#/Vol] 0.1 10*3/uL [facility] Eosinophils/100 WBC (Bld) 1.1 % [facility] Erythrocyte distribution width (RBC) [Ratio] 12.4 % 11.5 - 14.5 % [facility] Hematocrit (Bld) [Volume fraction] 45.2 % 33.6 - 46.8 % [facility] Hemoglobin (Bld) [Mass/Vol] 15.5 g/dL 11.7 - 15.8 g/dL [facility] Immature granulocytes/100 WBC (Bld) 0.4 % [facility] Lymphocytes/100 WBC (Bld) 21.7 % [facility] MCH (RBC) [Entitic mass] 31.6 pg 27.5 - 32.3 pg [facility] MCHC (RBC) [Mass/Vol] 34.3 g/dL 30.7 - 35.5 g/dl [facility] MCV (RBC) [Entitic vol] 92.1 fL 80.2 - 99 fL [facility] Monocytes/100 WBC (Bld) 8.3 % [facility] Neutrophils (Bld) [#/Vol] 5.2 10*3/uL [facility] Neutrophils/100 WBC (Bld) 68.0 % [facility] Platelets (Bld) [#/Vol] 277.0 10*3/uL [facility] RBC (Bld) [#/Vol] 4.91 10*6/uL [facility] WBC LM Ql (Sput) 7.6 [facility] Comprehensive metabolic pane torsten 11-28-2021 Albumin [Mass/Vol] 5.3 g/dL High 3.5 - 5 g/dL [facility] Alk Phos 86 U/L 24 - 126 U/L [facility] ALT [Catalytic activity/Vol] 76 U/L High 4 - 35 U/L [facility] AST [Catalytic activity/Vol] 57 U/L High 3 - 47 U/L [facility] Bilirubin [Mass/Vol] 1.0 mg/dL 0.2 - 1 .6 mg/dL [facility] Calcium [Mass/Vol] 9.8 mg/dL 8.4 - 10. 4 mg/dL [facility] Chloride [Moles/Vol] 105 mmol/L 96 - 10 9 mmol/L [facility] CO2 [Moles/Vol] 23 mmol/L 22 - 30 mmol/L [facility] Creatinine [Mass/Vol] 0.61 mg/dL 0.52 - 1.04 mg/dL [facility] Glucose [Mass/Vol] 78 mg/dL 65 - 100 mg/dL [facility] Interpretation and review of laboratory results Abnormal [employer] Potassium [Moles/Vol] 4.7 mmol/L 3.6 - 5.1 mmol/L [employer] Protein [Mass/Vol] 8.6 g/dL High 6.3 - 8.2 g/dL [facility] Sodium [Moles/Vol] 140 mmol/L 135 - 147 mmol/L [employer] Urea nitrogen [Mass/Vol] 11 mg/dL 8 - 20 mg/dL [facility] [employer] GLOMERULAR FILTRATION RATEon 11-28-2021 GFR >60 [facility] [employer] Comment on above: To estimate the GFR [...] HIV 1+2 Ab Ql (S) Non-Reactive Nonreactive [facility] [employer] [facility] Comment on above: Nonreactive No detectable HIV-1p24 Antigen or HIV-1/HIV2 antibodies. . If recent HIV exposure is suspected or reported, conduct HIV-1 HAMIDA or request a new specimen and repeat the algorithm according to CDC guidance, available at: http://www.cdc.gov/hiv/guidelines Hepatitis A antibody, IgMon 11-28-2021 HAV IgM Qn (S) Non-Reactive Nonreactive [facility] Hepatitis B core antibody, I gMon 11-28-2021 Hep B Core-M AB Non-Reactive Nonreactive [facility] Hepatitis B surface antibody on 11-28-2021 HBV surface Ab (S) [Titer] Non-Reactive Nonreactive [facility] Hepatitis B surface antigeno n 11-28-2021 Hep B Surf AG Non-Reactive Nonreactive [facility] Hepatitis C antibodyon 11-28 HCV Ab Qn (S) Reactive Abnormal Nonreactive [facility] Interpretation and review of laboratory results Abnormal [facility] No Panel Informationon 11-[address] [facility] nRBC 0 0 - 1 [facility] Protime-INRon 11-28-2021 INR Coag (PPP) [Relative time] 1.00 {INR} 0.89 - 1.17 [facility] PT Coag (PPP) [Time] 10.4 s [facility] Syphilis Treponema Antibodyo n 11-28-2021 Syphilis Treponema Antibody Non-Reactive Nonreactive [facility] HCG Qn (U)on 11-18-2021 Beta HCG ( test) Ql (U) Negative [facility] Protime-INRon 11-18-2021 INR Coag (PPP) [Relative time] 1.05 {INR} 0.89 - 1.17 [facility] PT Coag (PPP) [Time] 10.8 s [facility] CBC and differentialon 10-19 Absolute Immature Granulocytes 0.0 0 10 3/uL [facility] Absolute Lymph 2.3 [facility] Absolute Luna 0.6 [facility] Basophils (Bld) [#/Vol] 0.0 10*3/uL [facility] Basophils/100 WBC (Bld) 0.5 % [facility] Eosinophils (Bld) [#/Vol] 0.2 10*3/uL [facility] Eosinophils/100 WBC (Bld) 2.3 % [facility] Erythrocyte distribution width (RBC) [Ratio] 12.5 % 11.5 - 14.5 % [facility] Hematocrit (Bld) [Volume fraction] 41.8 % 33.6 - 46.8 % [facility] Hemoglobin (Bld) [Mass/Vol] 13.8 g/dL 11.7 - 15.8 g/dL [facility] Immature granulocytes/100 WBC (Bld) 0.1 % [facility] Lymphocytes/100 WBC (Bld) 30.7 % [facility] MCH (RBC) [Entitic mass] 31.2 pg 27.5 - 32.3 pg [facility] MCHC (RBC) [Mass/Vol] 33.0 g/dL 30.7 - 35.5 g/dl [facility] MCV (RBC) [Entitic vol] 94.6 fL 80.2 - 99.0 fL [facility] Monocytes/100 WBC (Bld) 7.9 % [facility] Neutrophils (Bld) [#/Vol] 4.3 10*3/uL [facility] Neutrophils/100 WBC (Bld) 58.5 % [facility] Platelets (Bld) [#/Vol] 298.0 10*3/uL [facility] RBC (Bld) [#/Vol] 4.42 10*6/uL [facility] WBC LM Ql (Sput) 7.4 [facility] Comprehensive metabolic pane torsten 10-19-2021 Albumin [Mass/Vol] 4.3 g/dL 3.5 - 5.0 g/dL [facility] Alk Phos 114 U/L 24 - 126 U/L [facility] ALT [Catalytic activity/Vol] 144 U/L High 4 - 35 U/L [facility] AST [Catalytic activity/Vol] 70 U/L High 3 - 47 U/L [facility] Bilirubin [Mass/Vol] 0.6 mg/dL 0.2 - 1 .6 mg/dL [facility] Calcium [Mass/Vol] 9.2 mg/dL 8.4 - 10. 4 mg/dL [facility] Chloride [Moles/Vol] 108 mmol/L 96 - 10 9 mmol/L [facility] CO2 [Moles/Vol] 25 mmol/L 22 - 30 mmol/L [facility] Creatinine [Mass/Vol] 0.62 mg/dL 0.52 - 1.04 mg/dL [facility] Glucose [Mass/Vol] 79 mg/dL 65 - 100 mg/dL [facility] Potassium [Moles/Vol] 4.1 mmol/L 3.6 - 5.1 mmol/L [employer] Protein [Mass/Vol] 7.1 g/dL 6.3 - 8.2 g/dL [employer] [facility] Sodium [Moles/Vol] 141 mmol/L 135 - 147 mmol/L [facility] [employer] Urea nitrogen [Mass/Vol] 14 mg/dL 8 - 20 mg/dL [employer] GLOMERULAR FILTRATION RATEon 10-19-2021 GFR >60 [facility] [employer] Comment on above: To estimate the GFR [...] HIV 1+2 Ab Ql (S) Non-Reactive Nonreactive [facility] [employer] [facility] Comment on above: Nonreactive No detectable HIV-1p24 [...] 10-19-2021 HAV IgM Qn (S) Non-Reactive Nonreactive [facility] HCV Ab Qn (S) Reactive Abnormal Nonreactive [facility] Hep B Core-M AB Non-Reactive Nonreactive [facility] Hep B Surf AG Non-Reactive Nonreactive [facility] Interpretation and review of laboratory results Abnormal [facility] Lipid panelon 10-19-2021 Cholesterol [Mass/Vol] 144 mg/dL 0 - 200 mg/dL [facility] Comment on above: CHOLESTEROL REFERENC E RANGE Desirable <200 mg/dL Borderline 200-239 mg/dL High >240 mg/dL . Cholesterol in HDL [Mass/Vol] 68.9 mg/dL High 40.0 - 59.9 mg/dL [facility] Comment on above: Interpretive data fo r HDL Cholesterol states: HDL <40 mg/dL is low and constitutes a coronary disease risk factor. HDL >60 mg/dL is a negative risk factor for coronary heart disease. . Cholesterol in LDL [Mass/Vol] 65 mg/dL 0 - 100 mg/dL [facility] Comment on above: LDL REFERENCE RANGE Optimal <100 mg/dl Near Optimal 100-129 mg/dL Borderline High 130-159 mg/dL High 160-189 mg/dL Very High >=190 mg/dL . Cholesterol in VLDL [Mass/Vol] 10 mg/dL <42 [facility] Triglyceride [Mass/Vol] 50 mg/dL 0 - 150 mg/d L [facility] Comment on above: TRIGLYCERIDE REFEREN CE RANGE Normal <150 mg/dL Borderline High 150-199 mg/dL High 200-499 mg/dL Very High >=500 mg/dL . No Panel Informationon 10-19 [facility] Interpretation and review of laboratory results Abnormal [facility] nRBC 0 [facility] EMERGENCY DEPARTMENTon 05-11 [place] [address] HEALTH INFORMATION MANAGEMENT EMERGENCY DEPARTMENT : [id number] Signed Patient: YOLANDA MANRIQUEZ Acct:[id number] MRUN: [id number] : 2000 Sex: F Loc: ED ADM [...] Abuse: No Hx Suspected Abuse: No - [place]/Gender ID What is your current Gender Identity? Choose all that Apply: Female - [place]-Suicide Severity Rating Scale 1) Wish to be [...] - Expan (more content not included)... Normal [facility] CBC w/Auto Differentialon Basophils Abs. # 0.03 K/uL Normal 0.00-0.10 [facility] Comment on above: Performed By: #### C BCS #### [facility] [address] [place] [address] Basophils/100 WBC (Bld) 0.3 % Normal 0.2-1.0 [facility] Comment on above: Performed By: #### C BCS #### [facility] [address] [place] [address] Eosinophils (Bld) [#/Vol] 0.10 10*3/uL Normal 0.00-0.[address] [facility] Comment on above: Performed By: #### C BCS #### [facility] [address] [place] [address] Eosinophils/100 WBC (Bld) 1.6 % Normal 0.9-2.[address] [facility] Comment on above: Performed By: #### C BCS #### [facility] [address] [place] [address] Erythrocyte distribution width (RBC) [Ratio] 14.0 % Normal 11.5-14.[address] [facility] Comment on above: Performed By: #### C BCS #### [facility] [address] [place] [address] Hematocrit (Bld) [Volume fraction] 40.1 % Normal 33.4-46.[address] [facility] Comment on above: Performed By: #### C BCS #### [facility] [address] [place] [address] Hemoglobin (Bld) [Mass/Vol] 13.5 g/dL Normal 11.1-13.[address] [facility] Comment on above: Performed By: #### C BCS #### [facility] [address] [place] [address] Imm Grans % 0.20 % Normal 0.00-1.[address] [facility] Comment on above: Performed By: #### C BCS #### [facility] [address] [place] [address] Imm Grans Absolute # 0.02 K/uL Normal 0.00-0.10 [facility] Comment on above: Performed By: #### C BCS #### [facility] [address] [place] [address] Lymphocytes (Bld) [#/Vol] 2.00 10*3/uL Normal 1.30-2.[address] [facility] Comment on above: Performed By: #### C BCS #### [facility] [address] [place] [address] Lymphocytes/100 WBC (Bld) 23.0 % Normal 17.0-45.[address] [facility] Comment on above: Performed By: #### C BCS #### [facility] [address] [place] [address] MCH (RBC) [Entitic mass] 30.8 pg Normal 27.0-31.[address] [facility] Comment on above: Performed By: #### C BCS #### [facility] [address] [place] [address] MCHC (RBC) [Mass/Vol] 33.7 g/dL Normal 33.0-37.0 [facility] Comment on above: Performed By: #### C BCS #### [facility] [address] [place] [address] MCV (RBC) [Entitic vol] 91.3 fL Normal 81.0-99.0 [facility] Comment on above: Performed By: #### C BCS #### [facility] [place] [address] [place] [address] Monocytes (Bld) [#/Vol] 0.90 10*3/uL High 0.30-0.[address] [facility] Comment on above: Performed By: #### C BCS #### [facility] [place] [address] [place] [address] Monocytes/100 WBC (Bld) 10.3 % Normal 5.5-11.7 [facility] Comment on above: Performed By: #### C BCS #### [facility] [place] [address] [place] [address] Neutrophils Abs. # 5.69 K/uL High 2.20-4.80 [facility] Comment on above: Performed By: #### C BCS #### [facility] [place] [address] [place] [address] Neutrophils/100 WBC (Bld) 64.6 % Normal 43.0-65.[address] [facility] Comment on above: Performed By: #### C BCS #### [facility] [place] [address] [place] [address] Platelet mean volume (Bld) [Entitic vol] 9.1 fL Normal 7.4-10.[address] [facility] Comment on above: Performed By: #### C BCS #### [facility] [place] [address] [place] [address] Platelets (Bld) [#/Vol] 238 10*3/uL Normal 148-[address] [facility] Comment on above: Performed By: #### C BCS #### [facility] [place] [address] [place] [address] RBC (Bld) [#/Vol] 4.39 10*6/uL Normal 3.83-5.19 [facility] Comment on above: Performed By: #### C BCS #### [facility] [address] [place] [address] WBC (Bld) [#/Vol] 8.8 10*3/uL Normal 3.6-10.8 [facility] Comment on above: Performed By: #### C BCS #### [facility] [address] [place] [address] Comprehensive Metabolic Pane torsten 05-10-2021 Albumin [Mass/Vol] 4.0 g/dL Normal 3.4-5.0 [facility] Comment on above: Performed By: #### C MP #### [facility] [address] [place] [address] Albumin/Globulin [Mass ratio] 1.0 {ratio} Low 1.1-2.[address] [facility] Comment on above: Performed By: #### C MP #### [facility] [address] [place] [address] ALP [Catalytic activity/Vol] 123 U/L High 54-[address] [facility] Comment on above: Performed By: #### C MP #### [facility] [address] [place] [address] ALT [Catalytic activity/Vol] 242 U/L High 13-[address] [facility] Comment on above: Performed By: #### C MP #### [facility] [address] [place] [address] Anion gap [Moles/Vol] 10.3 mmol/L Normal 8.0-16.0 [facility] Comment on above: Performed By: #### C MP #### [facility] [place] [address] [facility] [place] [address] AST [Catalytic activity/Vol] 92 U/L High 3-[address] [facility] Comment on above: Performed By: #### C MP #### [facility] [place] [address] [facility] [place] [address] Bilirubin [Mass/Vol] 0.50 mg/dL Normal 0.00-0.99 [facility] Comment on above: Performed By: #### C MP #### [facility] [place] [address] [place] [address] Calcium [Mass/Vol] 8.3 mg/dL Normal 8.2-10.0 [facility] Comment on above: Performed By: #### C MP #### [facility] [place] [address] [place] [address] Chloride [Moles/Vol] 103 mmol/L Normal 94-110 [facility] Comment on above: Performed By: #### C MP #### [facility] [place] [address] [place] [address] CO2 [Moles/Vol] 27 mmol/L Normal 21-[address] [facility] Comment on above: Performed By: #### C MP #### [facility] [place] [address] [place] [address] Creatinine [Mass/Vol] 0.55 mg/dL Normal 0.51-0.95 [facility] Comment on above: Performed By: #### C MP #### [facility] [place] [address] [place] [address] EGFR Other Races >60 Normal >60 [facility] Comment on above: Performed By: #### C MP #### [facility] [place] [address] [place] [address] GFR/1.73 sq M.predicted among blacks MDRD (S/P/Bld) [Vol rate/Area] mL/min/{1.73_m2} Normal >[address] [facility] Comment on above: Result Comment: Pharmacy Data Analyst pacheco Kidney Disease less than 60 mL/min/1.73 m2 Kidney Failure less than 15 mL/min/1.73 m2 Average estimated GFR by age: 20-29 years 116 mL/min/1.73 m2 Performed By: #### C MP #### [facility] [address] [place] [address] Globulin (S) [Mass/Vol] 4.0 g/dL Normal 1.5-4.5 [facility] Comment on above: Performed By: #### C MP #### [facility] [address] [place] [address] Glucose [Mass/Vol] 86 mg/dL Normal 65-100 [facility] Comment on above: Performed By: #### C MP #### [facility] [place] [address] [place] [address] Potassium [Moles/Vol] 3.3 mmol/L Normal 3.3-5.1 [facility] Comment on above: Performed By: #### C MP #### [facility] [address] [place] [address] Protein [Mass/Vol] 8.0 g/dL Normal 6.1-8.2 [facility] Comment on above: Performed By: #### C MP #### [facility] [address] [place] [address] Sodium [Moles/Vol] 137 mmol/L Normal 132-145 [facility] Comment on above: Performed By: #### C MP #### [facility] [address] [place] [address] Urea nitrogen [Mass/Vol] 12.9 mg/dL Normal 3.2-26.[address] [facility] Comment on above: Performed By: #### C MP #### [facility] [address] [place] [address] Urea nitrogen/Creatinine [Mass ratio] 23 mg/mg High -[address] [facility] Comment on above: Performed By: #### C MP #### [facility] [address] [place] [address] Ethanol (Medical)on 05-10-19 22 Ethanol [Mass/Vol] mg/dL Normal 0.0-0.0 [facility] Comment on above: Performed By: #### A LC #### [facility] [address] [place] [address] Urine Drug Screeningon 05-10 - - [facility] Comment on above: Order Comment: Drug Screen Comment ENROLLMENT PROCESSOR Result Comment: . Drug Screen Comment: This assay provides a preliminary unconfirmed analytical test result that may be suitable for the clinical management of patients in certain situations. Some [id number]-[id number] medications, as well as adulterants, may cause inaccurate results. Screen only testing does not meet the [facility] Forensic Urine Drug Testing Program requirements as a forensic urine drug test for workplace testing. . Performed By: #### C BCS #### [facility] [address] [place] [address] Amphetamines Positive [facility] Comment on above: Order Comment: Drug Screen Comment ENROLLMENT PROCESSOR Result Comment: cuto ff 1000 ng/mL Performed By: #### C BCS #### [facility] [address] [place] [address] Barbiturates Negative [facility] Comment on above: Order Comment: Drug Screen Comment ENROLLMENT PROCESSOR Result Comment: cuto ff 200 ng/mL Performed By: #### C BCS #### [facility] [place] [address] [place] [address] Benzodiazepines Negative Normal [facility] Comment on above: Order Comment: Drug Screen Comment ENROLLMENT PROCESSOR Result Comment: cuto ff 200 ng/mL Performed By: #### C BCS #### [facility] [place] [address] [place] [address] Cocaine Negative [facility] Comment on above: Order Comment: Drug Screen Comment ENROLLMENT PROCESSOR Result Comment: cuto ff 300 ng/mL Performed By: #### C BCS #### [facility] [place] [address] [place] [address] Opiates Negative [facility] Comment on above: Order Comment: Drug Screen Comment ENROLLMENT PROCESSOR Result Comment: cuto ff 300 ng/mL Performed By: #### C BCS #### [facility] [place] [address] [place] [address] pH (U) 5.0 [pH] Normal 5.0-8.[address] [facility] Comment on above: Order Comment: Drug Screen Comment ENROLLMENT PROCESSOR Performed By: #### C BCS #### [facility] [place] [address] [place] [address] Phencyclidine Negative [facility] Comment on above: Order Comment: Drug Screen Comment ENROLLMENT PROCESSOR Result Comment: cuto ff 25 ng/mL Performed By: #### C BCS #### [facility] [place] [address] [place] [address] Specific gravity (U) [Rel density] 1.030 High 1.015-1.[address] [facility] Comment on above: Order Comment: Drug Screen Comment ENROLLMENT PROCESSOR Performed By: #### C BCS #### [facility] [place] [address] [place] [address] THC Negative [facility] Comment on above: Order Comment: Drug Screen Comment ENROLLMENT PROCESSOR Result Comment: cuto ff 50 ng/mL Performed By: #### C BCS #### [facility] [address] [place], [place] [id number] SARS-COV-2 Rapid Molecular T eston 12-20-2020 SARS-CoV-2 (COVID-19) RNA LILLIAN+probe Ql (Unsp spec) Negative NEGATIVE [facility] Comment on above: Negative results asher uld [...] the authorization is terminated or revoked sooner. [facility] CBC w/Auto Differentialon Basophils Abs. # 0.03 K/uL Normal 0.00-0.10 [facility] Comment on above: Performed By: #### C BCS #### [facility] [place] [address] [place], [place] [id number] [phone] Basophils/100 WBC (Bld) 0.3 % Normal 0.2-1.0 [facility] Comment on above: Performed By: #### C BCS #### [facility] [address] [place], [place] [id number] [phone] Eosinophils (Bld) [#/Vol] 0.10 10*3/uL Normal 0.00-0.[address] [facility] Comment on above: Performed By: #### C BCS #### [facility] [address] [place] [address] Eosinophils/100 WBC (Bld) 1.1 % Normal 0.9-2.[address] [facility] Comment on above: Performed By: #### C BCS #### [facility] [address] [place] [address] Erythrocyte distribution width (RBC) [Ratio] 12.9 % Normal 11.5-14.[address] [facility] Comment on above: Performed By: #### C BCS #### [facility] [address] [place] [address] Hematocrit (Bld) [Volume fraction] 40.9 % Normal 33.4-46.[address] [facility] Comment on above: Performed By: #### C BCS #### [facility] [address] [place] [address] Hemoglobin (Bld) [Mass/Vol] 13.6 g/dL Normal 11.1-13.[address] [facility] Comment on above: Performed By: #### C BCS #### [facility] [address] [place] [address] Imm Grans % 0.10 % Normal 0.00-1.[address] [facility] Comment on above: Performed By: #### C BCS #### [facility] [address] [place] [address] Imm Grans Absolute # 0.01 K/uL Normal 0.00-0.10 [facility] Comment on above: Performed By: #### C BCS #### [facility] [address] [place] [address] Lymphocytes (Bld) [#/Vol] 2.00 10*3/uL Normal 1.30-2.[address] [facility] Comment on above: Performed By: #### C BCS #### [facility] [address] [place] [address] Lymphocytes/100 WBC (Bld) 20.3 % Normal 17.0-45.[address] [facility] Comment on above: Performed By: #### C BCS #### [facility] [address] [place] [address] MCH (RBC) [Entitic mass] 30.4 pg Normal 27.0-31.[address] [facility] Comment on above: Performed By: #### C BCS #### [facility] [address] [place] [address] MCHC (RBC) [Mass/Vol] 33.3 g/dL Normal 33.0-37.0 [facility] Comment on above: Performed By: #### C BCS #### [facility] [address] [place] [address] MCV (RBC) [Entitic vol] 91.3 fL Normal 81.0-99.0 [facility] Comment on above: Performed By: #### C BCS #### [facility] [address] [place] [address] Monocytes (Bld) [#/Vol] 1.10 10*3/uL High 0.30-0.[address] [facility] Comment on above: Performed By: #### C BCS #### [facility] [address] [place] [address] Monocytes/100 WBC (Bld) 10.8 % Normal 5.5-11.7 [facility] Comment on above: Performed By: #### C BCS #### [facility] [address] [place] [address] Neutrophils Abs. # 6.61 K/uL High 2.20-4.80 [facility] Comment on above: Performed By: #### C BCS #### [facility] [address] [place] [address] Neutrophils/100 WBC (Bld) 67.4 % High 43.0-65.[address] [facility] Comment on above: Performed By: #### C BCS #### [facility] [address] [place] [address] Platelet mean volume (Bld) [Entitic vol] 9.3 fL Normal 7.4-10.[address] [facility] Comment on above: Performed By: #### C BCS #### [facility] [address] [place] [address] Platelets (Bld) [#/Vol] 368 10*3/uL Normal 148-[address] [facility] Comment on above: Performed By: #### C BCS #### [facility] [address] [place] [address] RBC (Bld) [#/Vol] 4.48 10*6/uL Normal 3.83-5.19 [facility] Comment on above: Performed By: #### C BCS #### [facility] [address] [place] [address] WBC (Bld) [#/Vol] 9.8 10*3/uL Normal 3.6-10.8 [facility] Comment on above: Performed By: #### C BCS #### [facility] [address] [place] [address] CT ABD/PELVIS Won 11-05-2020 CT ABD/PELVIS W [...] The appendix is not definitely visualized. Normal [facility] 11-05-2020 EVAN Patient: YOLANDA MANRIQUEZ [id number] Location: [facility] Aount: [id number] : 2000 Age: 20 Sex F Lab NumbEr [id number] Requested by: JOSE MANUEL ALMODOVAR Admitdate: 11/05/20 [...] Trimeth/Sulfa <2/38 S S=Sensitive I=Intermediate R=Resistant Normal [facility] Comment on above: Performed By: #### C BCS #### [address] [address] Comprehensive Metabolic Pane torsten 11-05-2020 Albumin [Mass/Vol] 3.8 g/dL Normal 3.4-5.0 [facility] Comment on above: Performed By: #### C BCS #### [address] [address] Albumin/Globulin [Mass ratio] 0.8 {ratio} Low 1.1-2.[address] [facility] Comment on above: Result Comment: CO RRECTED REPORT: Previous result was 0.7 at 09:38 on 11/05/20 Performed By: #### C BCS #### [address] [place] [address] ALP [Catalytic activity/Vol] 211 U/L High 54-[address] [facility] Comment on above: Performed By: #### C BCS #### [facility] [place] [address] [facility] [place] [address] ALT [Catalytic activity/Vol] 188 U/L High 13-[address] [facility] Comment on above: Performed By: #### C BCS #### [facility] [place] [address] [facility] [place] [address] Anion gap [Moles/Vol] 14.5 mmol/L Normal 8.0-16.0 [facility] Comment on above: Performed By: #### C BCS #### [facility] [place] [address] [facility] [place] [address] AST [Catalytic activity/Vol] 92 U/L High 3-[address] [facility] Comment on above: Performed By: #### C BCS #### [facility] [place] [address] [facility] [place] [address] Bilirubin [Mass/Vol] 0.60 mg/dL Normal 0.00-0.99 [facility] Comment on above: Performed By: #### C BCS #### [facility] [place] [address] [facility] [place] [address] Calcium [Mass/Vol] 9.4 mg/dL Normal 8.2-10.0 [facility] Comment on above: Performed By: #### C BCS #### [facility] [place] [address] [facility] [place] [address] Chloride [Moles/Vol] 102 mmol/L Normal 94-110 [facility] Comment on above: Performed By: #### C BCS #### [facility] [place] [address] [facility] [place] [address] CO2 [Moles/Vol] 28 mmol/L Normal 21-[address] [facility] Comment on above: Performed By: #### C BCS #### [facility] [address] [place] [address] Creatinine [Mass/Vol] 0.71 mg/dL Normal 0.51-0.95 [facility] Comment on above: Performed By: #### C BCS #### [facility] [address] [place] [address] EGFR Other Races >60 Normal >60 [facility] Comment on above: Performed By: #### C BCS #### [facility] [address] [place] [address] GFR/1.73 sq M.predicted among blacks MDRD (S/P/Bld) [Vol rate/Area] mL/min/{1.73_m2} Normal >[address] [facility] Comment on above: Result Comment: Pharmacy Data Analyst pacheco Kidney Disease less than 60 mL/min/1.73 m2 Kidney Failure less than 15 mL/min/1.73 m2 Average estimated GFR by age: 20-29 years 116 mL/min/1.73 m2 Performed By: #### C BCS #### [facility] [address] [place] [address] Globulin (S) [Mass/Vol] 5.0 g/dL High 1.5-4.5 [facility] Comment on above: Result Comment: CO RRECTED REPORT: Previous result was 5.1 at 09:38 on 11/05/20 Performed By: #### C BCS #### [facility] [address] [place] [address] Glucose [Mass/Vol] 82 mg/dL Normal 65-100 [facility] Comment on above: Performed By: #### C BCS #### [facility] [address] [place] [address] Potassium [Moles/Vol] 3.5 mmol/L Normal 3.3-5.1 [facility] Comment on above: Performed By: #### C BCS #### [facility] [address] [place] [address] Protein [Mass/Vol] 8.8 g/dL High 6.1-8.2 [facility] Comment on above: Performed By: #### C BCS #### [facility] [address] [place] [address] Sodium [Moles/Vol] 141 mmol/L Normal 132-145 [facility] Comment on above: Performed By: #### C BCS #### [facility] [address] [place] [address] Urea nitrogen [Mass/Vol] 9.9 mg/dL Normal 3.2-26.[address] [facility] Comment on above: Performed By: #### C BCS #### [facility] [address] [place] [address] Urea nitrogen/Creatinine [Mass ratio] 14 mg/mg Normal 6-[address] [facility] Comment on above: Performed By: #### C BCS #### [facility] [address] [place] [address] EMERGENCY DEPARTMENTon 11-05 EMERGENCY DEPARTMENT [facility] [address] [place] [address] HEALTH INFORMATION MANAGEMENT EMERGENCY DEPARTMENT : Signed Patient: YOLANDA MANRIQUEZ Acct:[id number] MRUN: [id number] : 2000 Sex: F Loc: ED ADM [...] Yes Kelbyi (more content not included)... Normal [facility] Hepatitis Panel (4)on 2020 HBsAg Confirmation ENROLLMENT PROCESSOR Normal [facility] Comment on above: Performed By: #### C BCS #### [facility] [address] [place] [address] HBsAg Screen Negative Normal Negative [facility] Comment on above: Performed By: #### C BCS #### [facility] [address] [place] [address] Hep A Ab, IgM Negative Normal Negative [facility] Comment on above: Performed By: #### C BCS #### [facility] [address] [place] [address] Hep B Core Ab, IgM Negative Normal Negative [facility] Comment on above: Performed By: #### C BCS #### [facility] [address] [place] [address] Hep C Virus Ab >11.0 High 0.0-0.[address] [facility] Comment on above: Result Comment: Nega tive: < 0.8 Indeterminate: 0.8 - 0.9 Positive: > 0.9 The CDC recommends that a positive HCV antibody result be followed up with a HCV Nucleic Acid Amplification test (755916). Performed at: [facility] [address] [place], [place] [id number] Telephonic Case Manager: Kody Nobles PhD, Phone: [phone] Performed By: #### C BCS #### [facility] [address] [place], [place] [id number] Lipaseon 11-05-2020 Lipase [Catalytic activity/Vol] 78 U/L Normal 65-[address] [facility] Comment on above: Performed By: #### L IPAS #### [facility] [place] [address] [place] [address] (Urine)on 11-06-19 21 HCG ( test) Ql (U) Negative Normal Negative [facility] Comment on above: Performed By: #### P REGU #### [facility] [place] [address] [place] [address] UA w/Micrscopic-reflex cultu reon 11-05-2020 Appearance (U) sl.cloudy Normal Clear [facility] Comment on above: Performed By: #### U AMRC #### [facility] [place] [address] [facility] [place] [address] Bacteria 1+ /hpf Normal 0 - 1+ [facility] Comment on above: Performed By: #### U AMRC #### [facility] [place] [address] [facility] [place] [address] Bilirubin Ql (U) Negative Normal Negative [facility] Comment on above: Performed By: #### U AMRC #### [facility] [place] [address] [place] [address] Casts ENROLLMENT PROCESSOR Normal [facility] Comment on above: Performed By: #### U AMRC #### [facility] [place] [address] [place] [address] Casts. ENROLLMENT PROCESSOR Normal [facility] Comment on above: Performed By: #### U AMRC #### [facility] [place] [address] [place] [address] Color (U) yellow Normal Yellow [facility] Comment on above: Performed By: #### U AMRC #### [facility] [place] [address] [place] [address] Crystals LM Nom (Urine sed) Rare Amorphous Normal [facility] Comment on above: Performed By: #### U AMRC #### [facility] [place] [address] [facility] [place] [address] Crystals. ENROLLMENT PROCESSOR Normal [facility] Comment on above: Performed By: #### U AMRC #### [facility] [place] [address] [facility] [place] [address] Epithelial cells LM Ql (Urine sed) 7-15 Normal 0 - [address] [facility] Comment on above: Performed By: #### U AMRC #### [facility] [place] [address] [facility] [place] [address] Glucose Ql (U) NORMAL Normal Negative [facility] Comment on above: Performed By: #### U AMRC #### [facility] [place] [address] [facility] [place] [address] Hemoglobin Ql (U) 50 Abnormal Negative [facility] Comment on above: Performed By: #### U AMRC #### [facility] [place] [address] [facility] [place] [address] Ketones Ql (U) Negative Normal Negative [facility] Comment on above: Performed By: #### U AMRC #### [facility] [place] [address] [facility] [place] [address] Leukocytes Esterase Negative Normal Negative [facility] Comment on above: Performed By: #### U AMRC #### [facility] [place] [address] [facility] [place] [address] Mucus Ql (Urine sed) ENROLLMENT PROCESSOR Normal [facility] Comment on above: Performed By: #### U AMRC #### [facility] [place] [address] [facility] [place] [address] Nitrite Ql (U) Positive Abnormal Negative [facility] Comment on above: Performed By: #### U AMRC #### [facility] [place] [address] [facility] [place] [address] pH (U) 5 [pH] Normal [facility] Comment on above: Performed By: #### U AMRC #### [facility] [place] [address] [facility] [place] [address] Protein Ql (U) Negative Normal Negative [facility] Comment on above: Performed By: #### U AMRC #### [facility] [place] [address] [facility] [place] [address] RBC 2-5 Normal 0 - [address] [facility] Comment on above: Performed By: #### U AMRC #### [facility] [address] [facility] [place] [address] Specific gravity (U) [Rel density] 1.020 Normal 1.015-1.[address] [facility] Comment on above: Performed By: #### U AMRC #### [facility] [place] [address] [facility] [place] [address] Trichomonas ENROLLMENT PROCESSOR Normal [facility] Comment on above: Performed By: #### U AMRC #### [facility] [place] [address] [facility] [place] [address] Urobilinogen NORMAL Normal Normal-1.[address] [facility] Comment on above: Performed By: #### U AMRC #### [facility] [place] [address] [facility] [place] [address] WBC 2-5 Normal 0 - [address] [facility] Comment on above: Performed By: #### U AMRC #### [facility] [place] [address] [facility] [place] [address] Yeast ENROLLMENT PROCESSOR Normal [facility] Comment on above: Performed By: #### U [facility] #### [facility] [address] [place] [address] Other ENROLLMENT PROCESSOR Normal [facility] Comment on above: Performed By: #### U [facility] #### [address] [address] US GALLBLADDERon 11-05-2020 US GALLBLADDER EXAMINATION: RIGHT [...] IMPRESSION: Unremarkable right upper quadrant ultrasound. Normal [facility] EMERGENCY DEPARTMENTon 10-23 EMERGENCY DEPARTMENT [place] [id number] HEALTH INFORMATION MANAGEMENT EMERGENCY DEPARTMENT : Signed Patient: YOLANDA MANRIQUEZ Acct:[id number] MRUN: [id number] : 2000 Sex: F Loc: ED ADM [...] down her left leg. She has tried [id number] medications with no relief. Patient denies any [...] Highest Educati (more content not included)... Normal [facility] EVAN Patient: YOLANDA MANRIQUEZ MRUN [id number] Location: [facility] Aount: [id number] : 2000 Age: 20 Sex F Lab NumbEr [id number] Requested by: JUAN DIEGO GOFF Admitdate: 10/22/20 Source: UR Collected: 10/22/20 09:24 Site: Received : 10/22/20 10:31 Culture, Urine FINAL 10/24/20 08:13 10/24/20 MULTIPLE SPECIES PRESENT PROBABLE CONTAMINATION--SUGJOYCE ST NEW SPECIMEN Organism 01 MULTIPLE SPECIES PRESENT PROBABLE CONTAMINATION--[facility] SPECIMEN Normal [facility] Comment on above: Performed By: #### M IC2 #### [facility] [address] [address] EMERGENCY DEPARTMENTon 10-22 EMERGENCY DEPARTMENT [address] [address] HEALTH INFORMATION MANAGEMENT EMERGENCY DEPARTMENT : Signed Patient: YOLANDA MANRIQUEZ Acct:[id number] MRUN: [id number] : 2000 Sex: F Loc: ED ADM [...] Abuse: No Hx Suspected Abuse: No - [place]/Gender ID What is your current Gender Identity? Choose all that Apply: Female - [place]-Suicide Severity Rating Scale 1) Wish to be [...] Exam Aubrey (more content not included)... Normal [facility] LUMBAR 2 OR 3 Von 10-22-2020 LUMBAR [...] lumbar spine radiographs are otherwise unremarkable. Normal [facility] (Urine)on 10-23-19 HCG ( test) Ql (U) Negative Normal Negative [facility] Comment on above: Performed By: #### C BCS #### [facility] [address] [place] [address] UA w/Micrscopic-reflex cultu reon 10-22-2020 Appearance (U) sl.cloudy Normal Clear [facility] Comment on above: Performed By: #### U AMRC #### [facility] [address] [place] [address] Bacteria 1+ /hpf Normal 0 - 1+ [facility] Comment on above: Performed By: #### U AMRC #### [facility] [place] [address] [place] [address] Bilirubin Ql (U) Negative Normal Negative [facility] Comment on above: Performed By: #### U AMRC #### [facility] [place] [address] [place] [address] Casts ENROLLMENT PROCESSOR Normal [facility] Comment on above: Performed By: #### U AMRC #### [facility] [place] [address] [place] [address] Casts. ENROLLMENT PROCESSOR Normal [facility] Comment on above: Performed By: #### U AMRC #### [facility] [place] [address] [place] [address] Color (U) renetta Normal Yellow [facility] Comment on above: Performed By: #### U AMRC #### [facility] [place] [address] [place] [address] Crystals LM Nom (Urine sed) ENROLLMENT PROCESSOR Normal [facility] Comment on above: Performed By: #### U AMRC #### [facility] [place] [address] [place] [address] Crystals. ENROLLMENT PROCESSOR Normal [facility] Comment on above: Performed By: #### U AMRC #### [facility] [place] [address] [place] [address] Epithelial cells LM Ql (Urine sed) 7-15 Normal 0 - [address] [facility] Comment on above: Performed By: #### U AMRC #### [facility] [place] [address] [place] [address] Glucose Ql (U) NORMAL Normal Negative [facility] Comment on above: Performed By: #### U AMRC #### [facility] [place] [address] [place] [address] Hemoglobin Ql (U) Negative Normal Negative [facility] Comment on above: Performed By: #### U AMRC #### [facility] [place] [address] [place] [address] Ketones Ql (U) Negative Normal Negative [facility] Comment on above: Performed By: #### U AMRC #### [facility] [place] [address] [facility] [place] [address] Leukocytes Esterase TRACE Abnormal Negative [facility] Comment on above: Performed By: #### U AMRC #### [facility] [place] [address] [facility] [place] [address] Mucus Ql (Urine sed) ENROLLMENT PROCESSOR Normal [facility] Comment on above: Performed By: #### U AMRC #### [facility] [place] [address] [facility] [place] [address] Nitrite Ql (U) Negative Normal Negative [facility] Comment on above: Performed By: #### U AMRC #### [facility] [place] [address] [facility] [place] [address] pH (U) 5 [pH] Normal [facility] Comment on above: Performed By: #### U AMRC #### [facility] [place] [address] [facility] [place] [address] Protein Ql (U) Negative Normal Negative [facility] Comment on above: Performed By: #### U AMRC #### [facility] [place] [address] [place] [address] RBC 2-5 Normal 0 - [address] [facility] Comment on above: Performed By: #### U AMRC #### [facility] [address] [place] [address] Specific gravity (U) [Rel density] 1.025 Normal 1.015-1.[address] [facility] Comment on above: Performed By: #### U AMRC #### [facility] [address] [place] [address] Trichomonas ENROLLMENT PROCESSOR Normal [facility] Comment on above: Performed By: #### U AMRC #### [facility] [address] [place] [address] Urobilinogen (U) [Mass/Vol] 1 mg/dL Normal Normal-1.[address] [facility] Comment on above: Performed By: #### U AMRC #### [facility] [address] [place] [address] WBC 5-10 Normal 0 - [address] [facility] Comment on above: Performed By: #### U AMRC #### [facility] [address] [place] [address] Yeast ENROLLMENT PROCESSOR Normal [facility] Comment on above: Performed By: #### U AMRC #### [facility] [address] [place] [address] Other ENROLLMENT PROCESSOR Normal [facility] Comment on above: Performed By: #### U AMRC #### [facility] [address] [place] [address] Creatinine, serumon 10-30-19 Creatinine [Mass/Vol] 0.69 mg/dL 0.40 - 1.10 [facility] GFR/1.73 sq M predicted among non-blacks MDRD (S/P/Bld) [Vol rate/Area] The eGFR should be used for monitoring renal function only and not for medication dosing. [facility] GFR/1.73 sq M.predicted CKD-EPI (S/P/Bld) [Vol rate/Area] 125 >=60 mL/min/1.73 m2 [facility] Interpretation and review of laboratory results Normal [facility] Basic Metabolic Panelon Anion gap [Moles/Vol] 12 mmol/L 10 - 20 mmol/L [facility] Calcium [Mass/Vol] 8.2 mg/dL Low 8.4 - 10. 2 mg/dL [facility] Chloride [Moles/Vol] 109 mmol/L High 98 - 10 8 mmol/L [facility] Creatinine [Mass/Vol] 0.70 mg/dL 0.40 - 1.10 [facility] GFR/1.73 sq M predicted among non-blacks MDRD (S/P/Bld) [Vol rate/Area] The eGFR should be used for monitoring renal function only and not for medication dosing. [facility] GFR/1.73 sq M.predicted CKD-EPI (S/P/Bld) [Vol rate/Area] 124 >=60 mL/min/1.73 m2 [facility] Glucose [Mass/Vol] 101 mg/dL High 65 - 99 mg/dL [facility] HCO3 [Moles/Vol] 21 mmol/L 21 - 32 mmol/L [facility] Interpretation and review of laboratory results Abnormal [facility] Potassium [Moles/Vol] 4.2 mmol/L 3.5 - 5.1 mmol/L [facility] Sodium [Moles/Vol] 138 mmol/L 135 - 145 mmol/L [facility] Urea nitrogen [Mass/Vol] 10 mg/dL 8 - 25 mg/dL [facility] Urea nitrogen/Creatinine [Mass ratio] 14.3 mg/mg [facility] CBCon 10-29-2019 Erythrocyte distribution width (RBC) [Entitic vol] 12.9 % 11.6 - 14.8 % [facility] Hematocrit (Bld) [Volume fraction] 36.7 % 36 - 46 % [facility] Hemoglobin (Bld) [Mass/Vol] 12.0 g/dL 12 - 16 g/dL [facility] Interpretation and review of laboratory results Abnormal [facility] MCH (RBC) [Entitic mass] 30.8 pg 26 - 34 pg [facility] MCHC (RBC) [Mass/Vol] 32.7 g/dL 31 - 37 g/dL [facility] MCV (RBC) [Entitic vol] 94.3 fL 80 - 100 fL [facility] Nucleated RBC (Bld) [#/Vol] 0.00 10*3/uL [facility] Nucleated RBC/100 WBC (Bld) [Ratio] 0.0 % [facility] Platelet mean volume (Bld) [Entitic vol] 10.0 fL 9.4 - 12.4 fL [facility] Platelets (Bld) [#/Vol] 178 10*3/uL [facility] RBC (Bld) [#/Vol] 3.89 10*6/uL Low [facility] WBC (Bld) [#/Vol] 8.39 10*3/uL [facility] CBCon 10-28-2019 Erythrocyte distribution width (RBC) [Entitic vol] 12.8 % 11.6 - 14.8 % [facility] Hematocrit (Bld) [Volume fraction] 38.8 % 36 - 46 % [facility] Hemoglobin (Bld) [Mass/Vol] 12.7 g/dL 12 - 16 g/dL [facility] Interpretation and review of laboratory results Abnormal [facility] MCH (RBC) [Entitic mass] 30.8 pg 26 - 34 pg [facility] MCHC (RBC) [Mass/Vol] 32.7 g/dL 31 - 37 g/dL [facility] MCV (RBC) [Entitic vol] 93.9 fL 80 - 100 fL [facility] Nucleated RBC (Bld) [#/Vol] 0.00 10*3/uL [facility] Nucleated RBC/100 WBC (Bld) [Ratio] 0.0 % [facility] Platelet mean volume (Bld) [Entitic vol] 9.8 fL 9.4 - 12.4 fL [facility] Platelets (Bld) [#/Vol] 186 10*3/uL [facility] RBC (Bld) [#/Vol] 4.13 10*6/uL [facility] WBC (Bld) [#/Vol] 12.67 10*3/uL [facility] COVID-19, Molecularon 2019 Interpretation and review of laboratory results Normal [facility] SARS-CoV-2 Not Detected Not Detected [facility] Comment on above: This test was perfor med under the FDA's Emergency Use Authorization (EUA). Testing was performed using the [employer] ID NOW COVID-19 assay on the ID NOW platform. This test has not been approved for use in asymptomatic patients and its performance in this patient population has not been evaluated. Negative results do not rule out the presence of SARS-CoV-2/COVID-19. Fact sheets for the EUA can be found at the following links: For Healthcare Providers: https://www.fda.gov/media/922897/download For Patients: https://www.fda.gov/media/872768/download Comprehensive Metabolic Pane torsten 10-28-2019 Albumin [Mass/Vol] 3.4 g/dL 3.2 - 5.2 g/dL [facility] ALP [Catalytic activity/Vol] 93 U/L 40 - 140 U/L [facility] ALT [Catalytic activity/Vol] 37 U/L 0 - 40 U/L [facility] Anion gap [Moles/Vol] 17 mmol/L 10 - 20 mmol/L [facility] AST [Catalytic activity/Vol] 36 U/L 0 - 45 U/L [facility] Bilirubin [Mass/Vol] 0.7 mg/dL 0 - 1.3 mg/dL [facility] Calcium [Mass/Vol] 8.3 mg/dL Low 8.4 - 10. 2 mg/dL [facility] Chloride [Moles/Vol] 107 mmol/L 98 - 10 8 mmol/L [facility] Creatinine [Mass/Vol] 0.68 mg/dL 0.40 - 1.10 [facility] GFR/1.73 sq M predicted among non-blacks MDRD (S/P/Bld) [Vol rate/Area] The eGFR should be used for monitoring renal function only and not for medication dosing. [facility] GFR/1.73 sq M.predicted CKD-EPI (S/P/Bld) [Vol rate/Area] 125 >=60 mL/min/1.73 m2 [facility] Glucose [Mass/Vol] 97 mg/dL 65 - 99 mg/dL [facility] HCO3 [Moles/Vol] 19 mmol/L Low 21 - 32 mmol/L [facility] Interpretation and review of laboratory results Abnormal [facility] Potassium [Moles/Vol] 4.1 mmol/L 3.5 - 5.1 mmol/L [facility] Protein [Mass/Vol] 6.1 g/dL 6 - 8 g/dL [facility] Sodium [Moles/Vol] 139 mmol/L 135 - 145 mmol/L [facility] Urea nitrogen [Mass/Vol] 7 mg/dL Low 8 - 25 mg/dL [facility] Urea nitrogen/Creatinine [Mass ratio] 10.3 mg/mg [facility] DRUGS OF ABUSE SCREEN, URINE on 10-28-2019 Amphetamines Ql (U) Positive Abnormal None Detected [facility] Comment on above: Urine Amphetamine Cu toff: < 1000 ng/mL = None Detected Barbiturates Screen Ql (U) None Detected None Detected [facility] Comment on above: Urine Barbiturates C utoff: < 200 ng/mL = None Detected Benzodiazepines Ql (U) None Detected None Detec vance [facility] Comment on above: Urine Benzodiazepine Cutoff: < 200 ng/mL = None Detected Buprenorphine Ql (U) None Detected None Detecte d [facility] Comment on above: Urine Buprenorphine Cutoff: < 5 ng/mL = None Detected Cannabinoids Screen Ql (U) None Detected None Detected [facility] Comment on above: Urine Cannabinoids C utoff: < 50 ng/mL = None Detected Cocaine Ql (U) None Detected None Detected [facility] Comment on above: Urine Cocaine Cutoff : < 300 ng/mL = None Detected Fentanyl+Norfentanyl Screen Ql (U) None Detected None Detected [facility] Comment on above: Urine Fentanyl Cutof f: < 1 ng/mL = None Detected Interpretation and review of laboratory results Abnormal [facility] Methadone Screen Ql (U) None Detected None Dete cted [facility] Comment on above: Urine Methadone Cuto ff: < 300 ng/mL = None Detected Opiates Screen Ql (U) None Detected None Detect ed [facility] Comment on above: Urine Opiates Cutoff : < 300 ng/mL = None Detected Oxycodone Ql (U) None Detected None Detected [facility] Comment on above: Urine Oxycodone Cuto ff: < 100 ng/mL = None Detected Screen results should be used for treatment purposes only. Specimen will be kept for 2 weeks, if the sample is adequate. Confirmation testing can be initiated by calling the lab within 2 weeks. [facility] URINALYSISon 10-28-2019 Bacteria Auto Ql (U) Few Abnormal None Seen /hpf [facility] Bilirubin Ql (U) Negative Negative [facility] th Clarity Refractometry automated (U) Hazy Abnormal Clear [facility] Color (U) Yellow Colorless, Yellow [facility] Epithelial cells.squamous Auto (Urine sed) [#/Area] 4 [facility] Glucose Auto test strip (U) [Mass/Vol] Negative Negative mg/dL [facility] Hemoglobin Auto test strip Ql (U) Negative Negative [facility] Interpretation and review of laboratory results Abnormal [facility] Ketones (U) [Mass/Vol] Trace Abnormal Negative mg/d L [facility] Leukocyte esterase Auto test strip Ql (U) Small Abnormal Negative [facility] Mucus Auto (Urine sed) [#/Area] Rare None Seen, Rare /lpf [facility] Nitrite Auto test strip Ql (U) Negative Negative [facility] pH (U) 5.0 [pH] [facility] Protein (U) [Mass/Vol] Negative Negative mg/d L [facility] RBC Auto (Urine sed) [#/Area] 5 High [facility] Specific gravity (U) [Rel density] 1.018 [facility] Urobilinogen (U) [Mass/Vol] <2.0 <2.0 mg/dL [facility] WBC Auto (Urine sed) [#/Area] 26 High [facility] Microscopic examination is performed on all urinalysis samples and only positive findings are reported. The test for blood on the chemical analytic portion of urinalysis may also be positive due to hemoglobinuria and myoglobinuria and if red blood cells are present they are quantified by microscopic examination. [facility] XR CHEST PA/APon 10-28-2019 XR CHEST PA/AP [...] on ThuOct 28, 2019 12:33:24 PM EDT [facility] Comment on above: Order Comment: Injur [...] No acute cardiopulmonary process. Workstation ID: [id number] [facility] 1. No acute cardiopulmonary process. Workstation ID: [id number] [facility] EXAMINATION: XR CHEST PA/AP 10/28/2019 5:16 am [...] fracture or visible bone lesion. OTHER: Negative. [facility] hCG, Blood, Quantitativeon 0 10-28-2019 Beta HCG ( test) Ql (U) Males and non females: <5 mIU/mL Females during : 3-4 weeks 9-130 mIU/mL 4-5 weeks 75-2600 mIU/mL 5-6 weeks 850-20,800 mIU/mL 6-7 weeks 4000-100,200 mIU/mL 7-12 weeks 11,500-289,000 mIU/mL 12-16 weeks 18,300-137,000 mIU/mL 16-29 weeks 1,400-53,000 mIU/mL 29-41 weeks 940-60,000 mIU/mL [facility] HCG Qn m[IU]/mL [facility] Interpretation and review of laboratory results Normal [facility] Vital Signs Date Time Vital Sign Value Performing Clinician Facility 10-21-2024 19:55-0400 Body height 152.4 cm Khris Irvingphong XIONG ENROLLMENT PROCESSOR Work Phone: [facility] 10-21-2024 19:55-0400 Body mass index (BMI) [Ratio] 21.48 kg/m2 Khris Irvingphong XIONG ENROLLMENT PROCESSOR Work Phone: [facility] 10-21-2024 19:55-0400 Body temperature 97.81 [degF] Khris Irving APRN ENROLLMENT PROCESSOR Work Phone: [facility] [employer] [facility] 10-21-2024 19:55-0400 Body weight 49.9 kg Khris Irvingphong XIONG ENROLLMENT PROCESSOR Work Phone: [facility] 10-21-2024 19:55-0400 Diastolic blood pressure 83 mm[Hg] Khris Irving APRN ENROLLMENT PROCESSOR Work Phone: [facility] [employer] [facility] 10-21-2024 19:55-0400 Heart rate 93 /min Khris Irvingphong XIONG ENROLLMENT PROCESSOR Work Phone: [facility] [employer] [facility] 10-21-2024 19:55-0400 Respiratory rate 16 /min Khris Irving APRN ENROLLMENT PROCESSOR Work Phone: [facility] 10-21-2024 19:55-0400 SaO2% (BldA) [Mass fraction] 99 % Khris Irving APRN ENROLLMENT PROCESSOR Work Phone: [facility] 10-21-2024 19:55-0400 Systolic blood pressure 131 mm[Hg] Khris Irving APRN ENROLLMENT PROCESSOR Work Phone: [employer] [facility] 04-30-2024 13:51-0500 Body temperature 98.29 [degF] Khris Irving APRN ENROLLMENT PROCESSOR Work Phone: [facility] 04-30-2024 13:51-0500 Diastolic blood pressure 80 mm[Hg] Khris Irving APRN ENROLLMENT PROCESSOR Work Phone: [employer] 04-30-2024 13:51-0500 Heart rate 89 /min Khris Irving PLATE TAKE OUT WORKER ENROLLMENT PROCESSOR Work Phone: [employer] 04-30-2024 13:51-0500 Respiratory rate 16 /min Khris Irving APRN ENROLLMENT PROCESSOR Work Phone: [employer] 04-30-2024 13:51-0500 SaO2% (BldA) [Mass fraction] 98 % Khris Irving APRN ENROLLMENT PROCESSOR Work Phone: [employer] 04-30-2024 13:51-0500 Systolic blood pressure 138 mm[Hg] Khris Irving APRN ENROLLMENT PROCESSOR Work Phone: [employer] 04-30-2024 13:13-0500 Body height 152.4 cm Khris Irving APRN ENROLLMENT PROCESSOR Work Phone: [employer] 04-30-2024 13:13-0500 Body mass index (BMI) [Ratio] 21.48 kg/m2 Khris Irving APRN ENROLLMENT PROCESSOR Work Phone: [employer] 04-30-2024 13:13-0500 Body weight 49.9 kg Khris Irving APRN ENROLLMENT PROCESSOR Work Phone: [employer] 12-19-2023 18:58-0400 Diastolic blood pressure 84 mm[Hg] Zainab Lozano MD Work Phone: [employer] 12-19-2023 18:58-0400 Heart rate 101 /min Zainab Lozano MD Work Phone: [employer] 12-19-2023 18:58-0400 SaO2% (BldA) [Mass fraction] 99 % Zainab Lozano MD Work Phone: [employer] 12-19-2023 18:58-0400 Systolic blood pressure 137 mm[Hg] Zainab Lozano MD Work Phone: 7(397)[phone] [place] [address] 12-19-2023 17:35-0400 Body height 152.4 cm Zainab Lozano MD Work Phone: 1(596)[phone] [address] 12-19-2023 17:35-0400 Body mass index (BMI) [Ratio] 25.19 kg/m2 Zainab Lozano MD Work Phone: 0(822)457-527903 [address] 12-19-2023 17:35-0400 Body temperature 98.71 [degF] Zainab Lozano MD Work Phone: 3(834)[phone] [address] 12-19-2023 17:35-0400 Body weight 58.51 kg Zainab Lozano MD Work Phone: 0(238)740-528803 [address] 12-19-2023 17:35-0400 Respiratory rate 20 /min Zainab Lozano MD Work Phone: 7(998)157-042903 [address] 12-20-2020 03:39-0400 Body height 153.7 cm Chris Davis MD Work Phone: 7(472)[phone] [address] 12-20-2020 03:39-0400 Body mass index (BMI) [Ratio] 19.67 kg/m2 Chris Davis MD Work Phone: 6(426)147-599903 [address] 12-20-2020 03:39-0400 Body temperature 97.7 [degF] Chris Davis MD Work Phone: 5(613)127-849403 [address] 12-20-2020 03:39-0400 Body weight 46.45 kg Chris Davis MD Work Phone: 5([phone])[phone] [address] 12-20-2020 03:39-0400 Diastolic blood pressure 65 mm[Hg] Chris Davis MD Work Phone: 0(546)[phone] [address] 12-20-2020 03:39-0400 Heart rate 55 /min Chris Davis MD Work Phone: 2(492)001-859803 [address] 12-20-2020 03:39-0400 Respiratory rate 18 /min Chris Davis MD Work Phone: 6(227)466-456803 [address] 12-20-2020 03:39-0400 SaO2% (BldA) [Mass fraction] 97 % Chris Davis MD Work Phone: [facility] 12-20-2020 03:39-0400 Systolic blood pressure 112 mm[Hg] Chris Davis MD Work Phone: [facility] 10-31-2019 11:42-0400 Body Temperature 98.71 [degF] [facility] 10-31-2019 11:42-0400 BP Diastolic 70 mm[Hg] [facility] 10-31-2019 11:42-0400 BP Systolic 113 mm[Hg] [facility] 10-31-2019 11:42-0400 Pulse (Heart Rate) 86 /min [facility] 10-31-2019 11:42-0400 Pulse Oximetry 100 % [facility] 10-31-2019 11:42-0400 Respiratory Rate 14 /min [facility] 10-28-2019 04:24-0400 BMI (Body Mass Index) 22.43 kg/m2 [facility] 10-28-2019 04:24-0400 Body weight 52.1 kg [facility] 10-28-2019 04:24-0400 Height 152.4 cm [facility] Encounters Encounter Date Encounter Type Care Provider Facility Start: 10-21-2024 End: 10-21-2024 Emergency department patient visit KHRIS IRVING [facility] Comment on above: Strep pharyngitis (P rimary Dx); Possible exposure to STI Start: 05-16-2024 End: 05-16-2024 ambulatory [facility] Start: 05-16-2024 Encounter for gynecological examination (general) (routine) without abnormal findings [facility] Start: 04-30-2024 End: 04-30-2024 Emergency department [facility] Comment on above: Opiate withdrawal (H CC) (Primary Dx) Start: 03-29-2024 ambulatory KHRIS IRVING [facility] Start: 12-19-2023 End: 12-19-2023 Emergency department patient visit Zainab Lozano MD Work Phone: [facility] Comment on above: Opiate withdrawal (H CC) (Primary Dx) Start: 03-26-2023 End: 03-26-2023 Subsequent hospital visit by physician Khris Irving APRN ENROLLMENT PROCESSOR Work Phone: [facility] Comment on above: Breast lump on left side at 5 o'clock position; Nipple tenderness Start: 03-18-2022 End: 03-18-2022 Subsequent hospital visit by physician Miley Townsend APRN TECHNOLOGY ADMINISTRATOR Work Phone: [facility] Comment on above: Hep C w/o coma, 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 commodity buyer pacheco (HCC) Start: 02-11-2022 End: 02-11-2022 Subsequent hospital visit by physician Miley Townsend APRN TECHNOLOGY ADMINISTRATOR Work Phone: [facility] Comment on above: Hep C w/o coma, any commodity buyer pacheco (HCC) Start: 01-30-2022 End: 01-30-2022 Subsequent hospital visit by physician Khris Irving APRN ENROLLMENT PROCESSOR Work Phone: [facility] Comment on above: Breast lump on left side at 5 o'clock position Start: 01-13-2022 End: 01-13-2022 Subsequent hospital visit by physician Khris Irving APRN ENROLLMENT PROCESSOR Work Phone: [facility] Comment on above: Screen for sexually transmitted diseases Start: 01-13-2022 End: 01-13-2022 Subsequent hospital visit by physician Khris Irving APRN ENROLLMENT PROCESSOR Work Phone: [facility] Start: 12-24-2021 End: 12-24-2021 Subsequent hospital visit by physician Miley Townsend APRN TECHNOLOGY ADMINISTRATOR Work Phone: [facility] Comment on above: Hep C w/o coma, any commodity buyer pacheco (HCC) Start: 11-28-2021 End: 11-28-2021 Subsequent hospital visit by physician Miley Townsend APRN TECHNOLOGY ADMINISTRATOR Work Phone: [facility] Comment on above: Hep C w/o coma, any commodity buyer pacheco (HCC) Start: 11-18-2021 End: 11-18-2021 Subsequent hospital visit by physician Tomasz Landrum APRN TECHNOLOGY ADMINISTRATOR Work Phone: [facility] Comment on above: Chronic hepatitis C without hepatic coma (HCC) Start: 11-15-2021 End: 11-15-2021 Subsequent hospital visit by physician Tomasz Landrum APRN TECHNOLOGY ADMINISTRATOR Work Phone: [facility] Comment on above: Chronic hepatitis C without hepatic coma (HCC) Start: 10-21-2021 End: 10-21-2021 Subsequent hospital visit by physician Chaparrita Brown PA-C Work Phone: [facility] Comment on above: Hepatitis C antibody test positive Start: 10-18-2021 End: 10-18-2021 Subsequent hospital visit by physician Chaparrita Brown PA-C Work Phone: [facility] Comment on above: Screening for cardio vascular condition; History of methamphetamine use; Leukocytosis, unspecified type Start: 12-20-2020 End: 12-20-2020 Emergency department patient visit Chris Davis MD Work Phone: [facility] Comment on above: Lab test negative fo r COVID-19 virus (Primary Dx); Medical clearance for incarceration Start: 12-20-2020 End: 12-20-2020 Patient encounter status Chris Davis MD Work Phone: [facility] Start: 10-28-2019 End: 10-31-2019 Evaluation and management of inpatient [facility] Start: 10-28-2019 End: 10-31-2019 Evaluation and management of inpatient [facility] Work Phone: [facility] Comment on above: Pyelonephritis Procedures Date Procedure Procedure Detail Performing Clinician Start: 10-21-2024 Urine test visual color cmprsn meths Lorna Mendes APRN TECHNOLOGY ADMINISTRATOR Work Phone: Start: 10-21-2024 Iadna streptococcus group a amplified probe tq Chavo Muller MD Work Phone: Start: 10-21-2024 Influenza virus A and B RNA and SARS-CoV-2 (COVID-19) N gene panel - Respiratory specimen by LILLIAN with probe detection Chavo Muller MD Work Phone: Start: 05-16-2024 Microscopic observation [Identifier] in Cervix by Cyto stain Khris Irvingphong XIONG ENROLLMENT PROCESSOR Work Phone: Start: 05-15-2024 Adult depression screening assessment Khris Irvingphong XIONG ENROLLMENT PROCESSOR Work Phone: Start: 03-26-2023 Us breast uni real time with image limited Khris Irvingphong XIONG ENROLLMENT PROCESSOR Work Phone: Start: 03-23-2023 Adult depression screening assessment Khris Stevenphong XIONG ENROLLMENT PROCESSOR Work Phone: Start: 03-23-2023 Microscopic observation [Identifier] in Cervix by Cyto stain Zainab Lozano MD Work Phone: Start: 03-19-2022 Adult depression screening assessment Miley Townsend APRN TECHNOLOGY ADMINISTRATOR Work Phone: Start: 03-18-2022 Comprehensive metabolic panel Miley Do llison PLATE TAKE OUT WORKER TECHNOLOGY ADMINISTRATOR Work Phone: Start: 03-18-2022 Iadna hepatitis c quant & reverse control director Miley Townsend APRN TECHNOLOGY ADMINISTRATOR Work Phone: Start: 03-09-2022 Adult depression screening assessment Miley Townsend APRN TECHNOLOGY ADMINISTRATOR Work Phone: Start: 02-11-2022 Comprehensive metabolic panel Miley Do llison PLATE TAKE OUT WORKER TECHNOLOGY ADMINISTRATOR Work Phone: Start: 02-11-2022 Iadna hepatitis c quant & reverse control director Miley Townsend APRN TECHNOLOGY ADMINISTRATOR Work Phone: Start: 01-30-2022 Us breast uni real time with image limited Khris Irvingphong XIONG ENROLLMENT PROCESSOR Work Phone: Start: 01-13-2022 Iaad ia hepatitis b surface antigen Khris Irvingphong XIONG ENROLLMENT PROCESSOR Work Phone: Start: 01-13-2022 Adult depression screening assessment Khris Irving PLATE TAKE OUT WORKER ENROLLMENT PROCESSOR Work Phone: Start: 01-13-2022 Microscopic observation [Identifier] in Cervix by Cyto stain Khrisphong Irving APRN ENROLLMENT PROCESSOR Work Phone: Start: 12-24-2021 CBC W Auto Differential panel - Blood Miley Townsend APRN TECHNOLOGY ADMINISTRATOR Work Phone: Start: 12-24-2021 Comprehensive metabolic panel Miley Do robin XIONG TECHNOLOGY ADMINISTRATOR Work Phone: Start: 12-24-2021 GLOMERULAR FILTRATION RATE Miley go APRN TECHNOLOGY ADMINISTRATOR Work Phone: Start: 12-24-2021 Iadna hepatitis c quant & reverse control director Miley Townsend APRN TECHNOLOGY ADMINISTRATOR Work Phone: Start: 11-28-2021 CBC W Auto Differential panel - Blood Miley Townsend APRN TECHNOLOGY ADMINISTRATOR Work Phone: Start: 11-28-2021 Comprehensive metabolic panel Miley Do robin BERMUDEZN TECHNOLOGY ADMINISTRATOR Work Phone: Start: 11-28-2021 GLOMERULAR FILTRATION RATE Miley go APRN TECHNOLOGY ADMINISTRATOR Work Phone: Start: 11-28-2021 Hepatitis b surf antibody hbsab Miley Townsend APRN TECHNOLOGY ADMINISTRATOR Work Phone: Start: 11-28-2021 Iaad ia hepatitis b surface antigen Miley Townsend APRN TECHNOLOGY ADMINISTRATOR Work Phone: Start: 11-28-2021 MISC LAB TEST Miley Townsend APR N TECHNOLOGY ADMINISTRATOR Work Phone: Start: 11-18-2021 Prothrombin time Tomasz Landrum TYRESE CN P Work Phone: Start: 11-18-2021 Urine test visual color cmprsn meths Tomasz Landrum PLATE TAKE OUT WORKER TECHNOLOGY ADMINISTRATOR Work Phone: Start: 11-15-2021 Adult depression screening assessment Tomasz Landrum PLATE TAKE OUT WORKER TECHNOLOGY ADMINISTRATOR Work Phone: Start: 10-21-2021 MISC LAB TEST [...] 12-20-2020 Sars-cov-2 detection by dna/rna Chapincito Patiño PLATE TAKE OUT WORKER-TECHNOLOGY ADMINISTRATOR[facility] Work Phone: Start: 10-30-2019 Creatinine [Mass/volume] [...] malign ant neoplasm of cervix PAP SMEAR [facility] Start: 03-23-2026 Screening for malign ant neoplasm of cervix PAP SMEAR [facility] Start: 05-17-2025 ANNUAL WELLNESS VISIT ANNUAL WELLNES S VISIT [facility] Start: 05-17-2025 End: 05-17-2025 Patient encounter procedure 05/17/2025 1:00 PM EST Office Visit [facility]GYNECOLOGY [address] [place] [address] Alan Nolen, PLATE TAKE OUT WORKER TECHNOLOGY ADMINISTRATOR [address] [place] [address] [facility]ST[facility]/GYNECOLOG Y [place] Start: 05-15-2025 Depression screening using PHQ-9 (Patient Health Questionnaire 9) score DEPRESSION SCREENING [facility] Start: 01-13-2025 Screening for malign ant neoplasm of cervix PAP SMEAR [facility] Start: 12-26-2024 Influenza vaccinatio n given INFLUENZA VACCINE (Season Ended) [facility] Start: 03-29-2024 End: 03-29-2024 Patient encounter procedure 03/29/2024 10:40 AM EST Office Visit [facility] [address] [place] [address] Khris Irving APRN ENROLLMENT PROCESSOR [address] [place] [address] [facility] Start: 03-23-2024 ANNUAL WELLNESS VISIT ANNUAL WELLNES S VISIT [facility] Start: 03-23-2024 Depression screening using PHQ-9 (Patient Health Questionnaire 9) score DEPRESSION SCREENING [facility] Start: 12-27-2023 COVID-19 VACCINE ( season) COVID-19 VACCINE ( season) [facility] Start: 12-27-2023 Influenza vaccinatio n given INFLUENZA VACCINE (#1) [facility] Start: 12-12-2023 Administration of diphtheria + tetanus + acellular pertussis vaccine DTAP/TDAP/TD VACCINE (2 - Td or Tdap) [facility] Start: 12-12-2023 Diphtheria + pertuss is + tetanus vaccine (product) DTAP/TDAP/TD VACCINE (2 - Td or Tdap) [facility] Start: 12-12-2023 Tetanus vaccination Tetanus: Every 1 0yrs [facility] Start: 04-06-2023 End: 04-06-2023 Patient encounter procedure 04/06/2023 2:30 PM EST Office Visit [address] [address] Vonnie Waller APRN TECHNOLOGY ADMINISTRATOR [address] [place] [address] [facility] Start: 03-19-2023 Depression screening using PHQ-9 (Patient Health Questionnaire 9) score DEPRESSION SCREENING [facility] Start: 03-09-2023 Depression screening using PHQ-9 (Patient Health Questionnaire 9) score DEPRESSION SCREENING [facility] Start: 01-19-2023 End: 01-19-2023 Patient encounter procedure 01/19/2023 Office Visit Obstetrics and Gynecology Khris Irving APRN ENROLLMENT PROCESSOR [address] [place] [address] [facility] Start: 01-14-2023 ANNUAL WELLNESS VISIT ANNUAL WELLNES S VISIT [facility] Start: 01-13-2023 CHLAMYDIA SCREENING CHLAMYDIA SCREEN ING [facility] Start: 01-13-2023 Depression screening using PHQ-9 (Patient Health Questionnaire 9) score DEPRESSION SCREENING [facility] Start: 12-26-2022 COVID-19 VACCINE ( season) COVID-19 VACCINE ( season) [facility] Start: 12-26-2022 Influenza vaccinatio n given INFLUENZA VACCINE (#1) [facility] Start: 11-15-2022 Depression screening using PHQ-9 (Patient Health Questionnaire 9) score DEPRESSION SCREENING [facility] Start: 10-18-2022 Depression screening using PHQ-9 (Patient Health Questionnaire 9) score DEPRESSION SCREENING [facility] Start: 10-17-2022 End: 10-17-2022 Patient encounter procedure 10/17/2022 Office Visit Family Medicine Chaparrita Brown PA-C [address] [place] [address] [facility] Start: 09-25-2022 COVID-19 VACCINE (#1) COVID-19 VACCI NE (#1) [facility] Comment on above: Postponed from 03/25 (Patient Declined) Postponed from 09/22 (Patient Declined) Start: 09-25-2022 COVID-19 VACCINE (1) COVID-19 VACCIN E (1) [facility] Comment on above: Postponed from 03/25 (Patient Declined) Start: 06-17-2022 End: 06-17-2022 Patient encounter procedure 06/17/2022 Office Visit Infectious Diseases Miley Townsend APRN TECHNOLOGY ADMINISTRATOR [address] [place] [address] [facility] Start: 04-14-2022 End: 04-14-2022 Patient encounter procedure 04/14/2022 Office Visit Obstetrics and Gynecology Khris Irving APRN ENROLLMENT PROCESSOR [address] [place] [address] [facility] Start: 03-19-2022 End: 03-19-2022 Patient encounter procedure 03/19/2022 Procedure visit Obstetrics and Gynecology Yvonne Ornelas APRN TECHNOLOGY ADMINISTRATOR [address] [facility] [place] [address] [facility] Start: 03-18-2022 End: 03-18-2022 Patient encounter procedure 03/18/2022 Office Visit Infectious Diseases Miley Townsend APRN TECHNOLOGY ADMINISTRATOR [address] [place] [address] [facility] Start: 02-11-2022 End: 02-11-2022 Patient encounter procedure 02/11/2022 Office Visit Infectious Diseases Miley Townsend APRN TECHNOLOGY ADMINISTRATOR [address] [place] [address] [facility] Start: 02-05-2022 End: 02-05-2022 Patient encounter procedure 02/05/2022 Procedure visit Obstetrics and Gynecology Yvonne Ornelas APRN TECHNOLOGY ADMINISTRATOR [address] [facility] [place] [address] [facility] Start: 01-30-2022 End: 01-30-2022 Patient encounter procedure 01/30/2022 Appointment Radiology Khris Irving APRN ENROLLMENT PROCESSOR [address] [place] [address] [facility] Start: 01-13-2022 End: 01-13-2022 Patient encounter procedure 01/13/2022 Office Visit Obstetrics and Gynecology Lela Baldwin APRN TECHNOLOGY ADMINISTRATOR [address] [address] [facility] Start: 12-26-2021 Influenza vaccinatio n given [facility] Start: 12-24-2021 End: 12-24-2021 Patient encounter procedure 12/24/2021 Office Visit Infectious Diseases Miley Townsend APRN TECHNOLOGY ADMINISTRATOR [address] [place] [address] [facility] Start: 12-13-2021 End: 12-13-2021 Telemedicine consultation with patient 12/13/2021 Telemedicine Family Medicine Tomasz Landrum APRN TECHNOLOGY ADMINISTRATOR [address] [place] [address] [facility] Start: 11-28-2021 End: 11-28-2021 Patient encounter procedure 11/28/2021 Office Visit Infectious Diseases Miley Townsend, PLATE TAKE OUT WORKER TECHNOLOGY ADMINISTRATOR [address] [place] [address] [facility] Start: 11-20-2021 End: 11-20-2021 Patient encounter procedure 11/20/2021 Appointment Radiology Tomasz Landrum, PLATE TAKE OUT WORKER TECHNOLOGY ADMINISTRATOR [address] [place] [address] [facility] Start: 12-26-2020 Influenza vaccinatio n given INFLUENZA VACCINE (Season Ended) [facility] Start: 12-27-2019 Influenza vaccinatio n given Sequential Influenza Vaccine (#1) [facility] Start: 2019 Screening for malign ant neoplasm of cervix PAP SMEAR [facility] Start: 2017 PNEUMOCOCCAL VACCINE (1 of 2 - PCV) PNEUMOCOCCAL VACCINE (1 of 2 - PCV) [facility] Start: 2016 [facility] Start: 2016 Hepatitis C antibody , confirmatory test Hepatitis C Screening [facility] Start: 08-09-2014 CHLAMYDIA SCREENING CHLAMYDIA SCREEN ING [facility] Start: 2013 HIV screening HIV Screening [place] Start: 2013 Human papilloma viru s vaccination given HPV VACCINES (GARDASIL) (1 - 3-dose series) [facility] Start: 2010 Depression screening using PHQ-9 (Patient Health Questionnaire 9) score DEPRESSION SCREENING [facility] Start: 2009 Human papilloma viru s vaccination given HPV VACCINES (GARDASIL) (1 - 2-dose series) [facility] Start: 2009 Vaccination for taylor n papillomavirus [facility] Start: 2001 History and physical examination, annual for health maintenance Wellness Visit [facility] Start: 1998 COVID-19 VACCINE (#1) COVID-19 VACCI NE (#1) [facility] Start: 1998 Screening for Chlamy samir trachomatis Chlamydia Screening [facility] Start: 1998 Screening for malign ant neoplasm of cervix Pap Smear [facility] End: 10-28-2019 Bacteria identified Aer cx Nom (Unsp spec) Urine Aerobic Culture Microbiology Routine Once for 1 Occurrences starting 10/28/2019 until 10/28/2019 [facility] Comment on above: Once for 1 Occurrenc es starting 10/28/2019 until 10/28/2019 Bacteria identified Cx Nom (Bld) [facility] End: 10-21-2024 Chlamydia trachomatis and Neisseria gonorrhoeae DNA [Identifier] in Unspecified specimen by LILLIAN with probe detection [facility] Comment on above: One Time for 1 Occur rences starting 10/21/2024 until 10/21/2024 Echosens FibroMeter Echosens Fib roMeter Lab Routine Hep C w/o coma, chronic (HCC) 11/28/2021 3:53 PM EDT [facility] [employer] [facility] End: 11-18-2021 HCV Quant by NAAT [facility] Work Phone: Comment on above: 1 Occurrences starti ng 11/18/2021 until 11/18/2021 End: 11-28-2021 HCV Quant with reflex to HCV Genotype AGNES [employer] Work Phone: Comment on above: 1 Occurrences starti ng 11/28/2021 until 11/28/2021 End: 11-28-2021 Hepatitis A antibody, total Agnes [employer] [facility] Comment on above: 1 Occurrences starti ng 11/28/2021 until 11/28/2021 End: 11-28-2021 Hepatitis B core antibody, total [facility] Comment on above: 1 Occurrences starti ng 11/28/2021 until 11/28/2021 End: 01-13-2022 Hepatitis C antibody [facility] Comment on above: 1 Occurrences starti ng 01/13/2022 until 01/13/2022 End: 10-21-2021 Hepatitis C genotype Hepatitis C genotype Lab Routine Hepatitis C antibody test positive 1 Occurrences starting 10/21/2021 until 10/21/2021 [facility] Work Phone: Comment on above: 1 Occurrences starti ng 10/21/2021 until 10/21/2021 End: 01-13-2022 Herpes simplex virus I & II IgM [facility] Work Phone: Comment on above: 1 Occurrences starti ng 01/13/2022 until 01/13/2022 End: 01-13-2022 HIV 1/2 ANTIGEN & ANTIBODIES, 4TH GEN, WITH REFLEXES HIV 1/2 ANTIGEN & ANTIBODIES, 4TH GEN, WITH REFLEXES Lab Routine Screen for sexually transmitted diseases 1 Occurrences starting 01/13/2022 until 01/13/2022 [facility] Comment on above: 1 Occurrences starti ng 01/13/2022 until 01/13/2022 MISC LAB TEST MISC LAB TEST La b Routine 10/21/2021 8:12 PM EDT [facility] End: 01-13-2022 RAPID PLASMA REAGIN SERUM [facility] Comment on above: One Time for 1 Occur rences starting 01/13/2022 until 01/13/2022 End: 01-13-2022 Reagin Ab [Presence] in Serum by RPR RPR Lab Routine Screen for sexually transmitted diseases 1 Occurrences starting 01/13/2022 until 01/13/2022 [facility] Comment on above: 1 Occurrences starti ng 01/13/2022 until 01/13/2022 End: 10-21-2024 Trichomonas Amplified Probe [facility] Work Phone: Comment on above: One Time for 1 Occur rences starting 10/21/2024 until 10/21/2024 Immunizations Immunization Date Immunization Notes Care Provider Matt rueda 12-11-2013 tetanus toxoid, redu steven diphtheria toxoid, and acellular pertussis vaccine, adsorbed Chris Davis MD Work Phone: [facility] Payers Date Payer Category Payer Medicaid HMO [employer] [id number] 2022 Unknown EMPLOYEE BENEFIT S EMPLOYEE BENEFITS QCP PLUS [id number] 2022-Present [phone] [address] [place] [address] Indemnity [id number] 2022 Private Health Insurance [employer] [id number] 2022-Present [phone] [address] [address] [place] [address] Medicaid [id number] 2021 Medicaid MEDICAID MEDICAI D [id number] 2021-Present [address] [place] [address] Medicaid [id number] 1998 Unknown [id number] 1998 Unknown [id number] 1998 Unknown [id number] 1998 Unknown [id number] 1998 Unknown [id number] Private Health Insurance [id number] Private Health Insurance [id number] Social History Date Type Detail Facility Start: 10-28-2019 End: 04-30-2024 Tobacco smoking status NHIS Current every day smoker [facility] Start: 10-28-2019 End: 05-15-2024 Cigarettes smoked current (pack per day) - Reported [facility] Start: 10-28-2019 Alcohol intake Ex-drinker (finding) [facility] Start: 1998 Sex Assigned At Not on file [facility] Start: 01-03-2022 End: 03-09-2022 Exposure to SARS-CoV-2 (event) Not sure [facility] Start: 05-14-2015 End: 10-21-2024 Alcohol intake Current non-drinker of alcohol (finding) [facility] Exposure to SARS-CoV -2 (event) Yes [facility] Start: 09-28-2021 End: 04-30-2024 Tobacco use and exposure Smokeless tobacco non-user [facility] Start: 10-18-2021 End: 11-15-2021 History SDOH Financial 5 [facility] Start: 10-18-2021 End: 11-15-2021 History SDOH IPV Fear 2 [facility] Start: 1998 Sex Assigned At Female [facility] History of tobacco use Cigarette Smoker [facility] Start: 11-15-2021 History SDOH Alcohol Frequency 1 [facility] History of tobacco use Tobacco U se Types Packs/Day Years Used Date Smoking Tobacco: Every Day E-Cig/Vaping Smokeless Tobacco: Never [facility] Start: 11-15-2021 End: 05-15-2024 Humiliation, Afraid, Rape, and Kick questionnaire [HARK] [facility] Within the last year , have you been afraid of your partner or ex-partner? No [facility] Emotionally Abused Not on file [facility] How often to you hav e a drink containing alcohol? Never [facility] Do you feel stress - tense, restless, nervous, or anxious, or unable to sleep at night because your mind is troubled all the time - these days [OSQ] Not at all [facility] (I/We) worried wheth er (my/our) food would run out before (I/we) got money to buy more. Never true [facility] Start: 09-28-2021 Gender identity Identifies as female gender (finding) [facility] Start: 09-28-2021 Sexual orientation Heterosexual (finding) [facility] History of tobacco use Electroni c cigarette user (finding) [facility] Clinical Notes 12-20-2020 to [...] Status --------- ------ SARS-COV-2, Flu A, FLU B...[[id number]] Normal Final result Please view results for [...] the practitioner. Lorna Mendes APRN CNP [id number]/21/[id number] [facility] 10-21-2024 Emergency department Note ED Diagnosis 1. [...] Status --------- ------ SARS-COV-2, Flu A, FLU B...[[id number]] Normal Final result Please view results for [...] unlabored, in NAD. documented in this encounter [facility] 10-21-2024 Hospital Discharg e instructions Lorna Mendes APRN CNP - 10/21/2024 9:02 PM EDT Change toothbrush in 48 hours of antibiotic documented in this encounter [facility] 10-21-2024 Note Formatting of this n ote is different from the original. Images from the original note were not included. [id number] Strep Throat: Care Instructions Overview Strep throat [...] cup of warm water. ? Take an yhxv-dwb-xgkwzsn pain medication, such as acetaminophen (Tylenol), ibuprofen (Advil, Motrin), or naproxen (Aleve). Read and follow all instructions on the label. ? Try an fdbb-keu-mnsdkrd anesthetic throat spray or throat lozenges, which [...] this instruction, always ask your healthcare professional. [employer] disclaims any warranty or liability for your use of this information. [employer]. [facility] 10-21-2024 Miscellaneous Notes Images from the original note were not included. [id number] Strep Throat: Care Instructions Overview Strep throat [...] cup of warm water. ? Take an xhxe-lkj-lkvmulo pain medication, such as acetaminophen (Tylenol), ibuprofen (Advil, Motrin), or naproxen (Aleve). Read and follow all instructions on the label. ? Try an ixxt-vvb-dvsnvxx anesthetic throat spray or throat lozenges, which [...] this instruction, always ask your healthcare professional. [employer] disclaims any warranty or liability for your use of this information. [employer]. documented in this encounter [facility] 10-21-2024 Emergency department Triage note Pt arrives to ED via private vehicle with c/o sore throat for approx 2 days. Pt denies any fevers. Pt c/o productive cough for 2 days. PT states that she would like testing for STI's. Pt A/Ox3 with PWD skin. Respirs easy, unlabored, in NAD. [facility] 04-30-2024 Hospital Discharg e instructions Kaley Wolfe APRN CNP - 04/30/2024 1:35 PM EST There are many resources in our community for the treatment of opioid use disorder. Many of our ED patients have achieved success in the following programs: [facility] ([facility]) - a Suboxone clinic located near the hospital at [address], offering counseling services as well. Call to schedule an intake appointment [facility] - a Methadone and Suboxone clinic located at [address] [place] [address]. Expanded treatment services are offered as well. Call for an intake appointment. [facility] - an [facility] located at [address]. offering a variety of support services for opioid addiction, including Vivitrol, Suboxone, and the Bridge Device. Call Khadra at to schedule an appointment. [facility] - an [facility] located at [address] offering a variety of support services for opioid addiction, including Vivitrol, mental health counseling, and an intensive outpatient treatment. Call for an appointment at . Lastly, you can call the [facility] Emergency Department at . Ask to talk to the Can Reforming Machine Operator or Dr. Lozano, and we will do whatever we can to help you. The following attachments cannot be sent through Care Everywhere.Opioid Use Disorder: General Info (Nepalese Mohawk)documented in this encounter [facility] 04-30-2024 Emergency department Triage note Pt arrives to the ED via private vehicle. Pt ambulates to room without difficulty. Pt states, I'm detoxing off fentanyl. Pt states she did not sleep well last night. Pt states her last use was 2 days ago. PT states nausea,lack of appetite, restlessness. Pt is A&O. RR easy and unlabored. NAD noted. [facility] 04-30-2024 Emergency department Note Pt arrives to the ED via private vehicle. Pt ambulates to room without difficulty. Pt states, I'm detoxing off fentanyl. Pt states she did not sleep well last night. Pt states her last use was 2 days ago. PT states nausea,lack of appetite, restlessness. Pt is A&O. RR easy and unlabored. NAD noted. documented in this encounter [facility] 12-19-2023 Emergency department Note Patient provided with take home narcan and instruction. Reviewed available OP resources. Patient denies any further needs/concerns. [facility] Work Phone: 12-19-2023 Emergency department Note Patient [...] mg. Discussed with patient treatment options in [facility]. Patient would be an appropriate candidate initially for [facility], [employer] [facility], or [email or web address] and knows how to contact those organizations. [...] bedside. Denies SI/HI documented in this encounter [facility] 12-19-2023 Physician Emergency department Note ED Diagnosis [...] mg. Discussed with patient treatment options in [facility]. Patient would be an appropriate candidate initially for [facility], [employer], or [employer] and knows how to contact those organizations. [...] COWs Score: 10 Zainab Lozano MD 12/19/23 [id number] [facility] 12-19-2023 Hospital Discharg e instructions Zainab Lozano MD - 12/19/2023 5:50 PM EDT Opioid Addiction Treatment Resources There are many resources in our community for the treatment of opioid use disorder. Many of our ED patients have achieved success in the following programs: [facility] ([facility]) - a Suboxone clinic located near the hospital at [address] [place] [address], offering counseling services as well. Call to schedule an intake appointment [facility] - a Methadone and Suboxone clinic located at [address] [place] [address]. Expanded treatment services are offered as well. Call for an intake appointment. [facility] - an [facility] located at [address] offering a variety of support services for opioid addiction, including Vivitrol, Suboxone, and the Bridge Device. Call Khadra at to schedule an appointment. [facility] - [facility] located at [address] [facility] offering a variety of support services for opioid addiction, including Vivitrol, mental health counseling, and an intensive outpatient treatment. Call for an appointment at . Lastly, you can call the [facility] Emergency Department at . Ask to talk to the Can Reforming Machine Operator or Dr. Lozano, and we will do whatever we can to help you. The following attachments cannot be sent through Care Everywhere.Opioid Use Disorder: Medication-Assisted Treatment: General Info (Nepalese Mohawk)documented in this encounter [facility] 12-19-2023 Emergency department Triage note Patient to [...] NAD noted. Dr. Lozano bedside. Denies SI/HI [facility] 03-26-2023 Evaluation note Diagnosis Breast lump on left side at 5 o'clock position Lump or mass in breast Nipple tenderness Mastodynia documented in this encounter [facility]11-30-2023 Reason for visit Narrative* Procedure Authorization (Emergency) - Closed Specialty Diagnoses / Procedures Referred By Contcristopher t Referred To Contact Radiology Diagnoses Breast lump on left side at 5 o'clock position Nipple tenderness Procedures US Breast Left Limited US Breast Left Complete Khris Irving APRN ENROLLMENT PROCESSOR [address] [place] [address] [address] Referral ID Status Reason Start Date Expiration Date Visits Re quested Visits Authorized [id number] Closed 03/23/2023 04/26/2023 1 1 [facility]10-06-2022 Evaluation note* Diagnosis Breast lump on left side at 5 o'clock position Lump or mass in breast documented in this encounter [facility]10-06-2022 Reason for referral (narrative)* Procedure Authorization (Routine) - Closed Specialty Diagnoses / Procedures Referred By Contac t Referred To Contact Radiology Diagnoses Breast lump on left side at 5 o'clock position Procedures US Breast Left Limited Khris Irving APRN ENROLLMENT PROCESSOR [address] [place] [address] [address] Referral ID Status Reason Start Date Expiration Date Visits Re quested Visits Authorized [id number] Closed 01/13/2022 04/26/2022 1 1 [facility]10-06-2022 Reason for visit Narrative* Procedure Authorization (Routine) - Closed Specialty Diagnoses / Procedures Referred By Contac t Referred To Contact Radiology Diagnoses Breast lump on left side at 5 o'clock position Procedures US Breast Left Limited Khris Irving APRN ENROLLMENT PROCESSOR [address] [place] [address] [address] Referral ID Status Reason Start Date Expiration Date Visits Re quested Visits Authorized [id number] Closed 01/13/2022 04/26/2022 1 1 [facility]08-26-2021 Emergency department Note* Chris Davis MD - 12/20/2020 4:18 AM EDT I personally saw and examined this patient. I supervised the care and treatment of this patient. I formulated the medical decision making plan verbally with the midlevel, ENROLLMENT PROCESSOR, or PA, that led to the disposition, [...] and dictated with the use of the [employer] voice recognition software program which may omit or change portions of the dictation, and/or substitute, homonyms and thereby alter the original intent of the dictated statement. Unintended gender changes may also be incorporated due to misinterpretation of the spoken words. Chris Davis MD 12/20/20 042 * Beau Clolado RN - 12/20/2020 3:37 AM EDT Pt arrives to the ER from home by [employer]. [employer] states that pt was arrested but stated she was recently tested for COVID at [facility]. Pt denies test results yet so pt needs COVID result prior to correction. Pt denies any COVID symptoms but recent exposure to a friend who is also pending results. Respirations regular and unlabored. Skin w/p/d [facility] Diagnosis Lab test negative for COVID-19 virus- Primary Medical clearance for incarceration documented in this encounter [facility] note* Diagnosis Screening for cardiovascular condition Screening for other and unspecified cardiovascular conditions History of methamphetamine use Leukocytosis, unspecified type documented in this encounter [facility] note* Diagnosis Hepatitis C antibody test positive Other and unspecified nonspecific immunological findings documented in this encounter [facility] note* Diagnosis Chronic hepatitis C without hepatic coma (HCC) documented in this encounter [facility] note* Diagnosis Chronic hepatitis C without hepatic coma (HCC) documented in this encounter [facility] note* Diagnosis Hep C w/o coma, chronic (HCC) Chronic hepatitis C without mention of hepatic coma documented in this encounter [facility] note* Diagnosis Screen for sexually transmitted diseases Screening examination for venereal disease documented in this encounter [facility] note* Diagnosis Hep C w/o coma, chronic (HCC) Chronic hepatitis C without mention of hepatic coma documented in this encounter [facility] note* Diagnosis Hep C w/o coma, chronic (HCC) Chronic hepatitis C without mention of hepatic coma documented in this encounter [facility] note* Diagnosis Hep C w/o coma, chronic (HCC) Chronic hepatitis C without mention of hepatic coma [facility] Diagnosis Opiate withdrawal (HCC)- Primary Drug withdrawal [facility] Diagnosis Opiate withdrawal (HCC)- Primary Drug withdrawal [facility] Diagnosis Strep pharyngitis- Primary Streptococcal sore throat Possible exposure to STI [facility]* Instructions* Chapincito Patiño APRN-CNP, A[facility] - 12/20/2020 If you develop worsening of your symptoms, difficulty breathing, numbness, tingling, weakness, changes in your vision or any other urgent concerns, please call 911 or return to the Emergency Department immediately. [facility] for [facility] (narrative)* Consultation (Routine) - Open Specialty Diagnoses / Procedures Referred By Philip barakat Referred To Contact Family Medicine Diagnoses Lab test negative for COVID-19 virus Medical clearance for incarceration Chapincito Patiño APRN-CNP, A[facility]PN [address] [place] [address] [facility] [address] [facility] [place] [address] Referral ID Status Reason Start Date Expiration Date Visits Re quested Visits Authorized [id number] Open 12/20/2020 01/20/2022 1 1 [facility] Summary Purpose Family History No Family History Records FoundNo Family History Records FoundNo Family History Records Found Advance Directives No Advanced Directives Records FoundDocuments on File Type Date Recorded Patient Die Cutter Operator Expl anation Advance Directives and Livin g Will 10/28/2019 5:20 AM Latest Code Status on File Code Status Date Activated Date Inactivated Comments Full Code 10/28/2019 4:50 AM 10/31/2019 2:51 PM Documents on File Type Date Recorded Patient Die Cutter Operator Expl anation Advance Directives and Living Will Power of Site Superintendent Latest Code Status on File Code Status Date Activated Date Inactivated Comments Full Code 12/09/2013 4:47 PM 12/12/2013 2:08 AM Full Code 12/09/2013 10:38 AM 12/09/2013 4:47 PM Documents on File Type Date Recorded Patient Die Cutter Operator Expl anation Advance Directives and Living Will Power of Site Superintendent DNR Documentation Latest Code Status on File [...] Chiu MD - 10/31/2019 12:25 PM EDT [facility] Yolanda Manriquez Account: [id number] Admitted: 10/28/2019 Discharge Date/Time: 10/31/19 12:25 PM Handoff to PCP Routine hospital follow up 1. Discharged on PO Abx, follow up with urology as outpatient Clinical Summary Yolanda Manriquez is a 19 y.o. female with a history of IVDU who presented to [facility] with left flankpain and dysuria, CT with contrast showed left pyelonephritis, a 3 cm early abscess/phlegmon on thesuperior pole of left kidney, phleboliths at the left UVJ, WBC 15.5, lactic acid 1.1, UA leukocytes2+, she was transferred to [facility] 10/28/2019 for further evaluation. 1. Sepsis: Fever of 102, tachycardia, leukocytosis. Suspect from pyelonephritis found on CT. Lacticacid 1.1, COVID-19 negative. Admit CXR non-acute. OSH culture data update 10/31/19: Urine growing citrobacter farmeri (R to ampicillin, intermediate to amp-sulbactam), blood without growth at 72 hours.De-escalated Abx to ceftriaxone 10/30/19, and transitioned to oral 10/31/19 2. Acute Pyelonephritis: CT at [facility] showed left pyelonephritis, a 3 cm early [...] Your Medications These medications were sent to [facility] [address] [address] Hours: 8:00 AM to 7:00 PM Mon-Fri ciprofloxacin HCl 500 MG tablet Physician(s) Family: Physician No, Phone: None, Address: [facility] Follow Up: Rodrigo Madrid MD [address] [address] Schedule an appointment as soon as possible for a visit in 2 week(s) Additional Information: Patient seen and examined day of discharge. For more information regarding patient's care, including complete radiology reports, please contact [facility] at Patient instructions, including activity, [...] NOTE Patient Name: Yolanda Manriquez MR #: [id number] No CP, SOB, N/V, pain controlled. Constitutional: [...] left flank pain, chills -CT a/p at [facility] showed 3 cm early abscess / phlegmon on superior pole of left kidney -Afebrile, pain controlled Wbc 8.39 -UC growing citrobacter farmeri -Antibiotic management per primary team. Discussed with [facility]. Will have patient come into office in 2 weeks for evaluation with repeat ct a/p prior * Aditi Chiu MD - 10/30/2019 7:44 AM EDT [facility] Inpatient Progress Note 10/30/2019 Yolanda Manriquez 2000 [id number] Assessment/Plan: Yolanda Manriquez is a 19 y.o. female with a history of IVDU who presented to [facility] with left flankpain and dysuria, CT with contrast showed left pyelonephritis, a 3 cm early abscess/phlegmon on thesuperior pole of left kidney, phleboliths at the left UVJ, WBC 15.5, lactic acid 1.1, UA leukocytes2+, she was transferred to [facility] 10/28/2019 for further evaluation. 1. Sepsis: Fever of 102, tachycardia, leukocytosis. Suspect from pyelonephritis found on CT. Lacticacid 1.1, COVID-19 negative. Admit CXR non-acute. OSH culture data update 10/30/19: Urine growing citrobacter farmeri (R to ampicillin), blood without growth at 48 hours. De-escalated Abx to ceftriaxone 10/30/19. 2. Acute Pyelonephritis: CT at [facility] showed left pyelonephritis, a 3 cm early abscess/phlegmon on thesuperior pole of left kidney, phleboliths at the left UVJ, received Vancomycin, Rocephin, Gentamicin and Flagyl at [facility]. Culture results and Abx management as above. [...] Chiu MD - 10/29/2019 7:40 AM EDT [facility] Inpatient Progress Note 10/29/2019 Yolanda Manriquez 2000 [id number] Assessment/Plan: Yolanda Manriuqez is a 19 y.o. female with a history of IVDU who presented to [facility] with left flankpain and dysuria, CT with contrast showed left pyelonephritis, a 3 cm early abscess/phlegmon on thesuperior pole of left kidney, phleboliths at the left UVJ, WBC 15.5, lactic acid 1.1, UA leukocytes2+, she was transferred to [facility] 10/28/2019 for further evaluation. 1. Sepsis: Fever of 102, tachycardia, leukocytosis. Suspect from pyelonephritis found on CT. Lacticacid 1.1, COVID-19 negative. Admit CXR non-acute, blood culture and urine culture sent at [facility], lastchecked 10/29/19. Repeated on admit, pending. Empiric antibiotics with Vancomycin and Zosyn started on admit. Follow cultures. 2. Acute Pyelonephritis: CT at [facility] showed left pyelonephritis, a 3 cm early abscess/phlegmon on thesuperior pole of left kidney, phleboliths at the left UVJ, received Vancomycin, Rocephin, Gentamicin and Flagyl at [facility], change to Vancomycin and Zosyn on admit. [...] imaging, vital signs, and prior documentation including bridal consultant recommendations and summarized by me as above. Called [facility] today - Blood cultures and urine [...] Schuler PA-C - 10/28/2019 12:31 PM EDT [facility] Inpatient Progress Note 10/28/2019 Yolanda Manriquez 2000 [id number] Assessment/Plan: Yolanda Manriquez is a 19 y.o. female with a history of IVDU who presented to [facility] with left flankpain and dysuria, CT with contrast showed left pyelonephritis, a 3 cm early abscess/phlegmon on thesuperior pole of left kidney, phleboliths at the left UVJ, WBC 15.5, lactic acid 1.1, UA leukocytes2+, she was transferred to [facility] 10/28/2019 for further evaluation. 1. Sepsis: Fever of 102, tachycardia, leukocytosis. Suspect from pyelonephritis found on CT. Lacticacid 1.1, COVID-19 negative. Admit CXR non-acute, blood culture and urine culture sent at [facility], lastchecked 10/28/19. Repeated on admit given IV drug user. Empiric antibiotics with Vancomycin and Zosynstarted on admit. Follow cultures. 2. Acute Pyelonephritis: CT at [facility] showed left pyelonephritis, a 3 cm early abscess/phlegmon on thesuperior pole of left kidney, phleboliths at the left UVJ, received Vancomycin, Rocephin, Gentamicin and Flagyl at [facility], change to Vancomycin and Zosyn on admit. [...] imaging, vital signs, and prior documentation including bridal consultant recommendations and summarized by me as [...] CP, SOB, abdominal pain, nausea, vomiting. Called [facility]-Blood cultures drawn 1630 on 10/28/19. Blood [...] 1 Encounters: 10/27/19 54.4 kg (120 lb) Palm body weight: 45.5 kg (100 lb 4.9 [...] Component Value Units Date/Time Urine Aerobic Culture [[id number]] Order Status: Sent Specimen: Urine, Clean Catch Blood Culture #1 [[id number]] Order Status: Sent Specimen: Blood, Peripheral Blood Culture #2 [[id number]] Order Status: Sent Specimen: Blood, Peripheral COVID-19, Molecular [[id number]] (Normal) Collected: 10/28/19 0330 Order Status: Completed Specimen: Swab from Nasopharyngeal Updated: 10/28/19355 SARS-CoV-2 Not Detected Comment: This test was performed under the FDA's Emergency Use Authorization (EUA). Testing was performed using the [employer] ID NOW COVID-19 assay on the ID NOW platform. This test has not been approved for use in asymptomatic patients and its performance in this patient population has not been evaluated. Negative results do not rule out the presence of SARS-CoV-2/COVID-19. Fact sheets for the EUA can be found at the following links: For Healthcare Providers: https://www.fda.gov/media/638074/download For Patients: https://www.fda.gov/media/348414/download Pharmacist: Meaghan Chopra.Ph. documented in this encounter Assessments Diagnosis Pyelonephritis Unspecified pyelonephritis Additional Source Comments INFORMATION SOURCE (unrecogn ized section and content) DATE CREATED AUTHOR 11/17/2019 [facility] DATE CREATED AUTHOR AUTHOR'S ORGANIZ ATION 06/20/2021 [facility] DATE CREATED AUTHOR AUTHOR'S ORGANIZ ATION 11/08/2024 [facility] Shade Conley MD - 10/28/2019 2:58 AM EDT H&P Notes (unrecognized sect ion and content) [facility] History and Physical Note 10/28/19 Yolanda Manriquez 2000 [id number] Assessment/Plan: Yolanda Manriquez is a 19 y.o. female with a history of IVDU who presented to [facility] with left flank pain and dysuria, CT with contrast showed left pyelonephritis, a 3 cm early abscess/phlegmon on the superior pole of left kidney, phleboliths at the left UVJ, WBC 15.5,, lactic acid 1.1, UA leukocytes 2+, she was transferred to [facility] 10/28/2019 for further evaluation. 1. Acute febrile illness: fever of 102, suspect from pyelonephritis found on CT, WBC 15.5,, lactic acid 1.1, COVID-19 negative, check CXR, blood culture and urine culture sent at [facility], repeat given IV drug user. Empiric antibiotics with Vancomycin and Zosyn 10/28/2019. 2. Acute pyelonephritis: CT at [facility] showed left pyelonephritis, a 3 cm early abscess/phlegmon on the superior pole of left kidney, phleboliths at the left UVJ, received Vancomycin, Rocephin, Gentamicin and Flagyl at [facility], change to Vancomycin and Zosyn pending culture [...] a history of IVDU who presented to [facility] with left flank pain and dysuria, CT with contrast showed left pyelonephritis, a 3 cm early abscess/phlegmon on the superior pole of left kidney, phleboliths at the left UVJ, WBC 15.5,, lactic acid 1.1, UA leukocytes 2+, she was transferred to [facility] 10/28/2019 for further evaluation. She started to [...] file Gets together: Not on file Attends yazidism service: Not on file Active member of [...] Name: Yolanda Manriquez Admit Date: MR #: [id number] : 2000 Physicians: FAMILY: Physician No REFERRING: Shade Conley MD Chief Complaint/Reason for Visit: left flank pain, fever Assessment and Plan: Left pyelonephritis -Patient with PMH of IVDA presenting with left flank pain, chills -CT a/p at [facility] showed 3 cm early abscess / phlegmon on superior pole of left kidney -Tmax 102.7, wbc 15.5 -Follow cultures from [facility], currently receiving vanc / zosyn, adjust per C&S -Pain improved this am -Recommend conservative care with IV antibiotics / hydration History of Present Illness: Yolanda Manriquez is a 19 year old female with a history if IV drub abuse. She presented to [facility] with 3 days of left flank pain, dysuria. She describes pain as intermittently sharp and severe. CT [facility] showed 3 cm early abscess / phlegmon on superior pole of left kidney. She was transferred to [facility] or further care. 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 Found to have pyelonephritis, with possible small abscess in left kidney. On IV antibiotics. No obstruction. Plan is to follow conservatively. Cultures pendingdocumented in this encounter Victorina Richardson RN - 10/28/2019 2:45 AM EDT ED Notes (unrecognized secti on and content) Patient transported to [place] by [facility] Medic 102. Receiving unit notified of patient's arrival. Patient's vital signs BP 117/70, HR 106, RR 14, Pulse Ox 97% on room air. Patient has a chief complaint of Abcess. Patient does have patent IV access- 20g LAC. Patient was on cardiac catheterization technologist prior to arrival - Sinus Tachycardia noted. Patient transported to room 8020 on arrival. documented in this encounter Reason for Visit (unrecogniz ed section and content) Reason Comments Other Medical Clearance Reason Comments Other Reason Comments Nausea Withdrawal Reason Comments Pharyngitis Cough Care Teams (unrecognized sec tion and content) Urologist Relationship Specialty Start Date End Date Chaparrita Brown PA-C [address] [place] [address] PCP - General Family Medicine 11/15/21 Urologist Relationship Specialty Start Date End Date Chaparrita Brown PA-C [address] [place] [address] PCP - General Family Medicine 11/15/21 Urologist Relationship Specialty Start Date End Date Chaparrita Brown PA-C [address] [place] [address] PCP - General Family Medicine 11/15/21 Urologist Relationship Specialty Start Date End Date Chaparrita Brown PA-C [address] [place] [address] PCP - General Family Medicine 11/15/21 Urologist Relationship Specialty Start Date End Date Chaparrita Brown PA-C PCP - General Family Medicine 11/15/21 Urologist Relationship Specialty Start Date End Date Chaparrita Brown PA-C PCP - General Family Medicine 11/15/21 Urologist Relationship Specialty Start Date End Date Chaparrita Brown PA-C PCP - General Family Medicine 11/15/21 Urologist Relationship Specialty Start Date End Date Chaparrita Brown PA-C PCP - General Family Medicine 11/15/21 Urologist Relationship Specialty Start Date End Date Chaparrita Brown PA-C PCP - General Family Medicine 11/15/21 Urologist Relationship Specialty Start Date End Date Pcp, Coretta [address] [place] [address] PCP - General 11/25/22 Urologist Relationship Specialty Start Date End Date Khris Irving APRN ENROLLMENT PROCESSOR [address] [place] [address] PCP - General Nurse Practitioner 04/14/23 Urologist Relationship Specialty Start Date End Date Khris Irving APRN ENROLLMENT PROCESSOR [address] [place] [address] PCP - General Nurse Practitioner 04/14/23 Urologist Relationship Specialty Start Date End Date Khris Irving APRN ENROLLMENT PROCESSOR [address] [place] [address] PCP - General Nurse Practitioner 10/21/24 Scheduled [...] naloxone nasal spray device. 1815 (Dispensed to [facility] by Physician/Other Qualified Staff Member - Provider: [...] BE BASED ON THE PRIMARY CLINICAL RECORDS. [employer] provides no warranty or guarantee of the accuracy or completeness of information in this document.
[2025-02-12 14:35] VITALS: BMI 21.8
[2025-02-12] MEDS: hydrOXYzine PAM 25 MG Capsule 50 MG PO (15:16)
[2025-02-12 16:30] VITALS: BP 135/78; PULSE 88; RESP 14; TEMP 36.8; O2SAT 99
--- NOTE | 2025-02-12 18:16 | PCM.HP.STD ---
HPI - General General Date of Admission: 02/12/25 Date of Service: 02/12/25 Chief Complaint: Opiate detox, opiate withdrawal HPI Narrative SHELLY MANRIQUEZ, is a 24 F who presents to the emergency room at [facility] requesting services for opiate use disorder and opiate detox. Patient smokes fentanyl, she also smokes marijuana but denies any other drug usage or alcohol usage. Last time patient used fentanyl was yesterday, she usually snorts it but occasionally injects. Patient states that she has weaned herself off of fentanyl before at home and had been put on Suboxone but stopped it last year. Patient has no significant medical problems other than opiate use disorder. Patient complains of feeling anxious and restless, she also complains of having chills but at the same time feeling cold. Lab work included a CBC and CHEM panel which was unremarkable, patient's tox screen was positive for cannabinoids, amphetamines, and fentanyl. Patient was admitted to [place] [address] for opiate use disorder and detox services, orders were entered using the addiction order sets. [facility] Medical History (Updated 02/12/25 @ 18:[address] Devante Cuadra, DO) Substance abuse Smoker Substance abuse Home Medications ?Medication ?Instructions ?Recorded ?Last Taken ?Type NK 02/12/25 Unknown History Allergy/AdvReac Type Severity Reaction Status Date / Time No Known Allergies Allergy Verified 02/12/25 11:46 Social History Smoking Status: Current every day smoker tobacco type: e-cigarettes ROS Constitutional Constitutional: Reports chills; Denies anorexia, change in weight, fever(s), night sweats or weakness Eyes Eyes: Denies blurry vision, change in vision, discharge from eye(s) or eye pain Cardiovascular Cardiovascular: Denies chest pain, claudication, edema or palpitations Respiratory/Chest Respiratory/Chest: Denies cough, hemoptysis, shortness of breath at rest or shortness of breath with exertion Gastrointestinal Gastrointestinal: Denies abdominal pain, constipation, diarrhea, hematemesis, hematochezia, melena, nausea or vomiting Genitourinary Genitourinary: Denies dysuria, hematuria, urinary frequency, urinary hesitancy, urinary incontinence or urinary urgency Musculoskeletal Musculoskeletal: Denies back pain, joint pain, joint stiffness, joint swelling, myalgias or neck pain Neurologic Neurologic: Denies abnormal gait, abnormal speech, dizziness, focal weakness, headache(s), loss of vision, numbness, other visual disturbances, paresthesias, syncope or tingling Psychiatric Psychiatric: Reports anxiety and irritability; Denies cognitive impairment, depression, mood swings or suicidal ideation Endocrine Endocrinology: Denies change in body appearance, cold intolerance, excessive sweating, heat intolerance, polydipsia or polyuria Hematologic/Lymphatic Hematologic/Lymphatic: Denies none, anemia, easy bleeding, easy bruising or lymphadenopathy Allergic/Immunologic Allergic/Immunologic: Denies rhinitis, urticaria, eczemia or asthma Vital Signs Vital Signs Vital Signs: 02/12/25 11:44 02/12/25 13:44 02/12/25 13:44 Temperature 98 F 98 F Temperature Source Oral Pulse Rate 81 73 73 Respiratory Rate 16 16 Blood Pressure 131/97 H 117/87 H 117/87 H Blood Pressure Mean 108 97 97 Blood Pressure Source Blood Pressure Position Blood Pressure Location Pulse Ox 100 100 100 Oxygen Delivery Method Room Air Room Air 02/12/25 16:30 Temperature 98.3 F Temperature Source Oral Pulse Rate 88 Respiratory Rate 14 Blood Pressure 135/78 H Blood Pressure Mean 97 Blood Pressure Source Monitor Blood Pressure Position Supine Blood Pressure Location Right Arm Pulse Ox 99 Oxygen Delivery Method Room Air Weight Weight: 50.7 kg Body Mass Index (BMI) 21.8 Physical Exam Const alert, oriented x3 and no apparent distress Constitutional Narrative: Patient appears her stated age General Appearance: cooperative, well kempt and well developed Orientation / Consciousness: awake, oriented to person, oriented to place and oriented to time HEENT normocephalic, head/scalp atraumatic, hearing grossly normal bilaterally and moist oral mucous membranes Eyes PERRL, EOMs intact bilaterally and conjunctivae normal Neck supple, no JVD, thyroid normal and no carotid bruits General: trachea midline Resp normal respiratory effort, no retractions, no use of accessory muscles and clear to auscultation bilaterally Auscultation: Negative for rales, rhonchi or wheezes Cardio regular rate, regular rhythm, S1 normal heart sound, S2 normal heart sound, no murmurs, no rub and no gallops GI normal to inspection, nondistended, normoactive bowel sounds, soft to palpation, non-tender and non-distended Extremity no clubbing, cyanosis or edema Skin no rashes or lesions noted General Skin Exam: no breakdown Neuro oriented x3, CN's II-XII intact bilaterally, no focal motor deficits and no sensory deficits noted Sensorium / Orientation: awake and alert Speech: speech normal Psych Psych Narrative: Patient appears restless but is appropriate. Results Lab / Micro Data 02/12/25 12:00 02/12/25 12:00 Labs: Laboratory Results - last 24 hr 02/12/25 12:00: WBC 5.8, RBC 4.77, Hgb 14.4, Hct 42.1, MCV 88.3, MCH 30.2, MCHC 34.2, RDW Std Deviation 40.7, RDW Coeff of Amalia 12.4, Plt Count 245, MPV 9.4, Immature Gran % (Auto) 0.300, Neut % (Auto) 66.9, Lymph % (Auto) 24.2, [place] % (Auto) 5.0, Eos % (Auto) 2.6, Baso % (Auto) 1.0, Absolute Neuts (auto) 3.9, Absolute Lymphs (auto) 1.40, Nucleated RBC % 0, Sodium 141, Potassium 3.9, Chloride 108, Carbon Dioxide 22.8, Anion Gap 10, BUN 12, Creatinine 0.66 L, Estim Creat Clear Calc 92.78, Est GFR (MDRD) Non-Af 124, BUN/Creatinine Ratio 17.9, Glucose 96, Calcium 9.3, Total Bilirubin 0.15, AST 15, ALT 15, Alkaline Phosphatase 83, Total Protein 7.2, Albumin 4.5, Globulin 2.7, Albumin/Globulin Ratio 1.6, Serum , Qual NEGATIVE, Ethyl Alcohol < 10.1 02/12/25 12:10: Urine Opiates Screen NEGATIVE, U Buprenorphine Qual NEGATIVE, Ur Oxycodone Screen NEGATIVE, Urine Methadone Screen NEGATIVE, Urine Fentanyl Screen PRESUMPTIVE POSITIVE, Ur Barbiturates Screen NEGATIVE, Ur Phencyclidine Scrn NEGATIVE, Ur Amphetamines Screen PRESUMPTIVE POSITIVE, U Benzodiazepines Scrn NEGATIVE, Urine Cocaine Screen NEGATIVE, U Cannabinoids Screen PRESUMPTIVE POSITIVE Assessment & Plan Assessment/Plan (1) Substance abuse: PLAN: Plan 1. Acute opiate withdrawal-patient will be admitted to [place] [address] and orders were entered using the opiate detox order set. Patient will be seen by addiction marriage and family social worker #2 opiate substance use disorder-patient will be seen by addiction marriage and family social worker Total clinical time spent by myself addressing the patient's medical issues, reviewing all of her data, and collaborating with the patient's care team: 40 minutes Charges/Coding Visit Charges Inpatient E&M: 10986 Init Hosp L1
[2025-02-12 22:29] VITALS: BP 109/64; PULSE 99; RESP 16; TEMP 36.9; O2SAT 98
[2025-02-13 04:00] VITALS: BP 97/63; PULSE 69; RESP 16; TEMP 36.7; O2SAT 98
--- NOTE | 2025-02-13 08:25 | PCM.PN.HOSP ---
Reason for Visit Chief Complaint: Opiate detox, opiate withdrawal Subjective Subjective Still feeling unwell, but overall improved. Objective Data Objective Data Vital Signs: Vital Signs Temp Pulse Resp BP Pulse Ox O2 Del Method 36.7 C 69 16 97/63 98 Room Air 02/13/25 04:00 02/13/25 04:00 02/13/25 04:00 02/13/25 04:00 02/13/25 04:00 02/13/25 04:00 Oxygen Delivery Method Room Air Weight: 50.7 kg Body Mass Index (BMI) 21.8 Lab / Micro Data 02/12/25 12:00 02/12/25 12:00 Labs: Laboratory Results - last 24 hr 02/12/25 12:00: WBC 5.8, RBC 4.77, Hgb 14.4, Hct 42.1, MCV 88.3, MCH 30.2, MCHC 34.2, RDW Std Deviation 40.7, RDW Coeff of Amalia 12.4, Plt Count 245, MPV 9.4, Immature Gran % (Auto) 0.300, Neut % (Auto) 66.9, Lymph % (Auto) 24.2, [place] % (Auto) 5.0, Eos % (Auto) 2.6, Baso % (Auto) 1.0, Absolute Neuts (auto) 3.9, Absolute Lymphs (auto) 1.40, Nucleated RBC % 0, Sodium 141, Potassium 3.9, Chloride 108, Carbon Dioxide 22.8, Anion Gap 10, BUN 12, Creatinine 0.66 L, Estim Creat Clear Calc 92.78, Est GFR (MDRD) Non-Af 124, BUN/Creatinine Ratio 17.9, Glucose 96, Calcium 9.3, Total Bilirubin 0.15, AST 15, ALT 15, Alkaline Phosphatase 83, Total Protein 7.2, Albumin 4.5, Globulin 2.7, Albumin/Globulin Ratio 1.6, Serum , Qual NEGATIVE, Ethyl Alcohol < 10.1 02/12/25 12:10: Urine Opiates Screen NEGATIVE, U Buprenorphine Qual NEGATIVE, Ur Oxycodone Screen NEGATIVE, Urine Methadone Screen NEGATIVE, Urine Fentanyl Screen PRESUMPTIVE POSITIVE, Ur Barbiturates Screen NEGATIVE, Ur Phencyclidine Scrn NEGATIVE, Ur Amphetamines Screen PRESUMPTIVE POSITIVE, U Benzodiazepines Scrn NEGATIVE, Urine Cocaine Screen NEGATIVE, U Cannabinoids Screen PRESUMPTIVE POSITIVE Physical Exam Const alert and no apparent distress HEENT head/scalp atraumatic and moist oral mucous membranes Neuro Sensorium / Orientation: awake and alert Psych affect normal Assessment & Plan Assessment/Plan (1) Substance abuse: PLAN: Plan Acute opiate withdrawal on buprenorphine taper. additional agents for acute somatic complaints. addiction medicine to see. Charges/Coding Visit Charges Inpatient E&M: 96018 Subs Hosp L1
[2025-02-13 08:53] VITALS: BP 111/66; PULSE 74; RESP 14; TEMP 36.7; O2SAT 96
--- NOTE | 2025-02-13 15:31 | NURSING ---
pt leaving ama. ama papers signed
--- NOTE | 2025-02-13 16:00 | DS.PCM_ITS ---
Providers Date of Admission: 02/12/25 Primary Care Physician: Tia Primary Care Phys Reason For Visit: SUBSTANCE USE DISORDER-NARCOTICS Diagnosis Discharge Diagnosis (1) Substance abuse: Status: Acute Code(s): F19.10 - Other psychoactive substance abuse, uncomplicated Plan Acute opiate withdrawal * on buprenorphine taper. additional agents for acute somatic complaints. * addiction medicine to see. Medications at Discharge Home Medications NK 02/12/25 Hospital Course Operations None Procedures None Summary of Care Provided Hospital Course: Patient was admitted for acute opiate withdrawal. Patient was admitted on the but was complaining of her tooth hurting and wanted to have that take care of his outpatient and left AGAINST MEDICAL ADVICE today. Weight / BMI Weight Weight: 50.7 kg Body Mass Index (BMI) 21.8 ABG / Lab / Microbiology Data 02/12/25 12:00 02/12/25 12:00 D/C Instructions DC O2, CPAP, BIPAP Needs Home O2 Discharge instructions: No Meaningful Use Info Meaningful Use Meaningful Use Diagnoses (Choose all that apply): None applicable Discharge Plan Admission Admit Date/Time: 02/12/25 13:51 Primary Reason for Your Visit: Acute opiate withdrawal Attending Provider: Alden Spear Primary Care Provider: Care Physician,No Primary Consulting Providers: Devante Cuadra Discharge Orders/Prescriptions Prescriptions: No Action NK Referrals / Follow Up: Care Physician,No Primary [Primary Care Provider, Medical] NOT,DEFINED [Non-Staff, None] Disposition Disposition (needs filled in before D/C Order can be placed): Against Medical Advice Charges/Coding Visit Charges Inpatient E&M: 01758 Disch Hosp
== END 2025-02-13 17:45 | disposition left against medical advice (07) | DRG 770 ==
LOC: ED 13:14 → MS3 13:58
PROVIDERS: Admitting Provider Internal Medicine; Emergency Provider Surgery
DX: F11.13 Opioid abuse with withdrawal (principal); F17.290 Nicotine dependence, other tobacco product, uncomplicated; Z53.29 Procedure and treatment not carried out because of patient's decision for other reasons
CPT/HCPCS: 80053; 80307; 82077; 84703; 85025; 99283